=== PATIENT | female | born 1965 | race Caucasian/White ===

== ENCOUNTER 2023-12-06 13:59 | Emergency (ER) | payer MEDICARE, MEDICAID, SELFPAY ==
--- NOTE | 2023-12-06 | ECG_ITS ---
Test Reason : CHEST PAIN Blood Pressure : / mmHG Vent. Rate : 095 BPM Atrial Rate : 095 BPM P-R Int : 126 ms QRS Dur : 078 ms QT Int : 356 ms P-R-T Axes : -16 020 010 degrees QTc Int : 447 ms Normal sinus rhythm Normal ECG No previous ECGs available Referred By: Generic ED Physician Electronically Signed By:AIDEN DUMONT
--- NOTE | ~2023-12-06 | XR_ITS ---
EXAMINATION: XR CHEST CLINICAL INFORMATION: Shortness of breath COMPARISON: None available. TECHNIQUE: Frontal view of the chest was obtained. FINDINGS: Elevation of the left hemidiaphragm. No pneumothorax. Trachea is midline. Cardiac mediastinal silhouette is not enlarged. No large pleural effusion. Osseous structures are intact. Soft tissues are unremarkable. XR/XR chest 1V IMPRESSION: No acute cardiopulmonary process.
[2023-12-06 14:10] VITALS: BP 132/84; BP 157/87; PULSE 100; PULSE 101; RESP 18; TEMP 36.8; O2SAT 97; O2SAT 98; BMI 16.6
--- NOTE | 2023-12-06 14:20 | ED.CHESTPAIN ---
HPI - Chest Pain General Chief Complaint: Chest Pain Stated Complaint: CHEST PAIN Time Seen by Provider: 12/06/23 14:14 Source: patient and EMS Mode of arrival: EMS History of Present Illness HPI narrative: 58-year-old female presents via EMS from [facility] where she resides for depression and patient states that she is having left-sided chest discomfort abdominal discomfort nausea and back pain. Patient received aspirin from EMS. Related Data Previous Rx's ?Medication ?Instructions ?Recorded nitrofurantoin 100 mg PO Q12H 7 days #14 caps 12/06/23 monohydrate/macrocrystals 100 mg capsule (Macrobid) Allergies Allergy/AdvReac Type Severity Reaction Status Date / Time Penicillins Allergy Rash Verified 12/06/23 14:11 Sulfa (Sulfonamide Allergy Rash Verified 12/06/23 14:11 Antibiotics) Review of Systems Review of Systems: Pertinent positives and negatives as stated in HPI PMFSH Past Medical History Source: nursing notes reviewed Social History Social History Smoked in Last 30 Days: No Use of substances other than those prescribed or required for medical reasons: No Advance Directives: No Advance Directives Information Provided: Yes Do you have a plan to hurt others: No Plan Patient : No Physical Exam Vital Signs: Vital Signs: Last Vital Signs Temp 98.3 F 12/06/23 14:10 Pulse 85 12/06/23 16:01 Resp 14 12/06/23 16:01 BP 153/84 H 12/06/23 16:01 Pulse Ox 98 12/06/23 16:01 O2 Del Method Room Air 12/06/23 16:01 BMI result Body Mass Index 16.6 VITAL SIGNS: Reviewed. GENERAL: Well developed, well nourished, in no acute distress. HEAD: Normocephalic/atraumatic EYES: PERRLA, EOMI EARS: Ext canals without abnormality NOSE: Nares patent bilateral OROPHARYNX: no oral lesions noted, posterior pharynx clear NECK: Supple, no adenopathy LUNGS: Normal breath sounds. No adventitious sounds or accessory muscle use. SpO2<97> CARDIOVASCULAR: Regular rate and rhythm without noted murmurs ABDOMEN: Soft, non-tender, non-distended with bowel sounds. MUSCULOSKELETAL: No tenderness, deformities, or effusions noted on gross inspection. EXTREMITIES: No cyanosis, clubbing or edema. SKIN: Inspection of the skin reveals no rashes NEUROLOGIC: Alert and oriented x 4. Strength and sensation to light touch were grossly intact x 4. Medical Decision Making Medical Decision Making [facility] Narrative: 58-year-old female who appears well and has a history and clinical presentation, DDX: Viral illness, musculoskeletal pain, lower clinical suspicion for cardiopulmonary etiology. I reviewed all investigations and hematologic indices are significant for a leukocytosis with a positive urinalysis and patient received initial antibiotics and will be discharged with remaining course. Otherwise there is no anemia. Chemistry indices are grossly within normal limits without any noted derangements. Chest x-ray is not significant for infiltrate or venous congestion on my preliminary read. I sensitivity troponin is undetectable and there are no acute changes on EKG. Patient is otherwise discharged. Differential Diagnosis Differential Diagnoses: The differential diagnosis associated with the presentation includes Please see the discussion above Admission/Observation Consideration of admission/observation: Escalation of care including admission/observation considered Please see the discussion above Lab Data [facility] Lab Attestation statement: I reviewed the patient's lab results. Please see the discussion above 12/06/23 14:33 12/06/23 14:33 Labs: Lab Results 12/06/23 12/06/23 Range/Units 14:33 16:02 WBC 12.4 H (4.8-10.8) X10*3/uL RBC 4.82 (4.20-5.50) X10*6/uL Hgb 12.5 (12.0-16.0) g/dl Hct 39.1 (37.0-47.0) % MCV 81.1 (80.0-98.0) fL MCH 25.9 L (27.0-33.0) pg MCHC 32.0 (31.0-35.0) g/dl RDW 14.4 (11.0-16.0) % Plt Count 514 H (160-400) X10*3/uL MPV 9.6 (9.4-12.3) fL Immature Gran % (Auto) 0.4 (0.0-0.4) % Neut % (Auto) 72.1 (45-73) % Lymph % (Auto) 16.5 L (20-40) % [place] % (Auto) 10.0 (2-11) % Eos % (Auto) 0.4 (0-4) % Baso % (Auto) 0.6 (0-2) % Lymph # (Auto) 2.0 (1.2-4.9) X10*3/uL [place] # (Auto) 1.2 (0.1-1.2) X10*3/uL Eos # (Auto) 0.1 (0.0-0.4) X10*3/uL Baso # (Auto) 0.1 (0.0-0.2) X10*3/uL Abs Immat Gran (auto) 0.05 H (0.00-0.03) X10*3/uL Absolute Neuts (auto) 8.9 H (2.0-8.3) x10*3/uL Absolute Nucleated RBC 0.000 (0.0-0.012) X10*3/uL Nucleated RBC % (auto) 0.0 (0.0-0.2) /100WBC Sodium 136 (135-145) mmol/L Potassium 3.9 (3.3-5.1) mmol/L Chloride 102 (96-108) mmol/L Carbon Dioxide 22 (22-29) mmol/L Anion Gap 16 (12-20) BUN 10 (9-16) mg/dL Creatinine 0.87 (0.5-1.4) mg/dL Estim Creat Clear Calc 53.5 Estimated GFR > 60 Random Glucose 74 (60-115) mg/dL Calcium 9.0 (8.4-10.2) mg/dL Total Bilirubin 0.3 (0.0-1.0) mg/dL AST 13 (5-31) U/L ALT 16 (0-31) U/L Alkaline Phosphatase 78 (39-117) U/L Troponin I High Sens 3.2 (<3.5-17.0) ng/L B-Natriuretic Peptide 58 (<100) pg/mL Total Protein 6.2 L (6.5-8.0) g/dL Albumin 3.8 (3.5-5.0) g/dL Urine Color Yellow Urine Appearance Clear Urine pH 6.5 (5.0-9.0) Ur Specific [place] 1.020 (1.005-1.025) Urine Protein 30 (1+) H (Neg-Trace) mg/dL Urine Glucose (UA) Negative (Negative) mg/dL Urine Ketones Negative (Negative) mg/dL Urine Blood Negative (Negative) Urine Nitrite Negative (Negative) Ur Leukocyte Esterase Moderate (2+) H (Negative) Urine RBC 0-2 (0-2) /HPF Urine WBC 21-50 H (0-5) /HPF Ur Squamous Epith Cells 6-10 (0-2) /HPF Urine Bacteria Trace (None Seen) Hyaline Casts 0-2 (0-2) /LPF Independent Interpretation I performed an independent interpretation of an: EKG Interpretation: Normal sinus rhythm, HR-95, STEMI, IL/QRS/QTC is within normal limits. Radiology Impression Discussion of test interpretation with radiology: I have reviewed the radiologist's reading. Radiologist Impression: Please see the discussion above Critical Care Time Critical Care Time Critical Care Time: Yes Total Critical Care Time: 45 Attestation: I personally attest to this time spent taking care of the patient. Discharge Plan Discharge Clinical Impression: Atypical chest pain, UTI (urinary tract infection) Patient Disposition: Xfer Other Instructions: Urinary Tract Infection in Older Adults (ED) Additional Instructions: Complete the entire course of antibiotics as ordered. Prescriptions: New nitrofurantoin monohyd/m-cryst [Macrobid] 100 mg capsule 100 mg PO Q12H 7 Days Qty: 14 0RF Rx Instructions: must administer with a meal/food Print Language: Ukrainian
[2023-12-06 14:38] LABS: MANUAL DIFF FLAG NO
[2023-12-06 14:39] LABS: Basophils Absolute Auto 0.1 X10*3/uL (0.0-0.2); Basophils Percent Auto 0.6 % (0-2); Eosinophils Absolute Auto 0.1 X10*3/uL (0.0-0.4); Eosinophils Percent Auto 0.4 % (0-4); Hematocrit 39.1 % (37.0-47.0); Hemoglobin 12.5 g/dl (12.0-16.0); Imm Gran Abs Auto 0.05 X10*3/uL (0.00-0.03); Imm Gran Pct Auto 0.4 % (0.0-0.4); Lymphocytes Percent Auto 16.5 % (20-40); Mean Corpuscular Hemoglobin 25.9 pg (27.0-33.0); Mean Corpuscular Volume 81.1 fL (80.0-98.0); Mean Platelet Volume 9.6 fL (9.4-12.3); Monocytes Absolute Auto 1.2 X10*3/uL (0.1-1.2); Neutrophils Absolute Auto 8.9 x10*3/uL (2.0-8.3); Neutrophils Percent Auto 72.1 % (45-73); Platelet Count 514 X10*3/uL (160-400); Red Blood Count 4.82 X10*6/uL (4.20-5.50); Red Cell Distribution Width 14.4 % (11.0-16.0); White Blood Count 12.4 X10*3/uL (4.8-10.8)
--- OUTSIDE RECORDS SUMMARY | 2023-12-06 14:41 | XMS_ITS | Continuity of Care Document ---
Author Organization [facility] Address [address] [place] [phone]- Care Team Providers Care Program Manufacturing Leader Name Role Phone Vi CASTAÑEDA, Leda Gore Primary Care Physician [place] [facility] [place] 05/03/[address] [address]- Discharge Disposition: A-D/C Home Attending Physician: Steven Alves MD Admitting Physician: Steven Alves MD Referring Physician: Not on Staff, Referring MD Allergies, Adverse Reactions, Alerts Substance Reaction Severity Status codeine Active penicillin Active sulfADIAZINE Active Bactrim Active Demerol HCl Active Contrast Dye Active Immunizations Given and Recorded Vaccine Date Status Refusal Reason pneumococcal 23-valent vaccine 1 01/15/11 Given Not Given Vaccine Date Status Refusal Reason influenza virus vaccine, inactivated 06/04/13 Not Given Patient Refuses 1Early/Late Reason: Nursing Judgment Medications albuterol CFC free 90 mcg/inh inhalation aerosol 1 puffs, Inhalation, Every 6 hours, PRN for wheezing, # 6 Gm, 0 Refills, Maintenance, Inhaler, 1 puffs Inhalation Every 6 hours,PRN:for wheezing Start Date: 07/18/13 Status: Ordered amLODIPine 5 mg oral tablet 5 mg, 1, tablet, By Mouth, Daily, # 14 tablet, Refills 0, Tot. Refills 0, Maintenance, 04/29/17 18:41:10, Print Requisition Start Date: 04/29/17 Stop Date: 05/13/17 Status: Ordered Ativan 0.5 mg oral tablet 1 tablet = 0.5 mg, By Mouth, 2 times a day, 0 Refills, Maintenance, 01/14/17 13:37:06, Tablet Start Date: 01/14/17 Status: Ordered Ativan 1 mg oral tablet 1 tablet = 1 mg, By Mouth, 3 times a day, 0 Refills, Maintenance, 10/16/16 15:33:02 Start Date: 10/16/16 Status: Ordered baclofen 10 mg oral tablet 1 tablet = 10 mg, By Mouth, 3 times a day, PRN Spasm, # 90 tablet, 0 Refills, Maintenance, 01/16/1411:28:03, Tablet, 1 tablet By Mouth 3 times a day,x30 days,PRN:Spasm Start Date: 01/16/14 Stop Date: 02/15/14 Status: Ordered docusate sodium 100 mg oral capsule 2 capsule = 200 mg, By Mouth, Daily at bedtime, # 60 capsule, 0 Refills, Maintenance, Capsule, 2 capsule By Mouth Daily at bedtime Start Date: 07/18/13 Status: Ordered Fentanyl 25 mcg/hr Patch 0 Refills, Maintenance, 01/14/17 13:36:09 Start Date: 01/14/17 Status: Ordered hydrocortisone 1% topical ointment 1 application, Topically, 2 times a day, # 30 Gm, 0 Refills, Maintenance, 11/06/16 16:41:49, Ointment, 1 application Topically 2 times a day Start Date: 11/06/16 Status: Ordered hydrOXYzine hydrochloride 25 mg/mL intramuscular solution = 25 mg, By Mouth, Every 4 hours, 0 Refills, Maintenance, 01/14/17 13:35:31 Start Date: 01/14/17 Status: Ordered Latuda 180, By Mouth, Daily at bedtime, 0 Refills, Maintenance, 10/15/15 6:42:23 Start Date: 10/15/15 Status: Ordered levothyroxine 125 mcg (0.125 mg) oral tablet 1 tablet = 125 mcg, By Mouth, Daily, # 30 tablet, 0 Refills, Maintenance, Tablet, 1 tablet By MouthDaily Start Date: 07/18/13 Status: Ordered Protonix Tablet = 20 mg, By Mouth, 2 times a day, 0 Refills, Maintenance, 01/16/14 11:48:24, EC Tablet Start Date: 01/16/14 Status: Ordered Senna = 8.6 mg, By Mouth, 0 Refills, Maintenance, 01/14/17 13:34:03 Start Date: 01/14/17 Status: Ordered Vitamin B Complex oral tablet, extended release 1 tablet, By Mouth, Daily, # 30 tablet, 0 Refills, Maintenance, ER Tablet, 1 tablet By Mouth Daily Start Date: 07/18/13 Status: Ordered Vitamin C 500 mg oral tablet 1 tablet = 500 mg, By Mouth, 2 times a day, # 60 tablet, 0 Refills, Maintenance, Tablet, 1 tablet By Mouth 2 times a day Start Date: 07/18/13 Status: Ordered Zofran 4 mg oral tablet 1 tablet = 4 mg, By Mouth, Every 8 hours, PRN Dizziness, # 9 tablet, 0 Refills, Maintenance, 10/25/18 15:14:58 EDT, Tablet Start Date: 10/25/18 Stop Date: 10/28/18 Status: Ordered Problem List Condition Effective Dates Status Health Status Inform ant Hypothyroid(Confirmed) Active Results Radiology Reports * Exam Date Time Procedure Performing Provider Status 05/03/21 4:15 AM Chest 2 Views Frontal and Lat Elis Cosme; Auth (Verified) Notes: (Chest 2 Views Frontal and Lat) Reason For Exam: Chest Pain;Other: RESULT: Chest 2 Views Frontal and Lat Chest 2 Views Frontal and Lat Hx of Present Illness: SOB abd pain; Reason: Other:; Chest Pain; Clinical Question(s): CHF COMPARISON: Multiple priors, most recent 12/12/2020. FINDINGS: LINES AND TUBES: None. LUNGS AND PLEURA: Chronic elevation of the left hemidiaphragm. The lungs are clear.. No pleural effusion. No pneumothorax. HEART, MEDIASTINUM AND HOLLY: Heart is normal in size. Normal upper mediastinal and hilar contour. BONES AND SOFT TISSUES: No acute abnormality. IMPRESSION: No acute abnormality. I have personally reviewed the images and I agree with this report. WSN: [id number] Ordering Physician: Gisselle Ribeiro Dictated By: Guido Santos DO Dictated Date/Time: 05/03/21 8:46 am Reviewed By: Alice Rankin MD Signed By: Alice Rankin MD Signed Date/Time: 05/03/21 8:51 am Transcribed By: RODRI Transcribed Date/Time: 05/03/21 8:33 am Vital Signs Most recent to oldest [Reference Range]: 1 2 3 Oxygen Saturation [94-100 %] 100 % (05/03/21 7:09 AM) 94 % (05/03/21 4:30 AM) 88 % *L* (05/03/21 4:10 AM) Pulse Rate [55-90 bpm] 82 bpm (05/03/21 7:09 AM) 90 bpm (05/03/21 3:03 AM) Blood Pressure [90-138/55-84 mm Hg] 122/79mm Hg (05/03/21 7:09 AM) 129/85mm Hg (05/03/21 3:03 AM) Respiratory Rate [16-30 br/min] 20 br/min (05/03/21 7:09 AM) 18 br/min (05/03/21 3:03 AM) Temperature [96.8-100.4 DegF] 98.3 DegF (05/03/21 3:03 AM) Liters per Minute 2 L/min (05/03/21 4:30 AM) Mode of Delivery (Oxygen) Room air (05/03/21 7:09 AM) Nasal cannula (05/03/21 4:30 AM) Room air (05/03/21 4:10 AM) Temperature Route Oral (05/03/21 3:03 AM) Social History Social History Type Response Smoking Status Never smoker entered on: 12/04/16 Sex
--- OUTSIDE RECORDS SUMMARY | 2023-12-06 14:41 | XMS_ITS | Continuity of Care Document ---
Author Organization [facility] Address [address] [place] [id number]- Care Team Providers Care Bellman Name Role Phone Vi CASTAÑEDA, Leda Gore Primary Care Physician [phone] Encounter [facility] [place] Date(s): 08/22/21 - 09/21/[address] [id number] Attending Physician: Not on Staff, Attending MD Admitting Physician: Not on Staff, Admitting MD Referring Physician: Not on Staff, Referring MD Allergies, Adverse Reactions, Alerts Substance Reaction Severity Status codeine Active penicillin Active Bactrim Active Contrast Dye Active sulfADIAZINE Active Demerol HCl Active Immunizations Given and Recorded Vaccine Date [...] mg, By Mouth, 2 times a day, PRN anxiety, 0 Refills, Maintenance, 01/14/17 13:37:06 EDT, Tablet Start Date: 01/14/17 Status: Ordered baclofen 10 mg oral tablet 1 tablet = 10 mg, By Mouth, 3 times a day, PRN Spasm, # 90 tablet, 0 Refills, Maintenance, 01/16/1411:28:03, Tablet, 1 tablet By Mouth 3 times a day,x30 days,PRN:Spasm Start Date: 01/16/14 Stop Date: 02/15/14 Status: Ordered Belsomra 10 mg oral tablet 1 tablet = 10 mg, By Mouth, Daily at bedtime, 0 Refills, Maintenance, 05/23/21 15:01:00 EDT, Partial fill upon patient request if the prescription is for a schedule II opioid drug. Start Date: 05/23/21 Status: Ordered duloxetine 30 mg oral enteric coated capsule 1 capsule = 30 mg, By Mouth, Daily, 0 Refills, Maintenance, 08/22/21 16:08:00 EST, Capsule, Partialfill upon patient request if the prescription is for a schedule II opioid drug. Start Date: 08/22/21 Status: Ordered fentaNYL 50 mcg/hr transdermal film, extended release 1 patch, Topically, Every 72 hours, 0 Refills, Maintenance, 05/23/21 15:01:00 EDT, Patch, Partial fill upon patient request if the prescription is for a schedule II opioid drug. Start Date: 05/23/21 Status: Ordered Latuda 120 mg oral tablet 1 tablet = 120 mg, By Mouth, Daily at supper, # 30 tablet, 0 Refills, Maintenance, 05/23/21 15:01:00 EDT, Tablet, Partial fill upon patient request if the prescription is for a schedule II opioid drug. Start Date: 05/23/21 Status: Ordered levothyroxine 0.1 mg oral tablet 1 tablet = 100 mcg, By Mouth, Daily, this is a dose reduction from previous dose of levothyroxine 0.112 mg, # 30 tablet, 1 Refills, Maintenance, 08/22/21 16:30:00 EST, Tablet, [facility][id number], Partial fill upon patient request if the presc... Start Date: 08/22/21 Status: Ordered meloxicam 7.5 mg oral tablet 1 tablet = 7.5 mg, By Mouth, 2 times a day with meals, PRN Pain , Moderate Start Date: 05/23/21 Status: Ordered Vitamin C 500 mg oral tablet 1 tablet = 500 mg, By Mouth, 2 times a day, # 60 tablet, 0 Refills, Maintenance, Tablet, 1 tablet By Mouth 2 times a day Start Date: 07/18/13 Status: Ordered VITAMIN D3 2000UNIT CAPSULES TAKE ONE CAPSULE BY MOUTH EVERY DAY WITH A MEAL Start Date: 05/23/21 Status: Ordered Problem List Condition Effective Dates Status Health Status Inform ant Chest pain(Confirmed) Active Hypertension(Confirmed) Active Hypothyroid(Confirmed) Active QT prolongation(Confirmed) Active Severe obesity(Confirmed) Active Social History Social History Type Response Smoking Status 10 or more cigarette s (1/2 pack or more)/day in last 30 days entered on: 05/24/21 Sex
--- OUTSIDE RECORDS SUMMARY | 2023-12-06 14:41 | XMS_ITS | Continuity of Care Document ---
Author Organization [facility] ter Address [address] [place] [address]- Care Team Providers Care Senior Sales Operations Analyst Name Role Phone Vi CASTAÑEDA, Leda Gore Primary Care Physician [phone] Encounter [facility] [place] Date(s): 07/07/22 - 07/07/[address] [address]- Discharge Disposition: A-D/C Walkout Attending Physician: Not on Staff, Attending MD Admitting Physician: Not on Staff, Admitting MD Referring Physician: Not on Staff, Referring MD Allergies, Adverse Reactions, Alerts Substance Reaction Severity Status codeine Active penicillin Active Contrast Dye Active sulfADIAZINE Active Bactrim Active Demerol HCl Active Immunizations Given and [...] Date: 04/29/17 Stop Date: 05/13/17 Status: Ordered aspirin 81 mg oral delayed release tablet = 81 mg, By Mouth, Daily, # 30 tablet, 0 Refills, Maintenance, 01/10/22 11:29:00 EDT, EC Tablet, [facility] #[id number], Partial fill upon patient request if the prescription is for a schedule II opioid drug., 165, cm, 11/28/21 12:34:00 EDT, Heig... Start Date: 01/10/22 Stop Date: 02/09/22 Status: Ordered Ativan 0.5 mg oral tablet [...] opioid drug. Start Date: 05/23/21 Status: Ordered fentaNYL 50 mcg/hr transdermal film, [...] drug. Start Date: 05/23/21 Status: Ordered levothyroxine 0.112 mg oral tablet TAKE 1 TABLET BY MOUTH EVERY DAY Start Date: 11/28/21 Status: Ordered meloxicam 7.5 mg oral tablet 1 tablet = 7.5 mg, By Mouth, 2 times a day with meals, PRN Pain , Moderate Start Date: 05/23/21 Status: Ordered Tums 500 mg oral tablet, chewable 500 mg, 1, tablet, Chew, 2 times a day, PRN, # 12 tablet, Refills 0, Tot. Refills 0, Maintenance, as needed for dyspepsia, 06/08/22 21:22:00 EDT, Route to Pharmacy Electronically, [facility] #[id number], Partial fill upon patient request if the p... Start Date: 06/08/22 Status: Ordered Problem List Condition Confirmation Course Effective Dates Status Health St [facility] Informant Chest pain Confirmed Active Hypertension Confirmed Active Hypothyroid Confirmed Active Obese class II Confirmed Active QT prolongation Confirmed Active Results Radiology Reports * Exam Date Time Procedure Performing Provider Status 07/07/22 6:44 PM Chest 2 Views Frontal and Lat Sandy Meza; Auth (Verified) Notes: (Chest 2 Views Frontal and Lat) Reason For Exam: Chest Pain;Other: RESULT: Chest 2 Views Frontal and Lat Chest 2 Views Frontal and Lat Hx of Present Illness: SOB x 30 minutes. Acute onset while watching tv. Denies CP. Dyspnea worse with walking, however also feels SOB at rest.; Reason: Other:; Chest Pain; Clinical Question(s): Other: COMPARISON: 06/23/2022 FINDINGS: LINES AND TUBES: None. LUNGS AND PLEURA: Low lung volumes with mild basilar atelectasis. Lungs are otherwise clear with no consolidation. No pleural effusion. No pneumothorax. HEART, MEDIASTINUM AND HOLLY: Heart is normal in size. Normal mediastinal and hilar contour. BONES AND SOFT TISSUES: No acute abnormality. IMPRESSION: No acute abnormality. WSN: [id number] Ordering Physician: Tino Arita Dictated By: Gaetano Stevenson MD Dictated Date/Time: 07/07/22 6:46 pm Reviewed By: Gaetano Stevenson MD Signed By: Gaetano Stevenson MD Signed Date/Time: 07/07/22 6:46 pm Transcribed By: RODRI Transcribed Date/Time: 07/07/22 6:45 pm Vital Signs Most recent to oldest [Reference Range]: 1 2 Height 167 cm (07/07/22 6:04 PM) Weight 91 kg (07/07/22 6:04 PM) Oxygen Saturation [94-100 %] 98 % (07/07/22 6:04 PM) 97 % (07/07/22 5:40 PM) Pulse Rate [55-90 bpm] 87 bpm (07/07/22 6:04 PM) 86 bpm (07/07/22 5:40 PM) Blood Pressure [90-138/55-84 mm Hg] 135/ 88mm Hg (07/07/22 6:04 PM) 162/100mm Hg *H* (07/07/22 5:40 PM) Respiratory Rate [16-30 br/min] 20 br/mi n (07/07/22 6:04 PM) 16 br/min (07/07/22 5:40 PM) Temperature [96.8-100.4 DegF] 98.6 DegF (07/07/22 6:04 PM) 98.0 DegF (07/07/22 5:40 PM) Mode of Delivery (Oxygen) Room air (07/07/22 6:04 PM) Room air (07/07/22 5:40 PM) Blood pressure sites Arm, left (07/07/22 6:04 PM) Temperature Route Oral (07/07/22 6:04 PM) Oral (07/07/22 5:40 PM) Dry Weight 91 kg (07/07/22 6:04 PM) Dry Weight Obtained Via Patient/family s tated (07/07/22 6:04 PM) Social History Social History Type Response Tobacco Use: 4 or less cigar ettes(less than 1/4 pack)/day in last 30 days. Sex Note * [facility] , CIS S: TRANSCRIBE Gaetano Stevenson MD: VERIFY Event Display: Result: Authored Date: Chest 2 Views Frontal and Lat Hx of Present Illness: SOB x 30 minutes. Acute onset while watching tv. Denies CP. Dyspnea worse with walking, however also feels SOB at rest.; Reason: Other:; Chest Pain; Clinical Question(s): Other: COMPARISON: 06/23/2022 FINDINGS: LINES AND TUBES: None. LUNGS AND PLEURA: Low lung volumes with mild basilar atelectasis. Lungs are otherwise clear with no consolidation. No pleural effusion. No pneumothorax. HEART, MEDIASTINUM AND HOLLY: Heart is normal in size. Normal mediastinal and hilar contour. BONES AND SOFT TISSUES: No acute abnormality. IMPRESSION: No acute abnormality. WSN: [id number] Ordering Physician: Tino Arita Dictated By: Gaetano Stevenson MD Dictated Date/Time: 07/07/22 6:46 pm Reviewed By: Gaetano Stevenson MD Signed By: Gaeatno Stevenson MD Signed Date/Time: 07/07/22 6:46 pm Transcribed By: RODRI Transcribed Date/Time: 07/07/22 6:45 pm Patient Care team information Care Team Personnel Name: Leda Lebron MD Position: [facility] Physician (General Medicine) Member Role: PCP Address: Address: [address] [place] [address] Name: Romina Henning Position: [facility] RN Member Role: Primary Care Nurse Name: Caron Short RN Position: [facility] ED RN W/OE and Tasks Member Role: Primary Care Nurse Name: Ashleigh Levy RN Position: [facility] RN Member Role: Primary Care Nurse Name: Jimbo Payne RN Position: [facility] RN Member Role: Primary Care Nurse Name: Vicky Kaur RN Position: [facility] Onco RN Member Role: Primary Care Nurse Name: Flores Gross RN Position: [facility] RN Member Role: Primary Care Nurse Name: Mally Chauhan RN Position: [facility] Hospital Senior Business Manager Member Role: Primary Care Nurse Name: Nedra Garza Position: [facility] RN Member Role: Primary Care Nurse Care Team Related Persons Name: ESTELA WRIGHT Address: home [address] [place] [address] Name: FLORES WRIGHT Address: home [address] [place] [address] Name: BEATRIZ WRIGHT Address: home [address] [place] [address] Name: FLORES CHAUHAN Address: home [address] [place] [address] Name: YAN CHAUHAN Address: home [address] [place] [address]
--- OUTSIDE RECORDS SUMMARY | 2023-12-06 14:41 | XMS_ITS | Continuity of Care Document ---
Author Organization [facility] Address [address] [place] [address]- Care Team Providers Care Data Warehouse Architect Name Role Phone Amelia CASTAÑEDA, Moiz Jones Primary Care Physician [place] [facility] [place] - 03/05/[address] [address]- Discharge Disposition: A-D/C Walkout Attending Physician: Not [...] Refills, Maintenance, 01/10/22 11:29:00 EDT, EC Tablet, [facility] #[id number], Partial fill upon patient request if the [...] opioid drug. Start Date: 05/23/21 Status: Ordered escitalopram 10 mg oral tablet 1 tablet = 10 mg, By Mouth, Daily, # 90 tablet, 0 Refills, Maintenance, 01/22/23 23:13:00 EDT, Tablet, Partial fill upon patient request if the prescription is for a schedule II opioid drug. Start Date: 01/22/23 Status: Ordered fentaNYL 50 mcg/hr transdermal film, extended release 1 patch, Topically, Every 72 hours, 0 Refills, Maintenance, 05/23/21 15:01:00 EDT, Patch, Partial fill upon patient request if the prescription is for a schedule II opioid drug. Start Date: 05/23/21 Status: Ordered hydrOXYzine hydrochloride 25 mg oral tablet 1 tablet = 25 mg, By Mouth, Daily, PRN as needed for itching, # 30 tablet, 0 Refills, Maintenance, 01/22/23 23:14:00 EDT, Tablet, Partial fill upon patient request if the prescription is for a schedule II opioid drug. Start Date: 01/22/23 Status: Ordered Latuda 120 mg oral tablet [...] 06/08/22 21:22:00 EDT, Route to Pharmacy Electronically, [facility] #[id number], Partial fill upon patient request if the p... Start Date: 06/08/22 Status: Ordered Problem List Condition Confirmation Course Effective Dates Status Health St atus Informant Chest pain Confirmed Active Hypertension Confirmed Active Hypothyroid Confirmed Active QT prolongation Confirmed Active Vital Signs Most recent to oldest [Reference Range]: 1 Height 168 cm (03/05/23 6:21 PM) Oxygen Saturation [94-100 %] 96 % (03/05/23 6:21 PM) Pulse Rate [55-90 bpm] 102 bpm *H* (03/05/23 6:21 PM) Blood Pressure [90-138/55-84 mm Hg] 186/ 103mm Hg *H* (03/05/23 6:21 PM) Temperature [96.8-100.4 DegF] 98.5 DegF (03/05/23 6:21 PM) Mode of Delivery (Oxygen) Room air (03/05/23 6:21 PM) Blood pressure sites Arm, left (03/05/23 6:21 PM) Temperature Route Oral (03/05/23 6:21 PM) Dry Weight 93.5 kg (03/05/23 6:21 PM) Weight Obtained Via Patient/family state d (03/05/23 6:21 PM) Dry Weight Obtained Via Patient/family s tated (03/05/23 6:21 PM) Social History Social History Type Response Tobacco Use: 4 or less cigar ettes(less than 1/4 pack)/day in last 30 days. Sex Patient Care team information Care Team Personnel Name: Caron Short RN Position: [facility] RN Member Role: Primary Care Nurse Name: Ashleigh Levy RN Position: [facility] RN Member Role: Primary Care Nurse Name: Jimbo Payne RN Position: [facility] RN Member Role: Primary Care Nurse Name: Moiz Cisneros MD Position: Reference Physician Member Role: PCP Address: Address: [address] [place] [address] Name: Vicky Kaur RN Position: [facility] Onco RN Member Role: Primary Care Nurse Name: Delmy Gross RN Position: [facility] RN Member Role: Primary Care Nurse Name: Mally Chauhan RN Position: [facility] Nurse'S Assistant Member Role: Primary Care Nurse Name: Nedra Garza RN Position: [facility] RN Member Role: Primary Care Nurse Care Team Related Persons Name: ESTELA WRIGHT Address: [address] [address] Name: DELMY WRIGHT Address: home [address] [place] [address] Name: BEATRIZ WRIGHT Address: home [address] [place] [address] Name: DELMY CHAUHAN Address: home [address] [place] [address] Name: YAN CHAUHAN Address: home [address] [place] [address]
--- OUTSIDE RECORDS SUMMARY | 2023-12-06 14:41 | XMS_ITS | Continuity of Care Document ---
Author Organization [facility] Address [address] [place] [address]- Care Team Providers Care Marketing Program Manager Name Role Phone Vi CASTAÑEDA, Leda Gore Primary Care Physician [place] [facility] [place](s): 05/10/23 - 05/11/[address] [address]- Discharge Disposition: A-D/C Walkout Attending Physician: Not on Staff, Attending MD Admitting Physician: Not on Staff, Admitting MD Referring Physician: Not on Staff, Referring MD Allergies, Adverse Reactions, Alerts Substance Reaction Severity Status codeine Active penicillin Active sulfADIAZINE Active Bactrim Active Demerol HCl Active Contrast Dye Active Immunizations Given and Recorded Vaccine Date Status Refusal Reason pneumococcal 23-valent vaccine 1 01/15/11 Given 1Early/Late Reason: Nursing Judgment Medications albuterol CFC [...] Refills, Maintenance, 01/10/22 11:29:00 EDT, EC Tablet, [facility] #[id number], Partial fill upon patient request if the [...] 06/08/22 21:22:00 EDT, Route to Pharmacy Electronically, [facility] #[id number], Partial fill upon patient request if the p... Start Date: 06/08/22 Status: Ordered Problem List Condition Confirmation Course Effective Dates Status Health St at[facility] Informant Chest pain Confirmed Active Hypertension Confirmed Active Hypothyroid Confirmed Active QT prolongation Confirmed Active Results Radiology Reports * Exam Date Time Procedure Performing Provider Status 05/10/23 8:23 PM Chest 2 Views Frontal and Lat [place] , Vasquez; Auth (Verified) Notes: (Chest 2 Views Frontal and Lat) Reason For Exam: Shortness of Breath RESULT: Chest 2 Views Frontal and Lat Chest 2 Views Frontal and Lat INDICATION: Shortness of breath with lower back pain. COMPARISON: Multiple prior radiographs, most recent 04/25/2023. FINDINGS: LINES AND TUBES: None. LUNGS AND PLEURA: Clear lungs. Normal pulmonary vascularity. No pleural effusion. No pneumothorax. HEART, MEDIASTINUM AND HOLLY: Heart is normal in size. Normal mediastinal and hilar contour. BONES AND SOFT TISSUES: No acute abnormality. IMPRESSION: No evidence of acute abnormality. I have personally reviewed the images and I agree with this report. WSN: [id number] Ordering Physician: Adin Vergara Dictated By: Tone Isaac MD Dictated Date/Time: 05/10/23 8:44 pm Reviewed By: Piero Youssef MD Signed By: Piero Youssef MD Signed Date/Time: 05/10/23 8:49 pm Transcribed By: RODRI Transcribed Date/Time: 05/10/23 8:26 pm Vital Signs Most recent to oldest [Reference Range]: 1 2 3 Height 170 cm (05/10/23 6:38 PM) Oxygen Saturation [94-100 %] 99 % (05/11/23 1:29 AM) 98 % (05/10/23 6:38 PM) 98 % (05/10/23 6:22 PM) Pulse Rate [55-90 bpm] 81 bpm (05/11/23 1:29 AM) 87 bpm (05/10/23 6:38 PM) Blood Pressure [90-138/55-84 mm Hg] 132/102mm Hg (05/11/23 1:29 AM) 163/92mm Hg *H* (05/10/23 6:38 PM) Respiratory Rate [16-30 br/min] 16 br/min (05/10/23 6:38 PM) Temperature [96.8-100.4 DegF] 98.4 DegF (05/11/23 1:29 AM) 97.9 DegF (05/10/23 6:38 PM) Liters per Minute 2 L/min (05/10/23 6:22 PM) Mode of Delivery (Oxygen) Room air (05/10/23 6:38 PM) Nasal cannula (05/10/23 6:22 PM) Blood pressure sites Arm, right (05/11/23 1:29 AM) Arm, right (05/10/23 6:38 PM) Temperature Route Oral (05/11/23 1:29 AM) Oral (05/10/23 6:38 PM) Dry Weight 93 kg (05/10/23 6:38 PM) Dry Weight Obtained Via Patient/family s tated (05/10/23 6:38 PM) Social History Social History Type Response Tobacco Use: 4 or less cigar ettes(less than 1/4 pack)/day in last 30 days. Sex EKG study * Event Display: EKG Authored Date: Patient Care team information Care Team Personnel Name: Leda Lebron MD Position: [facility] Physician (General Medicine) Member Role: PCP Address: Address: [address] [place] [id number] Name: Caron Short RN Position: S RN Member Role: Primary Care Nurse Name: Ashleigh Levy RN Position: S RN Member Role: Primary Care Nurse Name: Jimbo Payne RN Position: [facility] RN Member Role: Primary Care Nurse Name: Vicky Kaur RN Position: [facility] Onco RN Member Role: Primary Care Nurse Name: Flores Gross RN Position: [facility] RN Member Role: Primary Care Nurse Name: Mally Chauhan RN Position: [facility] Hospital Dust Control Engineer Member Role: Primary Care Nurse Name: Nedra Garza RN Position: [facility] RN Member Role: Primary Care Nurse Care Team Related Persons Name: ESTELA WRIGHT Address: home [address] [place] [address] Name: FLORES WRIGHT Address: home [address] [place] [address] Name: BEATRIZ WRIGHT Address: home [address] [place] [address] Name: FLORES CHAUHAN Address: home [address] [place] [address] Name: YAN CHAUHAN Address: [address] [address]
--- OUTSIDE RECORDS SUMMARY | 2023-12-06 14:41 | XMS_ITS | Continuity of Care Document ---
Author Organization [facility] ter Address [address] [place] [id number]- Care Team Providers Care Pamphlet Distributor Name Role Phone Vi CASTAÑEDA, Leda Gore Primary Care Physician Encounter [facility] [place] Date(s): 01/23/23 - 01/23/[address] [address]- Discharge Disposition: A-D/C Walkout Attending Physician: Not [...] Refills, Maintenance, 01/10/22 11:29:00 EDT, EC Tablet, [facility] #[id number], Partial fill upon patient request if the [...] 06/08/22 21:22:00 EDT, Route to Pharmacy Electronically, [facility] #[id number], Partial fill upon patient request if the p... Start Date: 06/08/22 Status: Ordered Problem List Condition Confirmation Course Effective Dates Status Health St at[facility] Informant Chest pain Confirmed Active Hypertension Confirmed Active Hypothyroid Confirmed Active QT prolongation Confirmed Active Vital Signs Most recent to oldest [Reference Range]: 1 Height 170 cm (01/23/23 6:21 PM) Oxygen Saturation [94-100 %] 97 % (01/23/23 6:21 PM) Pulse Rate [55-90 bpm] 99 bpm *H* (01/23/23 6:21 PM) Blood Pressure [90-138/55-84 mm Hg] 171/ 89mm Hg 1 *H* (01/23/23 6:21 PM) Respiratory Rate [16-30 br/min] 19 br/mi n (01/23/23 6:21 PM) Temperature [96.8-100.4 DegF] 98.4 DegF (01/23/23 6:21 PM) Mode of Delivery (Oxygen) Room air (01/23/23 6:21 PM) Blood pressure sites Arm, left (01/23/23 6:21 PM) Temperature Route Oral (01/23/23 6:21 PM) Dry Weight 93.2 kg (01/23/23 6:21 PM) Dry Weight Obtained Via Patient/family s tated (01/23/23 6:21 PM) 1Result Comment: AMY BUTTS AWARED Social History Social History Type Response Tobacco Use: 4 or less cigar ettes(less than 1/4 pack)/day in last 30 days. Sex Patient Care team information Care Team Personnel Name: Leda Lebron MD Position: [facility] Physician (General Medicine) Member Role: PCP Address: Address: [address] [place] [address]- Name: Caron Short RN Position: [facility] ED RN W/OE and Tasks Member Role: Primary Care Nurse Name: Ashleigh Levy RN Position: [facility] RN Member Role: Primary Care Nurse Name: Jimbo Payne RN Position: [facility] RN Member Role: Primary Care Nurse Name: Vincent RNVicky Position: [facility] Onco RN Member Role: Primary Care Nurse Name: Delmy Gross RN Position: [facility] RN Member Role: Primary Care Nurse Name: Mally Chauhan RN Position: [facility] Hospital Brine Tank Tender Member Role: Primary Care Nurse Name: Nedra Garza RN Position: [facility] RN Member Role: Primary Care Nurse Care Team Related Persons Name: ESTELA WRIGHT Address: home [address] [place] [address] Name: DELMY WRIGHT Address: home [address] [place] [address] Name: BEATRIZ WRIGHT Address: home [address] [place] [address] Name: DELMY CHAUHAN Address: home [address] [place] [address] Name: YAN CHAUHAN Address: home [address] [place] [address]
--- OUTSIDE RECORDS SUMMARY | 2023-12-06 14:41 | XMS_ITS | Continuity of Care Document ---
Author Organization [facility] ter Address [address] [place] [address]- Care Team Providers Care Efficiency Miner Blasting Name Role Phone Amelia CASTAÑEDA, Moiz Jones Primary Care Physician En[place] [facility] [place] Date(s): 10/05/23 - 10/06/[address] [address]- Discharge Disposition: A-D/C Walkout Attending Physician: Not on Staff, Attending MD Admitting Physician: Not on Staff, Admitting MD Referring Physician: Not on Staff, Referring MD Allergies, Adverse Reactions, Alerts Substance Reaction Severity Status codeine Active penicillin Active Contrast Dye Active sulfADIAZINE Active Bactrim Active Demerol HCl Active Immunizations Given and Recorded Vaccine Date Status Refusal Reason pneumococcal 23-valent vaccine 1 01/15/11 Given tetanus-diphtheria toxoids (Td) 08/10/02 Recorded 1Early/Late Reason: Nursing Judgment Medications albuterol CFC [...] Refills, Maintenance, 01/10/22 11:29:00 EDT, EC Tablet, [facility] #[id number], Partial fill upon patient request if the [...] opioid drug. Start Date: 01/22/23 Status: Ordered levothyroxine 0.112 mg oral tablet TAKE 1 TABLET BY MOUTH EVERY DAY Start Date: 11/28/21 Status: Ordered lurasidone 80 mg oral tablet = 80 mg, By Mouth, Daily at supper, # 30 each, 1 Refills, Maintenance, 10/01/23 10:59:00 EST, Tablet, [facility] #[id number], Partial fill upon patient request if the prescription is for a schedule II opioid drug., 169, cm, 10/01/23 9:15:00 EST,... Start Date: 10/01/23 Stop Date: 11/30/23 Status: Ordered meloxicam 7.5 mg oral tablet 1 tablet = 7.5 mg, By Mouth, 2 times a day with meals, PRN Pain , Moderate Start Date: 05/23/21 Status: Ordered nicotine 21 mg/24 hr transdermal film, extended release 1 patch, Topically, Daily, for 14 days, # 14 patch, 0 Refills, Acute 10/15/23 11:00:00 EST, 10/01/23 11:00:00 EST, Patch, [facility] #[id number], Partial fill upon patient request if the prescription is for a schedule II opioid drug., 1 patch Top... Start Date: 10/01/23 Stop Date: 10/15/23 Status: Ordered Tums 500 mg oral tablet, chewable 500 mg, 1, tablet, Chew, 2 times a day, PRN, # 12 tablet, Refills 0, Tot. Refills 0, Maintenance, as needed for dyspepsia, 06/08/22 21:22:00 EDT, Route to Pharmacy Electronically, [email or web address] #[email or web address], Partial fill upon patient request if the p... Start Date: 06/08/22 Status: Ordered Problem List Condition Confirmation Course Effective Dates Status Health St atus Informant Benign essential hypertension Confirmed Active Chest pain Confirmed Active Recurrent chest pain Confirmed Active Chronic back pain Confirmed Active Chronic constipation Confirmed Active B12 deficiency Confirmed Active Edema leg Confirmed Active Fibromyalgia Confirmed Active Fragile X syndrome Confirmed Active GERD without esophagitis Confirmed Active Headache disorder Confirmed Active History of traumatic brain injury Confirmed Active Hypertension Confirmed Active Hyponatremia Confirmed Active Hypothyroid Confirmed Active Leukocytosis Confirmed Active Mild intermittent asthma Confirmed Active Obese class I Confirmed Active Pre-diabetes Confirmed Active QT prolongation Confirmed Active Psychogenic polydipsia Confirmed Active Results Radiology Reports * Exam Date Time Procedure Performing Provider Status 10/06/23 12:25 AM Chest 2 Views Frontal and Lat [place]; Auth (Verified) Notes: (Chest 2 Views Frontal and Lat) Reason For Exam: Chest Pain;Other: RESULT: Chest 2 Views Frontal and Lat Examination: Chest performed on 10/06/2023. History: Shortness of breath. Findings: Frontal and lateral views of the chest are compared to a prior study dated 09/26/2023. The cardiac and mediastinal silhouettes are within normal limits. The lungs are clear. Scoliosis ispresent. There is a hiatal hernia. Impression: There is no acute cardiopulmonary disease. WSN: [id number] Ordering Physician: Lizeth Oneal Dictated By: Tiffany Lyles MD Dictated Date/Time: 10/06/23 7:36 am Reviewed By: Tiffany Lyles MD Signed By: Tiffany Lyles MD Signed Date/Time: 10/06/23 7:36 am Transcribed By: RODRI Transcribed Date/Time: 10/06/23 7:36 am Vital Signs Most recent to oldest [Reference Range]: 1 2 Height 168 cm (10/05/23 10:48 PM) 168 cm (10/05/23 7:35 PM) Weight 93.3 kg (10/05/23 10:48 PM) 93.3 kg (10/05/23 7:35 PM) Oxygen Saturation [94-100 %] 98 % (10/06/23 5:07 AM) 96 % (10/05/23 7:35 PM) Pulse Rate [55-90 bpm] 80 bpm (10/06/23 5:07 AM) 91 bpm *H* (10/05/23 7:35 PM) Body Mass Index [18.5-24.99 kg/m2] 33.06 kg/m2 *>HHI* (10/05/23 7:35 PM) Blood Pressure [90-138/55-84 mm Hg] 125/ 81mm Hg (10/06/23 5:07 AM) 154/86mm Hg *H* (10/05/23 7:35 PM) Respiratory Rate [16-30 br/min] 17 br/mi n (10/05/23 7:35 PM) Temperature [96.8-100.4 DegF] 97.9 DegF (10/06/23 5:07 AM) 98.3 DegF (10/05/23 7:35 PM) Mode of Delivery (Oxygen) Room air (10/06/23 5:07 AM) Room air (10/05/23 7:35 PM) Blood pressure sites Arm, left (10/06/23 5:07 AM) Arm, left (10/05/23 7:35 PM) Temperature Route Oral (10/06/23 5:07 AM) Oral (10/05/23 7:35 PM) Dry Weight 93.3 kg (10/05/23 10:48 PM) 93.3 kg (10/05/23 7:35 PM) Weight Obtained Via Standing scale (10/05/23 7:35 PM) Dry Weight Obtained Via Standing scale (10/05/23 7:35 PM) Social History Social History Type Response Tobacco Interested in cessat ion: No. Yes Sex EKG study * Event Display: EKG Authored Date: * Event Display: ECG 12-Lead Authored Date: Please click on pdf link to open report * Event Display: ECG 12-Lead Authored Date: Ventricular Rate: 85 BPM Atrial Rate: 85 BPM P-R Interval: 136 ms QRS Duration: 74 ms Q-T Interval: 410 ms QTC Calculation(Bazett): 487 ms P [place]: -15 degrees R [place]: 14 degrees T [place]: 17 degrees Normal sinus rhythm Normal ECG When compared with ECG of 30-SEP-2023 08:47, T wave amplitude has decreased in Anterior leads Confirmed by ELY QUESADA MD ([id number]) on 10/06/2023 8:30:54 AM [place]: ELY QUESADA MD Patient Care team information Care Team Personnel Name: Clemencia Camargo RN Position: [facility] RN Member Role: Primary Care Nurse Name: Nikkie Tubbs Position: [facility] Outreach Member Role: Lifetime Consulting Physician Name: Caron Short RN Position: [facility] RN Member Role: Primary Care Nurse Name: Prachi Negron RN Position: [facility] RN Member Role: Primary Care Nurse Name: Tami Soler RN Position: [facility] RN Member Role: Primary Care Nurse Name: Ashleigh Mercado RN Position: [facility] RN Member Role: Primary Care Nurse Name: Heidi Moreland Position: [facility] RN Member Role: Primary Care Nurse Name: Ashleigh Levy RN Position: [facility] Onco RN Member Role: Primary Care Nurse Name: Jimbo Payne RN Position: [facility] RN Member Role: Primary Care Nurse Name: Moiz Cisneros MD Position: Reference Physician Member Role: PCP Address: Address: [address] [place], [place] [address] Name: Danie Maza RN Position: [facility] RN Member Role: Primary Care Nurse Name: Vicky Kaur RN Position: [facility] Onco RN Member Role: Primary Care Nurse Name: Flores Gross RN Position: [facility] RN Member Role: Primary Care Nurse Name: Mally Chauhan RN Position: [facility] Hospital Commercial Real Estate Associate Member Role: Primary Care Nurse Name: Nedra Garza RN Position: [facility] RN Member Role: Primary Care Nurse Care Team Related Persons Name: ESTELA WRIGHT Address: home [address] [place] [address] Name: FLORES WRIGHT Address: home [address] [place] [address] Name: BEATRIZ WRIGHT Name: FLORES CHAUHAN Address: home [address] [place] [address] Name: YAN CHAUHAN Address: home [address] [place] [address]
--- OUTSIDE RECORDS SUMMARY | 2023-12-06 14:41 | XMS_ITS | Continuity of Care Document ---
Author Organization [facility] ter Address [address] [place] [id number]- Care Team Providers Care Ad Compositor Name Role Phone Vi CASTAÑEDA, Leda Gore Primary Care Physician Encounter [facility] [place] Date(s): 05/23/21 - 05/24/[address] [id number]- Encounter Diagnosis Hypoxia(Final) - 05/23/21 Discharge Disposition: A-D/C Home Attending Physician: Marsha Maciel DO Admitting Physician: Panfilo Iraheta MD Referring Physician: Not on Staff, Referring MD Allergies, Adverse Reactions, Alerts Substance Reaction Severity Status codeine Active penicillin Active Contrast Dye Active Demerol HCl Active sulfADIAZINE Active Bactrim Active Immunizations Given and Recorded Vaccine Date [...] 13:37:06, Tablet Start Date: 01/14/17 Status: Ordered baclofen 10 mg oral tablet 10 mg, Tablet, By Mouth, 3 times a day, PRN for Spasm, Routine, 05/23/21 15:54:00 EDT Start Date: 05/23/21 Stop Date: 05/25/21 Status: Discontinued baclofen 10 mg oral tablet 1 tablet [...] opioid drug. Start Date: 05/23/21 Status: Ordered FENTanyl Patch 50 mcg, Patch, Topically, Apply to Back, Dose at 50 mcg/hr, 05/24/21 9:00:00 EDT Start Date: 05/24/21 Stop Date: 05/24/21 Status: Completed fentaNYL 50 mcg/hr transdermal film, extended release 1 patch, Topically, Every 72 hours, 0 Refills, Maintenance, 05/23/21 15:01:00 EDT, Patch, Partial fill upon patient request if the prescription is for a schedule II opioid drug. Start Date: 05/23/21 Status: Ordered ibuprofen 600 mg oral tablet 600 mg, Tablet, By Mouth, 05/24/21 9:00:00 EDT, Stop date 05/24/21 9:00:00 EDT Start Date: 05/24/21 Stop Date: 05/24/21 Status: Completed Latuda 120 mg oral tablet 1 tablet = 120 mg, By Mouth, Daily at supper, # 30 tablet, 0 Refills, Maintenance, 05/23/21 15:01:00 EDT, Tablet, Partial fill upon patient request if the prescription is for a schedule II opioid drug. Start Date: 05/23/21 Status: Ordered levothyroxine 0.112 mg oral tablet 1 tablet = 112 mcg, By Mouth, Daily, # 30 tablet, 0 Refills, Maintenance, 05/23/21 15:01:00 EDT, Tablet, Partial fill upon patient request if the prescription is for a schedule II opioid drug. Start Date: 05/23/21 Status: Ordered meloxicam 7.5 mg oral tablet 1 tablet = 7.5 mg, By Mouth, 2 times a day with meals Start Date: 05/23/21 Status: Ordered Vitamin C [...] Hypertension(Confirmed) Active Hypothyroid(Confirmed) Active QT prolongation(Confirmed) Active Results Radiology Reports * Exam Date Time Procedure Performing Provider Status 05/22/21 10:21 PM Chest Portable Laly Godoy; Auth (Verified) Notes: (Chest Portable) Reason For Exam: Shortness of Breath RESULT: Chest Portable Chest Portable INDICATION: Shortness of breath. COMPARISON: Multiple prior studies most recent 05/08/2021. FINDINGS: LINES AND TUBES: None. LUNGS AND PLEURA: Clear lungs. Normal pulmonary vascularity. No pleural effusion. No pneumothorax. Chronic elevation left hemidiaphragm. HEART, MEDIASTINUM AND HOLLY: Heart is normal in size. Normal upper mediastinal and hilar contour. BONES AND SOFT TISSUES: No acute abnormality. IMPRESSION: No acute abnormality. I have personally reviewed the images and I agree with this report. WSN: [id number] Ordering Physician: Rosa Valverde Dictated By: Radha Cota MD Dictated Date/Time: 05/22/21 10:35 p Reviewed By: Suraj Alvarado MD Signed By: Suraj Alvarado MD Signed Date/Time: 05/22/21 10:40 pm Transcribed By: RODRI Transcribed Date/Time: 05/22/21 10:32 pm Vital Signs Most recent to oldest [Reference Range]: 1 2 3 4 Height 168 cm (05/24/21 8:44 AM) 168 cm (05/24/21 7:49 AM) 168 cm (05/23/21 4:17 PM) Weight 121 kg (05/23/21 4:17 PM) Oxygen Saturation [94-100 %] 97 % (05/24/21 8:44 AM) 100 % (05/24/21 7:49 AM) 98 % (05/23/21 7:00 PM) Pulse Rate [55-90 bpm] 93 bpm *H* (05/24/21 8:44 AM) 99 bpm *H* (05/24/21 7:49 AM) 98 bpm *H* (05/23/21 7:00 PM) Body Mass Index [18.5-24.99] 42.87 *>HHI* (05/23/21 4:17 PM) Blood Pressure [90-138/55-84 mm Hg] 143/78mm Hg *H* (05/24/21 8:44 AM) 123/98mm Hg (05/24/21 7:49 AM) 147/77mm Hg *H* (05/23/21 7:00 PM) Respiratory Rate [16-30 br/min] 17 br/min (05/24/21 2:52 PM) 2 br/min *L* (05/24/21 10:47 AM) 18 br/min (05/24/21 10:47 AM) Temperature [96.8-100.4 DegF] 97.4 DegF (05/24/21 8:44 AM) 98.9 DegF (05/24/21 7:49 AM) 98.3 DegF (05/23/21 7:00 PM) Liters per Minute 2 L/min (05/23/21 1:43 AM) 2 L/min (05/22/21 11:09 PM) 2 L/min (05/22/21 9:05 PM) 2 L/min (05/22/21 9:05 PM) Mode of Delivery (Oxygen) Room air (05/24/21 8:44 AM) Room air (05/24/21 7:49 AM) Room air (05/23/21 7:00 PM) Blood pressure sites Arm, left (05/24/21 8:44 AM) Arm, left (05/24/21 7:49 AM) Arm, right (05/23/21 7:00 PM) Temperature Route Oral (05/24/21 8:44 AM) Oral (05/24/21 7:49 AM) Oral (05/23/21 7:00 PM) Dry Weight 121 kg (05/23/21 4:17 PM) Weight Obtained Via Standing scale (05/23/21 4:17 PM) Dry Weight Obtained Via Standing scale (05/23/21 4:17 PM) Social History Social History Type Response Smoking Status 10 or more cigarette s (1/2 pack or more)/day in last 30 days entered on: 05/24/21 Sex
--- OUTSIDE RECORDS SUMMARY | 2023-12-06 14:41 | XMS_ITS | Continuity of Care Document ---
Author Organization [facility] ter Address [address] [place] [id number]- Care Team Providers Care Invasive Cardiovascular Technologist Name Role Phone Vi CASTAÑEDA, Leda Gore Primary Care Physician [phone] [place] [facility] [place] - 05/30/[address] [address]- Discharge Disposition: A-D/C Walkout Attending Physician: Not [...] Refills, Maintenance, 01/10/22 11:29:00 EDT, EC Tablet, [id number], Partial fill upon patient request if the [...] opioid drug. Start Date: 05/23/21 Status: Ordered cephalexin monohydrate 500 mg oral capsule 1 capsule = 500 mg, By Mouth, 4 times a day, for 5 days, # 20 capsule, 0 Refills, Acute 06/03/22 23:28:00 EDT, 05/29/22 23:28:00 EDT, Capsule, [facility] #[id number], Partial fill upon patient request if the prescription is for a schedule II opio... Start Date: 05/29/22 Stop Date: 06/03/22 Status: Ordered fentaNYL 50 mcg/hr transdermal film, [...] , Moderate Start Date: 05/23/21 Status: Ordered Problem List Condition Confirmation Course Effective Dates Status Health St atus Informant Chest pain Confirmed Active Hypertension Confirmed Active Hypothyroid Confirmed Active Obese class I Confirmed Active QT prolongation Confirmed Active Vital Signs Most recent to oldest [Reference Range]: 1 2 3 Oxygen Saturation [94-100 %] 97 % (05/30/22 5:33 AM) 100 % (05/30/22 1:24 AM) 97 % (05/30/22 1:22 AM) Pulse Rate [55-90 bpm] 95 bpm *H* (05/30/22 5:33 AM) 108 bpm *H* (05/30/22 1:24 AM) 113 bpm *H* (05/30/22 1:22 AM) Blood Pressure [90-138/55-84 mm Hg] 139/76mm Hg *H* (05/30/22 5:33 AM) 127/88mm Hg (05/30/22 1:24 AM) Respiratory Rate [16-30 br/min] 18 br/min (05/30/22 1:24 AM) 18 br/min (05/30/22 1:22 AM) Temperature [96.8-100.4 DegF] 98 DegF (05/30/22 5:33 AM) 98.1 DegF (05/30/22 1:24 AM) Mode of Delivery (Oxygen) Room air (05/30/22 5:33 AM) Room air (05/30/22 1:24 AM) Room air (05/30/22 1:22 AM) Blood pressure sites Arm, right (05/30/22 5:33 AM) Arm, right (05/30/22 1:24 AM) Temperature Route Oral (05/30/22 5:33 AM) Oral (05/30/22 1:24 AM) Social History Social History Type Response Smoking Status 10 or more cigarette s (1/2 pack or more)/day in last 30 days entered on: 05/24/21 Sex Patient Care team information Personnel Name: Vi CASTAÑEDA, Leda Gore Address: Address: [address] [place] [id number]
--- OUTSIDE RECORDS SUMMARY | 2023-12-06 14:41 | XMS_ITS | Continuity of Care Document ---
Author Organization [facility] ter Address [address] [place] [address]- Care Team Providers Care Caustic Room Operator Name Role Phone Vi CASTAÑEDA, Lead Gore Primary Care Physician [phone] Encounter [facility] [place] Date(s): 04/14/21 - 04/15/[address] [address]- Discharge Disposition: A-D/C Walkout Attending Physician: Not [...] Status Health Status Inform ant Hypothyroid(Confirmed) Active Vital Signs Most recent to oldest [Reference Range]: 1 Oxygen Saturation [94-100 %] 95 % (04/14/21 10:26 PM) Pulse Rate [55-90 bpm] 97 bpm *H* (04/14/21 10:26 PM) Blood Pressure [90-138/55-84 mm Hg] 138/ 83mm Hg (04/14/21 10:26 PM) Respiratory Rate [16-30 br/min] 18 br/mi n (04/14/21 10:26 PM) Temperature [96.8-100.4 DegF] 99.2 DegF (04/14/21 10:26 PM) Mode of Delivery (Oxygen) Room air (04/14/21 10:26 PM) Blood pressure sites Arm, right (04/14/21 10:26 PM) Temperature Route Oral (04/14/21 10:26 PM) Social History Social History Type Response Smoking Status Never smoker entered on: 12/04/16 Sex
--- OUTSIDE RECORDS SUMMARY | 2023-12-06 14:41 | XMS_ITS | Continuity of Care Document ---
Author Organization [facility] Address [address] [place] [id number]- Care Team Providers Care Measurement Department Chief Clerk Name Role Phone Vi CASTAÑEDA, Leda Gore Primary Care Phys[place] [facility] [place] - 11/23/[address] [id number] Discharge Disposition: A-D/C Home Attending Physician: Ramesh Styles DO Admitting Physician: Ramesh Styles DO Referring Physician: Ramesh Styles DO Allergies, Adverse Reactions, Alerts Substance Reaction Severity Status codeine rash Active penicillin rash Active sulfADIAZINE rash Active sulfa drugs rash Active Bactrim unsure Active Demerol HCl unsure Active Contrast Dye unsure Active Other Environmental Allergy seasonal allergies Active Immunizations Given and Recorded Vaccine Date Status Refusal Reason pneumococcal 23-valent vaccine 1 01/15/11 Given tetanus-diphtheria toxoids (Td) 08/10/02 Recorded 1Early/Late Reason: Nursing Judgment Medications acetaminophen 325 mg oral tablet 975 mg, By Mouth, Every 8 hours, for 14 days, # 126 tablet, Refills 0, Tot. Refills 0, Acute 12/04/23 14:45:00 EDT, 11/20/23 14:45:00 EDT, Route to Pharmacy Electronically, [facility], Partial fill upon patient request if the prescriptio... Start Date: 11/20/23 Stop Date: 12/04/23 Status: Ordered Advil 200 mg oral tablet 1 tablet = 200 mg, By Mouth, 2 times a day, 0 Refills, Maintenance, 10/19/23 10:30:00 EDT, Partial fill upon patient request if the prescription is for a schedule II opioid drug. Start Date: 10/19/23 Status: Ordered albuterol CFC free 90 mcg/inh inhalation aerosol 1 puffs, Inhalation, Every 6 hours, PRN for wheezing, # 6 Gm, 0 Refills, Maintenance, Inhaler, 1 puffs Inhalation Every 6 hours,PRN:for wheezing Start Date: 07/18/13 Status: Ordered amLODIPine 5 mg oral tablet 5 mg, Tablet, By Mouth, 11/23/23 9:00:00 EDT Start Date: 11/23/23 Stop Date: 11/23/23 Status: Completed amLODIPine 5 mg oral tablet 5 mg, 1, tablet, By Mouth, Daily, # 14 tablet, Refills 0, Tot. Refills 0, Maintenance, 04/29/17 18:41:10, Print Requisition Start Date: 04/29/17 Stop Date: 05/13/17 Status: Ordered duloxetine 60 mg oral enteric coated capsule 1 capsule = 60 mg, By Mouth, Daily in AM, 0 Refills, Maintenance, 10/19/23 9:24:00 EDT, EC Capsule,Partial fill upon patient request if the prescription is for a schedule II opioid drug. Start Date: 10/19/23 Status: Ordered escitalopram 20 mg oral tablet 1.5 tablet = 30 mg, By Mouth, Daily in AM, 0 Refills, Maintenance, 10/19/23 9:24:00 EDT, Tablet, Partial fill upon patient request if the prescription is for a schedule II opioid drug. Start Date: 10/19/23 Status: Ordered gabapentin 300 mg oral capsule 300 mg, By Mouth, 3 times a day, # 42 capsule, Refills 0, Tot. Refills 0, Maintenance, 11/20/23 16:15:00 EDT, Route to Pharmacy Electronically, [facility], Partial fill upon patient request if the prescription is for a schedule II opioid... Start Date: 11/20/23 Stop Date: 12/04/23 Status: Ordered Gabapentin Capsule 300 mg, Capsule, By Mouth, 11/23/23 9:00:00 EDT Start Date: 11/23/23 Stop Date: 11/23/23 Status: Completed levothyroxine 0.112 mg oral tablet 1 tablet = 112 mcg, By Mouth, Daily in AM Start Date: 11/28/21 Status: Ordered LORazepam 0.5 mg oral tablet 1 tablet = 0.5 mg, By Mouth, 2 times a day, PRN as needed for anxiety, 0 Refills, Maintenance, 10/19/23 9:48:00 EDT, Tablet, Partial fill upon patient request if the prescription is for a schedule IIopioid drug. Start Date: 10/19/23 Status: Ordered lurasidone 80 mg oral tablet = 80 mg, By Mouth, Daily at supper, # 30 each, 1 Refills, Maintenance, 10/01/23 10:59:00 EST, Tablet, [id number], Partial fill upon patient request if the prescription is for a schedule II opioid drug., 169, cm, 10/01/23 9:15:00 EST,... Start Date: 10/01/23 Stop Date: 11/30/23 Status: Ordered melatonin 3 mg oral tablet 1 tablet = 3 mg, By Mouth, Daily at bedtime, PRN as needed for insomnia, # 30 tablet, 0 Refills, Maintenance, 11/12/23 17:14:00 EDT, Partial fill upon patient request if the prescription is for a schedule II opioid drug. Start Date: 11/12/23 Status: Ordered meloxicam 7.5 mg oral tablet 1 tablet = 7.5 mg, By Mouth, 2 times a day with meals, PRN Pain , Moderate Start Date: 05/23/21 Status: Ordered nicotine 21 mg/24 hr transdermal film, extended release 1 patch, Topically, Daily, # 30 patch, 1 Refills, Acute 12/08/23 14:48:00 EDT, 10/21/23 14:48:00 EDT, Patch, [facility] #[id number], Partial fill upon patient request if the prescription is for a schedule II opioid drug., 1 patch Topically Daily,... Start Date: 10/21/23 Stop Date: 12/08/23 Status: Ordered oxyCODONE 5 mg oral tablet 5 mg, By Mouth, Every 6 hours, PRN, for 7 days, This is to be taken every six hours for post operative pain control and should only be held for increased sedations, or reduced respiratory drive., # 28 tablet, Refills 0, Tot. Refills 0, Acute 11/27/23... Start Date: 11/20/23 Stop Date: 11/27/23 Status: Ordered tiotropium 2.5 mcg/inh inhalation aerosol 2 puffs = 5 mcg, Inhalation, Daily, # 4 Gm, 4 Refills, Maintenance, 10/21/23 14:49:00 EDT, Aerosol,[facility] #[id number], Partial fill upon patient request if the prescription is for a schedule II opioid drug., 170, cm, 10/15/23 19:50:00 EST, H... Start Date: 10/21/23 Status: Ordered Problem List Condition Confirmation Course [...] Confirmed Active Mild intermittent asthma Confirmed Active Pre-diabetes Confirmed Active QT prolongation Confirmed Active Psychogenic polydipsia Confirmed Active Severe obesity (BMI 35.0-39.9) with comorbidity Confirmed Active Results Radiology Reports * Exam Date Time Procedure Performing Provider Status 11/23/23 7:33 AM Chest 2 Views Frontal and Lat Amie Coyle; Antonio (Verified) Notes: (Chest 2 Views Frontal and Lat) Reason For Exam: Postop RESULT: Chest 2 Views Frontal and Lat Chest 2 Views Frontal and Lat Reason: Postop. Clinical Question(s): Atelectasis COMPARISON: None. FINDINGS: LINES AND TUBES: 11/22/2023, 11/21/2023, 11/20/2023. LUNGS AND PLEURA: Low lung volumes with mild basilar atelectasis. Lungs are otherwise clear with no consolidation. No pleural effusion. No pneumothorax. HEART, MEDIASTINUM AND HOLLY: Heart is normal in size. Normal mediastinal and hilar contour. BONES AND SOFT TISSUES: Chronic elevation of the left hemidiaphragm. Unchanged extensive bilateral subcutaneous emphysema at the base of the neck and tracking inferiorly along the right lateral chest wall. IMPRESSION: No significant interval change in the appearance of the chest. I have personally reviewed the images and I agree with this report. WSN: [id number] Ordering Physician: Malika Cain Dictated By: Jose Soriano MD Dictated Date/Time: 11/23/23 8:37 am Reviewed By: FereshSaurabh garibay MD, V Signed By: Saurabh Jay MD, V Signed Date/Time: 11/23/23 8:42 am Transcribed By: RODRI Transcribed Date/Time: 11/23/23 8:24 am * Exam Date Time Procedure Performing Provider Status 11/22/23 6:35 AM Chest 2 Views Frontal and Lat Abhishek Enid; Auth (Verified) Notes: (Chest 2 Views Frontal and Lat) Reason For Exam: Other: RESULT: Chest 2 Views Frontal and Lat Chest 2 Views Frontal and Lat Reason: Other:; Clinical Question(s): Other: COMPARISON: 11/21/2023 FINDINGS: LINES AND TUBES: None. LUNGS AND PLEURA: Clear lungs. Normal pulmonary vascularity. No pleural effusion. No pneumothorax. HEART, MEDIASTINUM AND HOLLY: Heart is normal in size. Normal mediastinal and hilar contour. BONES AND SOFT TISSUES: Chronic elevation left hemidiaphragm. Extensive subcutaneous emphysema at the base of the neck bilaterally and tracking along the right lateral chest wall. IMPRESSION: Stable appearance of the chest as detailed above. WSN: [id number] Ordering Physician: Nikkie Dumont Dictated By: Vilma Boykin MD, I Dictated Date/Time: 11/22/23 10:44 a Reviewed By: Vilma Boykin MD, I Signed By: Vilma Boykin MD, I Signed Date/Time: 11/22/23 10:44 am Transcribed By: RODRI Transcribed Date/Time: 11/22/23 10:42 am * Exam Date Time Procedure Performing Provider Status 11/21/23 7:09 AM Chest 2 Views Frontal and Lat Abhishek Enid; Auth (Verified) Notes: (Chest 2 Views Frontal and Lat) Reason For Exam: Postop RESULT: Chest 2 Views Frontal and Lat Chest 2 Views Frontal and Lat Reason: Postop; Clinical Question(s): Postop COMPARISON: 11/20/2023 FINDINGS: LINES AND TUBES: None. LUNGS AND PLEURA: Clear lungs. Normal pulmonary vascularity. No pleural effusion. No pneumothorax. HEART, MEDIASTINUM AND HOLLY: Heart is normal in size. Normal mediastinal and hilar contour. BONES AND SOFT TISSUES: Extensive soft tissue air noted. IMPRESSION: Stable exam. The chest appears clear. WSN: [id number] Ordering Physician: Sandy Gole Dictated By: Gaetano Stevenson MD Dictated Date/Time: 11/21/23 9:35 am Reviewed By: Gaetano Stevenson MD Signed By: Gaetano Stevenson MD Signed Date/Time: 11/21/23 9:35 am Transcribed By: RODRI Transcribed Date/Time: 11/21/23 9:35 am * Exam Date Time Procedure Performing Provider Status 11/20/23 6:57 AM Chest 2 Views Frontal and Lat Amie Coyle; Antonio (Verified) Notes: (Chest 2 Views Frontal and Lat) Reason For Exam: Postop RESULT: Chest 2 Views Frontal and Lat Chest 2 Views Frontal and Lat Reason: Postop; Clinical Question(s): Postop COMPARISON: Chest radiograph 11/19/2023. FINDINGS: LINES AND TUBES: None. LUNGS AND PLEURA: Low lung volumes. Mild right basilar atelectasis. Band of atelectasis involving the left hilum is slightly increased from the prior exam. No significant pulmonary vascular congestion. Trace posterior pleural effusions bilaterally. No pneumothorax. HEART, MEDIASTINUM AND HOLLY: Normal cardiac size. Trace pneumomediastinum, likely postoperative. Unchanged mediastinal and hilar contour. BONES AND SOFT TISSUES: No acute osseous process. Mild degenerative changes of the thoracic spine. Extensive soft tissue emphysema overlying the chest wall and lower neck. Gaseous distention of the colon with contrast from recent esophageal barium swallow within the colon. IMPRESSION: 1. Overall no significant interval change from 11/19/2023. 2. Mild right basilar atelectasis. Curvilinear atelectasis in the left midlung. Trace posterior pleural effusions bilaterally. 3. Probable trace postoperative pneumomediastinum. 4. Diffuse soft tissue emphysema in the chest wall and lower neck. WSN: [id number] Ordering Physician: Coleen Tinsley Dictated By: Km Agrawal MD Dictated Date/Time: 11/20/23 12:26 p Reviewed By: Km Agrawal MD Signed By: Km Agrawal MD Signed Date/Time: 11/20/23 12:26 pm Transcribed By: RODRI Transcribed Date/Time: 11/20/23 12:20 pm * Exam Date Time Procedure Performing Provider Status 11/19/23 9:14 PM Chest Portable Acosta Werner; Irwin h (Verified) Notes: (Chest Portable) Reason For Exam: Postop RESULT: Chest Portable Chest Portable Reason: Postop; Clinical Question(s): Pneumothorax COMPARISON: 11/19/2023 at 6:07 AM FINDINGS: Left basilar chest tube reidentified. No definite pneumothorax. Increased airspace disease in the right midlung zone. Elevated left hemidiaphragm with prominent gas below it. Unchanged cardiomediastinal silhouette. Extensive subcutaneous emphysema. IMPRESSION: New opacity in the right midlung zone could represent pneumonia or asymmetric edema. Prominent gas density below the left hemidiaphragm could represent a distended stomach but clinicalcorrelation is advised. WSN: [id number] Ordering Physician: Quan Zhong Dictated By: Piero Youssef MD Dictated Date/Time: 11/19/23 9:32 pm Reviewed By: Piero Youssef MD Signed By: Piero Youssef MD Signed Date/Time: 11/19/23 9:32 pm Transcribed By: RODRI Transcribed Date/Time: 11/19/23 9:26 pm * Exam Date Time Procedure Performing Provider Status 11/19/23 11:47 AM Esophagus Barium Swallow Melissa Wang; Antonio (Verified) Notes: (Esophagus Barium Swallow) Reason For Exam: POD #1, S/P PEH repair;Postop RESULT: Esophagus Barium Swallow PROCEDURE: Esophagus Barium Swallow CLINICAL INDICATION: Reason: Postop; POD #1, S P PEH repair; Clinical Question(s): Perforation; Leak Perforation; Special Instructions: Use H2O soluble first followed by thin Barium COMPARISONS: Esophagus barium swallow 11/13/2023 FLUOROSCOPY TIME: 1 minute 30 seconds EXPOSURE: 1429.2 uGy*m^2 (dose area product) TECHNIQUE: Aqueous (images 1-29) followed by barium (30-59) contrast esophagram was performed by Carlton Bruner PA-C. FINDINGS: Motor Room Controller: Diffuse thoracic soft tissue emphysema is seen consistent with postoperative status. Left-sided pleural drainage catheter is visualized. Cholecystectomy clips noted in the right upper quadrant. Esophagus: Smooth concentric luminal narrowing of the terminal esophagus is visualized, likely reflecting postoperative edema. Tertiary contractions of the distal half of the esophagus are seen, withproximal escape of barium bolus noted. No recurrence of hiatal hernia. No spontaneous gastroesophageal reflux was appreciated during the study. No evidence of esophageal web or outpouching. No esophageal obstruction. No evidence of leak or perforation. The stomach and proximal duodenum are grossly normal. Contrast promptly empties from the stomach into a nondilated duodenum. No gastric outlet obstruction. IMPRESSION: 1. No evidence of hernia recurrence, leak, or perforation status post paraesophageal hernia repair. 2. Low-grade narrowing of the terminal esophagus likely reflecting postoperative edema. 3. Moderate esophageal dysmotility. By undersigning and finalizing the report, the attending radiologist confirms he/she has personallyreviewed and interpreted the images and agrees with the description of the findings. I have personally reviewed the images and I agree with this report. WSN: [id number] Ordering Physician: Coleen Tinsley Dictated By: Jose D Belle Dictated Date/Time: 11/19/23 11:53 a Reviewed By: Suraj Florian MD Signed By: Suraj Florian MD Signed Date/Time: 11/19/23 11:58 am Transcribed By: RODRI Transcribed Date/Time: 11/19/23 11:43 am * Exam Date Time Procedure Performing Provider Status 11/19/23 6:50 AM Chest 2 Views Frontal and Lat Amie Coyle; Antonio (Verified) Notes: (Chest 2 Views Frontal and Lat) Reason For Exam: Postop RESULT: Chest 2 Views Frontal and Lat Chest 2 Views Frontal and Lat Reason: Postop; Clinical Question(s): Postop COMPARISON: 11/18/2023. FINDINGS: LINES AND TUBES: Left basilar chest tube unchanged. Enteric tube extends into the stomach . LUNGS AND PLEURA: Mild prominence of central vascularity which may be due to positioning. No edema or effusions. No pneumothorax. Elevated left hemidiaphragm. Small nodule seen on recent chest x-ray are less conspicuous on x-ray. HEART, MEDIASTINUM AND HOLLY: Heart is normal in size. Normal mediastinal and hilar contour. BONES AND SOFT TISSUES: No acute osseous abnormality. Soft tissue emphysema in the lower neck unchanged. Questionable tracepneumoperitoneum with faint curvilinear lucency beneath the right hemidiaphragm also possibly artifact due to positioning. IMPRESSION: No x-ray findings of pneumonia. Small nodules seen on recent chest CT are not well visualized with x-ray. Stable positioning of left basilar chest tube. No pleural effusion or pneumothorax. Questionable trace right upper quadrant free air. This can be a normal finding postoperatively. Consider additional followup upright abdominal xray. Andre Trimble J MD notified of results at time of dictation. WSN: [id number] Ordering Physician: Andre Trimble Dictated By: Suraj Alvarado MD Dictated Date/Time: 11/19/23 7:15 am Reviewed By: Suraj Alvarado MD Signed By: Suraj Alvarado MD Signed Date/Time: 11/19/23 7:15 am Transcribed By: RODRI Transcribed Date/Time: 11/19/23 6:58 am * Exam Date Time Procedure Performing Provider Status 11/18/23 6:11 PM Chest Portable Guillermo Tadeo; Auth (Verified) Notes: (Chest Portable) Reason For Exam: Postop RESULT: Chest Portable Chest Portable Reason: Postop; Clinical Question(s): Postop COMPARISON: Multiple prior chest radiographs with the most recent dated 11/05/[address] chest with IV contrast dated 11/17/2023 at 0034 hours. FINDINGS: LINES AND TUBES: Enteric tube in place with a distal portion below the left hemidiaphragm however the tip is not included in the field of view. Left basilar pleural pigtail catheter in place appearing. LUNGS AND PLEURA: Moderate low lung volumes with mild bibasilar atelectasis. Probable postop type III paraesophageal hiatal hernia repair. Normal pulmonary vascularity. There may be small bilateral pleural effusions. No pneumothorax. HEART, MEDIASTINUM AND HOLLY: Heart is normal in size. Probable minimal pneumomediastinum. Subcutaneous emphysema in the lower neck bilaterally as well asin the right upper chest right axilla. BONES AND SOFT TISSUES: No acute abnormality. IMPRESSION: Persistent moderate low lung volumes with mild bibasilar atelectasis. The patient is probably status post paraesophageal type III hiatal hernia repair. Enteric tube and left basilar pleural pigtail catheter in place. Minimal pneumomediastinum. Minimal subcutaneous emphysema overlying the right mid chest, right lower neck, and right axilla appearing. WSN: [id number] Ordering Physician: Andre Trimble Dictated By: Saurabh Jay MD, V Dictated Date/Time: 11/18/23 6:32 pm Reviewed By: Saurabh Jay MD, V Signed By: Saurabh Jay MD, V Signed Date/Time: 11/18/23 6:32 pm Transcribed By: RODRI Transcribed Date/Time: 11/18/23 6:26 pm Vital Signs Most recent to oldest [Reference Range]: 1 2 3 Height 169 cm (11/18/23 9:57 PM) 169 cm (11/18/23 12:21 PM) 169 cm (11/12/23 6:06 PM) Weight 111.4 kg (11/18/23 9:57 PM) 108.8 kg (11/18/23 12:21 PM) 99.8 kg (11/12/23 6:06 PM) Oxygen Saturation [94-100 %] 93 % *L* (11/23/23 8:00 AM) 95 % (11/23/23 6:00 AM) 98 % (11/23/23 4:00 AM) Pulse Rate [55-90 bpm] 89 bpm (11/23/23 6:00 AM) 74 bpm (11/22/23 6:00 AM) 80 bpm (11/22/23 4:00 AM) Body Mass Index [18.5-24.99 kg/m2] 39 kg/m2 *>HHI* (11/18/23 9:57 PM) 38.09 kg/m2 *>HHI* (11/18/23 12:21 PM) 34.94 kg/m2 *>HHI* (11/12/23 6:06 PM) Blood Pressure [90-138/55-84 mm Hg] 132/75mm Hg (11/23/23 8:43 AM) 132/75mm Hg (11/23/23 8:00 AM) 137/86mm Hg (11/23/23 6:00 AM) Respiratory Rate [16-30 br/min] 21 br/min (11/23/23 8:43 AM) 12 br/min *L* (11/23/23 8:00 AM) 16 br/min (11/23/23 6:00 AM) Temperature [96.8-100.4 DegF] 98.2 DegF (11/23/23 6:00 AM) 98.2 DegF (11/23/23 2:00 AM) 97.9 DegF (11/22/23 10:00 PM) Liters per Minute 1 L/min (11/23/23 12:00 AM) 2 L/min (11/22/23 12:00 PM) 2 L/min (11/22/23 8:00 AM) Mode of Delivery (Oxygen) Room air (11/23/23 8:00 AM) Room air (11/23/23 6:00 AM) Room air (11/23/23 4:00 AM) Blood pressure sites Arm, left (11/23/23 8:00 AM) Arm, left (11/23/23 6:00 AM) Arm, left (11/23/23 4:00 AM) Temperature Route Oral (11/23/23 6:00 AM) Oral (11/23/23 2:00 AM) Oral (11/22/23 10:00 PM) Dry Weight 108.8 kg (11/18/23 9:57 PM) 108.8 kg (11/18/23 12:21 PM) 99.8 kg (11/12/23 6:06 PM) Weight Obtained Via Bed scale (11/18/23 9:57 PM) Patient/family stated (11/12/23 6:06 PM) Dry Weight Obtained Via Standing scale (11/18/23 12:21 PM) Patient/family stated (11/12/23 6:06 PM) Social History Social History Type Response Tobacco Use: 4 or less cigar ettes(less than 1/4 pack)/day in last 30 days. Other: quit 3 wks ago; 10 CIG/DAY X AGE 14. Sex History and physical note * Event Display: History and Physical Hospital Authored Date: EKG study * Event Display: ECG 12-Lead Authored Date: Please click on pdf link to open report * Event Display: ECG 12-Lead Authored Date: Ventricular Rate: 77 BPM Atrial Rate: 77 BPM P-R Interval: 118 ms QRS Duration: 86 ms Q-T Interval: 396 ms QTC Calculation(Bazett): 448 ms P [place]: 38 degrees R [place]: 14 degrees T [place]: -52 degrees Normal sinus rhythm Nonspecific T wave abnormality Abnormal ECG When compared with ECG of 16-NOV-2023 18:01, Nonspecific T wave abnormality now evident in Anterior leads Nonspecific T wave abnormality, improved in Lateral leads Confirmed by Calvin Aldridge ([id number]) on 11/20/2023 9:41:02 AM [place]: [facility] * Event Display: Cardiac Rhythm Strips Authored Date: Hospital Progress note * Wen Graham RN: PERFORM, SIGN, VERIFY Event Display: Progress Note Hospital Authored Date: Patient: BECKY WRIGHT Age: 58 years Sex: Female : 1965 Associated Diagnoses: None Author: Wen Graham RN Findings Narrative/Incidental Pt d/c home this AM approx 1000. d/c instructions reviewed with patient, educated on follow up, diet, and home medications. d/c instructions placed in chart. at d/c pt A&Ox4. VSS. afebrile. ambulating standby in room. voiding without issue. pt weaned to RA this AM, sats maintain >95%. no c/oSOB/CP. lap sites intact. . Discharge Information Case Management Discharge Plan : Case Management Discharge Plan Data 11/23/2023 10:02 EDT Discharge Level of Care at Discharge Home/Alf/Foster Care 11/17/2023 5:14 EDT Discharge Level of Care at Discharge Home/Alf/Foster Care * Denice Stanley RN: PERFORM, SIGN, VERIFY Event Display: Progress Note Hospital Authored Date: Patient: BECKY WRIGHT Age: 58 years Sex: Female : 1965 Associated Diagnoses: None Author: Denice Stanley RN Findings Problem Related to Alteration in Gastrointestinal : Alteration in Gastrointestinal Func/new 11/23/2023 1:00 EDT Alteration in GI status Related to Other: Robotic assisted paraesophageal herniarepair Goals & Outcomes, Gastrointestinal Establish a regular pattern of elimination for pt, Nutritional intake is adequate for metabolic needs, Pt will achieve normal/improved fluid balance, Pt will have a bowel movement prior to discharge, Pt will maintain adequate GI function appropriate for pt, Ptwill maintain normal elimination patterns, Pt will resume/maintain adequate hemodynamic status, Pt w ill tolerate age appropriate diet prior to discharge, Pt will experience progressive wound healing,Pt will not experience s/s of infection prior to discharge Interventions, Gastrointestinal Assess/monitor abdomen for distention, tenderness, Assess/monitor abdominal girth & bowel function, Assess/monitor bowel pattern, bowel sounds, flatus, Assess/monitor number of bowel movements, Assess/monitor color, quantity, quality, consistency of stoo, Assess/monitor pt for nausea, vomiting, Assess/monitor effects of re-hydration, Assess/monitor intake &output, Assess if pt tolerating diet, Elevate HOB to facilitate lung expansion, prevent aspiration,Establish toileting schedule for patient, Taking PO: Encourage/monitor intake & swallowing ability, Teach Pt/caregiver diet & give copy of dietary instructions, Teach Pt/caregiver on bowel elimination interventions, Teach Pt/caregiver re: importance of bowel regime, Teach Pt/caregiver re: nutritional intake & dietary restrict, Teach/encourage deep breath & cough exercises, Teach/encourage use of incentive spirometer BH Goals/Interventions, Gastrointestinal Yes Gastrointestinal, Problem Start 11/18/2023 22:00 Reviewed plan with, Gastrointestinal Patient Patient Progression, Gastrointestinal Pt progressing according to plan . Narrative/Incidental Patient remains intercare. Alert and orientedx4, normal sinus rhythm on the monitor. Patient deniesany sob, meeting oxygen requirements. Pain is well controlled with current treatment plan in place.Patient tolerating PO fluids. Clear yellow urine output this shift. Patient walks steadily with walker. She is able to verbalize needs, bed is locked and lowered, bed exit alarms on, video monitoringongoing, callbell within reach. See flowsheet for more information.. Discharge Information Case Management Discharge Plan : Case Management Discharge Plan Data 11/17/2023 5:14 EDT Discharge Level of Care at Discharge Home/Alf/Foster Care * Nelli Kuhn RN: PERFORM, SIGN, VERIFY, SIGN, MODIFY Event Display: Progress Note Hospital Authored Date: Patient: BECKY WRIGHT Age: 58 years Sex: Female : 1965 Associated Diagnoses: None Author: Nelli Kuhn RN Findings Problem Related to Alteration in Gastrointestinal : Alteration in Gastrointestinal Func/new 11/22/2023 7:00 EDT Alteration in GI status Related to Other: Robotic assisted paraesophageal herniarepair Goals & Outcomes, Gastrointestinal Establish a regular pattern of elimination for pt, Nutritional intake is adequate for metabolic needs, Pt will achieve normal/improved fluid balance, Pt will have a bowel movement prior to discharge, Pt will maintain adequate GI function appropriate for pt, Ptwill maintain normal elimination patterns, Pt will resume/maintain adequate hemodynamic status, Pt w ill tolerate age appropriate diet prior to discharge, Pt will experience progressive wound healing,Pt will not experience s/s of infection prior to discharge Interventions, Gastrointestinal Assess/monitor abdomen for distention, tenderness, Assess/monitor abdominal girth & bowel function, Assess/monitor bowel pattern, bowel sounds, flatus, Assess/monitor number of bowel movements, Assess/monitor color, quantity, quality, consistency of stoo, Assess/monitor pt for nausea, vomiting, Assess/monitor effects of re-hydration, Assess/monitor intake &output, Assess if pt tolerating diet, Collaborate/Consult with Arresting Gear Operator; review recommendations, DVT prophylaxis as ordered, Elevate HOB to facilitate lung expansion, prevent aspiration, Establish toileting schedule for patient, Taking PO: Encourage/monitor intake & swallowing ability, Provideinfo on community resources for education, support, Provide/encourage oral care if NPO, Teach Pt/caregiver diet & give copy of dietary instructions, Teach Pt/caregiver on bowel elimination interventions, Teach Pt/caregiver re: importance of bowel regime, Teach Pt/caregiver re: nutritional intake & dietary restrict, Teach/encourage deep breath & cough exercises, Teach/encourage use of incentive spirometer, Incision care as ordered, Teach pt to splint incision when coughing BH Goals/Interventions, Gastrointestinal Yes Gastrointestinal, Problem Start 11/18/2023 22:00 Reviewed plan with, Gastrointestinal Patient Patient Progression, Gastrointestinal Pt progressing according to plan . Alteration in Respiratory Function (new) : Alteration in Respiratory Function/new 11/22/2023 7:00 EDT Alteration in Resp Status Related to Thoracic Surgery, Other: Type III paraesophageal hernia repair w/ chest tube placement (removed 11/19/23) Goals & Outcomes, Respiratory Pt will maintain/resume baseline physical assessment, Pt will maintain adequate nutritional intake, Pt will maintain/resume normal fluid/electrolyte balance, Pt willnot develop complications r/t immobility, Pt will demonstrate proper technique w/self care procedures Interventions, Respiratory Assess for and report S&S of respiratory distress, Position for comfort & optimal oxygenation, Monitor sputum color & consistency. Report changes to MD, Teach/encourage use of incentive spirometer, Teach the proper use of inhalers, Teach Pt/caregiver Smoking cessation education, Teach purse lip breathing as needed for breathing retraining, Teach tripod positioning to promote air exchange Goals/Interventions, Respiratory Yes Respiratory, Problem Start 11/18/2023 22:00 Reviewed Plan with, Respiratory Patient Patient Progression, Respiratory Patient progressing according to plan . Evaluation Pt. remains IMC. Awaiting pulm rehab eval for O2 requirements prior to discharge planning. POD#4 Robotic assisted type III paraesophageal hernia repair w/ chest tube and NGT placement both removed 11/19/23. A&O x 4 w/ hx of cognitive impairment. Does require constant reinforcement and repition of education/instructions. Very anxious. Endorses ongoing throbbing pain diffuse throughout abdomen worse with palpation up to 02/16. Also complaining of pressure JAMES in frontal lobe in AM. PO oxy/Tylenol/Win moderately helpful. Pt. able to sleep. Pt. reports tea is very helpful for JAMES. PERRLA. Wears glasses. Denies neuropathy. CMS intact. Moves all extrem. Changes her own position well in bed. OOB to bathroom as standby assist with walker - steady. Skin intact other than surgical sites. Has 5 lapsites to abd closed w/ surgiglue c/d/i. Has previous L. lat chest tube site - DSD changed (loose) c/d/i. No crepitus. VSS. SR on the monitor. Maintaining O2 sat on 2L - desats when sleeping. Denies cough. Denies SOB. Reaching 1250 mL mL on IS. Lungs CTA/dim. + BS x 4. Abd is soft, round, and tender. Passing gas. Denies nausea this AM - gets scheduled IV Zofran, which is helpful. No vomiting. Voiding CYU in toilet without issue. Resting comfortably in bed. Safety measures in place. Bed in lowestposition. Wheels locked. Alarm activated. Call mac within reach. Able to make needs known. Video monitoring in progress. Purposeful rounding for safety and comfort. 1330 Eval by RN for home O2. On RA at rest x 10 min without desaturations - lowest O2 sat recorded is 94%. On RA x 10 min of ambulation without desaturations - lowest O2 sat 97%. Pt. does not feel SOB. Desatuations occur primarily when sleeping, but pt is fully awake and alert. Notified team. . Discharge Information Case Management Discharge Plan : Case Management Discharge Plan Data 11/17/2023 5:14 EDT Discharge Level of Care at Discharge Home/Alf/Foster Care Note * Wen Graham RN: PERFORM Event Display: Discharge/Transfer Note Hospital Authored Date: [id number] Nursing Discharge Note Entered On: 11/23/2023 10:02 EDT Performed On: 11/23/2023 10:02 EDT by Wen Graham RN Nursing Discharge Note 2 Discharge Time : 11/23/2023 10:02 EDT Discharge Level of Care at Discharge : Home/Alf/Foster Care Patient Left Unit Via : Wheelchair Patient Accompanied Off Unit with : Responsible adult DC Instructions Provided & Signed by Pt : Yes Patient Understands D/C Instructions : Yes Patient Instructions Discharge Signed : Yes Did Pt have Specialty Bed or Wound Vac : No Wen Graham RN - 11/23/2023 10:02 EDT * Trevin CASTAÑEDA, Quan Jones: PERFORM Event Display: Discharge/Transfer Note Hospital Authored Date: [id number] Patient: ??BECKY WRIGHT ? Age:??58 Years?Sex:??Female?:??1965?? Admit Date Admission Date: 11/18/2023 Discharge Date 11/23/2023 Discharge Diagnoses Paraesophageal hernia, 11/17/2023 Hospital Course Becky??Dre is a 58yo woman with a PMH including??COPD with multiple exacerbations, Hypothyroidism, Psychiatric illness: Anxiety, Bipolar, Schizophrenia, suicidal ideation requiring hospitalization, TBI with cognitive impairment, HTN, and Fibromyalgia who presented to the thoracic clinic after?? diagnosis of a?type III paraesophageal hernia. She presented to the emergency department on 10/19/2023 with complaints of chest pain and shortness of breath. Workup was unrevealing for any cardiac or pulmonary etiology, but she was noted to have a moderate-sized type III paraesophageal hernia. She was admitted to the medical service as laboratory evaluation in the ED was suggestive of potential SIADH. She was discharged on 10/21/2023. She then presented again 11/04/2023 with recurrent complaints of chest pain and shortness of breath. CT abdomen and pelvis performed during that admission againdemonstrated the presence of a type III paraesophageal hernia. ??She is now s/p Robotic Assisted PEH Repair with Dr Styles on 11/17.NGT and chest tube were pulled 11/18. Swallow study normal with no concern for leak, therefore was started on noncarbonated clears and subsequently advanced to a full liquid diet. She continues to tolerate??full liquids without issues.??AM CXR appears largely unchanged. Her pain remains well-controlled. She continues to ambulate and void independently.?Patient took some time getting weanef off oxygen but on the day of discharge 11/23/2023??she was ambulating without oxygen or SOB. Objective/Physical Exam on Day of Discharge Vitals & Measurements T:??98.2?F?? HR:??89??(Peripheral)?? RR:??21?? BP:??132/75?? BP:??131/85(Line)?? SpO2:??93%?? HT:??169??cm?? WT:??111.4??kg?? BMI:??39?? Constitutional: Well appearing, no acute distress, AOx3 HEENT: Normocephalic, atraumatic, PERRL,??moist mucous membranes. Respiratory: Normal WOB, CTA b/l. No wheezing, rales or rhonchi. Cardiovascular: Audible S1 S2 regular. No m/r/g Abdominal: benign Neurologic:?? Motor and sensation grossly intact b/l. Extremities: No wounds, bruises or injuries. No gross deformities. ROM normal. Skin: No rashes or lesions. No petechiae or purpura.?? Assessment/Plan continue FLD until Friday 11/24 at which point??you can transition to a??soft diet until??your follow up -- follow the nutrition paper work given to you You will be sent home with 15 oxycodone pills but only take when Tylenol??is not sufficient ? Future Appointments Thursday 10:30 AM EDT ?? With: Ramesh Styles DO Where: [facility] [address] [place] [address] Drive [address] [place] [address]- Status: Pending Patient Discharge Condition stable Discharge Disposition home Home Health Face to Face ^HomeHealthFTF Inpatient Medications Medications (16) Active SCHEDULED: (12) Acetaminophen 325 mg Tablet (Tylenol Tablet) ??975 mg, By Mouth, Every 8 hours Amlodipine 5 mg Tablet (amLODIPine 5 mg oral tablet) ??5 mg, By Mouth, Daily Duloxetine 60 mg Capsule (Cymbalta 60 mg oral enteric coated capsule) ??60 mg, By Mouth, Daily in AM Enoxaparin 40 mg Inj (Enoxaparin Inj) ??40 mg 0.4 mL, Subcutaneous Injection, Daily Escitalopram 10 mg Tablet (escitalopram 10 mg oral tablet) ??30 mg, By Mouth, Daily in AM Gabapentin 300 mg Capsule (Gabapentin Capsule) ??300 mg, By Mouth, 3 times a day Levothyroxine 112 mcg Tablet (levothyroxine 0.112 mg oral tablet) ??112 mcg, By Mouth, Daily in AM Lurasidone 40 mg Tablet (Latuda Oral Tablet) ??80 mg, By Mouth, Daily at supper Nicotine 7 mg / 24 hour Patch (Nicotine Topical) ??7 mg, Topically, Daily Ondansetron 2mg/mL Inj (2mL Vial) (Zofran Inj) ??4 mg, IV Push, Every 6 hours Pantoprazole 40 mg Inj (Protonix Inj) ??40 mg, IV Push Slowly, Every 12 hours Remove Patch (Remove ??Patch) ??1 each, Topically, Daily CONTINUOUS: (0) PRN: (4) Albuterol 90mcg/Inhalation Inhaler HFA (albuterol CFC free 90 mcg/inh inhalation aerosol) ??90 mcg 1 puffs, Inhalation, Every 6 hours Lorazepam 0.5 mg Tablet (LORazepam 0.5 mg oral tablet) ??0.5 mg, By Mouth, 2 times a day Metoclopramide 5 mg/mL Inj (2 mL) (Reglan Inj) ??10 mg, IV Push Slowly, Every 8 hours OxyCODONE 5 mg IR Tablet (OxyCODONE IR Tablet) ??5 mg, By Mouth, Every 4 hours Discharge Medications Acetaminophen (acetaminophen 325 mg oral tablet)?975?Milligram?By Mouth?Every 8 hours?for 14?Days Albuterol (albuterol CFC free 90 mcg/inh inhalation aerosol)?1?puff(s)?Inhalation?Every6 hours?as needed?for wheezing Amlodipine (amLODIPine 5 mg oral tablet)?5?Milligram?1?tablet?By Mouth?Daily?for 14?Days Duloxetine (duloxetine 60 mg oral enteric coated capsule)?1?capsule?60?Milligram?By Mouth?Daily in AM Escitalopram (escitalopram 20 mg oral tablet)?1.5?tab(s)?30?Milligram?By Mouth?Daily in AM Gabapentin (gabapentin 300 mg oral capsule)?300?Milligram?By Mouth?3 times a day?for14?Days Ibuprofen (Advil 200 mg oral tablet)?1?tab(s)?200?Milligram?By Mouth?2 times a day Levothyroxine (levothyroxine 0.112 mg oral tablet)?1?tab(s)?112?Microgram?By Mouth?Daily in AM Lorazepam (LORazepam 0.5 mg oral tablet)?1?tab(s)?0.5?Milligram?By Mouth?2 times a day?as needed?as needed for anxiety lurasidone (lurasidone 80 mg oral tablet)?80?Milligram?By Mouth?Daily at supper?for 30?Days Melatonin (melatonin 3 mg oral tablet)?1?tab(s)?3?Milligram?By Mouth?Daily at bedtime?as needed?as needed for insomnia Meloxicam (meloxicam 7.5 mg oral tablet)?1?tab(s)?7.5?Milligram?By Mouth?2 times a day with meals?as needed?Pain , Moderate Nicotine (nicotine 21 mg/24 hr transdermal film, extended release)?1?patch(es)?Topically?Daily Ondansetron (ondansetron 4 mg oral tablet, disintegrating)?1?tab(s)?4?Milligram?By Mouth?Every 8 hours?as needed?Nausea & Vomiting?for 14?Days Oxycodone (oxyCODONE 5 mg oral tablet)?5?Milligram?By Mouth?Every 6 hours?as needed?for 7?Days?This is to be taken every six hours for post operative pain control and should only be held for increased sedations, or reduced respiratory drive.?Pain , Severe Tiotropium (tiotropium 2.5 mcg/inh inhalation aerosol)?2?puff(s)?5?Microgram?Inhalation?Daily Labs Last 24 Hours BLOOD COUNT & DIFF ? Event Name?? Event Result?? Date/Time?? WBC 10 k/mm3 11/23/23 06:39:00 RBC 4.52 m/mm3 11/23/23 06:39:00 Hgb 12.1 Gm/dL 11/23/23 06:39:00 Hct 36.4 % 11/23/23 06:39:00 MCV 80.5 femtoliters 11/23/23 06:39:00 MCH 26.8 pg??Low 11/23/23 06:39:00 MCHC 33.2 g/dL 11/23/23 06:39:00 Platelet Count 360 k/mm3 11/23/23 06:39:00 MPV 10.7 femtoliters 11/23/23 06:39:00 Nucleated RBC (Automated) 0 #/100 WBC'S 11/23/23 06:39:00 ? CHEM GENERAL ? Event Name?? Event Result?? Date/Time?? Sodium 123 mmol/L??Low 11/23/23 06:41:00 Chloride 85 mmol/L??Low 11/23/23 06:41:00 Bicarbonate Level 29 mmol/L 11/23/23 06:41:00 Anion Gap 9 11/23/23 06:41:00 BUN 4 mg/dL??Low 11/23/23 06:41:00 Creatinine-Blood 1 mg/dL 11/23/23 06:41:00 Calcium, Ionized pH Corrected 1.11 mmol/L??Low 11/23/23 06:41:00 Phosphorus 2.8 mg/dL 11/23/23 06:41:00 Magnesium 1.8 mg/dL 11/23/23 06:41:00 ? Patient Education Titles [employer] Patient Education - Full Liquid Diet?? [employer] Patient Education - Diet-Liquid?? [employer] Patient Education - Hiatal Hernia?? Patient Instructions Please??follow the instructions provided to you by the??body and fender mechanic??regarding your full liquid diet, you should remain on a full liquid diet until your follow-up appointment ?? Wound care???let warm soapy water run over your dressings??and pat dry after getting out of shower,??the chest tube dressing should remain on for??72 hours??following the removal of your chest tube. ?? No lifting anything heavier than a gallon of milk until your follow-up appointment. * Santos REYES, Wen: PERFORM Event Display: Patient Education/Instruction Authored Date: [id number] Inpatient Adult Discharge Instructions. [address] [address] Name: BECKY WRIGHT : 1965?? Visit: 11/18/2023 11:03?? Current Date: 11/23/2023 09:29 ?? Account: [id number]?? Inpatient Adult Discharge Instructions We would like to thank you for allowing us to assist you with your healthcare needs. The following includes patient education materials and information regarding your injury/illness. Our entire staffstrives to provide an excellent experience for our patients and their families. PLEASE ENSURE YOU FOLLOW-UP PER THE INSTRUCTIONS BELOW! ?? YOUR OPINION IS IMPORTANT TO US! Please complete the survey you may receive by mail or email. Your feedback will be used to make improvements to the healthcare experiences of our patients and their families. Surveys are administered by [employer] ?? If further treatment with your primary care physician or another doctor is recommended, it is important for you to keep the appointment. Call your primary care physician or return to the Emergency Department immediately if your condition worsens, fails to improve, or new symptoms develop. If you need to find a doctor, you can call [facility] [employer] Link for a referral at [phone] or toll free at [phone]) or log in to [email or web address].. ?? [facility], in keeping with [facility] guidance, no longer requires face masks for staff, patientsor visitors in most situations. Similiar to time spent indoors at other locations, there is the chance that you were exposed to repiratory viruses during your time with us (such as flu or COVID-19). If you develop symptoms concerning for a viral respiratory infection, please seek testing (and treatment if indicated) from your medical provider or home test kit. ?? You can view and manage your care through the patient portal or by using a health care angelito of your choosing. [facility] is a website that allows you to securely view your medical information including your hospital discharge summary, office visit summaries, medications and follow-up visits. You can also request appointments, renew medications, and request access to your medical information using a health care angelito of your choosing, or just ask a question. You can enroll at [email or web address] or register during your next office visit. You have been discharged from [facility], Patient Care Unit: SW5??. If you have any questions regarding these instructions, including results of studies pending, afteryou leave, please call us and we will be happy to assist you 02/03. [facility] Your Care Team Attending Physician Ramesh Styles DO?? Consulting Providers Ramesh Styles DO?? Discharging Providers Trevin CASTAÑEDA, Quan Jones Your Diagnosis Paraesophageal hernia Tests Performed Below is a partial list of the tests performed during your hospitalization. You may have had other tests and procedures not included in this list. Please discuss all test results with your provider. BUN Calcium Ionized CBC w/ Differential Creatinine Lytes Magnesium Level Phosphorus Level Barium Swallow Esophagus CXR W/ Frontal and Lat Portable Chest XR Chest 2 Views Frontal and Lat XR Chest Portable * BUN?? CBC w/ Differential?? COVID-19 (2019 Novel Coronavirus) PCR?? Creatinine?? Electrolytes (Lytes)?? Ionized Calcium (Calcium Ionized)?? Magnesium Level?? Phosphorus Level?? Primary Care Provider Vi CASTAÑEDA, Leda Gore? Advance Directive Health Care Proxy on File Yes - Health Care Proxy Discharge Vitals Temperature: 98.2 DegF Height: 169 cm Pulse Rate: 89 bpm Weight: 111.4 kg Respiratory Rate: 21 br/min Body Mass Index:??39 kg/m2??Critical Systolic Blood Pressure: 132 mm Hg Body surface area: 2.29 Diastolic Blood Pressure: 75 mm Hg ?? Oxygen Saturation:??93 %??Low ?? Studies Pending All studies ordered during this hospital stay have been completed unless listed below. Please discuss all pending results with your provider listed above in these instructions. ?? BUN?? CBC w/ Differential?? COVID-19 (2019 Novel Coronavirus) PCR?? Creatinine?? Electrolytes (Lytes)?? Ionized Calcium (Calcium Ionized)?? Magnesium Level?? Phosphorus Level?? What to do next Instructions From Your Doctor Please??follow the instructions provided to you by the??body and fender mechanic??regarding your full liquid diet, you should remain on a full liquid diet until your follow-up appointment ?? Wound care???let warm soapy water run over your dressings??and pat dry after getting out of shower,??the chest tube dressing should remain on for??72 hours??following the removal of your chest tube. ?? No lifting anything heavier than a gallon of milk until your follow-up appointment. ?? Orders? 11/23/23 9:09:00 EDT?? Prescriptions??, ??11/23/23 9:09:00 EDT?? Scheduled Follow-Up Appointments Thursday 10:30 AM EDT ?? With: Ramesh Styles DO Where: [facility] [address] [place] [address] [place] [id number]- Status: Pending Discharge Medications BECKY WRIGHT :1965 Visit Date:11/18/2023 Medications: Please continue your medications until treatment is completed or stopped by your provider. Medications not listed below should be discontinued. Discuss any questions related to medications with your provider. What How Much When Why Instructions Next Dose New Acetaminophen (acetaminophen 325 mg oral tablet) 975 Milligram Oral Every 8 hours Paraesophageal hernia Duration: 14 Days Pickup at [facility] 3 4PM New Gabapentin (gabapentin 300 mg oral capsule) 300 Milligram Oral 3 times a day Paraesophageal hernia Duration: 14 Days Pickup at [facility] 3 3PM New Oxycodone (oxyCODONE 5 mg oral tablet) 5 Milligram Oral Every 6 hours as needed for Pain , Severe Paraesophageal hernia Duration: 7 Days This is to be taken every six hours for post operative pain control and should only be held for increased sedations, or reduced respiratory drive. ?? Pickup at [facility] 3 11AM, as needed Unchanged Albuterol (albuterol CFC free 90 mcg/ inh inhalation aerosol) 1 puff(s) Inhalation Every 6 hours as needed for for wheezing as needed Unchanged Amlodipine (amLODIPine 5 mg oral tablet) 1 tab(s) Oral Daily Duration: 14 Days tomorrow AM Unchanged Duloxetine (duloxetine 60 mg oral enteric coated capsule) 1 capsule Oral Daily in the morning tomorrow AM Unchanged Escitalopram (escitalopram 20 mg oral tablet) 1.5 tab(s) Oral Daily in the morning tomorrow AM Unchanged Ibuprofen (Advil 200 mg oral tablet) 1 tab(s) Oral Twice a day 8PM Unchanged Levothyroxine (levothyroxine 0.112 mg oral tablet) 1 tab(s) Oral Daily in the morning tomorrow AM Unchanged Lorazepam (LORazepam 0.5 mg oral tablet) 1 tab(s) Oral Twice a day as needed for as needed for anxiety as needed Unchanged lurasidone (lurasidone 80 mg oral tablet) 80 Milligram Oral Daily at supper Duration: 30 Days at dinner Unchanged Melatonin (melatonin 3 mg oral tablet) 1 tab(s) Oral Daily at Bedtime as needed for as needed for insomnia 8PM as needed Unchanged Meloxicam (meloxicam 7.5 mg oral tablet) 1 tab(s) Oral Two times a day with meals as needed for Pain , Moderate as needed Unchanged Nicotine (nicotine 21 mg/ 24 hr transdermal film, extended release) 1 patch(es) Topically Daily tomorrow AM Unchanged Ondansetron (ondansetron 4 mg oral tablet, disintegrating) 1 tab(s) Oral Every 8 hours as needed for Nausea & Vomiting Duration: 14 Days 12PM as needed Unchanged Tiotropium (tiotropium 2.5 mcg/ inh inhalation aerosol) 2 puff(s) Inhalation Daily Pharmacy Information [facility]: [address] [place], [place] [phone] Prescription Given During Visit Acetaminophen (acetaminophen 325 mg oral tablet) - 975 mg, By Mouth, Every 8 hours, # 126 tablet, 0Refills, [facility], [address] [place] [address] [phone]?? Gabapentin (gabapentin 300 mg oral capsule) - 300 mg, By Mouth, 3 times a day, # 42 capsule, 0 Refills, [facility] [place] [phone]?? Oxycodone (oxyCODONE 5 mg oral tablet) - 5 mg, By Mouth, Every 6 hours, # 28 tablet, 0 Refills, This is to be taken every six hours for post operative pain control and should only be held for increased sedations, or reduced respiratory drive., [facility] [address], [address] [place] [address] [phone]?? Laboratory Results Below is a partial list of the most recent Laboratory test results done prior to this discharge. You may have had other tests and procedures not included in this list. Please discuss all test resultswith your provider. Est Creatinine Clearance - 58.60 mL/min (11/21/2023) BUN (11/23/2023) ???BUN - 4 mg/dL Calcium Ionized (11/23/2023) ???Calcium, Ionized pH Corrected - 1.11 mmol/L CBC w/ Differential (11/23/2023) ???WBC - 10.0 k/mm3???RBC - 4.52 m/mm3???Hgb - 12.1 Gm/dL???Hct - 36.4 %???MCV - 80.5 femtoliters???MCH - 26.8 pg???MCHC - 33.2 g/dL???Platelet Count - 360 k/mm3???RDW-SD - 40.2 femtoliters???MPV - 10.7 femtoliters???Nucleated RBC (Automated) - 0.0 #/100 WBC'S???Abs. NRBC - 0.0 k/mm3???Abs. Neut - 7.0 k/mm3???Abs. Lymph - 1.3 k/mm3???Abs. [place] - 1.2 k/mm3???Abs. Eo - 0.4 k/mm3???Abs. Baso - 0.0 k/mm3???Neut % - 70.2 %???Lymph % - 12.8 %???[place] % - 12.4 %???Eos % - 3.8 %???Baso % - 0.3 %???Imm Gran - 0.5 %???Abs. Imm Gran - 0.1 k/mm3 Creatinine (11/23/2023) ???Creatinine-Blood - 1.0 mg/dL???Estimated GFR Creatinine - 62 ML/MIN/1.73 M2 Lytes (11/23/2023) ???Sodium - 123 mmol/L???Potassium - 5.2 mmol/L???Chloride - 85 mmol/L???Bicarbonate Level - 29 mmol/L???Anion Gap - 9 Magnesium Level (11/23/2023) ???Magnesium - 1.8 mg/dL Phosphorus Level (11/23/2023) ???Phosphorus - 2.8 mg/dL Allergies (NKA means No Known Allergies) Bactrim??(unsure) Contrast Dye??(unsure) Demerol HCl??(unsure) Other Environmental Allergy??(seasonal allergies) codeine??(rash) penicillin??(rash) sulfADIAZINE??(rash) sulfa drugs??(rash) Problems Active Problems??(26) B12 deficiency?? Back pain?? Benign essential hypertension?? bipolar disorder?? Chest pain?? Chronic back pain?? Chronic constipation?? Edema leg?? Fibromyalgia?? Fragile X syndrome?? GERD without esophagitis?? h/o fibromyalgia?? h/o hyponatremia?? h/o tbi?? Headache disorder?? History of traumatic brain injury?? Hypertension?? Hyponatremia?? Hypothyroid?? Leukocytosis?? Mild intermittent asthma?? Pre-diabetes?? Psychogenic polydipsia?? QT prolongation?? Recurrent chest pain?? Severe obesity (BMI 35.0-39.9) with comorbidity?? Education Materials Below is the list of Educational Leaflet Providered with your Discharge Instructions. [employer] Patient Education - Full Liquid Diet?? [employer] Patient Education - Diet-Liquid?? [employer] Patient Education - Hiatal Hernia?? Valuables and Belongings I fully understand and agree that [facility] accepts no responsibility for all my personal property including clothing, toilet articles, radios, jewelry, dentures, hearing aids, rings, money, or any other property that is in my possession or is brought to me after admission. I understand certain valuables may be placed in a hospital safe for a short period of time. I understand that the hospital is not liable for loss or damage due to accident, fire, or other natural occurrence while said property is in the safe. I accept full responsibility for any personal property that I keep with me, and will not hold the hospital responsible in case of loss or disappearance. I acknowledge that i have been encouraged to send valuables and belongings home. ?? Review of Valuable and Belonging List: With patient Disposition of Belongings: Other: PACU Date for Pt to Sign Valuables/Belongings: 11/19/23 02:12:00 ?? Other Discharge Information ? Pulmonary Rehab Status?? Pulmonary Rehab Discharge Status?? Respiratory Rate: 21 br/min ? Common Emergency Awareness Tips IS IT A STROKE? Act FAST and Check for these signs: FACE Does the face look uneven? ARM Does one arm drift down? SPEECH Does their speech sound strange? TIME Call at any sign of stroke ?? Heart Attack Signs Chest discomfort: Most heart attacks involve discomfort in the center of the chest and lasts more than a few minutes, or goes away and comes back. It can feel like uncomfortable pressure, squeezing, fullness or pain. Discomfort in upper body: Symptoms can include pain or discomfort in one or both arms, back, neck, jaw or stomach. Shortness of breath: With or without discomfort. Other signs: Breaking out in a cold sweat, nausea, or lightheaded. Remember, MINUTES DO MATTER. If you experience any of these heart attack warning signs, call to get immediate medical attention! ?? Smoking can increase your chances of developing chronic health problems and can cause harmful effects to other family members in your house. If you smoke, you are strongly encouraged to quit. Please call [facility] [employer] [facility] at [phone] or [phone]-[employer] ([phone]) or log in to [email or web address] for referrals to smoking cessation programs. ?? 902 Suicide & Crisis Lifeline is available 02/03 if you or someone you know needs to find a reason to keep living. By calling 624 you'll be connected to a skilled, trained counselor at a crisis center in your area. INPATIENT DISCHARGE INSTRUCTIONS SIGNATURE PAGE BECKY WRIGHT Location:[facility] Registration Date and Time:11/18/2023 11:03 EDT Primary Care Physician: Vi CASTAÑEDA, Leda Gore, Attending Physician: Ramesh Styles DO, I BECKY WRIGHT, have received the above patient education materials/instructions and have verbalized understanding. If ambulance or transport services are being used I further acknowledge being given a choice of service. ?? If you need to contact me, please call me at this number: . Patient/Card Tape Converter Operator Name: Patient/Card Tape Converter Operator Signature: Relationship to Patient: Witness Name/Signature: Date: * Nai CASTAÑEDA, Andre Argueta: PERFORM Event Display: Patient Education Leaflets Authored Date: [id number] Full Liquid Diet ?? [id number] Full Liquid Diet A full liquid diet is a middle step between a clear liquid diet and eating solid foods. A clear liquid diet allows only liquids you can see through. A full liquid diet allows thicker liquid foods, aslisted below. It can be anything that is liquid at room temperature.??The full liquid diet may be used before or after surgery. Or it may be used if you have a digestive illness. It's also used before some medical tests. It's easy to digest and leaves little food in the stomach and intestines. A full liquid diet meets calorie and protein needs for your body with liquids only. If it's to be used for more than 5 days, your healthcare provider or dietitian may also order high-protein, high-calorie liquid supplements. These will give you extra vitamins and minerals. You may include the itemsbelow on a full liquid diet. Adults Adults should drink a total of 2 to 3 quarts of liquid per day. It may be easier to drink small frequent servings rather than a few large ones. People with severe kidney or heart disease may need to limit the amount of fluid they take in. Check with your provider. ??? Cereals and soups. Creamy hot breakfast cereals (wheat or rice) thinned with milk, pureed soups (including pureed meats, bland vegetables, and white potatoes), tomato puree. ??? Desserts.??Gelatin, whipped topping, custard-style yogurt, pudding, custard, plain ice cream, sherbet, sorbet, frozen fruit juice bars. ??? Drinks. Coffee, tea, cream, milk, milkshakes, fruit and vegetable juices, sodas, mineral water (plain or flavored ), liquid gelatin, electrolyte replacement sports drinks. ??? Other items. Salt, mild-flavored seasonings, chocolate flavoring, gravy, margarine, sugar, syrup, jelly, honey, hard candy (to suck on). ?? Children Follow the healthcare provider???s instructions. Young children who are eating solid foods may be able to have the items listed above without problems. Be sure to follow these safety measures: ??? Don't give hard candies to young children. The candies may cause choking. ??? Children under 1 year old. Don't give cow's milk or honey. It may cause illness. ??? Children under 2 years old. Ask your child???s provider if you should supplement your child???s diet with oral rehydration solutions, whichhave electrolytes. You can buy these drinks at pharmacies and grocery stores. You don???t need a prescription. ??? Children over 1 year old.??Limit milk to 2 or 3 cups per day. Too much milk can makeyour child less hungry for other foods. ?? Last Reviewed Date: 2022 ?? 3849-8481 [employer]. All rights reserved. This information is not intended as a substitute for professional medical care. Always follow your healthcare professional's instructions. ?? * Andre Trimble MD: PERFORM Event Display: Patient Education Leaflets Authored Date: [id number] Diet-Liquid ?? 107 Diet Instructions Liquid Diet: [? ] Full liquid diet? [? ] Clear liquid diet ? * Andre Trimble MD: PERFORM Event Display: Patient Education Leaflets Authored Date: [id number] Hiatal Hernia ?? [id number] Hiatal Hernia The diaphragm is a thin sheet of muscle that runs across the top of the stomach. The small opening in the diaphragm where the food pipe (esophagus) and stomach meet is called the hiatus. When you eat, the muscle around the hiatus relaxes to let food pass from the esophagus into the stomach. The hiatus tightens to keep food and acid in the stomach. In some people, the hiatus is too large or the muscle around it is weak. Then the top of the stomach can push upward through the hiatus. This is called a hiatal hernia. A hiatal hernia can let stomach acid flow back up the esophagus. This is called acid reflux. Hiatal hernias are common. You may also hear them called diaphragmatic hernias. The cause of a hiatal hernia is not certain, but some things may make it more likely. These may include obesity, , and vomiting or coughing. Many people with hiatal hernia don't have symptoms. Often the symptoms are like those of GERD (gastroesophageal reflux disease or acid reflux). They??can include: ??? Burning feeling under the breastbone (heartburn) ??? Other mild chest pain ??? Frequent burping??? Food coming back up into the throat or mouth ??? Acid taste in the mouth ??? Trouble swallowingfood or liquid ??? Nighttime choking, coughing, or wheezing ??? Feeling full after eating only a small amount of food ??? Nausea and vomiting Treatment can reduce symptoms. This includes medicines and lifestyle changes. In severe cases, you may need surgery to tighten the hiatus. Home care Medicines help control symptoms, but they can't fix the hernia.? Antacids help neutralize the normal acids in your stomach. You may find one works better than another for you.? Acid blockers (H2 blockers) decrease acid production.? Acid inhibitors (PPIs) decrease acid production in a different way than the blockers.? Don't take nonsteroidal anti-inflammatory drugs (NSAIDs) such as aspirin, ibuprofen, and naproxen. These may worsen symptoms in some people. If you are taking these medicines for another health problem, talk with your healthcare provider before stopping them. Lifestyle changes are important in treating your symptoms. You can help reduce or ease your symptoms if you: ??? Stop smoking and using tobacco. Also if possible, stay away from secondhand smoke. ???Lose excess weight. Excess weight puts pressure on the stomach and esophagus. ??? Symptoms can be worsened by certain foods. Limit or stay away from fatty, fried, and spicy foods, as well as coffee, chocolate, and mint. Also stay away from foods with high acid content. These include tomatoes and citrus fruit and juices (orange, grapefruit, lemon).? Eat smaller amounts at a time. Don't get overfull. ??? Don't use alcohol, caffeine, or tobacco. They can delay healing and worsen your symptoms. ??? If you get symptoms overnight, prop up the head of your bed. For instance, use 2 bed risers under the frame, at the head of the bed. Or use a wedge pillow to raise (elevate) your head. ?? Follow-up care Follow up with your healthcare provider. Regular visits may be needed to check on your health. Be sure to take any medicines as prescribed and keep all your appointments. In some cases, you may need surgery to stop symptoms. Your healthcare provider will talk with you about this option if needed. ?? When to get medical advice Call your healthcare provider right away if any of these occur: ??? Severe pain in your chest or belly (abdomen) ??? Can???t keep down food or liquid ??? Symptoms get worse ??? Other symptoms as indicated by your healthcare provider ?? Call 911 Call 911 if any of these occur: ??? Trouble breathing or swallowing ??? Worsening chest pain, especially if different from normal ??? Vomiting blood ??? Large amounts of blood in stool ?? Last Reviewed Date: 2021 ?? [id number] [employer]. All rights reserved. This information is not intended as a substitute for professional medical care. Always follow your healthcare professional's instructions. ?? Patient Care team information Care Team Personnel Name: Leda Lebron MD Position: [facility] Physician (General Medicine) Member Role: PCP Address: Address: [address] [place] [address] Name: Marisa Hoover RN Position: [facility] RN Member Role: Primary Care Nurse Name: Clemencia Camargo RN Position: [facility] RN Member Role: Primary Care Nurse Name: Nikkie Tubbs Position: [facility] Outreach Member Role: Lifetime Consulting Physician Name: Tavon Powell Position: [facility] RN Member Role: Primary Care Nurse Name: Rocio Saab RN Position: [facility] RN Member Role: Primary Care Nurse Name: Caron Short RN Position: [facility] RN Member Role: Primary Care Nurse Name: Prachi Negron RN Position: [facility] RN Member Role: Primary Care Nurse Name: Tami Soler RN Position: [facility] RN Member Role: Primary Care Nurse Name: Ashleigh Mercado RN Position: [facility] RN Member Role: Primary Care Nurse Name: Heidi Moreland Position: [facility] RN Member Role: Primary Care Nurse Name: Ashleigh Levy RN Position: [facility] Onco RN Member Role: Primary Care Nurse Name: Jimbo Payne RN Position: [facility] RN Member Role: Primary Care Nurse Name: Danie Maza RN Position: [facility] RN Member Role: Primary Care Nurse Name: Vicky Kaur RN Position: [facility] Onco RN Member Role: Primary Care Nurse Name: Mally Chauhan RN Position: [facility] Hospital Home Based Assistant Member Role: Primary Care Nurse Name: Nedra Garza RN Position: [facility] RN Member Role: Primary Care Nurse Care Team Related Persons Name: ESTELA WRIGHT Address: [address] [address] Name: FLORES WRIGHT Address: home [address] [place] [address] Name: BEATRIZ WRIGHT Name: PARAG WRIGHT Name: FLORES CHAUHAN Address: [place] [address] Name: YAN CHAUHAN Address: [place] [address]
--- OUTSIDE RECORDS SUMMARY | 2023-12-06 14:41 | XMS_ITS | Continuity of Care Document ---
Author Organization [facility] ter Address [address] [place] [id number]- Care Team Providers Care [employer] Name Role Phone Vi CASTAÑEDA, Leda Gore Primary Care Physician Encounter [facility] Date(s): 01/30/22 - 01/31/[address] [address]- Discharge Disposition: A-D/C Walkout Attending Physician: Not [...] Refills, Maintenance, 01/10/22 11:29:00 EDT, EC Tablet, [id number], Partial fill upon patient request if the prescription is for a schedule II opioid drug., 165, cm, 11/28/21 12:34:00 EDT, Hezbigniew... Start Date: 01/10/22 Stop Date: 02/09/22 Status: [...] Active QT prolongation(Confirmed) Active Severe obesity(Confirmed) Active Results Radiology Reports * Exam Date Time Procedure Performing Provider Status 01/30/22 10:19 PM Chest 2 Views Frontal and Lat Mora Landry; Auth (Verified) Notes: (Chest 2 Views Frontal and Lat) Reason For Exam: Shortness of Breath RESULT: Chest 2 Views Frontal and Lat Chest 2 Views Frontal and Lat Hx of Present Illness: seen here yesterday for same. Called 911 for SOB; Reason: Shortness of Breath; Clinical Question(s): Pneumonia COMPARISON: 01/29/2022 FINDINGS: LINES AND TUBES: None. LUNGS AND PLEURA: Elevated left hemidiaphragm. No consolidation or overt pulmonary edema. No pleural effusion. No pneumothorax. HEART, MEDIASTINUM AND HOLLY: Heart is normal in size. Normal upper mediastinal and hilar contour. BONES AND SOFT TISSUES: No acute abnormality. IMPRESSION: No acute abnormality. WSN: [id number] Ordering Physician: Cash Olmstead Dictated By: Piero Youssef MD Dictated Date/Time: 01/30/22 10:23 p Reviewed By: Piero Youssef MD Signed By: Piero Youssfe MD Signed Date/Time: 01/30/22 10:23 pm Transcribed By: RODRI Transcribed Date/Time: 01/30/22 10:22 pm Vital Signs Most recent to oldest [Reference Range]: 1 2 Oxygen Saturation [94-100 %] 97 % (01/30/22 11:22 PM) 100 % (01/30/22 8:45 PM) Pulse Rate [55-90 bpm] 93 bpm *H* (01/30/22 11:22 PM) 89 bpm (01/30/22 8:45 PM) Blood Pressure [90-138/55-84 mm Hg] 176/ 110mm Hg *H* (01/30/22 11:22 PM) 178/93mm Hg *H* (01/30/22 8:45 PM) Respiratory Rate [16-30 br/min] 16 br/mi n (01/30/22 8:45 PM) Temperature [96.8-100.4 DegF] 98 DegF (01/30/22 11:22 PM) 98.1 DegF (01/30/22 8:45 PM) Mode of Delivery (Oxygen) Room air (01/30/22 11:22 PM) Room air (01/30/22 8:45 PM) Blood pressure sites Arm, right (01/30/22 11:22 PM) Arm, right (01/30/22 8:45 PM) Temperature Route Oral (01/30/22 11:22 PM) Oral (01/30/22 8:45 PM) Social History Social History Type Response Smoking Status 10 or more cigarette s (1/2 pack or more)/day in last 30 days entered on: 05/24/21 Sex
--- OUTSIDE RECORDS SUMMARY | 2023-12-06 14:41 | XMS_ITS | Continuity of Care Document ---
Author Organization [facility] ter Address [address] [place] [id number]- Care Team Providers Care Clay Machine Operator Name Role Phone Vi CASTAÑEDA, Leda Gore Primary Care Physician [phone] Encounter [facility] Date(s): 04/25/23 - 04/26/[address] [address]- Encounter Diagnosis Chest pain, musculoskeletal(Final) - 04/26/23 Discharge Disposition: A-D/C Home Attending Physician: Nelli Lopez DO Admitting Physician: Nelli Lopez DO Referring Physician: Not on Staff, Referring MD [...] Refills, Maintenance, 01/10/22 11:29:00 EDT, EC Tablet, [facility] #[id number], Partial fill upon patient request if the [...] EVERY DAY Start Date: 11/28/21 Status: Ordered lidocaine 5% topical film 1 patch, Topically, Daily, PRN Pain , Mild, remove after 12 hours, # 13 each, 0 Refills, Acute 05/08/23 23:59:00 EDT, 04/26/23 0:12:00 EDT, Film, [facility] #[id number], Partial fill upon patient request if the prescription is for a schedule II o... Start Date: 04/26/23 Stop Date: 05/08/23 Status: Ordered meloxicam 7.5 mg oral tablet [...] 06/08/22 21:22:00 EDT, Route to Pharmacy Electronically, [facility] #[id number], Partial fill upon patient request if the p... Start Date: 06/08/22 Status: Ordered Tylenol 325 mg oral capsule 2 capsule = 650 mg, By Mouth, 3 times a day, PRN as needed for pain, # 42 capsule, 0 Refills, Acute05/03/23 23:59:00 EDT, 04/26/23 0:12:00 EDT, Capsule, [facility] #[id number], Partial fill upon patient request if the prescription is for a sched... Start Date: 04/26/23 Stop Date: 05/03/23 Status: Ordered Problem List Condition Confirmation Course Effective Dates Status Health St [facility] Informant Chest pain Confirmed Active Hypertension Confirmed Active Hypothyroid Confirmed Active QT prolongation Confirmed Active Results Radiology Reports * Exam Date Time Procedure Performing Provider Status 04/25/23 11:[address] Abdomen and Pelvi s W/O Contrast Clementina Jefferson; Auth (Verified) Notes: (CT Abdomen and Pelvis W/O Contrast) Reason For Exam: Flank pain, kidney stone suspected;Other: RESULT: CT Abdomen and Pelvis W/O Contrast CT Abdomen and Pelvis W/O Contrast Hx of Present Illness: SOB and chest pain; Reason: Other:; Flank pain, kidney stone suspected; Clinical Question(s): Diverticulitis; Obstruction (contrast allergy); Order Comment: TECHNIQUE: Spiral CT through the abdomen and pelvis without IV contrast formatted in 3 planes. Thisstudy was performed without oral contrast. Weight- based protocol using automatic tube modulation was used to optimize exposure parameters. CTDIvol Body: 10.00 mGy, DLP Body: 572 mGy*cm. COMPARISON: 03/04/2023. FINDINGS: Production Line View Findings, Lines and Tubes: None. Visualized Chest: Lung bases are clear. No pleural effusion. The heart is normal in size. No pericardial effusion. Moderate eventration of the left hemidiaphragm. Diaphragm: Elevated left hemidiaphragm Liver: Water density low attenuation 1 cm lesion and focal calcification at the subdiaphragmatic surface of the right hepatic lobe. Gallbladder: Absent consistent with prior cholecystectomy. Bile ducts: No biliary ductal dilation. Spleen: Normal. Pancreas: Normal. Adrenal glands: Normal. Kidneys and ureters: No hydronephrosis, stones, or noncontrast evidence of suspicious masses. Bladder: Distended, otherwise unremarkable. Reproductive organs: Unremarkable. Stomach, small bowel, and large bowel: Type III paraesophageal hernia. The stomach is decompressed.Unremarkable small bowel. Mild colonic diverticulosis. Appendix: Not seen, but no evidence of appendicitis. Peritoneum and retroperitoneum: No ascites or pneumoperitoneum. No omental or mesenteric lesions. Lymph nodes: No enlarged lymph nodes. Blood vessels: Mild vascular calcifications but no aneurysm. Abdominal and pelvic wall: Mild diastasis of the rectus sheath. Bones: No acute abnormality. IMPRESSION: No explanation for patient's symptoms identified. Hiatal hernia. Elevated left hemidiaphragm. I have personally reviewed the images and I agree with this report. WSN: [id number] Ordering Physician: Mika Roe Dictated By: Zohaib[Radiology] Paulo CASTAÑEDA Dictated Date/Time: 04/25/23 11:49 p Reviewed By: Piero Youssef MD Signed By: Piero Youssef MD Signed Date/Time: 04/25/23 11:54 pm Transcribed By: RODRI Transcribed Date/Time: 04/25/23 11:47 pm * Exam Date Time Procedure Performing Provider Status 04/25/23 10:00 PM Chest 2 Views Frontal and Lat Dequan Leon; Antonio (Verified) Notes: (Chest 2 Views Frontal and Lat) Reason For Exam: Shortness of Breath, Fever;Other: RESULT: Chest 2 Views Frontal and Lat Chest 2 Views Frontal and Lat Hx of Present Illness: SOB and chest pain; Reason: Other:; Shortness of Breath, Fever; Clinical Question(s): Pneumonia COMPARISON: [facility], most recent dated 03/15/2023 FINDINGS: LINES AND TUBES: None. LUNGS AND PLEURA: No focal consolidation. Normal pulmonary vascularity. No pleural effusion. No pneumothorax. HEART, MEDIASTINUM AND HOLLY: Heart is normal in size. Normal mediastinal and hilar contour. BONES AND SOFT TISSUES: No acute abnormality. Mild dextroscoliosis of the thoracic spine. IMPRESSION: No acute abnormality. WSN: [id number] Ordering Physician: Mika Roe Dictated By: Joanna Goodson MD Dictated Date/Time: 04/25/23 10:07 p Reviewed By: Joanna Goodson MD Signed By: Joanna Goodson MD Signed Date/Time: 04/25/23 10:07 pm Transcribed By: RODRI Transcribed Date/Time: 04/25/23 10:07 pm Vital Signs Most recent to oldest [Reference Range]: 1 2 3 Height 170 cm (04/25/23 11:40 PM) 170 cm (04/25/23 5:22 PM) 170 cm (04/25/23 5:16 PM) Oxygen Saturation [94-100 %] 96 % (04/25/23 11:40 PM) 99 % (04/25/23 7:04 PM) 100 % (04/25/23 5:16 PM) Pulse Rate [55-90 bpm] 86 bpm (04/25/23 11:40 PM) 98 bpm *H* (04/25/23 7:04 PM) 95 bpm *H* (04/25/23 5:16 PM) Blood Pressure [90-138/55-84 mm Hg] 128/80mm Hg (04/25/23 11:40 PM) 164/94mm Hg *H* (04/25/23 7:04 PM) 154/87mm Hg *H* (04/25/23 5:16 PM) Respiratory Rate [16-30 br/min] 18 br/min (04/25/23 11:40 PM) 16 br/min (04/25/23 5:16 PM) Temperature [96.8-100.4 DegF] 98.1 DegF (04/25/23 11:40 PM) 97.3 DegF (04/25/23 7:04 PM) 98.4 DegF (04/25/23 5:16 PM) Mode of Delivery (Oxygen) Room air (04/25/23 11:40 PM) Room air (04/25/23 7:04 PM) Room air (04/25/23 5:16 PM) Blood pressure sites Arm, right (04/25/23 11:40 PM) Arm, right (04/25/23 7:04 PM) Arm, right (04/25/23 5:16 PM) Temperature Route Oral (04/25/23 11:40 PM) Oral (04/25/23 7:04 PM) Oral (04/25/23 5:16 PM) Dry Weight 93 kg (04/25/23 11:40 PM) 93 kg (04/25/23 5:22 PM) 93 kg (04/25/23 5:16 PM) Dry Weight Obtained Via Patient/family s tated (04/25/23 5:16 PM) Social History Social History Type Response Tobacco Use: 4 or less cigar ettes(less than 1/4 pack)/day in last 30 days. Sex Patient Care team information Care Team Personnel Name: Vi CASTAÑEDA, Leda Gore Position: [facility] Physician (General Medicine) Member Role: PCP Address: Address: [address] [place] [id number] Name: Caron Short RN Position: [facility] RN Member Role: Primary Care Nurse Name: Ashleigh Levy RN Position: S RN Member Role: Primary Care Nurse Name: Jimbo Payne RN Position: [facility] RN Member Role: Primary Care Nurse Name: Vincent REYES, Vicky Carlton Position: [facility] Onco RN Member Role: Primary Care Nurse Name: Flores Gross RN Position: [facility] RN Member Role: Primary Care Nurse Name: Mally Chauhan RN Position: [facility] Hospital Quotation Clerk Member Role: Primary Care Nurse Name: Nedra Garza RN Position: [facility] RN Member Role: Primary Care Nurse Name: Nelli Lopez DO Position: [facility] Resident Member Role: ED Attending Physician Address: Address: [address] [place] [address] Name: Mika Ramos Position: [facility] Associate Professional Member Role: ED Physician 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 Address: Address: [address] [place] [address] Name: Alison Patel RN Position: [facility] ED RN W/OE and Tasks Member Role: Patient Care Provider Name: Ashleigh Moreno Position: [facility] ED TA [facility] Member Role: Scouring Train Operator Chief Care Team Related Persons Name: ESTELA WRIGHT Address: home [address] [place] [address] Name: FLORES WRIGHT Address: home [address] [place] [address] Name: BEATRIZ WRIGHT Address: home [address] [place] [address] Name: FLORES CHAUHAN Address: home [address] [place] [address] Name: YAN CHAUHAN Address: [address] [address]
--- OUTSIDE RECORDS SUMMARY | 2023-12-06 14:41 | XMS_ITS | Continuity of Care Document ---
Author Organization [facility] Address [address] [place] [id number]- Care Team Providers Care Market Maker Name Role Phone Vi CASTAÑEDA, Leda Gore Primary Care Physician [place] [facility] Date(s): 05/21/21 - 05/21/[address] [address]- Discharge Disposition: A-D/C Walkout Attending Physician: Cash Mejias MD Admitting Physician: Cash Mejias MD Referring Physician: Not on Staff, Referring MD Allergies, Adverse Reactions, Alerts Substance Reaction Severity Status codeine Active penicillin Active sulfADIAZINE Active Demerol HCl Active Contrast Dye Active Bactrim Active Immunizations Given and Recorded [...] [Reference Range]: 1 Oxygen Saturation [94-100 %] 98 % (05/21/21 1:19 AM) Pulse Rate [55-90 bpm] 88 bpm (05/21/21 1:19 AM) Blood Pressure [90-138/55-84 mm Hg] 150/ 88mm Hg *H* (05/21/21 1:19 AM) Respiratory Rate [16-30 br/min] 18 br/mi n (05/21/21 1:19 AM) Temperature [96.8-100.4 DegF] 98.5 DegF (05/21/21 1:19 AM) Mode of Delivery (Oxygen) Room air (05/21/21 1:19 AM) Blood pressure sites Arm, left (05/21/21 1:19 AM) Temperature Route Oral (05/21/21 1:19 AM) Social History Social History Type Response Smoking Status Never smoker entered on: 12/04/16 Sex
--- OUTSIDE RECORDS SUMMARY | 2023-12-06 14:41 | XMS_ITS | Continuity of Care Document ---
Author Organization [facility] ter Address [address] [place] [address]- Care Team Providers Care Tool Radial Drill Press Set Up Operator Name Role Phone Vi CASTAÑEDA, Leda Gore Primary Care Physician Encounter [facility] Date(s): 01/15/23 - 01/16/[address] [address]- Discharge Disposition: A-D/C Walkout Attending Physician: Not on Staff, Attending MD Admitting Physician: Not on Staff, Admitting MD Referring Physician: Not on Staff, Referring MD Allergies, Adverse Reactions, Alerts Substance Reaction Severity Status codeine Active penicillin Active Demerol HCl Active Contrast Dye Active sulfADIAZINE Active Bactrim Active Immunizations Given [...] Refills, Maintenance, 01/10/22 11:29:00 EDT, EC Tablet, [facility] #[id number], Partial fill upon patient request if the [...] 06/08/22 21:22:00 EDT, Route to Pharmacy Electronically, [facility] #[id number], Partial fill upon patient request if the p... Start Date: 06/08/22 Status: Ordered Problem List Condition Confirmation Course Effective Dates Status Health St [facility] Informant Chest pain Confirmed Active Hypertension Confirmed Active Hypothyroid Confirmed Active QT prolongation Confirmed Active Vital Signs Most recent to oldest [Reference Range]: 1 2 3 Weight 83.9 kg (01/15/23 8:43 PM) 83.9 kg (01/15/23 8:02 PM) Oxygen Saturation [94-100 %] 99 % (01/16/23 3:28 AM) 94 % (01/16/23 1:29 AM) 98 % (01/15/23 8:02 PM) Pulse Rate [55-90 bpm] 84 bpm (01/16/23 3:28 AM) 88 bpm (01/16/23 1:29 AM) 93 bpm *H* (01/15/23 8:02 PM) Blood Pressure [90-138/55-84 mm Hg] 125/90mm Hg (01/16/23 3:28 AM) 131/90mm Hg (01/16/23 1:29 AM) 153/85mm Hg *H* (01/15/23 8:02 PM) Respiratory Rate [16-30 br/min] 16 br/min (01/16/23 1:29 AM) Temperature [96.8-100.4 DegF] 98.3 DegF (01/16/23 3:28 AM) 98.1 DegF (01/16/23 1:29 AM) 98.0 DegF (01/15/23 8:02 PM) Mode of Delivery (Oxygen) Room air (01/16/23 3:28 AM) Room air (01/16/23 1:29 AM) Room air (01/15/23 8:02 PM) Blood pressure sites Arm, left (01/16/23 3:28 AM) Arm, right (01/16/23 1:29 AM) Arm, left (01/15/23 8:02 PM) Temperature Route Oral (01/16/23 3:28 AM) Oral (01/16/23 1:29 AM) Oral (01/15/23 8:02 PM) Weight Obtained Via Patient/family state d (01/15/23 8:02 PM) Social History Social History Type Response Tobacco Use: 4 or less cigar ettes(less than 1/4 pack)/day in last 30 days. Sex EKG study * Event Display: EKG Authored Date: * Event Display: ECG 12-Lead Authored Date: Please click on pdf link to open report * Event Display: ECG 12-Lead Authored Date: Ventricular Rate: 99 BPM Atrial Rate: 99 BPM P-R Interval: 110 ms QRS Duration: 72 ms Q-T Interval: 380 ms QTC Calculation(Bazett): 487 ms P Corbin: 12 degrees R Corbin: 40 degrees T Corbin: 3 degrees Sinus rhythm with short VA Otherwise normal ECG When compared with ECG of 06-JAN-2023 21:46, Minimal criteria for Anterior infarct are no longer Present Confirmed by JIMBO RODRIGUEZ ([id number]) on 01/16/2023 2:07:12 PM [place]: JIMBO RODRIGUEZ Patient Care team information Care Team Personnel Name: Leda Lebron MD Position: [facility] Physician (General Medicine) Member Role: PCP Address: Address: [address] [place] [address] Name: Caron Short RN Position: [facility] RN Member Role: Primary Care Nurse Name: Ashleigh Levy RN Position: [facility] RN Member Role: Primary Care Nurse Name: Jimbo Payne RN Position: [facility] RN Member Role: Primary Care Nurse Name: Vicky Kaur RN Position: [facility] Onco RN Member Role: Primary Care Nurse Name: Delmy Gross RN Position: [facility] RN Member Role: Primary Care Nurse Name: Mally Chauhan RN Position: [facility] Hospital Tracer Bullet Charging Machine Operator Member Role: Primary Care Nurse Name: Nedra Garza RN Position: [facility] RN Member Role: Primary Care Nurse Care Team Related Persons Name: ESTELA WRIGHT Address: [place] [address] Name: DELMY WRIGHT Address: home [address] [place] [address] Name: BEATRIZ WRIGHT Address: home [address] [place] [address] Name: DELMY CHAUHAN Address: home [address] [place] [address] Name: YAN [place] Address: [place] [address]
--- OUTSIDE RECORDS SUMMARY | 2023-12-06 14:41 | XMS_ITS | Continuity of Care Document ---
Author Organization [facility] ter Address [address] [place] [id number]- Care Team Providers Care Physiognomist Name Role Phone Amelia CASTAÑEDA, Moiz Jones Primary Care Physician [phone] Encounter [facility] Date(s): 02/13/23 - 02/14/[address] [address]- Encounter Diagnosis Back pain(Final) - 02/13/23 Discharge Disposition: A-D/C Home Attending Physician: Ximena Ott DO Admitting Physician: Ximena Ott DO Referring Physician: Not on Staff, Referring MD Allergies, Adverse Reactions, Alerts Substance Reaction Severity Status codeine Active penicillin Active Bactrim Active Contrast Dye Active Demerol HCl Active sulfADIAZINE Active Immunizations Given and Recorded Vaccine Date [...] Refills, Maintenance, 01/10/22 11:29:00 EDT, EC Tablet, [facility] #[id number], Partial fill upon patient request if the prescription is for a schedule II opioid drug., 165, cm, 11/28/21 12:34:00 EDT, Linette... Start Date: 01/10/22 Stop Date: 02/09/22 Status: [...] opioid drug. Start Date: 05/23/21 Status: Ordered cyclobenzaprine 10 mg oral tablet 10 mg, Tablet, By Mouth, Once, STAT, 02/13/23 23:25:00 EDT, Stop date 02/13/23 23:25:00 EDT Start Date: 02/13/23 Stop Date: 02/13/23 Status: Completed escitalopram 10 mg oral tablet 1 tablet [...] 06/08/22 21:22:00 EDT, Route to Pharmacy Electronically, [facility] #[id number], Partial fill upon patient request if the p... Start Date: 06/08/22 Status: Ordered Problem List Condition Confirmation Course Effective Dates Status Health St atus Informant Chest pain Confirmed Active Hypertension Confirmed Active Hypothyroid Confirmed Active QT prolongation Confirmed Active Results Radiology Reports * Exam Date Time Procedure Performing Provider Status 02/14/23 12:58 AM Chest 2 Views Fronta l and Lat Vianca Nation; Auth (Verified) Notes: (Chest 2 Views Frontal and Lat) Reason For Exam: Shortness of Breath RESULT: Chest 2 Views Frontal and Lat Chest 2 Views Frontal and Lat Hx of Present Illness: Pt coming from home with lower back pain x 1 day and SOB x 20 minutes; Reason: Shortness of Breath; Clinical Question(s): CHF COMPARISON: 01/25/2023. FINDINGS: LINES AND TUBES: None. LUNGS AND PLEURA: Chronic elevation of the left hemidiaphragm. Clear lungs. Normal pulmonary vascularity. No pleural effusion. No pneumothorax. HEART, MEDIASTINUM AND HOLLY: Heart is normal in size. Normal mediastinal and hilar contour. BONES AND SOFT TISSUES: No acute abnormality. IMPRESSION: No acute abnormality. WSN: [id number] Ordering Physician: Helen Bhakta Dictated By: Suraj Alvarado MD Dictated Date/Time: 02/14/23 6:16 am Reviewed By: Suraj Alvarado MD Signed By: Suraj lAvarado MD Signed Date/Time: 02/14/23 6:16 am Transcribed By: RODRI Transcribed Date/Time: 02/14/23 6:15 am Vital Signs Most recent to oldest [Reference Range]: 1 2 3 Height 170 cm (02/13/23 11:53 PM) 170 cm (02/13/23 10:28 PM) 170 cm (02/13/23 10:13 PM) Oxygen Saturation [94-100 %] 96 % (02/14/23 5:04 AM) 100 % (02/13/23 11:53 PM) 95 % (02/13/23 10:13 PM) Pulse Rate [55-90 bpm] 81 bpm (02/14/23 5:04 AM) 78 bpm (02/13/23 11:53 PM) 99 bpm *H* (02/13/23 10:13 PM) Blood Pressure [90-138/55-84 mm Hg] 147/96mm Hg *H* (02/14/23 5:04 AM) 146/88mm Hg *H* (02/13/23 11:53 PM) 151/83mm Hg *H* (02/13/23 10:13 PM) Respiratory Rate [16-30 br/min] 18 br/min (02/14/23 5:04 AM) 18 br/min (02/13/23 11:53 PM) 18 br/min (02/13/23 11:27 PM) Temperature [96.8-100.4 DegF] 98.1 DegF (02/13/23 6:55 PM) Mode of Delivery (Oxygen) Room air (02/14/23 5:04 AM) Room air (02/13/23 11:53 PM) Room air (02/13/23 10:13 PM) Blood pressure sites Arm, right (02/13/23 11:53 PM) Arm, left (02/13/23 10:13 PM) Arm, left (02/13/23 6:55 PM) Temperature Route Oral (02/13/23 6:55 PM) Dry Weight 110.8 kg (02/13/23 11:53 PM) 110.8 kg (02/13/23 10:28 PM) 110.8 kg (02/13/23 10:13 PM) Weight Obtained Via Patient/family state d (02/13/23 6:55 PM) Dry Weight Obtained Via Standing scale (02/13/23 6:55 PM) Social History Social History Type Response Tobacco Use: 4 or less cigar ettes(less than 1/4 pack)/day in last 30 days. Sex Note * Helen Bhakta DO: PERFORM Event Display: Patient Education Leaflets Authored Date: [id number] Shortness of Breath (Dyspnea) ?? [id number] Shortness of Breath (Dyspnea) Shortness of breath is the feeling that you can't catch your breath or get enough air. It's also known as dyspnea. Dyspnea can be caused by many different conditions. They include: ??? Acute asthma attack ??? Worsening of chronic lung diseases such as chronic bronchitis and emphysema (COPD) ??? Heart failure. This is when weak heart muscle causes extra fluid to collect in the lungs. ??? Panic attacks or anxiety. Fear can cause rapid breathing (hyperventilation). ??? Pneumonia, or an infection in the lung tissue ??? Exposure to toxic substances, fumes, smoke, or certain medicines ??? Blood clot in the lung (pulmonary embolism). This is often from a piece of blood clot in adeep vein of the leg (deep vein thrombosis) that breaks off and travels to the lungs. ??? Heart attack or heart-related chest pain (angina) ??? Anemia ??? Collapsed lung (pneumothorax) ??? Dehydration ??? Based on your visit today, the exact cause of your shortness of breath is not certain. Your tests don???t show any of the serious causes of dyspnea. You may need other tests to find out if you have aserious problem. It???s important to watch for any new symptoms or symptoms that get worse. Follow up with your healthcare provider as directed. Home care Follow these tips to take care of yourself at home: ??? When your symptoms are better, go back to your usual activities. ??? If you smoke, you should stop. Join a quit-smoking program or ask your healthcare provider for help. ??? Eat a healthy diet and get plenty of sleep. ??? Get regular exercise.Talk with your healthcare provider before starting to exercise, especially if you have other medical problems. ??? Discuss with your healthcare provider about cutting down on the amount of caffeine and stimulants you consume. ?? Follow-up care Follow up with your healthcare provider, or as advised. If tests were done, you will be told if your treatment needs to be changed. You can call as directed for the results. If an X-ray was taken, you will be told of any new findings that may affect your care. ?? Call 911 Shortness of breath may be a sign of a serious medical problem. For example, it may be a problem with your heart or lungs. Call 911 if you have worsening shortness of breath or trouble breathing, especially with any of the symptoms below: ??? Shortness of breath or wheezing ??? Confusion or difficulty waking ??? Fainting or loss of consciousness ??? Fast or irregular heartbeat ??? Coughing up blood ??? Unusual pain in your chest, arm, shoulder, neck, or upper back ??? Unusual sweating ??? Feeling of doom ??? Lips or skin looks blue, purple, or zarate in color ??? Feel dizzy ?? When to seek medical advice Call your healthcare provider right away if any of these occur: ??? Redness, pain or swelling in your leg, arm, or other body area ??? Swelling in both legs or ankles ??? Fast weight gain ??? Weakness ??? Fever of 100.4??F (38??C) or higher, or as directed by your healthcare provider ?? Last Reviewed Date: 2021 ?? [id number] [employer]. All rights reserved. This information is not intended as a substitute for professional medical care. Always follow your healthcare professional's instructions. ?? * Helen Bhakta DO: PERFORM Event Display: Patient Education Leaflets Authored Date: [id number] Back Care Tips ?? [id number] Back Care Tips Caring for your back These are things you can do to prevent a recurrence of acute back pain and to reduce symptoms from chronic back pain: ??? Stay at a healthy weight. If you are overweight, losing weight will help mosttypes of back pain. ??? Exercise is an important part of recovery from most types of back pain. Themuscles behind and in front of the spine support the back. This means strengthening both the back muscles and the belly (abdominal) muscles will provide better support for your spine.? Swimming and brisk walking are good overall exercises to improve your fitness level. ??? Practice safe lifting methods (see below). ??? Practice good posture when sitting, standing, and walking. Don't sit for a long time. This puts more stress on the low back than standing or walking. ??? Wear quality shoes with good arch support. Foot and ankle alignment can affect back symptoms. Don't wear high heels. ??? Therapeutic massage can help relax the back muscles without stretching them. ??? During the first 24 to 72 hours after an acute injury or flare-up of chronic back pain, put an ice pack on the painful area for 20 minutes and then remove it for 20 minutes. Do this over a period of 60 to 90 minutes, or several times a day. As a safety precaution, don't use a heating pad at bedtime. Sleeping on a heating pad can lead to skin arvizu or tissue damage. ??? You can alternate using ice and heat. ?? Medicines Talk with your healthcare provider before using medicines, especially if you have other health problems or are taking other medicines. ??? You may use pgpd-eay-tubbslz medicines, such as acetaminophen, ibuprofen, or naproxen to control pain, unless your healthcare provider prescribed other pain medicine. Talk with your provider before taking any medicines if you have a long-term (chronic) condition, such as diabetes, liver or kidney disease, stomach ulcers, or digestive bleeding, or are taking blood thinners. ??? Be careful if you are given prescription pain medicines, opioids, or medicine for muscle spasm. They can cause drowsiness, and affect your coordination, reflexes, and judgment. Don' t drive or operate heavy machinery while taking these types of medicines. Take prescription pain medicine only as prescribed by your provider. ?? Lumbar stretch This simple stretch will help relax muscle spasm and keep your back more limber. If exercise makes your back pain worse, don???t do it. ??? Lie on your back with your knees bent and both feet on the ground. ??? Slowly raise your left knee to your chest as you flatten your low back against the floor. Hold for 5 seconds. ??? Relax and repeat the exercise with your right knee. ??? Do 10 of these exer cises for each leg. ?? Safe lifting method ??? Don???t bend over at the waist to lift an object off the floor.?? Instead, bend your knees and hips in a squat.? Keep your back and head upright ??? Hold the object closeto your body, directly in front of you. ??? Straighten your legs to lift the object.? Lower the object to the floor in the reverse fashion. ??? If you must slide something across the floor, push it. ?? Posture tips Sitting Sit in chairs with straight backs or low-back support. Keep your knees lower than your hips, with your feet flat on the floor. When driving, sit up straight. Adjust the seat forward so you are not leaning toward the steering wheel.??A small pillow or rolled towel behind your low back may help if you are driving long distances.?? Standing When standing for long periods, shift most of your weight to one leg at a time. Switch legs every few minutes.?? Sleeping The best way to sleep is on your side with your knees bent. Put a low pillow under your head to support your neck in a neutral spine position. Don't use thick pillows that bend your neck to one side.Put a pillow between your legs to further relax your low back. If you sleep on your back, put pillows under your knees to support your legs in a slightly flexed position. Use a firm mattress. If yourmattress sags, replace it, or use a 1/2-inch plywood board under the mattress to add support. ?? Follow-up care Follow up with your??healthcare provider as advised. If X-rays, a CT scan, or an MRI scan were taken, they may be reviewed by a radiologist. You will betold of any new findings that may affect your care. ?? Call 911 Call 911 if any of the following occur: ??? Trouble breathing ??? Confusion ??? Very drowsy ??? Fainting or loss of consciousness ??? Very fast or very slow heart rate ??? Loss of??bowel or bladder control ?? When to get medical advice Call your healthcare provider right away??if any of these occur: ??? Pain becomes worse or spreads to your arms or legs ??? Weakness or numbness in 1 or both arms or legs ??? Numbness in the groin area ?? Last Reviewed Date: 2022 ?? [id number] [employer]. All rights reserved. This information is not intended as a substitute for professional medical care. Always follow your healthcare professional's instructions. ?? Patient Care team information Care Team Personnel Name: Caron Short RN Position: [facility] RN Member Role: Primary Care Nurse Name: Ashleigh Levy RN Position: [facility] RN Member Role: Primary Care Nurse Name: Jimbo Payne RN Position: [facility] RN Member Role: Primary Care Nurse Name: Moiz Cisneros MD Position: Reference Physician Member Role: PCP Address: Address: [address] [place] [address] Name: Vicky Kaur RN Position: [facility] Onco RN Member Role: Primary Care Nurse Name: Flores Gross RN Position: [facility] RN Member Role: Primary Care Nurse Name: Mally Chauhan RN Position: [facility] Lift Electrician Member Role: Primary Care Nurse Name: Nedra Garza RN Position: [facility] RN Member Role: Primary Care Nurse Name: Ambar Hines Position: [facility] Associate Professional Member Role: ED Physician Boot Lace Cutter Machine Address: Address: [address] [place] [address] Name: Km Kaplan RN Position: [facility] ED RN W/OE and Tasks Member Role: Patient Care Provider Name: Vishnu Hernandez RN Position: [facility] ED RN W/OE and Tasks Member Role: Patient Care Provider Name: Natalie Liz Position: [facility] ED TA LASHAWN Name: Ximena Ott DO Position: [facility] Resident Member Role: ED Attending Physician Address: Address: [address] [place] [address] Name: Maria L Davey Position: [facility] ED TA [facility] Member Role: Production Sanitizer Care Team Related Persons Name: KYLEELDONA Address: [place] [address] Name: FLORES WRIGHT Address: [place] [address] Name: BEATRIZ WRIGHT Address: [place] [address] Name: FLORES CHAUHAN Address: [address] [address] Name: YAN CHAUHAN Address: [place] [address]
--- OUTSIDE RECORDS SUMMARY | 2023-12-06 14:41 | XMS_ITS | Continuity of Care Document ---
Author Organization [facility] Address [address] [place] [id number]- Care Team Providers Care Vocational Director Name Role Phone Vi CASTAÑEDA, Leda Gore Primary Care Physician Encounter [facility] [place] Date(s): 06/03/23 - 06/03/[address] [address]- Discharge Disposition: A-D/C Walkout Attending Physician: Not [...] Refills, Maintenance, 01/10/22 11:29:00 EDT, EC Tablet, [facility] #[id number], Partial fill upon patient request if the [...] 06/08/22 21:22:00 EDT, Route to Pharmacy Electronically, [facility] #[id number], Partial fill upon patient request if the p... Start Date: 06/08/22 Status: Ordered Problem List Condition Confirmation Course Effective Dates Status Health St [facility] Informant Chest pain Confirmed Active Hypertension Confirmed Active Hypothyroid Confirmed Active QT prolongation Confirmed Active Severe obesity (BMI 35.0-39.9) with comorbidity Confirmed Active Vital Signs Most recent to oldest [Reference Range]: 1 2 Height 170 cm (06/03/23 6:12 PM) 170 cm (06/03/23 4:19 PM) Weight 114 kg (06/03/23 6:12 PM) 114 kg (06/03/23 4:19 PM) Oxygen Saturation [94-100 %] 95 % (06/03/23 7:53 PM) 97 % (06/03/23 4:19 PM) Pulse Rate [55-90 bpm] 87 bpm (06/03/23 7:53 PM) 92 bpm *H* (06/03/23 4:19 PM) Body Mass Index [18.5-24.99 kg/m2] 39.45 kg/m2 *>HHI* (06/03/23 4:19 PM) Blood Pressure [90-138/55-84 mm Hg] 131/ 97mm Hg (06/03/23 7:53 PM) 155/89mm Hg *H* (06/03/23 4:19 PM) Respiratory Rate [16-30 br/min] 20 br/mi n (06/03/23 7:53 PM) 18 br/min (06/03/23 4:19 PM) Temperature [96.8-100.4 DegF] 97.9 DegF (06/03/23 7:53 PM) 98.5 DegF (06/03/23 4:19 PM) Mode of Delivery (Oxygen) Room air (06/03/23 7:53 PM) Room air (06/03/23 4:19 PM) Blood pressure sites Arm, right (06/03/23 7:53 PM) Arm, right (06/03/23 4:19 PM) Temperature Route Oral (06/03/23 7:53 PM) Oral (06/03/23 4:19 PM) Dry Weight 114 kg (06/03/23 6:12 PM) 114 kg (06/03/23 4:19 PM) Weight Obtained Via Patient/family state d (06/03/23 4:19 PM) Dry Weight Obtained Via Patient/family s tated (06/03/23 4:19 PM) Social History Social History Type Response Tobacco Use: 4 or less cigar ettes(less than 1/4 pack)/day in last 30 days. Sex EKG study * Event Display: EKG Authored Date: Patient Care team information Care Team Personnel Name: Leda Lebron MD Position: [facility] Physician (General Medicine) Member Role: PCP Address: Address: [address] [place] [address]- Name: Caron Short RN Position: [facility] ED RN W/OE and Tasks Member Role: Primary Care Nurse Name: Ashleigh Levy RN Position: [facility] RN Member Role: Primary Care Nurse Name: Jimbo Payne RN Position: [facility] RN Member Role: Primary Care Nurse Name: Vicky Kaur RN Position: [facility] Onco RN Member Role: Primary Care Nurse Name: Delmy Gross RN Position: [facility] RN Member Role: Primary Care Nurse Name: Mally Chauhan RN Position: [facility] Hospital Emergency Vehicle Technician Member Role: Primary Care Nurse Name: Nedra Garza RN Position: [facility] RN Member Role: Primary Care Nurse Name: Steven Tompkins MD Position: [facility] ED Medicine MD Member Role: ED Attending Physician Address: Address: [address] [place] [address] [place] [address]- Care Team Related Persons Name: ESTELA WRIGHT Address: [address] [address] Name: DELMY WRIGHT Address: [address] [address] Name: BEATRIZ WRIGHT Address: [address] [address] Name: DELMY CHAUHAN Address: [address] [address] Name: YAN CHAUHAN Address: [address] [address]
--- OUTSIDE RECORDS SUMMARY | 2023-12-06 14:41 | XMS_ITS | Continuity of Care Document ---
Author Organization [facility] ter Address [address] [place] [address]- Care Team Providers Care Summer Nanny Name Role Phone Vi CASTAÑEDA, Leda Gore Primary Care Physician Encounter [facility] [place] Date(s): 01/07/23 - 01/07/[address] [address]- Encounter Diagnosis Back pain(Final) - 01/07/23 Discharge Disposition: A-D/C Home Attending Physician: Yareli Calles DO Admitting Physician: Yareli Calles DO Referring Physician: Not on Staff, Referring [...] Refills, Maintenance, 01/10/22 11:29:00 EDT, EC Tablet, [facility] #[id number], Partial fill upon patient request if the [...] 06/08/22 21:22:00 EDT, Route to Pharmacy Electronically, [facility] #[id number], Partial fill upon patient request if the p... Start Date: 06/08/22 Status: Ordered Problem List Condition Confirmation Course Effective Dates Status Health St [facility] Informant Chest pain Confirmed Active Hypertension Confirmed Active Hypothyroid Confirmed Active QT prolongation Confirmed Active Vital Signs Most recent to oldest [Reference Range]: 1 2 3 Oxygen Saturation [94-100 %] 100 % (01/07/23 8:30 AM) 98 % (01/07/23 5:21 AM) 96 % (01/07/23 3:46 AM) Pulse Rate [55-90 bpm] 82 bpm (01/07/23 8:30 AM) 98 bpm *H* (01/07/23 5:21 AM) 92 bpm *H* (01/07/23 3:46 AM) Blood Pressure [90-138/55-84 mm Hg] 158/107mm Hg *H* (01/07/23 8:30 AM) 143/90mm Hg *H* (01/07/23 5:21 AM) 139/114mm Hg *H* (01/07/23 3:46 AM) Respiratory Rate [16-30 br/min] 18 br/min (01/07/23 8:30 AM) 16 br/min (01/07/23 5:21 AM) 18 br/min (01/07/23 3:46 AM) Temperature [96.8-100.4 DegF] 98.1 DegF (01/07/23 8:30 AM) 98.2 DegF (01/07/23 3:46 AM) Mode of Delivery (Oxygen) Room air (01/07/23 8:30 AM) Room air (01/07/23 5:21 AM) Room air (01/07/23 3:46 AM) Blood pressure sites Arm, right (01/07/23 8:30 AM) Arm, right (01/07/23 5:21 AM) Arm, right (01/07/23 3:46 AM) Temperature Route Oral (01/07/23 8:30 AM) Oral (01/07/23 3:46 AM) Social History Social History Type Response Tobacco Use: 4 or less cigar ettes(less than 1/4 pack)/day in last 30 days. Sex Note * Lilia VAZQUEZ, Emeterio: PERFORM Event Display: Patient Education Leaflets Authored Date: [id number] Back Pain (Acute or Chronic) ?? [id number] Back Pain (Acute or Chronic) Back pain is one of the most common problems. The good news is that most people feel better in 1 to2 weeks, and most of the rest in 1 to 2 months. Most people can remain active. People who have pain??describe it differently???not??everyone is the same. ??? The pain can be sharp, stabbing, shooting, aching, cramping or burning. ??? Movement, standing,bending, lifting, sitting, or walking may worsen pain. ??? It can be limited to one spot or area, or it can be more generalized. ??? It can spread upwards, to the front, or go down your arms or legs (sciatica). ??? It can cause muscle spasm. Most of the time, mechanical problems with the muscles??or spine cause the pain. Mechanical problems??are usually caused by an injury to the muscles or ligaments. Illness can cause back pain, but it's usually not caused by a serious illness. Mechanical problems include:? Physical activity such as sports, exercise, work, or normal activity ??? Overexertion, lifting,pushing, pulling incorrectly or too aggressively ??? Sudden twisting, bending, or stretching from an accident, or accidental movement ??? Poor posture ??? Stretching or moving wrong, without noticingpain at the time ??? Poor coordination, lack of regular exercise (check with your doctor about this) ??? Spinal disc disease or arthritis ??? Stress Pain can also be related to , or illness such as appendicitis, bladder or kidney infections, kidney stones, and pelvic infections. Acute back pain usually gets better in??1 to 2 weeks. Back pain related to disk disease, arthritis in the spinal joints, or narrowing of the spinal canal (spinal stenosis) can become chronic and lastfor months or years. Unless you had a physical injury such as a car accident or fall, X-rays are usually not needed for the first assessment of back pain. If pain continues and does not respond to medical treatment, you may need X-rays and other tests. Home care Try this home care advice: ??? When in bed, try??to find a position of comfort. A firm mattress is best. Try lying flat on your back with pillows under your knees. You can also try lying on your side with your knees bent up toward your chest and a pillow between your knees. ??? At first, don't try to stretch out the sore spots. If there is a strain, it's not like the good soreness you get after exercising without an injury. In this case, stretching may make it worse. ??? Don't sit for long periods, as in a long car ride or during other??travel. This puts more stress on the lower back than standing or walking. ??? During the first 24 to 72 hours after an acute injury or flare up of chronic back pain, apply an ice pack to the painful area for 20 minutes and then remove it for 20 minutes. Do this over a period of 60 to 90 minutes or several times a day. This will reduce swelling and pain. Wrap the ice pack in a thintowel or plastic to protect your skin. ??? You can start with ice, then switch to heat. Heat (hot shower, hot bath, or heating pad) reduces pain and works well for muscle spasms. Heat can be applied to the painful area for 20 minutes then remove it for 20 minutes. Do this over a period of 60 to 90 minutes or several times a day. Don't sleep on a heating pad. It can lead to skin arvizu or tissue damage. ??? You can alternate ice and heat therapy. Talk with your doctor about??the best treatment for your back pain. ??? Therapeutic massage can help relax the back muscles without stretching them. ??? Be aware of safe lifting methods. Don't lift anything without stretching first. Medicines Talk to your doctor before using medicine, especially if you have other medical problems or are taking other medicines. ??? You may use ettj-aoj-ekjfnud medicine as directed on the bottle to control pain, unless another pain medicine was prescribed. Talk with your healthcare provider before using these medicines if you have chronic conditions such as diabetes, liver or kidney disease, stomach ulcers, or digestive bleeding. Also talk with your provider if you take blood thinners. ??? Be careful if you are given a prescription medicines, narcotics, or medicine for muscle spasms. They can cause drowsiness, affect your coordination, reflexes, and judgment. Don't drive or operate heavy machinery. ?? Follow-up care Follow up with your healthcare provider, or as advised.?? If X-rays were taken, you will be told of any new findings that may affect your care. ?? Call 911 Call 911 if any of the following occur: ??? Trouble breathing ??? Confusion ??? Very drowsy or trouble awakening ??? Fainting or loss of consciousness ??? Rapid or very slow heart rate ??? Loss of bowel or bladder control ?? When to seek medical advice Call your healthcare provider right away if any of these occur:? Pain gets worse or spreads toyour legs ??? Your bowel or bladder control changes ??? Fever ??? Blood in your urine ??? Weakness or numbness in one or both legs ??? Numbness in the groin or genital area ?? Last Reviewed Date: 2021 ?? 6438-9415 [employer]. All rights reserved. This information is not intended as a substitute for professional medical care. Always follow your healthcare professional's instructions. ?? Patient Care team information Care Team Personnel Name: Leda Lebron MD Position: [facility] Physician (General Medicine) Member Role: PCP Address: Address: [address] [place] [address] Name: Caron Short RN Position: [facility] RN Member Role: Primary Care Nurse Name: Ashleigh Levy RN Position: [facility] RN Member Role: Primary Care Nurse Name: Jimbo Payne RN Position: [facility] RN Member Role: Primary Care Nurse Name: Vicky Kaur RN Position: [facility] Onco RN Member Role: Primary Care Nurse Name: Flores Gross RN Position: [facility] RN Member Role: Primary Care Nurse Name: Mally Chauhan RN Position: [facility] Hospital Automotive Parts Clerk Member Role: Primary Care Nurse Name: Nedra Garza RN Position: [facility] RN Member Role: Primary Care Nurse Name: Alva Springer LPN Position: [facility] ED RN W/OE and Tasks Member Role: Patient Care Provider Name: Emeterio Rodrigues DO Position: [facility] Resident Member Role: ED Resident Address: Address: [address] [place] [address] Name: Beverly Samuel Position: [facility] ED [facility] Name: Dequan Cavazos RN Position: [facility] ED RN W/OE and Tasks Member Role: Patient Care Provider Name: Yareli Calles DO Position: [facility] ED Medicine MD Member Role: Admitting Physician Address: Address: [address] [place] [address] Care Team Related Persons Name: ESTELA WRIGHT Address: home [address] [place] [address] Name: FLORES WRIGHT Address: home [address] [place] [address] Name: BEATRIZ WRIGHT Address: home [address] [place] [address] Name: FLORES CHAUHAN Address: home [address] [place] [address] Name: YAN CHAUHAN Address: home [address] [place] [address]
--- OUTSIDE RECORDS SUMMARY | 2023-12-06 14:41 | XMS_ITS | Continuity of Care Document ---
Author Organization [facility] Address [address] [place] [address]- Care Team Providers Care Client Services Account Manager Name Role Phone Vi CASTAÑEDA, Leda Gore Primary Care Physician Encounter [facility] [place] Date(s): 05/08/21 - 05/09/[address] [address]- Discharge Disposition: A-D/C Walkout Attending Physician: Not [...] Exam Date Time Procedure Performing Provider Status 05/08/21 9:45 PM Chest 2 Views Frontal and Lat Tino Vyas; Antonio (Verified) Notes: (Chest 2 Views Frontal and Lat) Reason For Exam: SOB;Cough RESULT: Chest 2 Views Frontal and Lat Chest 2 Views Frontal and Lat Hx of Present Illness: Pt reports SOB and sore throat that started 1-2 hours ago. Pt denies cough or chest pain. Pt is also requesting to see BHN for increased depression, but denies SI HI.; Reason: Cough; SOB; Clinical Question(s): Pneumonia; Special Instructions: This is a protocol film and radiol ogist should call any findings to the Charge Nurse or appropriate provider COMPARISON: 05/03/2021 FINDINGS: LINES AND TUBES: None. LUNGS AND PLEURA: Clear lungs. Normal pulmonary vascularity. No pleural effusion. No pneumothorax. HEART, MEDIASTINUM AND HOLLY: Heart is normal in size. Normal upper mediastinal and hilar contour. BONES AND SOFT TISSUES: No acute abnormality. IMPRESSION: No acute abnormality. WSN: [id number] Ordering Physician: Amish Metzger MD Dictated By: Gaetano Stevenson MD Dictated Date/Time: 05/08/21 9:47 pm Reviewed By: Gaetano Stevenson MD Signed By: Gaetano Stevenson MD Signed Date/Time: 05/08/21 9:47 pm Transcribed By: RODRI Transcribed Date/Time: 05/08/21 9:46 pm Vital Signs Most recent to oldest [Reference Range]: 1 Height 165 cm (05/08/21 9:16 PM) Weight 95.5 kg (05/08/21 9:16 PM) Oxygen Saturation [94-100 %] 98 % (05/08/21 7:46 PM) Pulse Rate [55-90 bpm] 89 bpm (05/08/21 7:46 PM) Blood Pressure [90-138/55-84 mm Hg] 128/ 77mm Hg (05/08/21 7:46 PM) Respiratory Rate [16-30 br/min] 16 br/mi n (05/08/21 7:46 PM) Temperature [96.8-100.4 DegF] 98.5 DegF (05/08/21 7:46 PM) Mode of Delivery (Oxygen) Room air (05/08/21 7:46 PM) Blood pressure sites Arm, left (05/08/21 7:46 PM) Temperature Route Oral (05/08/21 7:46 PM) Dry Weight 95.5 kg (05/08/21 9:16 PM) Weight Obtained Via Patient/family state d (05/08/21 9:16 PM) Dry Weight Obtained Via Patient/family s tated (05/08/21 9:16 PM) Social History Social History Type Response Smoking Status Never smoker entered on: 12/04/16 Sex
--- OUTSIDE RECORDS SUMMARY | 2023-12-06 14:41 | XMS_ITS | Continuity of Care Document ---
Author Organization [facility] ter Address [address] [place] [address]- Care Team Providers Care Twenty One Dealer Name Role Phone Vi CASTAÑEDA, Leda Gore Primary Care Physician [phone] Encounter [facility] [place] Date(s): 01/29/22 - 01/29/[address] [address]- Discharge Disposition: A-D/C Walkout Attending Physician: Not [...] Refills, Maintenance, 01/10/22 11:29:00 EDT, EC Tablet, [facility] #[id number], Partial fill upon patient request if the [...] Exam Date Time Procedure Performing Provider Status 01/29/22 6:58 PM Chest 2 Views Frontal and Lat Tino Vyas; Antonio (Verified) Notes: (Chest 2 Views Frontal and Lat) Reason For Exam: sob;Cough RESULT: Chest 2 Views Frontal and Lat Chest 2 Views Frontal and Lat Hx of Present Illness: Pt reports sob x 30 min's. no cough recent resp illness. no fever or chills.+upper and lower back pain that pt reports I have that all the time . no leg edema calf pain; no cp; +dizziness; +nausea without vomiting; no abd pain; no urinary changes; +; Reason: Cough; sob; Clinical Question(s): Pneumonia COMPARISON: 01/13/2022 FINDINGS: LINES AND TUBES: None. LUNGS AND PLEURA: Chronically elevated hemidiaphragms. Clear lungs. Normal pulmonary vascularity. No pleural effusion. No pneumothorax. HEART, MEDIASTINUM AND HOLLY: Heart is normal in size. Normal upper mediastinal and hilar contour. BONES AND SOFT TISSUES: No acute abnormality. IMPRESSION: No acute abnormality. WSN: [id number] Ordering Physician: Denice Mendes Dictated By: Christofer Fernández MD Dictated Date/Time: 01/29/22 7:31 pm Reviewed By: Christofer Fernández MD Signed By: Christofer Fernández MD Signed Date/Time: 01/29/22 7:31 pm Transcribed By: RODRI Transcribed Date/Time: 01/29/22 7:30 pm Vital Signs Most recent to oldest [Reference Range]: 1 Oxygen Saturation [94-100 %] 95 % (01/29/22 5:55 PM) Pulse Rate [55-90 bpm] 79 bpm (01/29/22 5:55 PM) Blood Pressure [90-138/55-84 mm Hg] 157/ 82mm Hg *H* (01/29/22 5:55 PM) Respiratory Rate [16-30 br/min] 18 br/mi n (01/29/22 5:55 PM) Temperature [96.8-100.4 DegF] 98.1 DegF (01/29/22 5:55 PM) Mode of Delivery (Oxygen) Room air (01/29/22 5:55 PM) Blood pressure sites Arm, left (01/29/22 5:55 PM) Temperature Route Oral (01/29/22 5:55 PM) Social History Social History Type Response Smoking Status 10 or more cigarette s (1/2 pack or more)/day in last 30 days entered on: 05/24/21 Sex
--- OUTSIDE RECORDS SUMMARY | 2023-12-06 14:41 | XMS_ITS | Continuity of Care Document ---
Author Organization [facility] ter Address [address] [place] [address]- Care Team Providers Care Motor Coach Chauffeur Name Role Phone Vi CASTAÑEDA, Leda Gore Primary Care Physician Encounter [facility] [place] Date(s): 05/17/22 - 05/18/[address] [address]- Discharge Disposition: A-D/C Walkout Attending Physician: Not [...] Refills, Maintenance, 01/10/22 11:29:00 EDT, EC Tablet, [facility] #[id number], Partial fill upon patient request if the [...] [Reference Range]: 1 Oxygen Saturation [94-100 %] 97 % (05/17/22 10:02 PM) Pulse Rate [55-90 bpm] 102 bpm *H* (05/17/22 10:02 PM) Blood Pressure [90-138/55-84 mm Hg] 155/ 96mm Hg *H* (05/17/22 10:02 PM) Respiratory Rate [16-30 br/min] 16 br/mi n (05/17/22 10:02 PM) Temperature [96.8-100.4 DegF] 98.0 DegF (05/17/22 10:02 PM) Mode of Delivery (Oxygen) Room air (05/17/22 10:02 PM) Temperature Route Oral (05/17/22 10:02 PM) Social History Social History Type Response Smoking Status 10 or more cigarette s (1/2 pack or more)/day in last 30 days entered on: 05/24/21 Sex Patient Care team information Personnel Name: Vi CASTAÑEDA, Leda Gore Address: Address: [address] [place] [address]
--- OUTSIDE RECORDS SUMMARY | 2023-12-06 14:41 | XMS_ITS | Continuity of Care Document ---
Author Organization [facility] Address [address] [place] [address]- Care Team Providers Care Maintenance Groundskeeper Name Role Phone Vi CASTAÑEDA, Leda Gore Primary Care Physician [phone] [place] [facility] [place] 04/26/23 - 04/26/[address] [address]- Discharge Disposition: A-D/C Walkout Attending Physician: Not [...] Refills, Maintenance, 01/10/22 11:29:00 EDT, EC Tablet, [facility] #[id number], Partial fill upon patient request if the [...] 05/08/23 23:59:00 EDT, 04/26/23 0:12:00 EDT, Film, [facility] #[id number], Partial fill upon patient request if the [...] 06/08/22 21:22:00 EDT, Route to Pharmacy Electronically, [facility] #[id number], Partial fill upon patient request if the p... Start Date: 06/08/22 Status: Ordered Tylenol 325 mg oral capsule 2 capsule = 650 mg, By Mouth, 3 times a day, PRN as needed for pain, # 42 capsule, 0 Refills, Acute05/03/23 23:59:00 EDT, 04/26/23 0:12:00 EDT, Capsule, [facility] #[id number], Partial fill upon patient request if the prescription is for a sched... Start Date: 04/26/23 Stop Date: 05/03/23 Status: Ordered Problem List Condition Confirmation Course Effective Dates Status Health St [facility] Informant Chest pain Confirmed Active Hypertension Confirmed Active Hypothyroid Confirmed Active QT prolongation Confirmed Active Vital Signs Most recent to oldest [Reference Range]: 1 2 3 Oxygen Saturation [94-100 %] 100 % (04/26/23 4:44 AM) 97 % (04/26/23 1:06 AM) 98 % (04/26/23 1:01 AM) Pulse Rate [55-90 bpm] 80 bpm (04/26/23 4:44 AM) 90 bpm (04/26/23 1:06 AM) 98 bpm *H* (04/26/23 1:01 AM) Blood Pressure [90-138/55-84 mm Hg] 148/88mm Hg *H* (04/26/23 4:44 AM) 152/97mm Hg *H* (04/26/23 1:06 AM) Respiratory Rate [16-30 br/min] 16 br/min (04/26/23 4:44 AM) 18 br/min (04/26/23 1:06 AM) 18 br/min (04/26/23 1:01 AM) Temperature [96.8-100.4 DegF] 97.5 DegF (04/26/23 1:06 AM) Mode of Delivery (Oxygen) Room air (04/26/23 4:44 AM) Room air (04/26/23 1:06 AM) Room air (04/26/23 1:01 AM) Blood pressure sites Arm, left (04/26/23 4:44 AM) Arm, right (04/26/23 1:06 AM) Temperature Route Oral (04/26/23 1:06 AM) Social History Social History Type Response Tobacco Use: 4 or less cigar ettes(less than 1/4 pack)/day in last 30 days. Sex Patient Care team information Care Team Personnel Name: Leda Lebron MD Position: [facility] Physician (General Medicine) Member Role: PCP Address: Address: [address] [place] [address] Name: Caron Short RN Position: [facility] RN Member Role: Primary Care Nurse Name: Ashleihg Levy RN Position: [facility] RN Member Role: Primary Care Nurse Name: Jimbo Payne RN Position: [facility] RN Member Role: Primary Care Nurse Name: Vicky Kaur RN Position: [facility] Onco RN Member Role: Primary Care Nurse Name: Delmy Gross RN Position: [facility] RN Member Role: Primary Care Nurse Name: Mally Chauhan RN Position: [facility] Hospital Marine Water Tender Member Role: Primary Care Nurse Name: Nedra Garza RN Position: [facility] RN Member Role: Primary Care Nurse Name: Leda Gonzales RN Position: S ED RN W/OE and Tasks Member Role: Patient Care Provider Care Team Related Persons Name: ESTELA WRIGHT Address: [place] [address] Name: DELMY WRIGHT Address: [address] [address] Name: BEATRIZ WRIGHT Address: [place] [address] Name: DELMY CHAUHAN Address: home [address] [place] [address] Name: YAN CHAUHAN Address: home [address] [place] [address]
--- OUTSIDE RECORDS SUMMARY | 2023-12-06 14:41 | XMS_ITS | Continuity of Care Document ---
Author Organization [facility] ter Address [address] [place] [address]- Care Team Providers Care Instructional Technology Teacher Name Role Phone Vi CASTAÑEDA, Leda Gore Primary Care Physician [phone] Encounter [facility] [place] Date(s): 12/12/20 - 12/13/[address] [address]- Discharge Disposition: A-D/C Walkout Attending Physician: Not [...] Exam Date Time Procedure Performing Provider Status 12/12/20 10:00 PM Chest Portable Tino Vyas; Antonio ( Verified) Notes: (Chest Portable) Reason For Exam: Shortness of Breath RESULT: Chest Portable Chest Portable Hx of Present Illness: Pt is q day smoker who states she was sitting, watching TV at home when it suddenly became difficult for her to breathe and her lungs felt tight. Pt denies and new pain, n v d,fevers chills or CP.; Reason: Shortness of Breath; Clinical Question(s): Pneumonia COMPARISON: 08/13/2020 and 10/15/2015. FINDINGS: LINES AND TUBES: None. LUNGS AND PLEURA: Again demonstrated is elevation of the left hemidiaphragm. There is no evidence of focal airspace disease. No pleural effusion. No pneumothorax. HEART, MEDIASTINUM AND HOLLY: Heart is normal in size. Normal upper mediastinal and hilar contour. BONES AND SOFT TISSUES: No acute abnormality. IMPRESSION: No acute abnormality. WSN: [id number] Ordering Physician: Wilfredo Hollis Dictated By: Anna Valles MD Dictated Date/Time: 12/12/20 10:03 p Reviewed By: Anna Valles MD Signed By: Anna Valles MD Signed Date/Time: 12/12/20 10:03 pm Transcribed By: RODRI Transcribed Date/Time: 12/12/20 10:03 pm Vital Signs Most recent to oldest [Reference Range]: 1 2 Oxygen Saturation [94-100 %] 99 % (12/12/20 11:35 PM) 96 % (12/12/20 9:20 PM) Pulse Rate [55-90 bpm] 92 bpm *H* (12/12/20 11:35 PM) 91 bpm *H* (12/12/20 9:20 PM) Blood Pressure [90-138/55-84 mm Hg] 153/ 93mm Hg *H* (12/12/20 11:35 PM) 147/91mm Hg *H* (12/12/20 9:20 PM) Respiratory Rate [16-30 br/min] 18 br/mi n (12/12/20 11:35 PM) 18 br/min (12/12/20 9:20 PM) Temperature [96.8-100.4 DegF] 98 DegF (12/12/20 9:20 PM) Liters per Minute 1.5 L/min (12/12/20 11:35 PM) Mode of Delivery (Oxygen) Nasal cannula (12/12/20 11:35 PM) Room air (12/12/20 9:20 PM) Blood pressure sites Arm, right (12/12/20 11:35 PM) Arm, right (12/12/20 9:20 PM) Temperature Route Oral (12/12/20 9:20 PM) Social History Social History Type Response Smoking Status Never smoker entered on: 12/04/16 Sex
--- OUTSIDE RECORDS SUMMARY | 2023-12-06 14:41 | XMS_ITS | Continuity of Care Document ---
Author Organization [facility] Address [address] [place] [address]- Care Team Providers Care Application Systems Engineer Name Role Phone Vi CASTAÑEDA, Leda Gore Primary Care Physician Encounter [facility] [place] Date(s): 06/15/23 - 06/15/[address] [address]- Discharge Disposition: A-D/C Walkout Attending Physician: Cash [...] Refills, Maintenance, 01/10/22 11:29:00 EDT, EC Tablet, [facility][id number], Partial fill upon patient request if the [...] 06/08/22 21:22:00 EDT, Route to Pharmacy Electronically, [id number], Partial fill upon patient request if the p... Start Date: 06/08/22 Status: Ordered Problem List Condition Confirmation Course Effective Dates Status Health St [facility] Informant Chest pain Confirmed Active Hypertension Confirmed Active Hypothyroid Confirmed Active QT prolongation Confirmed Active Severe obesity (BMI 35.0-39.9) with comorbidity Confirmed Active Results Radiology Reports * Exam Date Time Procedure Performing Provider Status 06/15/23 7:53 PM Chest 2 Views Frontal and Lat Jason , Viviane; Auth (Verified) Notes: (Chest 2 Views Frontal and Lat) Reason For Exam: Angina RESULT: Chest 2 Views Frontal and Lat Chest 2 Views Frontal and Lat Reason: Angina; Clinical Question(s): CHF COMPARISON: None. FINDINGS: Slightly limited examination due to the patient's body habitus and underpenetration. LINES AND TUBES: None. LUNGS AND PLEURA: low lung volumes with mild bibasilar atelectasis. Moderate elevation of the right hemidiaphragm probably due to eventration with minimal subsegmental atelectasis left lung base. Normal pulmonary vascularity. No pleural effusion. No pneumothorax. HEART, MEDIASTINUM AND HOLLY: Heart is normal in size. Normal mediastinal and hilar contour. BONES AND SOFT TISSUES: No acute abnormality. IMPRESSION: No acute abnormality. WSN: [id number] Ordering Physician: Cash Mejias MD Dictated By: Saurabh Jay MD, V Dictated Date/Time: 06/15/23 7:57 pm Reviewed By: Saurabh Jay MD, V Signed By: Saurabh Jay MD, V Signed Date/Time: 06/15/23 7:57 pm Transcribed By: RODRI Transcribed Date/Time: 06/15/23 7:55 pm Vital Signs Most recent to oldest [Reference Range]: 1 2 Oxygen Saturation [94-100 %] 97 % (06/15/23 8:19 PM) 100 % (06/15/23 2:01 PM) Pulse Rate [55-90 bpm] 85 bpm (06/15/23 8:19 PM) 86 bpm (06/15/23 2:01 PM) Blood Pressure [90-138/55-84 mm Hg] 159/ 100mm Hg *H* (06/15/23 8:19 PM) 147/71mm Hg *H* (06/15/23 2:01 PM) Respiratory Rate [16-30 br/min] 17 br/mi n (06/15/23 8:19 PM) 19 br/min (06/15/23 2:01 PM) Temperature [96.8-100.4 DegF] 97.4 DegF (06/15/23 8:19 PM) 98.2 DegF (06/15/23 2:01 PM) Mode of Delivery (Oxygen) Room air (06/15/23 8:19 PM) Room air (06/15/23 2:01 PM) Blood pressure sites Arm, right (06/15/23 8:19 PM) Arm, left (06/15/23 2:01 PM) Temperature Route Oral (06/15/23 8:19 PM) Oral (06/15/23 2:01 PM) Social History Social History Type Response Tobacco Use: 4 or less cigar ettes(less than 1/4 pack)/day in last 30 days. Sex Note * Vamshi Malin MD: PERFORM Event Display: Patient Education Leaflets Authored Date: [id number] Shortness of Breath (Dyspnea) ?? [id number] Shortness of Breath (Dyspnea) Shortness of breath [...] provider ?? Last Reviewed Date: 2021 ?? [id number] [employer]. All rights reserved. This information is not intended as a substitute for professional medical care. Always follow your healthcare professional's instructions. ?? Patient Care team information Care Team Personnel Name: Leda Lebron MD Position: [facility] Physician (General Medicine) Member Role: PCP Address: Address: [address] [place] [address] Name: Caron Short RN Position: [facility] RN Member Role: Primary Care Nurse Name: Ashleigh Levy RN Position: [facility] RN Member Role: Primary Care Nurse Name: Jimbo Payne RN Position: [facility] RN Member Role: Primary Care Nurse Name: Vicky Kaur RN Position: [facility] Onco RN Member Role: Primary Care Nurse Name: Flores Gross RN Position: [facility] RN Member Role: Primary Care Nurse Name: Mally Chauhan RN Position: [facility] Hospital Tire Molder Member Role: Primary Care Nurse Name: Nedra Garza RN Position: [facility] RN Member Role: Primary Care Nurse Name: Luna Brewster RN Position: [facility] ED RN W/OE and Tasks Member Role: Patient Care Provider Name: Em Bland Position: [facility] ED [facility] Member Role: Poured Pipe Maker Name: Vamshi Malin MD Position: [facility] Resident Member Role: ED Resident Address: Address: [address] [place] [id number]- Name: Cash Mejias MD Position: [facility] ED Medicine MD Member Role: Admitting Physician Address: Address: [address] [place] [address]- [place] Care Team Related Persons Name: ESTELA WRIGHT Address: [address] [address] Name: FLORES WRIGHT Address: [place] [id number] Name: BEATRIZ WRIGHT Address: [place] [id number] Name: FLORES CHAUHAN Address: [address] [address] Name: YAN CHAUHAN Address: [place] [address]
--- OUTSIDE RECORDS SUMMARY | 2023-12-06 14:42 | XMS_ITS | Continuity of Care Document ---
Author Organization [facility] Address [address] [place] [address]- Care Team Providers Care Controller Operations And Hr Manager Name Role Phone Vi CASTAÑEDA, Leda Gore Primary Care Physician Encounter [facility] [place] Date(s): 08/13/20 - 08/13/[address] [address]- Discharge Disposition: A-D/C Walkout Attending Physician: Not [...] Exam Date Time Procedure Performing Provider Status 08/13/20 8:06 PM Chest Portable Clementina Jefferson; Antonio (Verified) Notes: (Chest Portable) Reason For Exam: Cough RESULT: Chest Portable Chest Portable performed upright at 7:54 PM Hx of Present Illness: pt c o 2 days of body aches and now c o chest pressure and SOB x1 hour that is getting worse. Pt reports pain as heavy and constant was at rest when pain started. Denies any other complaint.; Reason: Cough; Clinical Question(s): Pneumonia. COMPARISON: Multiple prior chest x-rays, the most recent of which is dated 10/15/2015. FINDINGS: LINES AND TUBES: None. LUNGS AND PLEURA: There are low lung volumes with crowding of the lung markings. No focal infiltrate No pleural effusion. No pneumothorax. HEART, MEDIASTINUM AND HOLLY: Heart is normal in size. Normal upper mediastinal and hilar contour. BONES AND SOFT TISSUES: No acute abnormality. IMPRESSION: Low lung volumes without evidence of acute pulmonary process. WSN: [id number] Ordering Physician: Christofer Dawn Dictated By: Coleen Mendosa MD Dictated Date/Time: 08/13/20 8:08 pm Reviewed By: Coleen Mendosa MD Signed By: Coleen Mendosa MD Signed Date/Time: 08/13/20 8:08 pm Transcribed By: RODRI Transcribed Date/Time: 08/13/20 8:07 pm Vital Signs Most recent to oldest [Reference Range]: 1 Oxygen Saturation [94-100 %] 95 % (08/13/20 7:32 PM) Pulse Rate [55-90 bpm] 90 bpm (08/13/20 7:32 PM) Blood Pressure [90-138/55-84 mm Hg] 143/ 88mm Hg *H* (08/13/20 7:32 PM) Respiratory Rate [16-30 br/min] 18 br/mi n (08/13/20 7:32 PM) Temperature [96.8-100.4 DegF] 98.3 DegF (08/13/20 7:32 PM) Social History Social History Type Response Smoking Status Never smoker entered on: 12/04/16 Sex
--- OUTSIDE RECORDS SUMMARY | 2023-12-06 14:42 | XMS_ITS | Continuity of Care Document ---
Author Organization [facility] Address [address] [place] [address]- Care Team Providers Care Labor Training Manager Name Role Phone Amelia CASTAÑEDA, Moiz Jones Primary Care Physician [phone] Encounter [facility] [place] Date(s): 09/04/23 - 09/04/[address] [address]- Discharge Disposition: A-D/C Home Attending Physician: Sienna Hoffman MD Admitting Physician: Sienna Hoffman MD Referring Physician: Not on Staff, Referring [...] Refills, Maintenance, 01/10/22 11:29:00 EDT, EC Tablet, [facility][id number], Partial fill upon patient request if the [...] drug. Start Date: 05/23/21 Status: Ordered duloxetine 60 mg oral enteric coated capsule = 60 mg, By Mouth, Daily, 0 Refills, Maintenance, 08/21/23 9:19:00 EST, Capsule, Partial fill upon patient request if the prescription is for a schedule II opioid drug. Start Date: 08/21/23 Status: Ordered escitalopram 10 mg oral tablet [...] 06/08/22 21:22:00 EDT, Route to Pharmacy Electronically, [facility] #[id number], Partial fill upon patient request if the [...] Exam Date Time Procedure Performing Provider Status 09/04/23 2:19 PM Chest 2 Views Frontal and Lat Sheree Gutierrez; Auth (Verified) Notes: (Chest 2 Views Frontal and Lat) Reason For Exam: Shortness of Breath, Fever;Other: RESULT: Chest 2 Views Frontal and Lat Chest 2 Views Frontal and Lat HX OF PRESENT ILLNESS: Pt reports difficulty breathing x 1 hour- lower back pain this am- non-productive cough- nausea, no v d- no problems urinating. endorses dizziness.; Reason: Other:; Shortness of Breath, Fever; Clinical Question(s): Pneumonia / Pneumonia COMPARISON: 09/03/2023 FINDINGS: LINES AND TUBES: None. LUNGS AND PLEURA: Clear lungs. Normal pulmonary vascularity. No pleural effusion. No pneumothorax. HEART, MEDIASTINUM AND HOLLY: Heart is normal in size. Normal mediastinal and hilar contour. BONES AND SOFT TISSUES: No acute abnormality. There are surgical clips in the right upper quadrant. IMPRESSION: No evidence of acute abnormality. WSN: [id number] Ordering Physician: Sienna Hoffman Dictated By: Suraj Florian MD Dictated Date/Time: 09/04/23 2:24 pm Reviewed By: Suraj Florian MD Signed By: Suraj Florian MD Signed Date/Time: 09/04/23 2:24 pm Transcribed By: RODRI Transcribed Date/Time: 09/04/23 2:23 pm Vital Signs Most recent to oldest [Reference Range]: 1 2 3 Height 170 cm (09/04/23 1:22 PM) 170 cm (09/04/23 1:17 PM) Weight 93 kg (09/04/23 1:22 PM) 93 kg (09/04/23 1:17 PM) Oxygen Saturation [94-100 %] 99 % (09/04/23 3:30 PM) 100 % (09/04/23 1:17 PM) 99 % (09/04/23 12:57 PM) Pulse Rate [55-90 bpm] 80 bpm (09/04/23 3:30 PM) 89 bpm (09/04/23 1:17 PM) Body Mass Index [18.5-24.99 kg/m2] 32.18 kg/m2 *>HHI* (09/04/23 1:17 PM) Blood Pressure [90-138/55-84 mm Hg] 144/70mm Hg *H* (09/04/23 3:30 PM) 146/86mm Hg *H* (09/04/23 1:17 PM) Respiratory Rate [16-30 br/min] 18 br/min (09/04/23 3:30 PM) 15 br/min *L* (09/04/23 1:17 PM) Temperature [96.8-100.4 DegF] 98.4 DegF (09/04/23 1:17 PM) Liters per Minute 2 L/min (09/04/23 12:57 PM) Mode of Delivery (Oxygen) Room air (09/04/23 3:30 PM) Room air (09/04/23 1:17 PM) Nasal cannula (09/04/23 12:57 PM) Blood pressure sites Arm, left (09/04/23 1:17 PM) Temperature Route Oral (09/04/23 1:17 PM) Dry Weight 93 kg (09/04/23 1:22 PM) 93 kg (09/04/23 1:17 PM) Social History Social History Type Response Smoking Status 10 or more cigarette s (1/2 pack or more)/day in last 30 days; Use: 6 cigarretes/ day; Patient wants NRT during admission Yes; Type: Cigarettes; Started at age: 14; entered on: 09/03/23 Sex Note * Jorge A Florian: PERFORM Event Display: Patient Education Leaflets Authored Date: Shortness of Breath (Dyspnea) ?? [id number] Shortness of Breath (Dyspnea) Shortness of breath [...] provider ?? Last Reviewed Date: 2021 ?? [id number] The [employer]. All rights reserved. This information is not intended as a substitute for professional medical care. Always follow your healthcare professional's instructions. ?? Patient Care team information Care Team Personnel Name: Clemencia Camargo RN Position: [facility] RN Member Role: Primary Care Nurse Name: Caron Short RN Position: [facility] RN Member Role: Primary Care Nurse Name: Ashleigh Mercado RN Position: [facility] RN Member Role: Primary Care Nurse Name: Ashleigh Levy RN Position: [facility] Onco RN Member Role: Primary Care Nurse Name: Jimbo Payne RN Position: [facility] RN Member Role: Primary Care Nurse Name: Moiz Cisneros MD Position: Reference Physician Member Role: PCP Address: Address: [address] [place] [id number] Name: Danie Maza RN Position: [facility] RN Member Role: Primary Care Nurse Name: Vicky Kaur RN Position: [facility] Onco RN Member Role: Primary Care Nurse Name: Flores Gross RN Position: [facility] RN Member Role: Primary Care Nurse Name: Mally Chauhan RN Position: [facility] Information Technology Architect Member Role: Primary Care Nurse Name: Nedra Garza RN Position: [facility] RN Member Role: Primary Care Nurse Care Team Related Persons Name: ESTELA WRIGHT Address: [address] [place] [address] Name: FLORES WRIGHT Address: [address] [place] [address] Name: BEATRIZ WRIGHT Address: [address] [place] [address] Name: FLORES CHAUHAN Address: home [address] [place] [id number] Name: YAN CHAUHAN Address: [address] [place] [address]
--- OUTSIDE RECORDS SUMMARY | 2023-12-06 14:42 | XMS_ITS | Continuity of Care Document ---
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 Role Phone Vi CASTAÑEDA, Leda Gore Primary Care Physician [phone] [place] [facility] [place] 01/22/23 - 01/23/[address] [address]- Discharge Disposition: A-D/C Home Attending Physician: Cristofer CASTAÑEDA, Tracy Melvin Admitting Physician: Sam CASTAÑEDA, Christina Argueta Referring Physician: Not on Staff, Referring MD [...] Date: 04/29/17 Stop Date: 05/13/17 Status: Ordered amLODIPine 5 mg oral tablet 5 mg, Tablet, By Mouth, Hold for: sbp<120, 01/23/23 9:00:00 EDT Start Date: 01/23/23 Stop Date: 01/23/23 Status: Completed aspirin 81 mg oral delayed release tablet = 81 mg, By Mouth, Daily, # 30 tablet, 0 Refills, Maintenance, 01/10/22 11:29:00 EDT, EC Tablet, [facility] #[id number], Partial fill upon patient request if the [...] 06/08/22 21:22:00 EDT, Route to Pharmacy Electronically, [facility] #[id number], Partial fill upon patient request if the p... Start Date: 06/08/22 Status: Ordered Problem List Condition Confirmation Course Effective Dates Status Health [facility] Informant Chest pain Confirmed Active Hypertension Confirmed Active Hypothyroid Confirmed Active QT prolongation Confirmed Active Results Radiology Reports * Exam Date Time Procedure Performing Provider Status 01/22/23 7:[address] Angio Abdomen and Pelvis Lia Villeda; Auth (Verified) Notes: (CT Angio Abdomen and Pelvis) Reason For Exam: AAA, surveillance;Other: RESULT: CT Angio Abdomen and Pelvis EXAMINATION: CT Angio Chest, CT Angio Abdomen and Pelvis INDICATION: Midgastric CP x30 min before ems arrival. sob and nausea. diaphoretic for ems. also endorsing low back pain worse then baseline; Reason: Aortic disease, nontraumatic; Clinical Question(s): AAA TECHNIQUE: An initial noncontrast CT of the chest was performed. Spiral CTA of the chest, abdomen, and pelvis was performed after rapid IV contrast administration without cardiac gating triggered by an KARUNA on the aorta. Images are formatted in multiple planes using 2-D multiplanar and 3-D maximum intensity projection. Obliqued images through the aortic root were reconstructed. 100 cc of [id number] was administered intravenously. Weight-based protocol using automatic tube modulation was used to optimize exposure parameters. CTDIvol Body: 7.06 mGy, DLP Body: 457 mGy*cm. COMPARISONS: CTA chest 02/23/2022 and 10/13/2019 ANGIOGRAPHIC FINDINGS: No aortic dissection or aneurysm. Normal three vessel arch without branch vessel stenosis. Pulmonary arteries are normal in caliber. No evidence of central pulmonary embolism on this study performed without dedicated technique. Abdominal aorta: No aortic aneurysm or dissection. Celiac axis: Patent. Superior mesenteric artery: Patent. Right renal artery: Patent. Left renal artery: Patent. Inferior mesenteric artery: Patent. Right common iliac artery: Patent. Right internal iliac artery: Patent. Right external iliac artery: Patent. Right common femoral artery: Patent. Visualized right femoral arteries: Patent. Left common iliac artery: Patent. Left internal iliac artery: Patent. Left external iliac artery: Patent. Left common femoral artery: Patent. Visualized left femoral arteries: Patent. NON-ANGIOGRAPHIC FINDINGS: Study Coordinator View Findings, Lines and Tubes: None. Trachea and Airways: Patent without evidence of tracheal or endobronchial lesion. Lungs and Pleura: 0.8 cm solid nodule in the left lower lobe appears unchanged from 2020. No effusion or pneumothorax. Mediastinum and guilherme: No mass or hematoma. No mediastinal or hilar lymphadenopathy. Large paraesophageal hernia. Normal thyroid. Heart: Heart is normal in size. No pericardial effusion. No coronary arterial calcifications. Chest Wall Soft Tissues: Normal. Diaphragm : No significant abnormality. Liver: Unchanged 1.1 cm hypodense lesion in the right hepatic dome. Otherwise unremarkable. Gallbladder: Absent consistent with prior cholecystectomy. Bile ducts: No biliary ductal dilation. Spleen: Normal. Pancreas: Normal. Adrenal glands: Normal. Kidneys and ureters: No hydronephrosis or stones. Mildly dilated right ureter with increased density. Bladder: Normal. Reproductive organs: Unremarkable. Stomach, small bowel, and large bowel: Large paraesophageal hernia. Normal caliber stomach and bowel. No evidence of obstruction or surrounding inflammatory changes. Appendix: Not seen, but no evidence of appendicitis. Peritoneum and retroperitoneum: No ascites or pneumoperitoneum. No omental or mesenteric lesions. Lymph nodes: No enlarged lymph nodes. Abdominal and pelvic wall: Unremarkable. Bones: No acute abnormality. IMPRESSION: 1. No aortic aneurysm or dissection. 2. No acute abnormality in the chest, abdomen or pelvis. 3. Mildly dilated right ureter with increased density is a nonspecific finding. Correlate with urinalysis for any hematuria. Direct inspection or follow-up can be considered as clinically warranted. 4. Other stable incidental findings are outlined above I have personally reviewed the images and I agree with this report. WSN: [id number] Ordering Physician: Sara Dutton MD Dictated By: Khloe Collins DO Dictated Date/Time: 01/22/23 8:19 pm Reviewed By: Christofer Bingham MD Signed By: Christofer Bingham MD Signed Date/Time: 01/22/23 8:24 pm Transcribed By: RODRI Transcribed Date/Time: 01/22/23 8:02 pm * Exam Date Time Procedure Performing Provider Status 01/22/23 7:[address] Angio Chest Chad Villeda; Auth (V erified) Notes: (CT Angio Chest) Reason For Exam: Aortic disease, nontraumatic;Other: RESULT: CT Angio Chest EXAMINATION: CT Angio Chest, CT Angio Abdomen and Pelvis INDICATION: Midgastric CP x30 min before ems arrival. sob and nausea. diaphoretic for ems. also endorsing low back pain worse then baseline; Reason: Aortic disease, nontraumatic; Clinical Question(s): AAA TECHNIQUE: An initial noncontrast CT of the chest was performed. Spiral CTA of the chest, abdomen, and pelvis was performed after rapid IV contrast administration without cardiac gating triggered by an KARUNA on the aorta. Images are formatted in multiple planes using 2-D multiplanar and 3-D maximum intensity projection. Obliqued images through the aortic root were reconstructed. 100 cc of [id number] was administered intravenously. Weight-based protocol using automatic tube modulation was used to optimize exposure parameters. CTDIvol Body: 7.06 mGy, DLP Body: 457 mGy*cm. COMPARISONS: CTA chest 02/23/2022 and 10/13/2019 ANGIOGRAPHIC FINDINGS: No aortic dissection or aneurysm. Normal three vessel arch without branch vessel stenosis. Pulmonary arteries are normal in caliber. No evidence of central pulmonary embolism on this study performed without dedicated technique. Abdominal aorta: No aortic aneurysm or dissection. Celiac axis: Patent. Superior mesenteric artery: Patent. Right renal artery: Patent. Left renal artery: Patent. Inferior mesenteric artery: Patent. Right common iliac artery: Patent. Right internal iliac artery: Patent. Right external iliac artery: Patent. Right common femoral artery: Patent. Visualized right femoral arteries: Patent. Left common iliac artery: Patent. Left internal iliac artery: Patent. Left external iliac artery: Patent. Left common femoral artery: Patent. Visualized left femoral arteries: Patent. NON-ANGIOGRAPHIC FINDINGS: Study Coordinator View Findings, Lines and Tubes: None. Trachea and Airways: Patent without evidence of tracheal or endobronchial lesion. Lungs and Pleura: 0.8 cm solid nodule in the left lower lobe appears unchanged from 2020. No effusion or pneumothorax. Mediastinum and guilherme: No mass or hematoma. No mediastinal or hilar lymphadenopathy. Large paraesophageal hernia. Normal thyroid. Heart: Heart is normal in size. No pericardial effusion. No coronary arterial calcifications. Chest Wall Soft Tissues: Normal. Diaphragm : No significant abnormality. Liver: Unchanged 1.1 cm hypodense lesion in the right hepatic dome. Otherwise unremarkable. Gallbladder: Absent consistent with prior cholecystectomy. Bile ducts: No biliary ductal dilation. Spleen: Normal. Pancreas: Normal. Adrenal glands: Normal. Kidneys and ureters: No hydronephrosis or stones. Mildly dilated right ureter with increased density. Bladder: Normal. Reproductive organs: Unremarkable. Stomach, small bowel, and large bowel: Large paraesophageal hernia. Normal caliber stomach and bowel. No evidence of obstruction or surrounding inflammatory changes. Appendix: Not seen, but no evidence of appendicitis. Peritoneum and retroperitoneum: No ascites or pneumoperitoneum. No omental or mesenteric lesions. Lymph nodes: No enlarged lymph nodes. Abdominal and pelvic wall: Unremarkable. Bones: No acute abnormality. IMPRESSION: 1. No aortic aneurysm or dissection. 2. No acute abnormality in the chest, abdomen or pelvis. 3. Mildly dilated right ureter with increased density is a nonspecific finding. Correlate with urinalysis for any hematuria. Direct inspection or follow-up can be considered as clinically warranted. 4. Other stable incidental findings are outlined above I have personally reviewed the images and I agree with this report. WSN: [id number] Ordering Physician: Sara Dutton MD Dictated By: Khloe Collins DO Dictated Date/Time: 01/22/23 8:19 pm Reviewed By: Christofer Bingham MD Signed By: Christofer Bingham MD Signed Date/Time: 01/22/23 8:24 pm Transcribed By: RODRI Transcribed Date/Time: 01/22/23 8:02 pm Vital Signs Most recent to oldest [Reference Range]: 1 2 3 Oxygen Saturation [94-100 %] 96 % (01/23/23 11:34 AM) 94 % (01/23/23 7:38 AM) 93 % *L* (01/23/23 4:48 AM) Pulse Rate [55-90 bpm] 80 bpm (01/23/23 11:34 AM) 87 bpm (01/23/23 7:38 AM) 84 bpm (01/23/23 4:48 AM) Blood Pressure [90-138/55-84 mm Hg] 140/80mm Hg *H* (01/23/23 11:34 AM) 136/84mm Hg (01/23/23 8:34 AM) 137/83mm Hg (01/23/23 7:38 AM) Respiratory Rate [16-30 br/min] 16 br/min (01/23/23 7:38 AM) 18 br/min (01/23/23 4:48 AM) 20 br/min (01/23/23 2:00 AM) Temperature [96.8-100.4 DegF] 98.1 DegF (01/23/23 2:00 AM) 98.1 DegF (01/22/23 6:16 PM) Liters per Minute 2 L/min (01/23/23 7:38 AM) 2 L/min (01/23/23 4:48 AM) 2 L/min (01/23/23 2:00 AM) Mode of Delivery (Oxygen) Room air (01/23/23 11:34 AM) Nasal cannula (01/23/23 7:38 AM) Nasal cannula (01/23/23 4:48 AM) Blood pressure sites Arm, left (01/23/23 11:34 AM) Arm, left (01/23/23 7:38 AM) Arm, left (01/23/23 4:48 AM) Temperature Route Oral (01/23/23 2:00 AM) Oral (01/22/23 6:16 PM) Social History Social History Type Response Tobacco Use: 4 or less cigar ettes(less than 1/4 pack)/day in last 30 days. Sex Admission evaluation note * Jyoti CASTAÑEDA, Hilario: MODIFY, PERFORM, MODIFY, MODIFY Event Display: Admission Note Authored Date: [id number] Patient: ??FATEMEH WRIGHT ? Age:??57 Years?Sex:??Female?:??1965?? History of Present Illness 57-year-old female with history of anxiety, depression, PTSD, bipolar disorder, fibromyalgia, hypertension, hypothyroidism presenting to the emergency department with complaints of chest pain. ?? Patient reports that she was sitting on her couch watching TV when the chest pain began approximately half an hour prior to arrival to the emergency department. ??Patient reported that the pain was located in the central chest and radiated to the back with associated diaphoresis and some shortness of breath. ??By the time she arrived to the emergency department her symptoms had resolved. ??Given her clinical presentation of chest pain radiating to the back, CT angiogram of the chest and abdomenwas done which was negative for aortic aneurysm or dissection, and no acute abnormality in the chest, abdomen or pelvis was noted. ?? EKG with no acute ischemic changes, troponin x1 is negative. ??She denies having any chest pain right now, no fever or chills, no nausea or vomiting, no abdominal pain, diarrhea, constipation or dysuria.?? She was??admitted??12/21??with chest pain/ACS rule out however??she left AMA shortly??after being??admitted Review of Systems All systems are reviewed??and are negative except as noted above in the HPI. Objective Vital Signs?? Temperature: 98.1 DegF (01/22/23 18:16:00) Temperature Route: Oral (01/22/23 18:16:00) Pulse Rate: 88 bpm (01/22/23 21:26:00) Respiratory Rate: 16 br/min (01/22/23 21:26:00) Systolic Blood Pressure:??156 mm Hg??High (01/22/23 21:26:00) Diastolic Blood Pressure: 84 mm Hg (01/22/23 21:26:00) Blood pressure sites: Arm, right (01/22/23 21:26:00) Mean Arterial Pressure: 104 mm Hg (01/22/23 18:16:00) Pulse Pressure: 72 mm Hg (01/22/23 21:26:00) Oxygen Saturation: 96 % (01/22/23 21:26:00) Mode of Delivery (Oxygen): Room air (01/22/23 21:26:00) Early Warning Score: 1 (01/22/23 23:26:51) ?? Physical Exam General: Alert, oriented x3, no acute distress, obese HEENT: Atraumatic, normocephalic, EOMI, PERRL Neck: Supple, trachea midline Respiratory: CTA B, no wheezes, crackles or rhonchi CVS: S1, S2. ??RRR, no MRG, no JVD Abdomen: Soft, nontender, nondistended, positive bowel sounds Musculoskeletal: No deformities, no cyanosis Neuro: Alert, oriented x3, cranial nerves II to XII intact, no facial asymmetry Psych: Appropriate mood and affect, cooperative Assessment/Plan ?? 57-year-old female with history of anxiety, depression, PTSD, bipolar disorder, fibromyalgia, hypertension, hypothyroidism presenting to the emergency department with complaints of chest pain. ?? Chest pain Rule out ACS ?? -Currently chest pain-free, EKG with no acute ischemic changes, troponin x1 is negative. ??CT angiogram of the abdomen and chest negative for any acute pathology. ??Admit to telemetry unit to rule out ACS. ??Continue with cardiac monitoring to rule out life-threatening arrhythmias, continue trending troponin to completion to rule out ACS. ??Patient has already received aspirin in the ED, we will continue with her home aspirin 81 mg daily, EKG/nitro as needed for chest pain ?? Hypertension: Continue with amlodipine ?? Hypothyroidism: Continue with levothyroxine ?? Anxiety/depression Bipolar disorder PTSD -Continue with lorazepam, escitalopram. ??Latuda and Belsomra nonformulary and can be resumed upon discharge ?? Fibromyalgia: Continue with baclofen ?? Asymptomatic pyuria Mildly dilated right ureter with increased density ?? -UA with 21 WBCs, nitrite negative, no dysuria. ??CT reveals mildly dilated right ureter with increased density which is a nonspecific finding. ??Hold off on antibiotics for now given no symptoms, she does have mild leukocytosis however it appears that WBC is chronically elevated. ??No fever or chills. ??No hematuria noted ?? DVT prophylaxis: Pneumatic compression boots ?? CODE STATUS: Full code. Histories Allergies Allergies ?(Active and Proposed Allergies Only) sulfADIAZINE? (Severity: Unknown severity, Onset: Unknown) Bactrim? (Severity: Unknown severity, Onset: Unknown) Contrast Dye? (Severity: Unknown severity, Onset: Unknown) codeine? (Severity: Unknown severity, Onset: Unknown) Demerol HCl? (Severity: Unknown severity, Onset: Unknown) penicillin? (Severity: Unknown severity, Onset: Unknown) ?? Past Medical History/Problem List ?? Chest pain Hypertension Hypothyroid QT prolongation obesity PTSD Bipolar disorder Fibromyalgia ? Past Surgical History Appendectomy; Cholecystectomy; Tonsillectomy, primary or secondary; age 12 or over ? Social History Alcohol Details:??Use: Never. Substance Abuse Details:??Use: Never. Tobacco Details:??Use: 10 or more cigarettes (1/2 pack or more)/day in last 30 days. ? Family History Father- had MD at the age of 50, underwent CABG??at the age of 70 ?? Medications Home Medications Albuterol (albuterol CFC free 90 mcg/inh inhalation aerosol)?1?puff(s)?Inhalation?Every6 hours?as needed?for wheezing Amlodipine (amLODIPine 5 mg oral tablet)?5?Milligram?1?tablet?By Mouth?Daily?for 14?Days Aspirin (aspirin 81 mg oral delayed release tablet)?81?Milligram?By Mouth?Daily?for 30?Days Baclofen (baclofen 10 mg oral tablet)?1?tab(s)?10?Milligram?By Mouth?3 times a day?as needed?Spasm?for 30?Days Calcium Carbonate (Tums 500 mg oral tablet, chewable)?500?Milligram?1?tablet?Chew?2 times a day?as needed?as needed for dyspepsia Escitalopram (escitalopram 10 mg oral tablet)?1?tab(s)?10?Milligram?By Mouth?Daily Fentanyl (fentaNYL 50 mcg/hr transdermal film, extended release)?1?patch(es)?Topically?Every 72 hours HydrOXYzine (hydrOXYzine hydrochloride 25 mg oral tablet)?1?tab(s)?25?Milligram?By Mouth?Daily?as needed?as needed for itching Levothyroxine (levothyroxine 0.112 mg oral tablet)?TAKE 1 TABLET BY MOUTH EVERY DAY Lorazepam (Ativan 0.5 mg oral tablet)?1?tab(s)?0.5?Milligram?By Mouth?2 times a day?as needed?anxiety lurasidone (Latuda 120 mg oral tablet)?1?tab(s)?120?Milligram?By Mouth?Daily at supper Meloxicam (meloxicam 7.5 mg oral tablet)?1?tab(s)?7.5?Milligram?By Mouth?2 times a day with meals?as needed?Pain , Moderate suvorexant (Belsomra 10 mg oral tablet)?1?tab(s)?10?Milligram?By Mouth?Daily at bedtime ? Results Recent Labs BLOOD BANK Blood Type A Positive ()?? 01/22/2023 19:00 Antibody Screen Negative ()?? 01/22/2023 19:00 ?? BLOOD COUNT & DIFF WBC 12.5 k/mm3 (High)?? 01/22/2023 18:01 RBC 5.40 m/mm3 ()?? 01/22/2023 18:01 Hgb 14.4 Gm/dL ()?? 01/22/2023 18:01 Hct 44.2 % ()?? 01/22/2023 18:01 MCV 81.9 femtoliters ()?? 01/22/2023 18:01 MCH 26.7 pg (Low)?? 01/22/2023 18:01 MCHC 32.6 g/dL (Low)?? 01/22/2023 18:01 Platelet Count 381 k/mm3 ()?? 01/22/2023 18:01 RDW-SD 40.2 femtoliters ()?? 01/22/2023 18:01 MPV 10.0 femtoliters ()?? 01/22/2023 18:01 Nucleated RBC (Automated) 0.0 #/100 WBC'S ()?? 01/22/2023 18:01 Abs. NRBC 0.0 k/mm3 ()?? 01/22/2023 18:01 Abs. Neut 9.3 k/mm3 (High)?? 01/22/2023 18:01 Abs. Lymph 2.0 k/mm3 ()?? 01/22/2023 18:01 Abs. [place] 0.9 k/mm3 ()?? 01/22/2023 18:01 Abs. Eo 0.1 k/mm3 ()?? 01/22/2023 18:01 Abs. Baso 0.1 k/mm3 ()?? 01/22/2023 18:01 Neut % 74.2 % ()?? 01/22/2023 18:01 Lymph % 16.4 % ()?? 01/22/2023 18:01 [place] % 7.5 % ()?? 01/22/2023 18:01 Eos % 1.0 % ()?? 01/22/2023 18:01 Baso % 0.4 % ()?? 01/22/2023 18:01 Imm Gran 0.5 % ()?? 01/22/2023 18:01 Abs. Imm Gran 0.1 k/mm3 ()?? 01/22/2023 18:01 ?? CARDIAC High Sensitivity Troponin (HSTnT) 9 ng/L ()?? 01/22/2023 18:01 ?? CHEM GENERAL Sodium 134 mmol/L ()?? 01/22/2023 18:01 Potassium 4.5 mmol/L ()?? 01/22/2023 18:01 Chloride 98 mmol/L ()?? 01/22/2023 18:01 Bicarbonate Level 24 mmol/L ()?? 01/22/2023 18:01 Anion Gap 12 ()?? 01/22/2023 18:01 Glucose Level 105 mg/dL (High)?? 01/22/2023 18:01 BUN 13 mg/dL ()?? 01/22/2023 18:01 Creatinine-Blood 0.8 mg/dL ()?? 01/22/2023 18:01 Estimated GFR Creatinine 81 ML/MIN/1.73 M2 ()?? 01/22/2023 18:01 Calcium 9.9 mg/dL ()?? 01/22/2023 18:01 Protein, Total 6.5 Gm/dL ()?? 01/22/2023 18:01 Albumin 4.5 Gm/dL ()?? 01/22/2023 18:01 AG Ratio 2.3 ()?? 01/22/2023 18:01 Alkaline Phosphatase 112 units/L (High)?? 01/22/2023 18:01 Lipase 48 units/L ()?? 01/22/2023 18:01 AST (SGOT) 14 units/L ()?? 01/22/2023 18:01 ALT (SGPT) 10 units/L ()?? 01/22/2023 18:01 Bilirubin, Total 0.2 mg/dL ()?? 01/22/2023 18:01 Lactate 1.4 mmol/L ()?? 01/22/2023 18:01 ?? COAG INR 0.9 ()?? 01/22/2023 18:01 Protime (PT) 9.9 seconds ()?? 01/22/2023 18:01 ?? HEME OTHER Hold Blue Top SPECIMEN DISCARDED AFTER 4 HOURS. ()?? 01/22/2023 18:01 ?? UA/URINALYSIS Appear/Color, Urine COLORLESS ()?? 01/22/2023 21:11 Specific [place], Urine 1.033 (High)?? 01/22/2023 21:11 pH, Urine 6.5 ()?? 01/22/2023 21:11 Albumin, Urine NEGATIVE ()?? 01/22/2023 21:11 Glucose, Urine NEGATIVE ()?? 01/22/2023 21:11 Ketones, Urine NEGATIVE ()?? 01/22/2023 21:11 Bilirubin, Urine NEGATIVE ()?? 01/22/2023 21:11 Hemoglobin, Urine NEGATIVE ()?? 01/22/2023 21:11 Nitrite, Urine NEGATIVE ()?? 01/22/2023 21:11 Leukocyte, Urine 3+ (Abnormal)?? 01/22/2023 21:11 Urobilinogen NORMAL mg/dL ()?? 01/22/2023 21:11 WBC's, Urine 21 /HPF (High)?? 01/22/2023 21:11 RBC's, Urine <1 /HPF ()?? 01/22/2023 21:11 Bacteria SLIGHT HPF (Abnormal)?? 01/22/2023 21:11 Squamous Epith 6 /HPF ()?? 01/22/2023 21:11 Mucus SLIGHT /LPF ()?? 01/22/2023 21:11 Hold Urine Culture Testing available 48 hours from time of collection. ()?? 01/22/2023 21:11 ? Note * Cristofer CASTAÑEDA, Tracy H: PERFORM Event Display: Discharge/Transfer Note Hospital Authored Date: Patient: ??FATEMEH WRIGHT ? Age:??57 Years?Sex:??Female?:??1965?? Patient Information Discharge Location: [facility] Primary Care Physician: Vi CASTAÑEDA, Leda Gore Admit Date/Time: 01/22/23 17:29 Discharge Disposition Discharge Disposition: Home: No Services Discharge Diagnosis Back pain Chest pain bipolar disorder h/o fibromyalgia ?? _ Discharge Medications Albuterol (albuterol CFC free 90 mcg/inh inhalation aerosol)?1?puff(s)?Inhalation?Every6 hours?as needed?for wheezing Amlodipine (amLODIPine 5 mg oral tablet)?5?Milligram?1?tablet?By Mouth?Daily?for 14?Days Aspirin (aspirin 81 mg oral delayed release tablet)?81?Milligram?By Mouth?Daily?for 30?Days Baclofen (baclofen 10 mg oral tablet)?1?tab(s)?10?Milligram?By Mouth?3 times a day?as needed?Spasm?for 30?Days Calcium Carbonate (Tums 500 mg oral tablet, chewable)?500?Milligram?1?tablet?Chew?2 times a day?as needed?as needed for dyspepsia Escitalopram (escitalopram 10 mg oral tablet)?1?tab(s)?10?Milligram?By Mouth?Daily Fentanyl (fentaNYL 50 mcg/hr transdermal film, extended release)?1?patch(es)?Topically?Every 72 hours HydrOXYzine (hydrOXYzine hydrochloride 25 mg oral tablet)?1?tab(s)?25?Milligram?By Mouth?Daily?as needed?as needed for itching Levothyroxine (levothyroxine 0.112 mg oral tablet)?TAKE 1 TABLET BY MOUTH EVERY DAY Lorazepam (Ativan 0.5 mg oral tablet)?1?tab(s)?0.5?Milligram?By Mouth?2 times a day?as needed?anxiety lurasidone (Latuda 120 mg oral tablet)?1?tab(s)?120?Milligram?By Mouth?Daily at supper Meloxicam (meloxicam 7.5 mg oral tablet)?1?tab(s)?7.5?Milligram?By Mouth?2 times a day with meals?as needed?Pain , Moderate suvorexant (Belsomra 10 mg oral tablet)?1?tab(s)?10?Milligram?By Mouth?Daily at bedtime ? Quality Measures Tobacco Use Treatment:? PCP Follow-Up/Heads-Up ?? -Please follow-up on sodium levels, patient has history of chronic hyponatremia ?? Future Appointments Thursday 1:45 PM EDT ?? Where: [facility] [address] [place] [address]- Status: Pending Hospital Course ?? 57-year-old female with history of anxiety, depression, PTSD, bipolar disorder, fibromyalgia, hypertension, hypothyroidism presenting to the emergency department with complaints of chest pain.?? ACS work-up was negative and CTA with no signs of any aortic pathology.?? Patient's symptoms resolved on01/23, patient felt her pain was due to fibromyalgia. ??Discharged in stable condition ?? Chest pain Rule out ACS -Currently chest pain-free, EKG with no acute ischemic changes, troponin x2 is negative. ??CT angiogram of the abdomen and chest negative for any acute pathology. ?? On 01/23 patient's pain was back to his chronic fibromyalgia baseline.?? She feels pain was probablydue to fibromyalgia [place] ready for discharge, discharged in stable condition, was vitally stable and saturating well onroom air prior to discharge ?? Hypertension: Continue with amlodipine ?? Hypothyroidism: Continue with levothyroxine ?? Anxiety/depression Bipolar disorder PTSD -Continue with lorazepam, escitalopram. ??Latuda and Belsomra? Fibromyalgia: Continue with baclofen ?? Asymptomatic pyuria Mildly dilated right ureter with increased density -UA with 21 WBCs, nitrite negative, no dysuria. ??CT reveals mildly dilated right ureter with increased density which is a nonspecific finding. ?? Patient is completely asymptomatic, counseled her to follow-up with PCP if she develops urinary symptoms concerning for UTI??so that antibiotics can be prescribed ? Objective ? Vital Signs?? Temperature: 98.1 DegF (01/23/23 02:00:00) Temperature Route: Oral (01/23/23 02:00:00) Pulse Rate: 80 bpm (01/23/23 11:34:00) Respiratory Rate: 16 br/min (01/23/23 07:38:00) Systolic Blood Pressure:??140 mm Hg??High (01/23/23 11:34:00) Diastolic Blood Pressure: 80 mm Hg (01/23/23 11:34:00) Blood pressure sites: Arm, left (01/23/23 11:34:00) Mean Arterial Pressure: 119 mm Hg (01/23/23 02:00:00) Pulse Pressure: 60 mm Hg (01/23/23 11:34:00) Oxygen Saturation: 96 % (01/23/23 11:34:00) Liters per Minute: 2 L/min (01/23/23 07:38:00) Mode of Delivery (Oxygen): Room air (01/23/23 11:34:00) Early Warning Score: 1 (01/23/23 11:35:03) ? . Physical Exam ? General: Alert, oriented x3, no acute distress, obese HEENT: Atraumatic, normocephalic, EOMI, PERRL Neck: Supple, trachea midline Respiratory: CTA B, no wheezes, crackles or rhonchi CVS: S1, S2. ??RRR, no MRG, no JVD Abdomen: Soft, nontender, nondistended, positive bowel sounds Musculoskeletal: No deformities, no cyanosis Neuro: Alert, oriented x3, cranial nerves II to XII intact, no facial asymmetry Psych: Appropriate mood and affect, cooperative Pending Results High??Sensitivity??Troponin T ordered on 01/22/2023 Type and Screen, Use Hold Lavender ordered on 01/22/2023 Urinalysis w/hold for Urine Culture ordered on 01/22/2023 Patient Education Titles Chronic Pain?? Fibromyalgia?? Follow-Up Appointments Added Follow Up ?Time Frame ?Comments Vi CASTAÑEDA, Leda Gore?1 week: call to discuss follow up visit Patient Instructions ? -You were admitted to the hospital with concerns of chest pain radiating to your back -Work-up for any heart related??pain that would be indicative of a heart attack was normal and??your pain self resolved -Furthermore CT scan was done to make sure there was no??internal problems with the blood vessels of your??chest and abdomen -You are being??as you indicated is likely due to your fibromyalgia, please follow-up with your primary care physician??for chronic pain management -No medication changes have been made -Your urine test??had indication of bacteria but as discussed with you you have no urinary symptomsindicative of urinary tract infection therefore antibiotics were not started -If you have any urinary symptoms including burning with urination or increased frequency of urination??please discuss with your??primary care physician to have antibiotics initiated ? Post Discharge Care Diet: Regular Diet Activity: As tolerated Code Status: ?? Full Resuscitation Condition: Stable Discharge ?01/23/23 11:43:00 EDT Discharge Prescriptions ?ePrescribed, ??01/23/23 11:43:00 EDT Home Health Face to Face ^HomeHealthFTF Results Discharge Labs BLOOD COUNT & DIFF WBC 12.8 k/mm3 (High)?? 01/23/2023 04:30 RBC 5.20 m/mm3 ()?? 01/23/2023 04:30 Hgb 13.8 Gm/dL ()?? 01/23/2023 04:30 Hct 42.9 % ()?? 01/23/2023 04:30 MCV 82.5 femtoliters ()?? 01/23/2023 04:30 MCH 26.5 pg (Low)?? 01/23/2023 04:30 MCHC 32.2 g/dL (Low)?? 01/23/2023 04:30 Platelet Count 362 k/mm3 ()?? 01/23/2023 04:30 RDW-SD 40.7 femtoliters ()?? 01/23/2023 04:30 MPV 9.5 femtoliters ()?? 01/23/2023 04:30 Nucleated RBC (Automated) 0.0 #/100 WBC'S ()?? 01/23/2023 04:30 Abs. NRBC 0.0 k/mm3 ()?? 01/23/2023 04:30 Abs. Neut 8.9 k/mm3 (High)?? 01/23/2023 04:30 Abs. Lymph 2.7 k/mm3 ()?? 01/23/2023 04:30 Abs. [place] 0.9 k/mm3 ()?? 01/23/2023 04:30 Abs. Eo 0.1 k/mm3 ()?? 01/23/2023 04:30 Abs. Baso 0.1 k/mm3 ()?? 01/23/2023 04:30 Neut % 69.4 % ()?? 01/23/2023 04:30 Lymph % 21.3 % ()?? 01/23/2023 04:30 [place] % 7.3 % ()?? 01/23/2023 04:30 Eos % 1.0 % ()?? 01/23/2023 04:30 Baso % 0.5 % ()?? 01/23/2023 04:30 Imm Gran 0.5 % ()?? 01/23/2023 04:30 Abs. Imm Gran 0.1 k/mm3 ()?? 01/23/2023 04:30 ?? CARDIAC High Sensitivity Troponin (HSTnT) 10 ng/L ()?? 01/23/2023 04:30 ? CHEM GENERAL Sodium 132 mmol/L (Low)?? 01/23/2023 04:30 Potassium 4.3 mmol/L ()?? 01/23/2023 04:30 Chloride 95 mmol/L (Low)?? 01/23/2023 04:30 Bicarbonate Level 24 mmol/L ()?? 01/23/2023 04:30 Anion Gap 13 ()?? 01/23/2023 04:30 Glucose Level 111 mg/dL (High)?? 01/23/2023 04:30 BUN 9 mg/dL ()?? 01/23/2023 04:30 Creatinine-Blood 0.8 mg/dL ()?? 01/23/2023 04:30 Estimated GFR Creatinine 82 ML/MIN/1.73 M2 ()?? 01/23/2023 04:30 Calcium 9.4 mg/dL ()?? 01/23/2023 04:30 Protein, Total 6.5 Gm/dL ()?? 01/22/2023 18:01 Albumin 4.5 Gm/dL ()?? 01/22/2023 18:01 AG Ratio 2.3 ()?? 01/22/2023 18:01 Alkaline Phosphatase 112 units/L (High)?? 01/22/2023 18:01 Lipase 48 units/L ()?? 01/22/2023 18:01 AST (SGOT) 14 units/L ()?? 01/22/2023 18:01 ALT (SGPT) 10 units/L ()?? 01/22/2023 18:01 Bilirubin, Total 0.2 mg/dL ()?? 01/22/2023 18:01 Lactate 1.4 mmol/L ()?? 01/22/2023 18:01 ? COAG INR 0.9 ()?? 01/22/2023 18:01 Protime (PT) 9.9 seconds ()?? 01/22/2023 18:01 ?? HEME OTHER Hold Blue Top SPECIMEN DISCARDED AFTER 4 HOURS. ()?? 01/23/2023 04:30 ? UA/URINALYSIS Appear/Color, Urine COLORLESS ()?? 01/22/2023 21:11 Specific [place], Urine 1.033 (High)?? 01/22/2023 21:11 pH, Urine 6.5 ()?? 01/22/2023 21:11 Albumin, Urine NEGATIVE ()?? 01/22/2023 21:11 Glucose, Urine NEGATIVE ()?? 01/22/2023 21:11 Ketones, Urine NEGATIVE ()?? 01/22/2023 21:11 Bilirubin, Urine NEGATIVE ()?? 01/22/2023 21:11 Hemoglobin, Urine NEGATIVE ()?? 01/22/2023 21:11 Nitrite, Urine NEGATIVE ()?? 01/22/2023 21:11 Leukocyte, Urine 3+ (Abnormal)?? 01/22/2023 21:11 Urobilinogen NORMAL mg/dL ()?? 01/22/2023 21:11 WBC's, Urine 21 /HPF (High)?? 01/22/2023 21:11 RBC's, Urine <1 /HPF ()?? 01/22/2023 21:11 Bacteria SLIGHT HPF (Abnormal)?? 01/22/2023 21:11 Squamous Epith 6 /HPF ()?? 01/22/2023 21:11 Mucus SLIGHT /LPF ()?? 01/22/2023 21:11 Hold Urine Culture Testing available 48 hours from time of collection. ()?? 01/22/2023 21:11 ? VIROLOGY COVID-19 by RT-PCR NEGATIVE ()?? 01/22/2023 23:48 ? Microbiology ?? COVID-19 (Novel Coronavirus), Rapid PCR?? Completed?? Source: Nasal Body Site: Nose Collected Dt/Tm: 01/22/2023 23:05 Last Updated Dt/Tm: 01/23/2023 01:08 ? Imaging(s) ?CT Angio Chest ?? 01/22/2023 19:42??by Christofer Bingham MD ?1. No aortic aneurysm or dissection. 2. No acute abnormality in the chest, abdomen or pelvis. 3. Mildly dilated right ureter with increased density is a nonspecific finding. Correlate with urinalysis for any hematuria. Direct inspection or follow-up can be considered as clinically warranted. 4. Other stable incidental findings are outlined above ? 48_ minutes spent on discharge * Tracy Cleveland MD: PERFORM Event Display: Patient Education Leaflets Authored Date: [id number] Chronic Pain ?? [id number] Chronic Pain Pain??serves an important role. It lets you know something is wrong that needs your attention. Whenthe body heals, pain normally goes away. When pain lasts longer than 3 months, it's called chronic pain. This is pain that's present even after the body has healed.??Chronic pain can cause mood problems and get in the way of your relationships and your daily life. A number of conditions can cause chronic pain. Some of the more common causes include: ??? Previous surgery ??? An old injury ??? Infection ??? Diseases such as diabetes ??? Nerve damage??? Back injury ??? Arthritis ??? Migraine or other headaches ??? Fibromyalgia ??? Cancer Depression and stress can make chronic pain symptoms worse.??In some cases, a cause for the pain can't be found.?? Treatment Treatment??can??greatly reduce??pain.??In many cases,??pain can become less severe, occur less often, and interfere less with your daily life.??Chronic pain is often treated with a combination of medicines,??therapies, and lifestyle changes. You will work closely with your healthcare provider to find a treatment plan that works best for you. ??? Ask your healthcare provider for a referral to a pain management specialty center. These can provide the most recent and proven pain management strategies, along with emotional support and comprehensive services. ??? Several different types of medicines may be prescribed for chronic pain. Work with your healthcare provider to develop a medicine planthat helps manage your pain. ??? Physical therapy can help reduce certain types of chronic pain. ??? Occupational therapy teaches you how to do routine tasks of daily living in ways that lessen your discomfort. ??? Counseling can help you??cope better with stress and pain. ??? Other therapies such as meditation, yoga, biofeedback, massage, and acupuncture can also help manage chronic pain. ??? Nona nging certain habits can help reduce chronic pain: o Eat healthy o Develop an exercise routine o Get enough sleep?? o Stop smoking and limit alcohol use o Lose excess weight ?? Follow-up care Follow up with your??healthcare provider as advised. Let your??healthcare provider??know if your current treatment plan is working or if changes are needed. ?? To learn more For more information, contact: ??? [place] [employer] and [employer] Association at americanheadachesociety.org or 324-436-7207 ??? [place] [employer] Association at theacpa.org or 751-358-0228 ?? Last Reviewed Date: 2022 ?? [employer]. All rights reserved. This information is not intended as a substitute for professional medical care. Always follow your healthcare professional's instructions. ?? * Cristofer CASTAÑEDA, Tracy Melvin: PERFORM Event Display: Patient Education Leaflets Authored Date: [id number] Fibromyalgia ?? [id number] Fibromyalgia Fibromyalgia is a chronic condition.??It causes pain and tenderness in connective tissues and muscles. Often, there are also many sore areas throughout the body.??Symptoms may also include stiffness and feelings of numbness and tingling. Symptoms may be worse when you wake up. They may increase with poor sleep, heavy activity, cold or damp weather, anxiety, or stress. People with fibromyalgia often feel tired. They may have trouble sleeping. Other symptoms include morning stiffness, headaches, and painful menstrual periods. Some people have problems with thinking clearly and changes in memory. The cause of fibromyalgia isn't known.??Symptoms are a lot like those of other diseases.??These include rheumatoid arthritis, low thyroid, chronic fatigue syndrome, and Lyme disease.??In some cases, these diseases may occur together. Fibromyalgia is often treated with medicines. You and your healthcare provider can discuss the medicine that may work best for you.??You may have to try more than 1 medicine or combination of medicines before you find what works for you. Home care ??? If your??healthcare provider??has prescribed or advised medicines, take them as directed. ??? Rest as needed. Try to get enough sleep. If you have trouble sleeping, tell your provider.? Be active. Regular exercise can help manage symptoms. Some options include walking, swimming, and biking. Strengthening and aerobic exercises may also be helpful. Talk to your provider about thebest ways to be active. ??? Follow a healthy diet. Limit caffeine and alcohol. If you smoke, ask your??provider for help to stop. ??? Notice how your body reacts to stress. Learn to listen to your body signals. This will help you take action before the stress becomes severe. ??? Learn relaxation methods. Also consider joining a stress reduction program or class. ??? Talk to your provider about trying complementary treatments. These include acupuncture, hypnosis, and biofeedback. Yoga and saurabh chi may be helpful. ??? Ask your provider about cognitive behavioral therapy (CBT). This type of counseling can??help people with fibromyalgia cope better with their illness. ?? Follow-up care Follow up with your healthcare provider as advised. In many cases, fibromyalgia is best treated with a team approach. This may include your primary care provider, a flight dynamicist, a physical therapist, and??a mental health provider. For more information, visit the?? National [place] of [employer]th[employer] and Musculoskeletal and Skin Diseases (NIAMS) website at??www.niams.nih.gov or call 468-002-4651. ?? When to get medical advice Contact your healthcare provider right away if any of these occur: ??? Symptoms get worse or new symptoms develop ??? You feel hopeless, helpless, or lose interest in day-to-day life ?? Last Reviewed Date: 2021 ?? [id number] [employer]. All rights reserved. This information is not intended as a substitute for professional medical care. Always follow your healthcare professional's instructions. ?? Patient Care team information Care Team Personnel Name: Leda Lebron MD Position: [facility] Physician (General Medicine) Member Role: PCP Address: Address: [address] [place] [address] Name: Caron Short RN Position: [facility] DIGNA RN W/OE and Tasks Member Role: Primary Care Nurse Name: Ashleigh Levy RN Position: [facility] RN Member Role: Primary Care Nurse Name: Jimbo Payne RN Position: [facility] RN Member Role: Primary Care Nurse Name: Vicky Kaur RN Position: [facility] Onco RN Member Role: Primary Care Nurse Name: Flores Gross RN Position: [facility] RN Member Role: Primary Care Nurse Name: Mally Chauhan RN Position: [facility] Hand Cultivator Member Role: Primary Care Nurse Name: Nedra Garza RN Position: [facility] RN Member Role: Primary Care Nurse Name: Frances LOFTON Attending Position: [facility] ED Medicine MD Name: Wallace Barrett Position: [facility] ED TA [facility] Member Role: Patient Care Provider Name: Rosaura Guy RN Position: [facility] ED RN W/OE and Tasks Member Role: Patient Care Provider Name: Vicente Hernandez Position: [facility] ED [facility] Member Role: Surveyor [employer] Well Directional Care Team Related Persons Name: ESTELA WRIGHT Address: [place] [address] Name: FLORES WRIGHT Address: [address] [address] Name: BEATRIZ WRIGHT Address: [address] [address] Name: FLORES CHAUHAN Address: home [address] [place] [id number] Name: YAN CHAUHAN Address: [address] [address]
--- OUTSIDE RECORDS SUMMARY | 2023-12-06 14:42 | XMS_ITS | Continuity of Care Document ---
Author Organization [facility] ter Address [address] [place] [id number]- Care Team Providers Care Agriscience Technology Instructor Name Role Phone Vi CASTAÑEDA, Leda Gore Primary Care Physician Encounter [facility] Date(s): 05/29/22 - 05/30/[address] [address]- Encounter Diagnosis Shortness of breath(Final) - 05/29/22 Discharge Disposition: A-D/C Home Attending Physician: Beka Chen MD Admitting Physician: Beka Chen MD Referring Physician: Not on Staff, Referring MD Allergies, Adverse Reactions, Alerts Substance Reaction Severity Status codeine Active penicillin Active sulfADIAZINE Active Contrast Dye Active Bactrim Active Demerol HCl Active Immunizations [...] Refills, Maintenance, 01/10/22 11:29:00 EDT, EC Tablet, [facility] #[id number], Partial fill upon patient request if the [...] 06/03/22 23:28:00 EDT, 05/29/22 23:28:00 EDT, Capsule, [facility] #[id number], Partial fill upon patient request if the [...] I Confirmed Active QT prolongation Confirmed Active Results Radiology Reports * Exam Date Time Procedure Performing Provider Status 05/29/22 9:49 PM Chest 2 Views Frontal and Lat Renato Mukherjee; Antonio (Verified) Notes: (Chest 2 Views Frontal and Lat) Reason For Exam: Shortness of Breath, Fever;Other: RESULT: Chest 2 Views Frontal and Lat Chest 2 Views Frontal and Lat Hx of Present Illness: PT presents to ED from home with c c of shortness of breath and difficulty breathing that started 1 hour. Reports that she feels as though she is unable to take a deep breath and cannot get air. PT reporting 5 10 back pain, reports chronic in nature.; Reason: Other:; Shortness of Breath, Fever; Clinical Question(s): Pneumonia COMPARISON: 05/20/2022 FINDINGS: LINES AND TUBES: None. LUNGS AND PLEURA: Clear lungs. Normal pulmonary vascularity. No pleural effusion. No pneumothorax. HEART, MEDIASTINUM AND HOLLY: Heart is normal in size. Normal mediastinal and hilar contour. BONES AND SOFT TISSUES: No acute abnormality. IMPRESSION: No acute abnormality. WSN: [id number] Ordering Physician: Tito Zayas Dictated By: Gaetano Stevenson MD Dictated Date/Time: 05/29/22 9:50 pm Reviewed By: Gaetano Stevenson MD Signed By: Gaetano Stevenson MD Signed Date/Time: 05/29/22 9:50 pm Transcribed By: RODRI Transcribed Date/Time: 05/29/22 9:50 pm Vital Signs Most recent to oldest [Reference Range]: 1 2 3 Oxygen Saturation [94-100 %] 97 % (05/29/22 10:31 PM) 97 % (05/29/22 8:58 PM) 99 % (05/29/22 8:51 PM) Pulse Rate [55-90 bpm] 117 bpm *H* (05/29/22 10:31 PM) 102 bpm *H* (05/29/22 8:58 PM) 104 bpm *H* (05/29/22 8:51 PM) Blood Pressure [90-138/55-84 mm Hg] 133/73mm Hg (05/29/22 8:58 PM) 133/73mm Hg (05/29/22 8:51 PM) 160/98mm Hg *H* (05/29/22 8:44 PM) Respiratory Rate [16-30 br/min] 14 br/min *L* (05/29/22 8:58 PM) 18 br/min (05/29/22 8:51 PM) 18 br/min (05/29/22 8:44 PM) Temperature [96.8-100.4 DegF] 97.7 DegF (05/29/22 8:58 PM) 98.5 DegF (05/29/22 8:51 PM) Mode of Delivery (Oxygen) Room air (05/29/22 10:31 PM) Room air (05/29/22 8:58 PM) Room air (05/29/22 8:51 PM) Blood pressure sites Arm, left (05/29/22 8:58 PM) Arm, right (05/29/22 8:51 PM) Temperature Route Oral (05/29/22 8:58 PM) Oral (05/29/22 8:51 PM) Social History Social History Type Response Smoking Status 10 or more cigarette s (1/2 pack or more)/day in last 30 days entered on: 05/24/21 Sex Note * [facility] , CIS S: TRANSCRIBE Elva CASTAÑEDA, Gaetano S: VERIFY Event Display: Result: Authored Date: Chest 2 Views Frontal and Lat Hx of Present Illness: PT presents to ED from home with c c of shortness of breath and difficulty breathing that started 1 hour. Reports that she feels as though she is unable to take a deep breath and cannot get air. PT reporting 5 10 back pain, reports chronic in nature.; Reason: Other:; Shortness of Breath, Fever; Clinical Question(s): Pneumonia COMPARISON: 05/20/2022 FINDINGS: LINES AND TUBES: None. LUNGS AND PLEURA: Clear lungs. Normal pulmonary vascularity. No pleural effusion. No pneumothorax. HEART, MEDIASTINUM AND HOLLY: Heart is normal in size. Normal mediastinal and hilar contour. BONES AND SOFT TISSUES: No acute abnormality. IMPRESSION: No acute abnormality. WSN: [id number] Ordering Physician: Tito Zayas Dictated By: Gaetano Stevenson MD Dictated Date/Time: 05/29/22 9:50 pm Reviewed By: Gaetano Stevenson MD Signed By: Gaetano Stevenson MD Signed Date/Time: 05/29/22 9:50 pm Transcribed By: RODRI Transcribed Date/Time: 05/29/22 9:50 pm Patient Care team information Personnel Name: Vi CASTAÑEDA, Leda Gore Address: Address: [address] [place] [address]
--- OUTSIDE RECORDS SUMMARY | 2023-12-06 14:42 | XMS_ITS | Continuity of Care Document ---
Author Organization [facility] Address [address] [place] [address]- Care Team Providers Care Copy Cutter Name Role Phone Vi CASTAÑEDA, Leda Gore Primary Care Physician [phone] Encounter [facility] Date(s): 05/11/23 - 05/12/[address] [address]- Discharge Disposition: A-D/C Walkout Attending Physician: Not [...] Refills, Maintenance, 01/10/22 11:29:00 EDT, EC Tablet, [facility] #[id number], Partial fill upon patient request if the [...] 06/08/22 21:22:00 EDT, Route to Pharmacy Electronically, [facility] #[id number], Partial fill upon patient request if the p... Start Date: 06/08/22 Status: Ordered Problem List Condition Confirmation Course Effective Dates Status Health [facility] Informant Chest pain Confirmed Active Hypertension Confirmed Active Hypothyroid Confirmed Active QT prolongation Confirmed Active Results Radiology Reports * Exam Date Time Procedure Performing Provider Status 05/11/23 8:40 PM Chest 2 Views Frontal and Lat Selam Cosme; Auth (Verified) Notes: (Chest 2 Views Frontal and Lat) Reason For Exam: Chest Pain;Other: RESULT: Chest 2 Views Frontal and Lat Chest 2 Views Frontal and Lat Hx of Present Illness: pt reporting sob x1 hour while watching tv. pt vague during assessment questions; Reason: Other:; Chest Pain; Clinical Question(s): Other: COMPARISON: 05/10/2023 FINDINGS: LINES AND TUBES: None. LUNGS AND PLEURA: Clear lungs. Normal pulmonary vascularity. No pleural effusion. No pneumothorax. HEART, MEDIASTINUM AND HOLLY: Heart is normal in size. Normal mediastinal and hilar contour. BONES AND SOFT TISSUES: No acute abnormality. IMPRESSION: No acute abnormality. WSN: [id number] Ordering Physician: Beka Chen Dictated By: Gaetano Stevenson MD Dictated Date/Time: 05/11/23 8:47 pm Reviewed By: Gaetano Stevenson MD Signed By: Gaetano Stevenson MD Signed Date/Time: 05/11/23 8:47 pm Transcribed By: RODRI Transcribed Date/Time: 05/11/23 8:46 pm Vital Signs Most recent to oldest [Reference Range]: 1 2 3 Oxygen Saturation [94-100 %] 99 % (05/12/23 2:45 AM) 96 % (05/12/23 12:30 AM) 96 % (05/11/23 10:14 PM) Pulse Rate [55-90 bpm] 86 bpm (05/12/23 2:45 AM) 80 bpm (05/12/23 12:30 AM) 84 bpm (05/11/23 10:14 PM) Blood Pressure [90-138/55-84 mm Hg] 153/98mm Hg *H* (05/12/23 2:45 AM) 125/84mm Hg (05/12/23 12:30 AM) 137/92mm Hg (05/11/23 10:14 PM) Respiratory Rate [16-30 br/min] 20 br/min (05/12/23 2:45 AM) 16 br/min (05/12/23 12:30 AM) 20 br/min (05/11/23 7:24 PM) Temperature [96.8-100.4 DegF] 98.4 DegF (05/12/23 2:45 AM) 98.1 DegF (05/12/23 12:30 AM) 98.3 DegF (05/11/23 10:14 PM) Mode of Delivery (Oxygen) Room air (05/12/23 2:45 AM) Room air (05/12/23 12:30 AM) Room air (05/11/23 10:14 PM) Blood pressure sites Arm, right (05/12/23 2:45 AM) Arm, left (05/12/23 12:30 AM) Arm, left (05/11/23 10:14 PM) Temperature Route Oral (05/12/23 2:45 AM) Oral (05/12/23 12:30 AM) Oral (05/11/23 10:14 PM) Social History Social History Type Response Tobacco Use: 4 or less cigar ettes(less than 1/4 pack)/day in last 30 days. Sex EKG study * Event Display: EKG Authored Date: * Event Display: ECG 12-Lead Authored Date: [id number] Please click on pdf link to open report * Event Display: ECG 12-Lead Authored Date: [id number] Ventricular Rate: 86 BPM Atrial Rate: 86 BPM P-R Interval: 122 ms QRS Duration: 78 ms Q-T Interval: 394 ms QTC Calculation(Bazett): 471 ms P [place]: 58 degrees R [place]: 18 degrees T [place]: 26 degrees Normal sinus rhythm Possible Left atrial enlargement Borderline ECG When compared with ECG of 10-MAY-2023 19:10, No significant change was found Confirmed by ELY QUESADA MD ([id number]) on 05/12/2023 11:46:10 AM [place]: ELY QUESADA MD Patient Care team information Care Team Personnel Name: Vi CASTAÑEDA, Leda Gore Position: [facility] Physician (General Medicine) Member Role: PCP Address: Address: [address] [place] [address] Name: Caron Short RN Position: [facility] RN Member Role: Primary Care Nurse Name: Ashleigh Levy RN Position: [facility] RN Member Role: Primary Care Nurse Name: Jimbo Payne RN Position: [facility] RN Member Role: Primary Care Nurse Name: Vicky Kaur RN Position: [facility] Onco RN Member Role: Primary Care Nurse Name: Flores Gross RN Position: [facility] RN Member Role: Primary Care Nurse Name: Mally Chauhan RN Position: [facility] Hospital Sewing Machine Adjuster Member Role: Primary Care Nurse Name: Nedra Garza RN Position: [facility] RN Member Role: Primary Care Nurse Care Team Related Persons Name: ESTELA WRIGHT Address: home [address] [place] [id number] Name: FLORES WRIGHT Address: home [address] [place] [id number] Name: BEATRIZ WRIGHT Address: [address] [place] [address] Name: FLORES CHAUHAN Address: home [address] [place] [address] Name: YAN CHAUHAN Address: home [address] [place] [address]
--- OUTSIDE RECORDS SUMMARY | 2023-12-06 14:42 | XMS_ITS | Continuity of Care Document ---
Author Organization [facility] ter Address [address] [place] [id number]- Care Team Providers Care Bike Designer Name Role Phone Amelia CASTAÑEDA, Moiz Jones Primary Care Physician [place] [facility] [place] 11/17/[address] [address]- Encounter Diagnosis Chest pain(Final) - 11/17/23 Gastric reflux(Final) - 11/17/23 Discharge Disposition: A-D/C Home Attending Physician: Yareli Calles DO Admitting Physician: Yareli Calles DO Referring Physician: Not on Staff, Referring MD Allergies, Adverse Reactions, Alerts Substance Reaction Severity Status codeine rash Active penicillin rash Active sulfADIAZINE rash Active sulfa drugs rash Active Bactrim unsure Active Demerol HCl unsure Active Other Environmental Allergy seasonal allergies Active Contrast Dye unsure Active Immunizations Given and Recorded Vaccine Date Status Refusal Reason pneumococcal 23-valent vaccine 1 01/15/11 Given tetanus-diphtheria toxoids (Td) 08/10/02 Recorded 1Early/Late Reason: Nursing Judgment Medications Advil 200 mg oral tablet 1 tablet [...] opioid drug. Start Date: 10/19/23 Status: Ordered levothyroxine 0.112 mg oral tablet [...] 1 Refills, Maintenance, 10/01/23 10:59:00 EST, Tablet, [facility] #[id number], Partial fill upon patient request if the [...] 12/08/23 14:48:00 EDT, 10/21/23 14:48:00 EDT, Patch, [facility] #[id number], Partial fill upon patient request if the prescription is for a schedule II opioid drug., 1 patch Topically Daily,... Start Date: 10/21/23 Stop Date: 12/08/23 Status: Ordered ondansetron 4 mg oral tablet, disintegrating 1 tablet = 4 mg, By Mouth, Every 8 hours, PRN Nausea & Vomiting, for 14 days, # 42 tablet, 0 Refills, Acute 11/23/23 16:06:00 EDT, 11/09/23 16:06:00 EDT, Tablet, [facility] #[id number], Partial fill upon patient request if the prescription is for... Start Date: 11/09/23 Stop Date: 11/23/23 Status: Ordered tiotropium 2.5 mcg/inh inhalation aerosol 2 puffs = 5 mcg, Inhalation, Daily, # 4 Gm, 4 Refills, Maintenance, 10/21/23 14:49:00 EDT, Aerosol,[facility] #[id number], Partial fill upon patient request if the prescription is for a schedule II opioid drug., 170, cm, 10/15/23 19:50:00 EST, H... Start Date: 10/21/23 Status: Ordered Problem List Condition Confirmation Course Effective Dates Status [facility] Informant Benign essential hypertension Confirmed Active [...] Exam Date Time Procedure Performing Provider Status 11/17/23 12:[address] Chest W/ Contrast Makenzie Cuevas; Aut h (Verified) Notes: (CT Chest W/ Contrast) Reason For Exam: Pulmonary Lesion;Other: RESULT: CT Chest W/ Contrast CT Chest W/ Contrast INDICATION: Chest pain and shortness of breath. Leukocytosis. TECHNIQUE: Helical CT scan of the chest with IV contrast, formatted in 3 planes. 75 cc of [id number] was administered intravenously. Weight-based protocol was performed using automatic exposure control. CTDIvol Body: 10.60 mGy, DLP Body: 453 mGy*cm. COMPARISON: 10/18/2023, 02/23/2022 FINDINGS: Print Producer view findings, lines and tubes: None. Trachea and airways: Patent without evidence of tracheal or endobronchial lesion. Lungs and pleura: , 10/13/2019 * No edema or pneumonia. * No effusion or pneumothorax. * Stable curvilinear in the superior left upper lobe measuring 1.2 x 0.5 x 0.6 cm (axial 45, sagittal 89). * Unchanged a few scattered micronodules and calcified granuloma. * New suspicious pulmonary nodules. Mediastinum and guilherme: No mass or hematoma. No mediastinal or hilar lymphadenopathy. Type 3 paraesophageal hernia, slightly improved. No significant change of right thyroid gland heterogeneous nodule measuring up to 1.7 cm (image 18 series 201). Heart: Heart is normal in size. No pericardial effusion. No coronary arterial calcifications. Aorta: No aortic aneurysm. Pulmonary arteries: Normal caliber. No evidence of pulmonary embolism on this study performed without angiographic technique. Chest wall soft tissues: No acute abnormality. Diaphragm: Intact. Upper abdomen: No acute abnormality. No significant change of lobulated hypoattenuating 1.2 cm in anterior hepatic dome (image 70 series 201), statistically favoring a simple cyst. Status post cholecystectomy. Bones: No acute abnormality. IMPRESSION: 1. No acute abnormality within the chest. 2 Unchanged left lower lobe pulmonary nodule dating back to 2019. 2. Unchanged 1.7 cm right thyroid gland heterogeneous nodule. Nonemergent thyroid ultrasound is recommended for characterization if not already obtained. 3. Additional chronic findings as above. Wet read provided via [facility] by Dr. Gonzalez on 11/17/2023 1:05 AM. I have personally reviewed the images and I agree with this report. WSN: [id number] Ordering Physician: Ximena Ott Dictated By: Leandro Gonzalez DO Dictated Date/Time: 11/17/23 7:42 am Reviewed By: Anup Griffin MD Signed By: Anup Griffin MD Signed Date/Time: 11/17/23 7:47 am Transcribed By: RODRI Transcribed Date/Time: 11/17/23 1:06 am Vital Signs Most recent to oldest [Reference Range]: 1 2 3 Oxygen Saturation [94-100 %] 99 % (11/17/23 4:47 AM) 100 % (11/17/23 3:57 AM) 100 % (11/17/23 1:59 AM) Pulse Rate [55-90 bpm] 88 bpm (11/17/23 4:47 AM) 85 bpm (11/17/23 3:57 AM) 86 bpm (11/17/23 1:59 AM) Blood Pressure [90-138/55-84 mm Hg] 130/82mm Hg (11/17/23 3:57 AM) 129/80mm Hg (11/17/23 1:59 AM) 127/76mm Hg (11/17/23 12:09 AM) Respiratory Rate [16-30 br/min] 18 br/min (11/17/23 4:47 AM) 18 br/min (11/17/23 3:57 AM) 20 br/min (11/17/23 1:59 AM) Temperature [96.8-100.4 DegF] 98.3 DegF (11/16/23 9:15 PM) 98.1 DegF (11/16/23 7:33 PM) 97.9 DegF (11/16/23 2:44 PM) Mode of Delivery (Oxygen) Room air (11/17/23 4:47 AM) Room air (11/17/23 3:57 AM) Room air (11/17/23 1:59 AM) Blood pressure sites Arm, left (11/17/23 3:57 AM) Arm, left (11/17/23 1:59 AM) Arm, left (11/17/23 12:09 AM) Temperature Route Oral (11/16/23 9:15 PM) Oral (11/16/23 7:33 PM) Oral (11/16/23 2:44 PM) Social History Social History Type Response Tobacco Use: 4 or less cigar ettes(less than 1/4 pack)/day in last 30 days. Other: quit 3 wks ago; 10 CIG/DAY X AGE 14. Sex EKG study * Event Display: ECG 12-Lead Authored Date: Please click on pdf link to open report * Event Display: ECG 12-Lead Authored Date: Ventricular Rate: 107 BPM Atrial Rate: 107 BPM P-R Interval: 128 ms QRS Duration: 76 ms Q-T Interval: 350 ms QTC Calculation(Bazett): 467 ms P Willard: 24 degrees R Willard: 27 degrees T Willard: 45 degrees Sinus tachycardia Cannot rule out Anterior infarct , age undetermined Baseline artifact Abnormal ECG When compared with ECG of 05-NOV-2023 17:57, No significant change was found Confirmed by Calvin Aldridge ([id number]) on 11/17/2023 7:08:43 AM Reeders: Calvin Aldridge Note * Shawn Peñaloza DO W: PERFORM Event Display: Patient Education Leaflets Authored Date: Uncertain Causes of Chest Pain ?? [id number] Uncertain Causes of Chest Pain Chest pain can happen for a number of reasons. Sometimes the cause can't be determined. If your??condition does not seem serious, and your pain does not appear to be coming from your heart, your healthcare provider may recommend watching it closely. Sometimes the signs of a serious problem take more time to appear. Many problems not related to your heart can cause chest pain. These include: ??? Musculoskeletal. Costochondritis is an inflammation of the tissues around the ribs that can occur from trauma or overuse injuries, or a strain of the muscles of the chest wall. ??? Respiratory. Pneumonia, collapsed lung (pneumothorax), or inflammation of the lining of the chest and lungs (pleurisy). ??? Gastrointestinal. Esophageal reflux, heartburn, ulcers, or gallbladder disease. ??? Anxiety and panic disorders ??? Nerve compression and inflammation ??? Rare problems such as aortic aneurysm or aortic dissection (a swelling of the large artery coming out of the heart or a tear in the wall of the artery), or pulmonary embolism (a blood clot in the lungs). Home care After your visit, follow these recommendations: ??? Rest today and avoid strenuous activity. ??? Take any prescribed medicine as directed. ??? Be aware of any recurrent chest pain and notice any changes ?? Follow-up care Follow up with your healthcare provider if you don't start to feel better within 24 hours, or as advised. ?? Call 911 Call 911 if any of these occur: ??? A change in the type of pain: if it feels different, becomes more severe, lasts longer, or begins to spread into your shoulder, arm, neck, jaw or back ??? Shortness of breath or increased pain with breathing ??? Weakness, dizziness, or fainting ??? Rapid heartbeat ??? Crushing sensation in your chest ??? Coughing up more than a small amount of blood. ?? When to seek medical advice Call your healthcare provider right away if any of the following occur: ??? Cough with dark coloredsputum (phlegm) or small amount of blood ??? Fever of 100.4??F??(38??C) or higher, or as directed by your healthcare provider ??? Swelling, pain or redness in one leg ?? Last Reviewed Date: 2021 ?? [id number] [employer]. All rights reserved. This information is not intended as a substitute for professional medical care. Always follow your healthcare professional's instructions. ?? Patient Care team information Care Team Personnel Name: Clemencia Camargo RN Position: [facility] RN Member Role: Primary Care Nurse Name: Nikkie Tubbs Position: [facility] Outreach Member Role: Lifetime Consulting Physician Name: Tavon Powell Position: [facility] RN Member Role: Primary Care Nurse Name: Caron Short RN Position: [facility] RN Member Role: Primary Care Nurse Name: Prachi Negron RN Position: [facility] RN Member Role: Primary Care Nurse Name: Tami Soler RN Position: [facility] RN Member Role: Primary Care Nurse Name: Ashleigh Mercado RN Position: [facility] RN Member Role: Primary Care Nurse Name: Heidi Moreland Position: [facility] RN Member Role: Primary Care Nurse Name: Ashleigh Levy RN Position: [facility] Onco RN Member Role: Primary Care Nurse Name: Jimbo Payne RN Position: [facility] RN Member Role: Primary Care Nurse Name: Moiz Cisneros MD Position: Reference Physician Member Role: PCP Address: Address: [address] [place] [id number] Name: Danie Maza RN Position: [facility] RN Member Role: Primary Care Nurse Name: Vicky Kaur RN Position: [facility] Onco RN Member Role: Primary Care Nurse Name: Flores Gross RN Position: [facility] RN Member Role: Primary Care Nurse Name: Mally Chauhan RN Position: [facility] Hospital Bank Vault Attendant Member Role: Primary Care Nurse Name: Nedra Garza RN Position: [facility] RN Member Role: Primary Care Nurse Care Team Related Persons Name: ESTELA WRIGHT Address: home [address] [place] [id number] Name: FLORES WRIGHT Address: home [address] [place] [id number] Name: BEATRIZ WRIGHT Name: FLORSE CHAUHAN Address: home [address] [place] [id number] Name: YAN CHAUHAN Address: home [address] [place] [address]
--- OUTSIDE RECORDS SUMMARY | 2023-12-06 14:42 | XMS_ITS | Continuity of Care Document ---
Author Organization [facility] Address [address] [place] [id number]- Care Team Providers Care Surgery Aide Name Role Phone Vi CASTAÑEDA, Leda Gore Primary Care Physician [phone] Encounter [facility] [place] Date(s): 06/21/21 - 06/22/[address] [address]- Discharge Disposition: A-D/C Walkout Attending Physician: Not [...] Exam Date Time Procedure Performing Provider Status 06/21/21 11:32 PM Chest 2 Views Frontal and Lat Clementina Salgado; Antonio (Verified) Notes: (Chest 2 Views Frontal and Lat) Reason For Exam: Chest Pain;Other: RESULT: Chest 2 Views Frontal and Lat Chest 2 Views Frontal and Lat Hx of Present Illness: SOB TONIGHT WHILE WATCHING TV; Reason: Other:; Chest Pain; Clinical Question(s): Other: COMPARISON: Multiple priors, the most recent 05/22/2021 FINDINGS: LINES AND TUBES: None. LUNGS AND PLEURA: Clear lungs. Normal pulmonary vascularity. Stable elevation of the left hemidiaphragm. No pleural effusion. No pneumothorax. HEART, MEDIASTINUM AND HOLLY: Heart is normal in size. Normal upper mediastinal and hilar contour. BONES AND SOFT TISSUES: No acute abnormality. IMPRESSION: No acute abnormality. WSN: [id number] Ordering Physician: Yareli Calles Dictated By: Christofer Christopher MD Dictated Date/Time: 06/21/21 11:37 p Reviewed By: Christofer Christopher MD Signed By: Christofer Christopher MD Signed Date/Time: 06/21/21 11:37 pm Transcribed By: RODRI Transcribed Date/Time: 06/21/21 11:35 pm Vital Signs Most recent to oldest [Reference Range]: 1 2 Oxygen Saturation [94-100 %] 98 % (06/21/21 10:05 PM) 100 % (06/21/21 9:53 PM) Pulse Rate [55-90 bpm] 88 bpm (06/21/21 10:05 PM) Blood Pressure [90-138/55-84 mm Hg] 140/ 88mm Hg *H* (06/21/21 10:05 PM) Respiratory Rate [16-30 br/min] 18 br/mi n (06/21/21 10:05 PM) Temperature [96.8-100.4 DegF] 98.4 DegF (06/21/21 10:05 PM) Liters per Minute 15 L/min (06/21/21 9:53 PM) Mode of Delivery (Oxygen) Room air (06/21/21 10:05 PM) Nonrebreather mask (06/21/21 9:53 PM) Blood pressure sites Arm, right (06/21/21 10:05 PM) Temperature Route Oral (06/21/21 10:05 PM) Social History Social History Type Response Smoking Status 10 or more cigarette s (1/2 pack or more)/day in last 30 days entered on: 05/24/21 Sex
--- OUTSIDE RECORDS SUMMARY | 2023-12-06 14:42 | XMS_ITS | Continuity of Care Document ---
Author Organization [facility] ter Address [address] [place] [id number]- Care Team Providers Care Science Manager Name Role Phone Vi CASTAÑEDA, Leda Gore Primary Care Physician Encounter [facility] Date(s): 10/19/23 - 10/21/[address] [address]- Encounter Diagnosis Hypoxia(Final) - 10/19/23 Shortness of breath(Final) - 10/19/23 Discharge Disposition: A-Transfer VNA/Home Health Attending Physician: Diego Pitt MD Admitting Physician: Bert Campa MD Referring Physician: Not on Staff, Referring [...] Refills, Maintenance, 01/10/22 11:29:00 EDT, EC Tablet, [facility] #[id number], Partial fill upon patient request if the prescription is for a schedule II opioid drug., 165, cm, 11/28/21 12:34:00 EDT, Linette... Start Date: 01/10/22 Stop Date: 02/09/22 Status: Ordered baclofen 10 mg oral tablet 10 mg, Tablet, By Mouth, 3 times a day, PRN for Spasm, Routine, 10/19/23 9:55:00 EDT Start Date: 10/19/23 Stop Date: 10/22/23 Status: Discontinued baclofen 10 mg oral tablet [...] 1 capsule = 60 mg, By Mouth, Daily, 0 Refills, Maintenance, 10/19/23 9:24:00 EDT, EC Capsule, Partial fill upon patient request if the prescription is for a schedule II opioid drug. Start Date: 10/19/23 Status: Ordered escitalopram 20 mg oral tablet 1.5 tablet = 30 mg, By Mouth, Daily, 0 Refills, Maintenance, 10/19/23 9:24:00 EDT, Tablet, Partial fill upon patient request if the prescription is for a schedule II opioid drug. Start Date: 10/19/23 Status: Ordered fentaNYL 50 mcg/hr transdermal film, extended release 1 patch, Topically, Every 72 hours, 0 Refills, Maintenance, 05/23/21 15:01:00 EDT, Patch, Partial fill upon patient request if the prescription is for a schedule II opioid drug. Start Date: 05/23/21 Status: Ordered hydrOXYzine hydrochloride 25 mg oral tablet 1 tablet = 25 mg, By Mouth, Daily, PRN as needed for anxiety, # 30 tablet, 0 Refills, Maintenance, 01/22/23 23:14:00 EDT, Tablet, Partial fill upon patient request if the prescription is for a schedule II opioid drug. Start Date: 01/22/23 Status: Ordered levothyroxine 0.112 mg oral tablet 1 tablet = 112 mcg, By Mouth, Thursday thru Thursday, Skip Thursday. Start Date: 11/28/21 Status: Ordered LORazepam 0.5 mg oral tablet 1 tablet = 0.5 mg, By Mouth, 2 times a day, 0 Refills, Maintenance, 10/19/23 9:48:00 EDT, Tablet, Partial fill upon patient request if the prescription is for a schedule II opioid drug. Start Date: 10/19/23 Status: Ordered lurasidone 80 mg oral tablet = 80 mg, By Mouth, Daily at supper, # 30 each, 1 Refills, Maintenance, 10/01/23 10:59:00 EST, Tablet, [facility] #[id number], Partial fill upon patient request if the [...] 12/08/23 14:48:00 EDT, 10/21/23 14:48:00 EDT, Patch, [facility] #[id number], Partial fill upon patient request if the prescription is for a schedule II opioid drug., 1 patch Topically Daily,... Start Date: 10/21/23 Stop Date: 12/08/23 Status: Ordered tiotropium 2.5 mcg/inh inhalation aerosol 2 puffs = 5 mcg, Inhalation, Daily, # 4 Gm, 4 Refills, Maintenance, 10/21/23 14:49:00 EDT, Aerosol,[facility] #[id number], Partial fill upon patient request if the [...] Exam Date Time Procedure Performing Provider Status 10/18/23 11:[address] Chest W/ Contrast Aldair Bland; Antonio (Verified) Notes: (CT Chest W/ Contrast) Reason For Exam: Pulmonary Lesion;Other: RESULT: CT Chest W/ Contrast CT Chest W/ Contrast INDICATION: Hx of Present Illness: back pain and sob, coughing in triage, mask applied, appears in NAD, no resp distress noted; Reason: Pulmonary Lesion; Clinical Question(s): Interstitial Alveolar Infiltration; Order Comment: TECHNIQUE: Helical CT scan of the chest with IV contrast, formatted in 3 planes. 100 cc of Omnipaque 300 was administered intravenously. Weight-based protocol was performed using automatic exposure control. CTDIvol Body: 10.50 mGy, DLP Body: 384 mGy*cm. COMPARISON: CT 01/23/2023, 10/13/2019 FINDINGS: Scale Attendant view findings, lines and tubes: None. Trachea and airways: Patent without evidence of tracheal or endobronchial lesion. Lungs and pleura: 11 x 5 mm (average 8 mm) irregular nodule within superior segment left lower lobe(series 205 image 34), stable since 2019. Few additional micronodules and calcified granulomata, similar to 2022. No consolidation or pulmonary mass. No effusion or pneumothorax. Mediastinum and guilherme: Moderate type III paraesophageal hernia containing gastric fundus. No mediastinal or hilar lymphadenopathy. No esophageal abnormality. 1.9 cm right lower lobe thyroid nodule (series 202 image 65), not as clearly delineated on prior studies. Heart: Heart is normal in size. No pericardial effusion. Aorta: No aortic aneurysm. Pulmonary arteries: Normal caliber. Chest wall soft tissues: No acute abnormality. Diaphragm: Intact. Upper abdomen: Status post cholecystectomy. Punctate calcified granuloma in the liver. 1.2 cm hepatic dome hypodensity, unchanged and possibly a cyst. Bones: Multilevel degenerative changes involve the visualized spine. No acute osseous abnormality. IMPRESSION: No pulmonary consolidation or other acute abnormality. 1.9 cm right lower lobe thyroid nodule. Nonemergent thyroid ultrasound suggested for further characterization. Left lower lobe 8 mm pulmonary nodule, stable since 2019. Moderate hiatal hernia. I have personally reviewed the images and I agree with this report. WSN: [id number] Ordering Physician: Shirlene Xiong Dictated By: James Jordan MD Dictated Date/Time: 10/18/23 11:38 p Reviewed By: Km Loza MD Signed By: Km Loza MD Signed Date/Time: 10/18/23 11:43 pm Transcribed By: RODRI Transcribed Date/Time: 10/18/23 11:15 pm * Exam Date Time Procedure Performing Provider Status 10/18/23 7:03 PM Chest Portable Teri Gutierrez ( Verified) Notes: (Chest Portable) Reason For Exam: Shortness of Breath RESULT: Chest Portable Examination: Portable chest performed on 10/18/2023. History: Back pain and shortness of breath. Findings: A frontal view of the chest is compared to a prior study dated 10/15/2023. The cardiac silhouette is within normal limits for size. There is stable elevation of the left hemidiaphragm. The lungs are clear. The osseous structures are unremarkable. IMPRESSION: There is no acute cardiopulmonary disease. WSN: [id number] Ordering Physician: Shirlene Xiong Dictated By: Tiffany Lyles MD Dictated Date/Time: 10/18/23 7:10 pm Reviewed By: Tiffany Lyles MD Signed By: Tiffany Lyles MD Signed Date/Time: 10/18/23 7:10 pm Transcribed By: RODRI Transcribed Date/Time: 10/18/23 7:08 pm Vital Signs Most recent to oldest [Reference Range]: 1 2 3 Weight 111.6 kg (10/19/23 12:06 PM) 111.6 kg (10/19/23 8:17 AM) 111.6 kg (10/19/23 6:56 AM) Oxygen Saturation [94-100 %] 94 % (10/21/23 7:52 AM) 97 % (10/21/23 3:00 AM) 95 % (10/20/23 7:00 PM) Pulse Rate [55-90 bpm] 70 bpm (10/21/23 7:52 AM) 78 bpm (10/21/23 3:00 AM) 84 bpm (10/20/23 7:00 PM) Blood Pressure [90-138/55-84 mm Hg] 111/66mm Hg (10/21/23 7:52 AM) 102/62mm Hg (10/21/23 3:00 AM) 100/59mm Hg (10/20/23 7:00 PM) Respiratory Rate [16-30 br/min] 18 br/min (10/21/23 1:06 PM) 18 br/min (10/21/23 9:11 AM) 18 br/min (10/21/23 8:11 AM) Temperature [96.8-100.4 DegF] 97.4 DegF (10/21/23 7:52 AM) 98.2 DegF (10/21/23 3:00 AM) 98.2 DegF (10/20/23 7:00 PM) Liters per Minute 4 L/min (10/19/23 12:06 PM) 4 L/min (10/19/23 8:17 AM) 4 L/min (10/19/23 4:56 AM) Mode of Delivery (Oxygen) Room air (10/21/23 7:52 AM) Room air (10/21/23 3:00 AM) Room air (10/20/23 7:00 PM) Blood pressure sites Arm, left (10/21/23 7:52 AM) Arm, left (10/21/23 3:00 AM) Arm, left (10/20/23 7:00 PM) Temperature Route Oral (10/21/23 7:52 AM) Oral (10/21/23 3:00 AM) Oral (10/20/23 7:00 PM) Social History Social History Type Response Tobacco Interested in cessat ion: No. Yes Sex Admission evaluation note * Dalia Euceda MD: PERFORM Event Display: Admission Note Authored Date: [id number] Patient: ??FATEMEH WRIGHT ? Age:??58 Years?Sex:??Female?:??1965?? Chief Complaint/Reason for Consultation Dyspnea History of Present Illness 58-year-old female with history of bipolar 1 disorder, generalized anxiety disorder, TBI with cognitive impairment, hypertension, hypothyroidism, fibromyalgia presented with dyspnea. ?? Patient has presented multiple times over the last week for dyspnea however left without being seen.?? She also reports chest pain. Does not report fever, chills, cough with expectoration.?? Tobacco use disorder, smokes 10 cigarettes/day. ?? patient??lives??with her daughter??and reports??independent of daily??living??activities? ED course Vitals remarkable for blood pressure 180/110, SpO2 of 100% on room air, heart rate of 105, afebrile. There is no documented hypoxia however patient was placed on 4 L nasal cannula for tachypnea. Stat EKG significant for normal sinus, heart rate of 96, QTc 502, no ST-T wave changes noticed. CBC remarkable for WBC count of 15.9, hemoglobin at baseline at 14.3, platelet count of 427. CMP remarkable for sodium of 135, potassium of 3.5, chloride 90, normal anion gap.?? Normal creatinine.?? Isolated elevation of ALP, normal liver function test. NT proBNP 109, troponin have remained flat.?? Influenza, RSV, COVID-19 negative. Chest x-ray revealed no acute cardiopulmonary disease. CT chest with contrast was significant for 1.9 cm right lower lobe thyroid nodule.?? Nonemergent thyroid ultrasound suggested for further characterization.?? Left lower lobe 8 mm pulmonary nodule, stable since 2019.?? Moderate hiatal hernia.?? No pulmonary consolidation or other acute abnormality noticed. Patient received 125 mg of methylprednisolone, Ativan 1 mg. She also received albuterol, Atrovent. ? On my evaluation, patient reports feeling better. No acute complaints.?? Review of Systems ENT: No ear discharge, ear pain, no neck swelling, no sore throat. Respiratory: No SOB, cough, sputum production.?? Cardiovascular: No chest pain, palpitations. Gastrointestinal: No abdominal pain, no vomiting, diarrhea.?? Genitourinary: No polyuria, dysuria. Musculoskeletal: No arthralgia, myalgia???s reported. Neuro: No Numbness, no tingling, no motor weakness, no sensory changes. Skin: No rash, pruritus reported. Hematologic: No increased tendency to bleed, purpura noted.?? Psychiatric: No agitated behavior, no depression, anxiety.?? All other systems were reviewed and are negative except for the ones mentioned above. Objective Measurements?? Weight: 111.6 kg (10/19/23) ?? Vital Signs?? Temperature: 98.1 DegF (10/19/23 15:28:00) Temperature Route: Oral (10/19/23 15:28:00) Pulse Rate:??93 bpm??High (10/19/23 15:28:00) Respiratory Rate: 19 br/min (10/19/23 15:28:00) Systolic Blood Pressure:??154 mm Hg??High (10/19/23 15:28:00) Diastolic Blood Pressure: 81 mm Hg (10/19/23 15:28:00) Blood pressure sites: Arm, left (10/19/23 15:28:00) Mean Arterial Pressure: 105 mm Hg (10/19/23 15:28:00) Pulse Pressure: 73 mm Hg (10/19/23 15:28:00) Oxygen Saturation: 94 % (10/19/23 15:28:00) Liters per Minute: 4 L/min (10/19/23 12:06:00) Mode of Delivery (Oxygen): Room air (10/19/23 15:28:00) Early Warning Score: 3 (10/19/23 15:29:39) ? Intake/Output? 10/18 00:53 03/11 07:00 10/17 07:00 10/16 07:00 10/15 07:00 ?? 10/18 17:17 10/18 17:17 10/18 06:59 10/17 06:59 10/16 06:59 Intake ?240 ?240 ?0 ?0 ?0 Output ?0 ?0 ?0 ?0 ?0 Net Total ?240 ?240 ?0 ?0 ?0 ? Urine Count ?1 ?1 ?0 ?0 ?0 ? Physical Exam General: No acute distress HEENT: EOMI. CV: Regular rate and rhythm. No murmurs, gallops, rubs Respiratory: All conte clear to auscultation bilaterally. No wheezes, rales, rhonchi GI: Soft, nontender. Bowel sounds noted : No suprapubic tenderness Extremities: No lower extremity edema Neuro: AAO x3.??Moves all extremities spontaneously. Sensation intact Psych: Affect appropriate Skin: No lesions, wounds, rashes Assessment/Plan Diagnoses Bipolar disorder ??(F31.9) COPD exacerbation ??(J44.1) Hypoxia ??(R09.02) Shortness of breath ??(R06.02) ?? Assessment:??This is a 58-year-old female with??pertinent tobacco use disorder with multiple presentations for dyspnea was admitted for COPD exacerbation. ? COPD exacerbation (J44.1):??Patient does not have PFTs done.??However as patient has tobacco use disorder, we suspect this is likely COPD exacerbation.??Patient continues to smoke 10 cigarettes/day. She is only on albuterol as needed at home. She was never hypoxic but due to tachypnea she was placed on??4 L nasal cannula saturating at 94%. There is no infectious etiology as a trigger for this.??She always has had elevated WBCs however patient does not have clinical signs or concerns for infection.??We will continue to monitor. Plan: -Albuterol as needed -We will start tiotropium daily -Monitor??for signs of sepsis. Patient will need outpatient pulmonology??with PFT??testing. ?? Bipolar disorder (F31.9):??Plan: -Continue??all home medications, substituting zolpidem. ?? VTE Prophylaxis:??Florentino 40 mg daily ?VTE Prophylaxis Assessment:??VTE Prophylaxis Ordered ?? Code Status:??Full code, reviewed with patient ?Order Code Status:??Code Status Ordered ?? Ongoing Medical Necessity:??Likely discharge tomorrow. ?? Dalia Palomares PGy-2 Internal Medicine resident ?? Histories Past Medical History/Problem List Active Problems??(22) B12 deficiency Back pain Benign essential hypertension Chest pain Chronic back pain Chronic constipation Edema leg Fibromyalgia Fragile X syndrome GERD without esophagitis Headache disorder History of traumatic brain injury Hypertension Hyponatremia Hypothyroid Leukocytosis Mild intermittent asthma Obese class I Pre-diabetes Psychogenic polydipsia QT prolongation Recurrent chest pain ? Past Surgical History Appendectomy; Cholecystectomy; Tonsillectomy, primary or secondary; age 12 or over ? Social History Alcohol Details:??Use: Never. Details:??Use: Never. Employment/School Details:??Status: Unemployed. Exercise Details:??Self assessment: Fair condition. Home/Environment Details:??Living situation: Home/Independent. ??Lives with: Children. Nutrition/Health Details:??Diet: Regular. Sexual Details:??Sexually involved in last 6 months: No. Substance Abuse Details:??Use: Past. ??Type: Marijuana. Details:??Use: Past. ??Type: Marijuana. Tobacco Details:??Interested in cessation: No. ??Yes Details:??Use: 10 or more cigarettes (1/2 pack or more)/day in last 30 days, 6 cigarretes/ day. ??Yes, Type: Cigarettes. ??Started at age: 14 Years. Electronic Cigarette/Vaping Details:??Electronic Cigarette Use: Never. Details:??Electronic Cigarette Use: Never. ? Medications Home Medications Albuterol (albuterol CFC free 90 mcg/inh inhalation aerosol)?1?puff(s)?Inhalation?Every6 hours?as needed?for wheezing Amlodipine (amLODIPine 5 mg oral tablet)?5?Milligram?1?tablet?By Mouth?Daily?for 14?Days Aspirin (aspirin 81 mg oral delayed release tablet)?81?Milligram?By Mouth?Daily?for 30?Days Baclofen (baclofen 10 mg oral tablet)?1?tab(s)?10?Milligram?By Mouth?3 times a day?as needed?Spasm?for 30?Days Duloxetine (duloxetine 60 mg oral enteric coated capsule)?1?capsule?60?Milligram?By Mouth?Daily Escitalopram (escitalopram 20 mg oral tablet)?1.5?tab(s)?30?Milligram?By Mouth?Daily Fentanyl (fentaNYL 50 mcg/hr transdermal film, extended release)?1?patch(es)?Topically?Every 72 hours HydrOXYzine (hydrOXYzine hydrochloride 25 mg oral tablet)?1?tab(s)?25?Milligram?By Mouth?Daily?as needed?as needed for anxiety Ibuprofen (Advil 200 mg oral tablet)?1?tab(s)?200?Milligram?By Mouth?2 times a day Levothyroxine (levothyroxine 0.112 mg oral tablet)?1?tab(s)?112?Microgram?By Mouth?Thursday thru Thursday, Skip Thursday. Lorazepam (LORazepam 0.5 mg oral tablet)?1?tab(s)?0.5?Milligram?By Mouth?2 times a day lurasidone (lurasidone 80 mg oral tablet)?80?Milligram?By Mouth?Daily at supper?for 30?Days Meloxicam (meloxicam 7.5 mg oral tablet)?1?tab(s)?7.5?Milligram?By Mouth?2 times a day with meals?as needed?Pain , Moderate suvorexant (Belsomra 10 mg oral tablet)?1?tab(s)?10?Milligram?By Mouth?Daily at bedtime ? Inpatient Medications Medications (25) Active SCHEDULED: (12) Amlodipine 5 mg Tablet (amLODIPine 5 mg oral tablet) ??5 mg, By Mouth, Daily Aspirin 81 mg EC Tablet (aspirin 81 mg oral delayed release tablet) ??81 mg, By Mouth, Daily Duloxetine 60 mg Capsule (DULoxetine Capsule) ??60 mg, By Mouth, Daily Enoxaparin 40 mg Inj (Enoxaparin Inj) ??40 mg 0.4 mL, Subcutaneous Injection, Daily Escitalopram 10 mg Tablet (escitalopram 10 mg oral tablet) ??20 mg, By Mouth, Daily FENTanyl 50 mcg/hour Patch (FENTanyl ??Patch) ??50 mcg, Topically, Every 72 hours Levothyroxine 112 mcg Tablet (levothyroxine 0.112 mg oral tablet) ??112 mcg, By Mouth, Daily in AM Lurasidone 40 mg Tablet (Lurasidone Oral Tablet) ??80 mg, By Mouth, Daily MethylPREDNISolone Sodium Succinate 125 mg Inj (SoluMedrol Inj) ??125 mg, IV Push Slowly, Daily NaCl 0.9% Flush 3ml (NaCL 0.9% Flush) ??3 mL, IV Push, Every 8 hours Remove Patch (Remove ??Patch) ??1 each, Topically, Every 72 hours Zolpidem 5 mg Tablet (zolpidem 5 mg oral tablet) ??5 mg, By Mouth, Daily at bedtime CONTINUOUS: (0) PRN: (13) Acetaminophen 325 mg Tablet (Acetaminophen Tablet) ??650 mg, By Mouth, Every 4 hours Albuterol 90mcg/Inhalation Inhaler HFA (albuterol CFC free 90 mcg/inh inhalation aerosol) ??90 mcg 1 puffs, Inhalation, Every 6 hours Baclofen 10 mg Tablet (baclofen 10 mg oral tablet) ??10 mg, By Mouth, 3 times a day Calcium Carbonate 500 mg (Calcium 200 mg) Chewable Tablet (Tums 500 mg oral tablet, chewable) ??500mg 1 tablet, Chew, 2 times a day Dextromethorphan-Guaifenesin 20 mg-200 mg/10 mL Liqu UD (Robitussin DM Liquid) ??10 mL, By Mouth, Every 4 hours Docusate Sodium 100 mg Capsule (Docusate Sodium Capsule) ??100 mg 1 capsule, By Mouth, 2 times a day HydrOXYzine HCL 10mg Tablet (hydrOXYzine hydrochloride 10 mg oral tablet) ??25 mg, By Mouth, Daily Lorazepam 0.5 mg Tablet (Ativan 0.5 mg oral tablet) ??0.5 mg, By Mouth, 2 times a day Melatonin 3 mg Tablet (Melatonin Tablet) ??3 mg, By Mouth, Daily at bedtime NaCl 0.9% Flush 3ml (NaCL 0.9% Flush) ??3 mL, IV Push, Every 8 hours Polyethylene Glycol 17 Gm Powder (MiraLax Powder) ??17 Gm 1 pack/packet, By Mouth, Daily Senna Tablet ??8.6 mg 1 tablet, By Mouth, 2 times a day Simethicone 80 mg Chewable Tablet (Simethicone Tablet) ??80 mg, Chew, 3 times a day ? Results Recent Labs BLOOD COUNT & DIFF WBC 15.9 k/mm3 (High)?? 10/18/2023 18:23 RBC 5.57 m/mm3 (High)?? 10/18/2023 18:23 Hgb 14.3 Gm/dL ()?? 10/18/2023 18:23 Hct 43.9 % ()?? 10/18/2023 18:23 MCV 78.8 femtoliters (Low)?? 10/18/2023 18:23 MCH 25.7 pg (Low)?? 10/18/2023 18:23 MCHC 32.6 g/dL (Low)?? 10/18/2023 18:23 Platelet Count 427 k/mm3 ()?? 10/18/2023 18:23 RDW-SD 40.9 femtoliters ()?? 10/18/2023 18:23 MPV 9.7 femtoliters ()?? 10/18/2023 18:23 Nucleated RBC (Automated) 0.0 #/100 WBC'S ()?? 10/18/2023 18:23 Abs. NRBC 0.0 k/mm3 ()?? 10/18/2023 18:23 Abs. Neut 12.5 k/mm3 (High)?? 10/18/2023 18:23 Abs. Lymph 2.2 k/mm3 ()?? 10/18/2023 18:23 Abs. Butts 1.0 k/mm3 (High)?? 10/18/2023 18:23 Abs. Eo 0.1 k/mm3 ()?? 10/18/2023 18:23 Abs. Baso 0.1 k/mm3 ()?? 10/18/2023 18:23 Neut % 78.9 % (High)?? 10/18/2023 18:23 Lymph % 13.8 % (Low)?? 10/18/2023 18:23 Butts % 6.2 % ()?? 10/18/2023 18:23 Eos % 0.4 % ()?? 10/18/2023 18:23 Baso % 0.4 % ()?? 10/18/2023 18:23 Imm Gran 0.3 % ()?? 10/18/2023 18:23 Abs. Imm Gran 0.1 k/mm3 ()?? 10/18/2023 18:23 ?? CARDIAC Nt-Probnp 109 pg/mL ()?? 10/19/2023 00:10 High Sensitivity Troponin (HSTnT) 12 ng/L ()?? 10/19/2023 00:10 ?? CHEM GENERAL Sodium 135 mmol/L ()?? 10/18/2023 18:23 Potassium 3.5 mmol/L (Low)?? 10/18/2023 18:23 Chloride 90 mmol/L (Low)?? 10/18/2023 18:23 Bicarbonate Level 29 mmol/L ()?? 10/18/2023 18:23 Anion Gap 16 ()?? 10/18/2023 18:23 Glucose Level 111 mg/dL (High)?? 10/18/2023 18:23 BUN 8 mg/dL ()?? 10/18/2023 18:23 Creatinine-Blood 0.9 mg/dL ()?? 10/18/2023 18:23 Estimated GFR Creatinine 73 ML/MIN/1.73 M2 ()?? 10/18/2023 18:23 Calcium 10.1 mg/dL ()?? 10/18/2023 18:23 Protein, Total 7.1 Gm/dL ()?? 10/18/2023 18:23 Albumin 4.9 Gm/dL (High)?? 10/18/2023 18:23 Alkaline Phosphatase 119 units/L (High)?? 10/18/2023 18:23 Lipase 43 units/L ()?? 10/18/2023 18:23 AST (SGOT) 16 units/L ()?? 10/18/2023 18:23 ALT (SGPT) 10 units/L ()?? 10/18/2023 18:23 Bilirubin, Total 0.3 mg/dL ()?? 10/18/2023 18:23 Bilirubin, Direct <0.2 mg/dL ()?? 10/18/2023 18:23 Bilirubin, Indirect Direct bilirubin is less than the measureable limit. Therefore, indirect mg/dL ()?? 10/18/2023 18:23 ?? COAG D-Dimer 0.43 mg/L FEU ()?? 10/18/2023 18:23 ?? VIROLOGY Influenza A PCR NEGATIVE ()?? 10/18/2023 18:20 Influenza B PCR NEGATIVE ()?? 10/18/2023 18:20 RSV PCR NEGATIVE ()?? 10/18/2023 18:20 COVID-19 PCR Specimen Source NASAL ()?? 10/18/2023 18:20 COVID-19 PCR Result NEGATIVE ()?? 10/18/2023 18:20 ? Imaging(s) ?CT Chest W/ Contrast ?? 10/18/2023 23:11??by Km Loza MD ? No pulmonary consolidation or other acute abnormality. ?? 1.9 cm right lower lobe thyroid nodule. Nonemergent thyroid ultrasound suggested for further characterization. ?? Left lower lobe 8 mm pulmonary nodule, stable since 2019. ?? Moderate hiatal hernia. ?Chest Portable ?? 10/18/2023 19:03??by Tiffany Lyles MD ?No acute abnormality ? * Diego Pitt MD: PERFORM Event Display: Admission Note Authored Date: Attending Attestation: I reviewed the patient's chart, discussed care with the resident physician and examined the patienton 10/19/23.?? I agree with the plan documented below with clarifications below, as needed. ?? In summary, 58 yo woman admitted with acute shortness of breath. Possibly mild COPD exacerbation but weaned to room air shortly after admit. ALso with multiple presentations over last several months and anxiety playing a role. COntinue supportive management and will coordinate care with family and outpt providers. ?? Labs including viral testing, CBC, BMP reviewed. CXR personally reviewed with no focal findings. Additional time spent??reviewing the chart/ medical records, speaking with the patient and family, formulating and discussing the treatment plan, and documenting the findings and encounter.? Diego Pitt?? Mechanical Test Technician Hospitalist?? EKG study * Event Display: ECG 12-Lead Authored Date: Please click on pdf link to open report * Event Display: ECG 12-Lead Authored Date: [id number] Ventricular Rate: 96 BPM Atrial Rate: 96 BPM P-R Interval: 134 ms QRS Duration: 78 ms Q-T Interval: 398 ms QTC Calculation(Bazett): 502 ms P Barron: 24 degrees R Barron: 11 degrees T Barron: 27 degrees Poor data quality, interpretation may be adversely affected Normal sinus rhythm Possible Left atrial enlargement Nonspecific ST abnormality Prolonged QT Abnormal ECG When compared with ECG of 15-OCT-2023 18:52, No significant change Confirmed by [id number] on 10/21/2023 11:38:32 AM [place]: [facility] * Yareli Witt RN: PERFORM, SIGN, VERIFY Event Display: Progress [facility] Authored Date: [id number] Patient: FATEMEH WRIGHT Age: 58 years Sex: Female : 1965 Associated Diagnoses: None Author: Yareli Witt RN Findings Problem Related to Alteration in Respiratory Function (new) : Alteration in Respiratory Function/new 10/21/2023 5:00 EDT Alteration in Resp Status Related to Other: SOB Goals & Outcomes, Respiratory Pt will maintain/resume baseline physical assessment Interventions, Respiratory Assess/monitor tolerance to IV infusions; verify rate/dose, Assess for and report S&S of respiratory distress BH Goals/Interventions, Respiratory Yes Respiratory, Problem Start 10/21/2023 5:29 Reviewed Plan with, Respiratory Patient Patient Progression, Respiratory Plan Initiation . Nursing Data Vital Signs : VITAL SIGNS SECTION 10/21/2023 3:00 EDT Temperature 98.2 DegF Temperature Route Oral Pulse Rate 78 bpm Respiratory Rate 18 br/min Systolic Blood Pressure 102 mm Hg Diastolic Blood Pressure 62 mm Hg Blood pressure sites Arm, left Pulse Pressure 40 mm Hg Oxygen Saturation 97 % Mode of Delivery (Oxygen) Room air 10/20/2023 19:00 EDT Temperature 98.2 DegF Temperature Route Oral Pulse Rate 84 bpm Respiratory Rate 18 br/min Systolic Blood Pressure 100 mm Hg Diastolic Blood Pressure 59 mm Hg Blood pressure sites Arm, left Pulse Pressure 41 mm Hg Oxygen Saturation 95 % Mode of Delivery (Oxygen) Room air . Evaluation Pt a/ox3, pt very anxious PRN Meds given. At beginning of shift pt blood sugar was 63, pt given orange juice Blood sugar went up to 103, Provider Ok Gómez notified. Pt Chloride 93, creatinine 1.1, and sodium 129 Provider Mani Crowder notified per provider continue on fluid restriction.Pt hasFentanyl patch on right arm. Pt denies chest pain/SOB. Call mac in reach, safety measures maintained, Please see CIS for full assessment.. * Dalia Eucdea MD: PERFORM Event Display: Progress Note Hospital Authored Date: Patient: ??FATEMEH WRIGHT ? Age:??58 Years?Sex:??Female?:??1965?? Subjective Overnight patient sodium was 129, urine studies and fluid restriction ordered. Patient had no IV access, no dyspnea and on room air.?? IV Medrol was changed to p.o. prednisone. Vitals remarkable for blood pressure of 135/81, afebrile, heart rate of 80, SpO2 of 98% on room air. CBC remarkable for WBC of 17.3 from 15.9 this is likely reactive secondary to steroid use, hemoglobin 11.9 from 14.3, platelet of 339. Sodium dropped from 1 35-1 29, potassium of 3.7, chloride of 89.?? Normal kidney function, serum osmolality 266.?? Normal liver function test. ?? No acute complaints. patient reports she feels great and wanted to go home. However her sodium remains at 129. Awaiting urine studies.?? RN states that patient has been drinking tea every 3 hours. It could be secondary to polydispsia.? Review of Systems ?? All other systems were reviewed and are negative except for the ones mentioned above. Past Medical History Active Problems??(22) B12 deficiency Back pain Benign essential hypertension Chest pain Chronic back pain Chronic constipation Edema leg Fibromyalgia Fragile X syndrome GERD without esophagitis Headache disorder History of traumatic brain injury Hypertension Hyponatremia Hypothyroid Leukocytosis Mild intermittent asthma Obese class I Pre-diabetes Psychogenic polydipsia QT prolongation Recurrent chest pain ? Objective Vital Signs?? Temperature: 97.9 DegF (10/20/23 07:36:00) Temperature Route: Oral (10/20/23 07:36:00) Pulse Rate: 81 bpm (10/20/23 07:36:00) Respiratory Rate: 20 br/min (10/20/23 07:36:00) Systolic Blood Pressure:??140 mm Hg??High (10/20/23 07:36:00) Diastolic Blood Pressure:??91 mm Hg??High (10/20/23 07:36:00) Blood pressure sites: Arm, right (10/20/23 07:36:00) Mean Arterial Pressure: 107 mm Hg (10/20/23 07:36:00) Pulse Pressure: 49 mm Hg (10/20/23 07:36:00) Oxygen Saturation: 95 % (10/20/23 07:36:00) Mode of Delivery (Oxygen): Room air (10/20/23 07:36:00) Early Warning Score: 9 (10/20/23 10:48:36) ? Intake/Output? 10/18 00:53 10/19 07:00 10/18 07:00 10/17 07:00 10/16 07:00 ?? 10/19 12:18 10/19 12:18 10/19 06:59 10/18 06:59 10/17 06:59 Intake ?540 ?300 ?240 ?0 ?0 Output ?0 ?0 ?0 ?0 ?0 Net Total ?540 ?300 ?240 ?0 ?0 ? Urine Count ?2 ?0 ?2 ?0 ?0 ? Physical Exam General: No acute distress HEENT: EOMI. CV: Regular rate and rhythm. No murmurs, gallops, rubs Respiratory: All conte clear to auscultation bilaterally. No wheezes, rales, rhonchi GI: Soft, nontender. Bowel sounds noted : No suprapubic tenderness Extremities: No lower extremity edema Neuro: AAO x3.??Moves all extremities spontaneously. Sensation intact Psych: Affect appropriate Skin: No lesions, wounds, rashes _ Inpatient Medications Medications (29) Active SCHEDULED: (16) Amlodipine 5 mg Tablet (amLODIPine 5 mg oral tablet) ??5 mg, By Mouth, Daily Aspirin 81 mg EC Tablet (aspirin 81 mg oral delayed release tablet) ??81 mg, By Mouth, Daily Duloxetine 60 mg Capsule (DULoxetine Capsule) ??60 mg, By Mouth, Daily Enoxaparin 40 mg Inj (Enoxaparin Inj) ??40 mg 0.4 mL, Subcutaneous Injection, Daily Escitalopram 10 mg Tablet (escitalopram 10 mg oral tablet) ??20 mg, By Mouth, Daily FENTanyl 25 mcg/hour Patch (FENTanyl ??Patch) ??25 mcg, Topically, Every 72 hours Levothyroxine 112 mcg Tablet (levothyroxine 0.112 mg oral tablet) ??112 mcg, By Mouth, Daily in AM Lurasidone 40 mg Tablet (Lurasidone Oral Tablet) ??80 mg, By Mouth, Daily NaCl 0.9% Flush 3ml (NaCL 0.9% Flush) ??3 mL, IV Push, Every 8 hours Nicotine 21 mg / 24 hour Patch (Nicotine Topical) ??21 mg, Topically, Daily Potassium Chloride 10mEq ER Tablet (potassium chloride 10 mEq oral tablet, extended release) ??40 mEq, By Mouth, Once Potassium Chloride 20 mEq Packet (Potassium Chloride Packet) ??40 mEq, By Mouth, Once Remove Patch (Remove ??Patch) ??1 each, Topically, Every 72 hours Remove Patch (Remove ??Patch) ??1 each, Topically, Every 72 hours Remove Patch (Remove ??Patch) ??1 each, Topically, Daily Zolpidem 5 mg Tablet (zolpidem 5 mg oral tablet) ??5 mg, By Mouth, Daily at bedtime CONTINUOUS: (0) PRN: (13) Acetaminophen 325 mg Tablet (Acetaminophen Tablet) ??650 mg, By Mouth, Every 4 hours Albuterol 90mcg/Inhalation Inhaler HFA (albuterol CFC free 90 mcg/inh inhalation aerosol) ??90 mcg 1 puffs, Inhalation, Every 6 hours Baclofen 10 mg Tablet (baclofen 10 mg oral tablet) ??10 mg, By Mouth, 3 times a day Calcium Carbonate 500 mg (Calcium 200 mg) Chewable Tablet (Tums 500 mg oral tablet, chewable) ??500mg 1 tablet, Chew, 2 times a day Dextromethorphan-Guaifenesin 20 mg-200 mg/10 mL Liqu UD (Robitussin DM Liquid) ??10 mL, By Mouth, Every 4 hours Docusate Sodium 100 mg Capsule (Docusate Sodium Capsule) ??100 mg 1 capsule, By Mouth, 2 times a day HydrOXYzine HCL 10mg Tablet (hydrOXYzine hydrochloride 10 mg oral tablet) ??25 mg, By Mouth, Daily Lorazepam 0.5 mg Tablet (Ativan 0.5 mg oral tablet) ??0.5 mg, By Mouth, 2 times a day Melatonin 3 mg Tablet (Melatonin Tablet) ??3 mg, By Mouth, Daily at bedtime NaCl 0.9% Flush 3ml (NaCL 0.9% Flush) ??3 mL, IV Push, Every 8 hours Polyethylene Glycol 17 Gm Powder (MiraLax Powder) ??17 Gm 1 pack/packet, By Mouth, Daily Senna Tablet ??8.6 mg 1 tablet, By Mouth, 2 times a day Simethicone 80 mg Chewable Tablet (Simethicone Tablet) ??80 mg, Chew, 3 times a day ? Results Recent Labs BLOOD COUNT & DIFF WBC 17.3 k/mm3 (High)?? 10/20/2023 00:10 RBC 4.59 m/mm3 ()?? 10/20/2023 00:10 Hgb 11.9 Gm/dL ()?? 10/20/2023 00:10 Hct 37.2 % ()?? 10/20/2023 00:10 MCV 81.0 femtoliters ()?? 10/20/2023 00:10 MCH 25.9 pg (Low)?? 10/20/2023 00:10 MCHC 32.0 g/dL (Low)?? 10/20/2023 00:10 Platelet Count 339 k/mm3 ()?? 10/20/2023 00:10 RDW-SD 41.1 femtoliters ()?? 10/20/2023 00:10 MPV 10.0 femtoliters ()?? 10/20/2023 00:10 Nucleated RBC (Automated) 0.0 #/100 WBC'S ()?? 10/20/2023 00:10 Abs. NRBC 0.0 k/mm3 ()?? 10/20/2023 00:10 Abs. Neut 14.0 k/mm3 (High)?? 10/20/2023 00:10 Abs. Lymph 2.2 k/mm3 ()?? 10/20/2023 00:10 Abs. Butts 1.0 k/mm3 (High)?? 10/20/2023 00:10 Abs. Eo 0.0 k/mm3 ()?? 10/20/2023 00:10 Abs. Baso 0.0 k/mm3 ()?? 10/20/2023 00:10 Neut % 81.2 % (High)?? 10/20/2023 00:10 Lymph % 12.5 % (Low)?? 10/20/2023 00:10 Butts % 5.5 % ()?? 10/20/2023 00:10 Eos % 0.1 % ()?? 10/20/2023 00:10 Baso % 0.1 % ()?? 10/20/2023 00:10 Imm Gran 0.6 % ()?? 10/20/2023 00:10 Abs. Imm Gran 0.1 k/mm3 ()?? 10/20/2023 00:10 ?? CARDIAC Nt-Probnp 109 pg/mL ()?? 10/19/2023 00:10 High Sensitivity Troponin (HSTnT) 12 ng/L ()?? 10/19/2023 00:10 ?? CHEM GENERAL Sodium 129 mmol/L (Low)?? 10/20/2023 09:22 Potassium 3.3 mmol/L (Low)?? 10/20/2023 09:22 Chloride 88 mmol/L (Low)?? 10/20/2023 09:22 Bicarbonate Level 26 mmol/L ()?? 10/20/2023 09:22 Anion Gap 15 ()?? 10/20/2023 09:22 Glucose Level 142 mg/dL (High)?? 10/20/2023 09:22 BUN 9 mg/dL ()?? 10/20/2023 09:22 Creatinine-Blood 0.9 mg/dL ()?? 10/20/2023 09:22 Estimated GFR Creatinine 77 ML/MIN/1.73 M2 ()?? 10/20/2023 09:22 Osmolality 266 mOs/kg (Low)?? 10/20/2023 00:10 Calcium 9.7 mg/dL ()?? 10/20/2023 09:22 Phosphorus 2.5 mg/dL ()?? 10/20/2023 00:10 Magnesium 1.8 mg/dL ()?? 10/20/2023 00:10 Protein, Total 5.8 Gm/dL (Low)?? 10/20/2023 00:10 Albumin 4.2 Gm/dL ()?? 10/20/2023 00:10 AG Ratio 2.6 ()?? 10/20/2023 00:10 Alkaline Phosphatase 90 units/L ()?? 10/20/2023 00:10 AST (SGOT) 11 units/L ()?? 10/20/2023 00:10 ALT (SGPT) 10 units/L ()?? 10/20/2023 00:10 Bilirubin, Total 0.3 mg/dL ()?? 10/20/2023 00:10 ? Assessment/Plan Diagnoses Bipolar disorder ??(F31.9) COPD exacerbation ??(J44.1) Hyponatremia ??(E87.1) Hypoxia ??(R09.02) Shortness of breath ??(R06.02) ?? Assessment:??This is a 58-year-old female with??pertinent tobacco use disorder with multiple presentations for dyspnea was admitted for COPD exacerbation. Course complicated by acute hyponatremia likely due to polydipsia, awaiting urine studies. ?? Bipolar disorder (F31.9):??Plan: -Continue??all home medications, substituting zolpidem. ?? COPD exacerbation (J44.1):??Patient does not have PFTs done.??However as patient has tobacco use disorder, we suspect this is likely COPD exacerbation.??Patient continues to smoke 10 cigarettes/day. She is only on albuterol as needed at home. She was never hypoxic but due to tachypnea she was placed on??4 L nasal cannula saturating at 94%. Weaned off to RA. There is no infectious etiology as a trigger for this.??She always has had elevated WBCs however patient does not have clinical signs or concerns for infection.??We will continue to monitor. Plan: -Albuterol as needed -Continue tiotropium daily -Monitor??for signs of sepsis. Patient will need outpatient pulmonology??with PFT??testing. ?? Hyponatremia (E87.1):??Presented with Sodium of 135, dropped to 129. Placed on fluid restriction. Serum Osm 266. Awaiting urine studies Likely secondary to polydipsia Plan: Follow up with urine studies ?? VTE Prophylaxis:??Lovenox 40 mg daily ?VTE Prophylaxis Assessment:??VTE Prophylaxis Ordered ?? Code Status:??Full code, reviewed with patient ?Order Code Status:??Code Status Ordered ?? Ongoing Medical Necessity:??Awaiting improvement in sodium, urine studies ?? Tobacco Use Treatment:??Started on nicotine patch ?Tobacco Use Treatment Provided:??Cessation Medication Ordered ?? : Cardiac diet, 1.5L fluid restriction ? Dalia Palomares PGY-2 Internal Medicine resident ? * Yoandy CASTAÑEDA, Diego Argueta: PERFORM Event Display: Progress Note Hospital Authored Date: [id number] Attending Attestation: I reviewed the patient's chart, discussed care with the resident physician and examined the patienton 10/20/23.?? I agree with the plan documented below with clarifications below, as needed. ?? In summary, 58 yo woman admitted with acute shortness of breath. Possibly mild COPD exacerbation but weaned to room air shortly after admit and now breathing comfortably.?? Also with worsening hyponatremia. Possibly primary polydipsia vs SIADH and will get urine electrolytes to further evaluate. Care plan idscussed in detail with patient as well as PCP and daughter over phone. Will continue to work on omanagement of anxiety as outpt. ?? I spent a total of??50 minutes today reviewing the chart/ medical records, speaking with the patient and family, formulating and discussing the treatment plan, and documenting the findings and encounter.? Diego Pitt??MD Jeovanny Mendozas Hospitalist?? * Amanda Palencia RN: PERFORM, SIGN, VERIFY Event Display: Progress Note Hospital Authored Date: Patient: FATEMEH WRIGHT Age: 58 years Sex: Female : 1965 Associated Diagnoses: None Author: Amanda Palencia RN Findings Narrative/Incidental Patient is alert and oriented x3, with a h/o TBI and anxiety. She is 95% on RA, ambulating independently. Complaints of SOB, O2 saturations in normal range, PRN anxiety medication given. Low sodium, fluid restriction initiated. Started on nicotine patch. Fentanyl patch in place on right shoulder. . Note * Eliana Jaquez RN: PERFORM Event Display: Discharge/Transfer Note Hospital Authored Date: Nursing Discharge Note Entered On: 10/21/2023 14:52 EDT Performed On: 10/21/2023 14:52 EDT by Josefa Grant RN Nursing Discharge Note 2 Discharge Time : 10/21/2023 15:30 EDT Eliana Jaquez RN - 10/21/2023 15:27 EDT Discharge Level of Care at Discharge : Homehealth/VNA Discharge VNA/Hospice/Home Care(v001) : [employer]. Josefa Grant RN - 10/21/2023 14:52 EDT Patient Left Unit Via : Wheelchair Josefa Grant RN - 10/21/2023 15:15 EDT Patient Accompanied Off Unit with : Responsible adult DC Instructions Provided & Signed by Pt : Yes Patient Understands D/C Instructions : Yes Patient Instructions Discharge Signed : Yes Did Pt have Specialty Bed or Wound Vac : No Rudy REYES, Josefa - 10/21/2023 14:52 EDT * Diego Pitt MD: MODIFY Diego Pitt MD: MODIFY Event Display: Discharge/Transfer Note Hospital Authored Date: [id number] Patient: ??FATEMEH WRIGHT ? Age:??58 Years?Sex:??Female?:??1965?? Patient Information Discharge Location: [facility]4 Primary Care Physician: Leda Lebron MD Admit Date/Time: 10/19/23 00:53 Discharge Disposition Discharge Disposition: Home with Home Health Discharge Diagnosis Bipolar disorder (F31.9) COPD exacerbation (J44.1) Hyponatremia (E87.1) Hypoxia (R09.02) Shortness of breath (R06.02) Back pain Chest pain bipolar disorder h/o fibromyalgia ?? _ Discharge Medications Albuterol (albuterol CFC free 90 mcg/inh inhalation aerosol)?1?puff(s)?Inhalation?Every6 hours?as needed?for wheezing Amlodipine (amLODIPine 5 mg oral tablet)?5?Milligram?1?tablet?By Mouth?Daily?for 14?Days Aspirin (aspirin 81 mg oral delayed release tablet)?81?Milligram?By Mouth?Daily?for 30?Days Baclofen (baclofen 10 mg oral tablet)?1?tab(s)?10?Milligram?By Mouth?3 times a day?as needed?Spasm?for 30?Days Duloxetine (duloxetine 60 mg oral enteric coated capsule)?1?capsule?60?Milligram?By Mouth?Daily Escitalopram (escitalopram 20 mg oral tablet)?1.5?tab(s)?30?Milligram?By Mouth?Daily Fentanyl (fentaNYL 50 mcg/hr transdermal film, extended release)?1?patch(es)?Topically?Every 72 hours HydrOXYzine (hydrOXYzine hydrochloride 25 mg oral tablet)?1?tab(s)?25?Milligram?By Mouth?Daily?as needed?as needed for anxiety Ibuprofen (Advil 200 mg oral tablet)?1?tab(s)?200?Milligram?By Mouth?2 times a day Levothyroxine (levothyroxine 0.112 mg oral tablet)?1?tab(s)?112?Microgram?By Mouth?Thursday thru Thursday, Skip Thursday. Lorazepam (LORazepam 0.5 mg oral tablet)?1?tab(s)?0.5?Milligram?By Mouth?2 times a day lurasidone (lurasidone 80 mg oral tablet)?80?Milligram?By Mouth?Daily at supper?for 30?Days Meloxicam (meloxicam 7.5 mg oral tablet)?1?tab(s)?7.5?Milligram?By Mouth?2 times a day with meals?as needed?Pain , Moderate Nicotine (nicotine 21 mg/24 hr transdermal film, extended release)?1?patch(es)?Topically?Daily suvorexant (Belsomra 10 mg oral tablet)?1?tab(s)?10?Milligram?By Mouth?Daily at bedtime Tiotropium (tiotropium 2.5 mcg/inh inhalation aerosol)?2?puff(s)?5?Microgram?Inhalation?Daily ? Quality Measures Tobacco Use Treatment:?Cessation Medication Prescribed on Discharge:??Tobacco Cessation Medication Prescribed ? Medications Started Tiotropium (tiotropium 2.5 mcg/inh inhalation aerosol)?2?puff(s)?5?Microgram?Inhalation?Daily Medications Discontinued None Doses Changed None Allergies Allergies ?(Active and Proposed Allergies Only) sulfADIAZINE? (Severity: Unknown severity, Onset: Unknown) Bactrim? (Severity: Unknown severity, Onset: Unknown) Contrast Dye? (Severity: Unknown severity, Onset: Unknown) codeine? (Severity: Unknown severity, Onset: Unknown) Demerol HCl? (Severity: Unknown severity, Onset: Unknown) penicillin? (Severity: Unknown severity, Onset: Unknown) ? PCP Follow-Up/Heads-Up -Kindly follow up with BMP- Sodium and creatinine level in 2-3 days. Patient's sodium has been 129 and we advised fluid restriction of 1.5L. -We also started the patient on LAMA for COPD exacerbation and counseled on tobacco cessation. recommend Pulm referral and PFT. -Patient also need to be managed for anxiety. Hospital Course ??58-year-old female with pertinent tobacco use disorder with multiple presentations for dyspnea was admitted for COPD exacerbation, patient was never hypoxic and was able to be weaned off to room air. We also started on LAMA, tiotropium daily. And tobacco patch for tobacco cessation counseling. Course was complicated by acute on chronic hyponatremia with urine and serum studies concerning for??SIADH. As per the EFFUSE-FLUID Trial we??advised??for fluid restriction of 1.5L and to follow up with PCP??with blood work in 2-[address] Pitt called the PCP and was made aware. Last TSH &T4??was in sep 2023 with elevated TSH of 7 and normal T4. Please follow up to make sure that hypothyroidism is not causing the??hyponatremia. We continued the rest of her medications and being discharged Home with VNA services. ? Objective Measurements?? Weight: 111.6 kg (10/19/23) ?? Vital Signs?? Temperature: 97.4 DegF (10/21/23 07:52:00) Temperature Route: Oral (10/21/23 07:52:00) Pulse Rate: 70 bpm (10/21/23 07:52:00) Respiratory Rate: 18 br/min (10/21/23 13:06:00) Systolic Blood Pressure: 111 mm Hg (10/21/23 07:52:00) Diastolic Blood Pressure: 66 mm Hg (10/21/23 07:52:00) Blood pressure sites: Arm, left (10/21/23 07:52:00) Mean Arterial Pressure: 81 mm Hg (10/21/23 07:52:00) Pulse Pressure: 45 mm Hg (10/21/23 07:52:00) Oxygen Saturation: 94 % (10/21/23 07:52:00) Mode of Delivery (Oxygen): Room air (10/21/23 07:52:00) Early Warning Score: 6 (10/21/23 13:09:51) ? . Physical Exam General: No acute distress HEENT: EOMI. CV: Regular rate and rhythm. No murmurs, gallops, rubs Respiratory: All conte clear to auscultation bilaterally. No wheezes, rales, rhonchi GI: Soft, nontender. Bowel sounds noted : No suprapubic tenderness Extremities: No lower extremity edema Neuro: AAO x3.??Moves all extremities spontaneously. Sensation intact Psych: Affect appropriate Skin: No lesions, wounds, rashes Pending Results Add On Lab Order ordered on 10/18/2023 Add On Lab Order ordered on 10/20/2023 Add On Lab Order ordered on 10/21/2023 Add On Lab Order ordered on 10/21/2023 Free T4 ordered on 10/21/2023 Hold Lavender Tube (BB) ordered on 10/18/2023 TSH ordered on 10/21/2023 Patient Education Titles WebMD Ignite Patient Education - Planning to Quit Smoking?? WebMD Ignite Patient Education - How to Quit Smoking?? Follow-Up Appointments Added Follow Up ?Time Frame ?Comments Vi CASTAÑEDA, Leda Gore?1-2 day: call to discuss follow up visit Patient Instructions You were admitted for concerns for COPD exacerbation. We were able to wean you off supplemental oxygen. However your blood work was significant for low sodium levels and we placed you on fluid restriction. This could likely be due to medications and we advise you to restrict fluids to 1.5L/day. We also counseled you to on tobacco cessation and starting daily Tiotropium inhaler daily.?? Please follow up with blood work in 1-2 days and call your PCP for an earlier appointment.?? Post Discharge Care Diet: ??Regular Diet ?? Activity: ??Ambulate with assistance 3 times a day unless otherwise specified ?? Code Status: ??Full Resuscitation ?? Discharge ?10/21/23 14:46:00 EDT Home Health Face to Face *Denotes mandatory conte ?? *I certify that this patient is under my care and that I or an allowed non- physician working with me had a face to face encounter with the patient on this date:??10/21/2023 14:57 ?? *The encounter with the patient was in whole, or in part, for the following medical condition, which is the primary diagnosis(es) for home health care:??Bipolar disorder (F31.9) COPD exacerbation (J44.1) Hyponatremia (E87.1) Hypoxia (R09.02) Shortness of breath (R06.02) Back pain Chest pain bipolar disorder h/o fibromyalgia ? *Select the indications for the discipline/s that are being arranged for this patient. Nursing (select all that apply): [_] None [x_] Medication management (reconciliation, teaching)?? [x_] Chronic disease management?? [_] Wound care and treatment?? [_] Home safety evaluation [_] Administer SQ/IM/IV medications?? [_] Cath care?? [_] Drain care?? [_] Trach or GT care?? Other _ Occupation Therapy (select all that apply): [_] None [_] ADL Management [_] Fall prevention training [_] Energy conservation [_] Cognitive training Other _ Physical Therapy (select all that apply): [_] None [x_] Functional mobility training [_] Home exercise program to strengthen [_] Increase ROM?? [_] Falls prevention training [_] Home maintenance program for chronic disease Other _ Speech Therapy (select all that apply): [_] None [_] Swallow evaluation and training [_] Speech and language training [_] Cognitive training to process, organize, and/or recall information Other _ ? *Homebound due to (select all that apply): [_] Inability to leave home without assistance/supervision [_] Inability to ambulate without assistance [_] Pain [_] Decreased strength and endurance [_] Unsteady gait [_] Severe SOB and fatigue [_] Impaired transfers [_] Inability to negotiate stairs [_] Limited weight bearing [_] Mental status change? *Physician Signature:??Dalia??Ok.M.D. ?? *By signing this, I certify that I have personally evaluated the patient and agree with the findings and recommendations as documented above. ? F Results Discharge Labs BLOOD COUNT & DIFF WBC 12.3 k/mm3 (High)?? 10/21/2023 00:24 RBC 4.56 m/mm3 ()?? 10/21/2023 00:24 Hgb 11.8 Gm/dL ()?? 10/21/2023 00:24 Hct 36.8 % ()?? 10/21/2023 00:24 MCV 80.7 femtoliters ()?? 10/21/2023 00:24 MCH 25.9 pg (Low)?? 10/21/2023 00:24 MCHC 32.1 g/dL (Low)?? 10/21/2023 00:24 Platelet Count 327 k/mm3 ()?? 10/21/2023 00:24 RDW-SD 41.8 femtoliters ()?? 10/21/2023 00:24 MPV 9.7 femtoliters ()?? 10/21/2023 00:24 Nucleated RBC (Automated) 0.0 #/100 WBC'S ()?? 10/21/2023 00:24 Abs. NRBC 0.0 k/mm3 ()?? 10/21/2023 00:24 Abs. Neut 7.1 k/mm3 (High)?? 10/21/2023 00:24 Abs. Lymph 4.1 k/mm3 (High)?? 10/21/2023 00:24 Abs. Butts 0.9 k/mm3 ()?? 10/21/2023 00:24 Abs. Eo 0.1 k/mm3 ()?? 10/21/2023 00:24 Abs. Baso 0.1 k/mm3 ()?? 10/21/2023 00:24 Neut % 57.8 % ()?? 10/21/2023 00:24 Lymph % 33.3 % ()?? 10/21/2023 00:24 Butts % 7.3 % ()?? 10/21/2023 00:24 Eos % 0.9 % ()?? 10/21/2023 00:24 Baso % 0.4 % ()?? 10/21/2023 00:24 Imm Gran 0.3 % ()?? 10/21/2023 00:24 Abs. Imm Gran 0.0 k/mm3 ()?? 10/21/2023 00:24 ?? CARDIAC Nt-Probnp 109 pg/mL ()?? 10/19/2023 00:10 High Sensitivity Troponin (HSTnT) 12 ng/L ()?? 10/19/2023 00:10 ?? CHEM GENERAL Sodium 129 mmol/L (Low)?? 10/21/2023 00:24 Potassium 4.4 mmol/L ()?? 10/21/2023 00:24 Chloride 93 mmol/L (Low)?? 10/21/2023 00:24 Bicarbonate Level 26 mmol/L ()?? 10/21/2023 00:24 Anion Gap 10 ()?? 10/21/2023 00:24 Glucose Level 90 mg/dL ()?? 10/21/2023 00:24 Glucose, POC 103 mg/dL (High)?? 10/20/2023 20:09 BUN 14 mg/dL ()?? 10/21/2023 00:24 Creatinine-Blood 1.1 mg/dL (High)?? 10/21/2023 00:24 Estimated GFR Creatinine 58 ML/MIN/1.73 M2 ()?? 10/21/2023 00:24 Osmolality 266 mOs/kg (Low)?? 10/20/2023 00:10 Calcium 8.8 mg/dL ()?? 10/21/2023 00:24 Phosphorus 2.9 mg/dL ()?? 10/21/2023 00:24 Magnesium 2.0 mg/dL ()?? 10/21/2023 00:24 Protein, Total 5.5 Gm/dL (Low)?? 10/21/2023 00:24 Albumin 4.1 Gm/dL ()?? 10/21/2023 00:24 AG Ratio 2.9 ()?? 10/21/2023 00:24 Alkaline Phosphatase 84 units/L ()?? 10/21/2023 00:24 Lipase 43 units/L ()?? 10/18/2023 18:23 AST (SGOT) 9 units/L ()?? 10/21/2023 00:24 ALT (SGPT) 10 units/L ()?? 10/21/2023 00:24 Bilirubin, Total 0.2 mg/dL ()?? 10/21/2023 00:24 Bilirubin, Direct <0.2 mg/dL ()?? 10/18/2023 18:23 Bilirubin, Indirect Direct bilirubin is less than the measureable limit. Therefore, indirect mg/dL ()?? 10/18/2023 18:23 ?? COAG D-Dimer 0.43 mg/L FEU ()?? 10/18/2023 18:23 ? UA/URINALYSIS Appear/Color, Urine YELLOW ()?? 10/20/2023 21:11 Specific [place], Urine 1.023 ()?? 10/20/2023 21:11 pH, Urine 6.5 ()?? 10/20/2023 21:11 Albumin, Urine TRACE (Abnormal)?? 10/20/2023 21:11 Glucose, Urine NEGATIVE ()?? 10/20/2023 21:11 Ketones, Urine TRACE (Abnormal)?? 10/20/2023 21:11 Bilirubin, Urine NEGATIVE ()?? 10/20/2023 21:11 Hemoglobin, Urine NEGATIVE ()?? 10/20/2023 21:11 Nitrite, Urine NEGATIVE ()?? 10/20/2023 21:11 Leukocyte, Urine 3+ (Abnormal)?? 10/20/2023 21:11 Urobilinogen NORMAL mg/dL ()?? 10/20/2023 21:11 WBC's, Urine 48 /HPF (High)?? 10/20/2023 21:11 RBC's, Urine <1 /HPF ()?? 10/20/2023 21:11 Bacteria SLIGHT HPF (Abnormal)?? 10/20/2023 21:11 Squamous Epith 6 /HPF ()?? 10/20/2023 21:11 Transitional Epith <1 /HPF ()?? 10/20/2023 21:11 Amorphous Crystals SLIGHT /HPF ()?? 10/20/2023 21:11 Hold Urine Culture Testing available 48 hours from time of collection. ()?? 10/20/2023 21:11 ?? URINE OTHER Sodium, Urine Random 25 mmol/L ()?? 10/20/2023 21:11 Osmolality, Urine Random 530 mOsm/kg ()?? 10/20/2023 21:11 ?? VIROLOGY Influenza A PCR NEGATIVE ()?? 10/18/2023 18:20 Influenza B PCR NEGATIVE ()?? 10/18/2023 18:20 RSV PCR NEGATIVE ()?? 10/18/2023 18:20 COVID-19 PCR Specimen Source NASAL ()?? 10/18/2023 18:20 COVID-19 PCR Result NEGATIVE ()?? 10/18/2023 18:20 ? Blood Glucose Trend Glucose Level: 90 mg/dL (10/21/23 00:24:00) Glucose, POC:??103 mg/dL??High (10/20/23 20:09:00) Glucose, POC:??63 mg/dL??Low (10/20/23 19:41:00) ? Plan and care discussed with attending physician Dr Pitt ?? Dalia Palomares PGy-2 Internal Medicine resident * Yoandy CASTAÑEDA, Diego Argueta: PERFORM Event Display: Discharge/Transfer Note Hospital Authored Date: [id number] Attending Attestation: I reviewed the patient's chart, discussed care with the resident physician and examined the patienton 10/20.?? I agree with the plan documented below including the plan for discharge. ?? In summary, 58 yo woman admitted with acute shortness of breath. Possibly mild COPD exacerbation but weaned to room air shortly after admit and now breathing comfortably.??Developed hyponatremia. 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 Na remains low but runs chronically low and stable prior to DC. Recommend followup labs within 1 week and contack physcian or return to ED if worsening lightheadedness or other concerns. Care plan idscussed in detail with patient as well as PCP and daughter over phone. Will continue to work on management of anxiety as outpt. ?? I spent a total of??50 minutes today reviewing the chart/ medical records, speaking with the patient and family, formulating and discussing the treatment plan, and documenting the findings and encounter.? Diego Pitt?? Mechanical Test Technician Hospitalist ?? * Rudy REYES, Josefa: PERFORM Event Display: Patient Education/Instruction Authored Date: [id number] Inpatient Adult Discharge Instructions. [address] [address] Name: FATEMEH WRIGHT : 1965?? Visit: 10/19/2023 00:53?? Current Date: 10/21/2023 14:52 ?? Account: [id number]?? Inpatient Adult Discharge Instructions We would like [...] and their families. Surveys are administered by [employer] ?? If further treatment with your primary care physician or another doctor is recommended, it is important for you to keep the appointment. Call your primary care physician or return to the Emergency Department immediately if your condition worsens, fails to improve, or new symptoms develop. If you need to find a doctor, you can call [facility] Link for a referral at [phone] or toll free at [phone]) or log in to [email or web address].. ?? [facility], in keeping with [facility] guidance, no longer requires face masks for [...] a health care angelito of your choosing. [employer] is a website that allows you to securely view your medical information including your hospital discharge summary, office visit summaries, medications and follow-up visits. You can also request appointments, renew medications, and request access to your medical information using a health care angelito of your choosing, or just ask a question. You can enroll at [email or web address] or register during your next office visit. You have been discharged from [facility], Patient Care Unit: W4??. If you have any questions regarding these instructions, including results of studies pending, afteryou leave, please call us and we will be happy to assist you 02/03. [facility] Your Care Team Attending Physician Diego Pitt MD?? Consulting Providers Diego Pitt MD?? Discharging Providers Dalia Euceda MD Reason for Your Visit Dyspnea?? Your Diagnosis Bipolar disorder COPD exacerbation General medical Hyponatremia Tests Performed Below is a partial list of the tests performed during your hospitalization. You may have had other tests and procedures not included in this list. Please discuss all test results with your provider. Basic Metabolic Panel BNP CBC w/ Differential Comprehensive Metabolic Panel COVID-19, RSV, and Flu A/B, Rapid PCR D Dimer FREE T4 GLUCOSE POC LFT's Lipase Magnesium Level OSMOLALITY, SERUM Phosphorus Level PROBNP Troponin T, High Sensitivity TSH Urinalysis w/hold for Urine Culture Urine Osmolality Urine Sodium CT Chest W/ IV Contrast CXR Portable Add On Lab Order?? Hold Lavender Tube (BB)?? Primary Care Provider Leda Lebron MD? Advance Directive Health Care Proxy on File Yes - Health Care Proxy Discharge Vitals Temperature: 97.4 DegF Weight: 111.6 kg Pulse Rate: 70 bpm ?? Respiratory Rate: 18 br/min ?? Systolic Blood Pressure: 111 mm Hg ?? Diastolic Blood Pressure: 66 mm Hg ?? Oxygen Saturation: 94 % ?? Studies Pending All studies ordered during this hospital stay have been completed unless listed below. Please discuss all pending results with your provider listed above in these instructions. ?? Add On Lab Order?? Hold Lavender Tube (BB)?? What to do next Instructions From Your Doctor You were admitted for concerns for COPD exacerbation. We were able to wean you off supplemental oxygen. However your blood work was significant for low sodium levels and we placed you on fluid restriction. This could likely be due to medications and we advise you to restrict fluids to 1.5L/day. We also counseled you to on tobacco cessation and starting daily Tiotropium inhaler daily.?? Please follow up with blood work in 1-2 days and call your PCP for an earlier appointment.? Orders??:Regular Diet :Ambulate with assistance ??3 times a day ??unless otherwise specified Status: ??Full Resuscitation? 10/21/23 14:46:00 EDT?? You Need to Schedule the Following Appointments Follow Up with??Leda Lebron MD When:??Within 1-2 day: call to discuss follow up visit Where: [address] [place] [address]- Discharge Medications FATEMEH WRIGHT :1965 Visit Date:10/19/2023 Medications: Please continue your medications until treatment is completed or stopped by your provider. Medications not listed below should be discontinued. Discuss any questions related to medications with your provider. What How Much When Instructions Next Dose New Nicotine (nicotine 21 mg/ 24 hr transdermal film, extended release) 1 patch(es) Topically Daily Refills: 1 Pickup at [facility] #[id number] Tomorrow morning 10/21 at 9am New Tiotropium (tiotropium 2.5 mcg/ inh inhalation aerosol) 2 puff(s) Inhalation Daily Refills: 4 Pickup at [facility] #[id number] Tomorrow morning 10/21 at 9am Changed Escitalopram (escitalopram 20 mg oral tablet) 1.5 tab(s) Oral Daily Tomorrow morning 10/21 at 9am Changed HydrOXYzine (hydrOXYzine hydrochloride 25 mg oral tablet) 1 tab(s) Oral Daily as needed for as needed for anxiety Daily as needed for as needed for anxiety Changed Levothyroxine (levothyroxine 0.112 mg oral tablet) 1 tab(s) Oral Thursday thru Thursday, Skip Thursday. ?? Tomorrow 10/21 at 9am Changed Lorazepam (LORazepam 0.5 mg oral tablet) 1 tab(s) Oral Twice a day Tonight 10/20 at 9pm Unchanged Albuterol (albuterol CFC free 90 mcg/ inh inhalation aerosol) 1 puff(s) Inhalation Every 6 hours as needed for for wheezing Every 6 hours as needed for for wheezing Unchanged Amlodipine (amLODIPine 5 mg oral tablet) 1 tab(s) Oral Daily Duration: 14 Days Tomorrow 10/21 at 9am Unchanged Aspirin (aspirin 81 mg oral delayed release tablet) 81 Milligram Oral Daily Duration: 30 Days Tomorrow 10/21 at 9am Unchanged Baclofen (baclofen 10 mg oral tablet) 1 tab(s) Oral 3 times a day as needed for Spasm Duration: 30 Days 3 times a day as needed for Spasm Unchanged Duloxetine (duloxetine 60 mg oral enteric coated capsule) 1 capsule Oral Daily Tomorrow morning 10/21 at 9am Unchanged Fentanyl (fentaNYL 50 mcg/ hr transdermal film, extended release) 1 patch(es) Topically Every 72 hours Resume previous schedule Unchanged Ibuprofen (Advil 200 mg oral tablet) 1 tab(s) Oral Twice a day Tonight 10/20 at 9pm Unchanged lurasidone (lurasidone 80 mg oral tablet) 80 Milligram Oral Daily at supper Duration: 30 Days Tonight 10/20 at supper Unchanged Meloxicam (meloxicam 7.5 mg oral tablet) 1 tab(s) Oral Two times a day with meals as needed for Pain , Moderate Two times a day with meals as needed for Pain , Moderate Unchanged suvorexant (Belsomra 10 mg oral tablet) 1 tab(s) Oral Daily at Bedtime Tonight 10/20 at bedtime Pharmacy Information [facility] #[id number]: [address], [place] [id number] [phone] Prescription Given During Visit Nicotine (nicotine 21 mg/24 hr transdermal film, extended release) - 1 patch, Topically, Daily, # 30 patch, 1 Refills, [facility] #[id number], [address] [place] [phone]?? Tiotropium (tiotropium 2.5 mcg/inh inhalation aerosol) - 2 puffs = 5 mcg, Inhalation, Daily, # 4 Gm, 4 Refills, [facility] #[id number], [address] [place] [phone]?? Laboratory Results Below is a partial list of the most recent Laboratory test results done prior to this discharge. You may have had other tests and procedures not included in this list. Please discuss all test resultswith your provider. Basic Metabolic Panel (10/20/2023) ???Sodium - 129 mmol/L???Potassium - 3.3 mmol/L???Chloride - 88 mmol/L???Bicarbonate Level - 26 mmol/L???Anion Gap - 15???Glucose Level - 142 mg/dL???BUN - 9 mg/dL???Creatinine-Blood - 0.9 mg/dL???Estimated GFR Creatinine - 77 ML/MIN/1.73 M2???Calcium - 9.7 mg/dL BNP (10/19/2023) ???Nt-Probnp - 109 pg/mL CBC w/ Differential (10/21/2023) ???WBC - 12.3 k/mm3???RBC - 4.56 m/mm3???Hgb - 11.8 Gm/dL???Hct - 36.8 %???MCV - 80.7 femtoliters???MCH - 25.9 pg???MCHC - 32.1 g/dL???Platelet Count - 327 k/mm3???RDW-SD - 41.8 femtoliters???MPV - 9.7 femtoliters???Nucleated RBC (Automated) - 0.0 #/100 WBC'S???Abs. NRBC - 0.0 k/mm3???Abs. Neut - 7.1 k/mm3???Abs. Lymph - 4.1 k/mm3???Abs. Butts - 0.9 k/mm3???Abs. Eo - 0.1 k/mm3???Abs. Baso - 0.1 k/mm3???Neut % - 57.8 %???Lymph % - 33.3 %???Butts % - 7.3 %???Eos % - 0.9 %???Baso % - 0.4 %???Imm Gran - 0.3 %???Abs. Imm Gran - 0.0 k/mm3 Comprehensive Metabolic Panel (10/21/2023) ???Sodium - 129 mmol/L???Potassium - 4.4 mmol/L???Chloride - 93 mmol/L???Bicarbonate Level - 26 mmol/L???Anion Gap - 10???Glucose Level - 90 mg/dL???BUN - 14 mg/dL???Creatinine-Blood - 1.1 mg/dL???Estimated GFR Creatinine - 58 ML/MIN/1.73 M2???Calcium - 8.8 mg/dL???Protein, Total - 5.5 Gm/dL???Album in - 4.1 Gm/dL???AG Ratio - 2.9???Alkaline Phosphatase - 84 units/L???AST (SGOT) - 9 units/L???ALT (SGPT) - 10 units/L???Bilirubin, Total - 0.2 mg/dL COVID-19, RSV, and Flu A/B, Rapid PCR (10/18/2023) ???Influenza A PCR - NEGATIVE???Influenza B PCR - NEGATIVE???RSV PCR - NEGATIVE???COVID-19 PCR Specimen Source - NASAL???COVID-19 PCR Result - NEGATIVE D Dimer (10/18/2023) ???D-Dimer - 0.43 mg/L FEU FREE T4 (10/21/2023) ???Free T4 - 1.11 ng/dL GLUCOSE POC (10/20/2023) ???Glucose, POC - 103 mg/dL LFT's (10/18/2023) ???Protein, Total - 7.1 Gm/dL???Albumin - 4.9 Gm/dL???Alkaline Phosphatase - 119 units/L???AST (SGOT) - 16 units/L? ?ALT (SGPT) - 10 units/L? ?Bilirubin, Total - 0.3 mg/dL? ?Bilirubin, Direct - <0.2 mg/dL???Bilirubin, Indirect - Direct bilirubin is less than the measureable limit. Therefore, indirect Lipase (10/18/2023) ???Lipase - 43 units/L Magnesium Level (10/21/2023) ???Magnesium - 2.0 mg/dL OSMOLALITY, SERUM (10/20/2023) ???Osmolality - 266 mOs/kg Phosphorus Level (10/21/2023) ???Phosphorus - 2.9 mg/dL PROBNP (10/18/2023) ???Nt-Probnp - 92 pg/mL Troponin T, High Sensitivity (10/19/2023) ???High Sensitivity Troponin (HSTnT) - 12 ng/L TSH (10/21/2023) ???TSH - 13.20 uIU/mL Urinalysis w/hold for Urine Culture (10/20/2023) ???Appear/Color, Urine - YELLOW???Specific [place], Urine - 1.023???pH, Urine - 6.5???Albumin, Urine - TRACE???Glucose, Urine - NEGATIVE???Ketones, Urine - TRACE???Bilirubin, Urine - NEGATIVE???Hemoglobin, Urine - NEGATIVE???Nitrite, Urine - NEGATIVE???Leukocyte, Urine - 3+???Urobilinogen - NORMAL???WBC's, Urine - 48 /HPF? ?RBC's, Urine - <1 /HPF? ?Bacteria - SLIGHT? ?Squamous Epith - 6 /HPF? ?Transitional Epith - <1 /HPF? ?Amorphous Crystals - SLIGHT? ?Hold Urine Culture - Testing available 48 hours from time of collection. Urine Osmolality (10/20/2023) ???Osmolality, Urine Random - 530 mOsm/kg Urine Sodium (10/20/2023) ???Sodium, Urine Random - 25 mmol/L Allergies (NKA means No Known Allergies) Bactrim Contrast Dye Demerol HCl codeine penicillin sulfADIAZINE Problems Active Problems??(26) B12 deficiency?? Back pain?? Benign essential hypertension?? bipolar disorder?? Chest pain?? Chronic back pain?? Chronic constipation?? Edema leg?? Fibromyalgia?? Fragile X syndrome?? GERD without esophagitis?? h/o fibromyalgia?? h/o hyponatremia?? h/o tbi?? Headache disorder?? History of traumatic brain injury?? Hypertension?? Hyponatremia?? Hypothyroid?? Leukocytosis?? Mild intermittent asthma?? Obese class I?? Pre-diabetes?? Psychogenic polydipsia?? QT prolongation?? Recurrent chest pain?? Education Materials Below is the list of Educational Leaflet Providered with your Discharge Instructions. [employer] Patient Education - Planning to Quit Smoking?? [employer] Patient Education - How to Quit Smoking?? Valuables and Belongings I fully understand and agree that [facility] accepts no responsibility for all my [...] of Valuable and Belonging List: With patient Date for Pt to Sign Valuables/Belongings: 10/19/23 13:08:00 ?? Other Discharge Information ? Case Management Discharge Plan?? Discharge Plan?? Discharge Agency Information?? Discharge Level of Care at Discharge: Homehealth/VNA Name of Agency #1: [facility]. Discharge VNA/Hospice/Home Care: [facility]. Service Comments #1: [facility]. ??will resume prior services. Please contact agency for any questions or concerns ?? Pulmonary Rehab Status?? Pulmonary Rehab Discharge Status?? Respiratory Rate: 18 br/min ? Common Emergency Awareness Tips IS [...] are strongly encouraged to quit. Please call [facility] Link at [phone] or [phone]) or log in to [email or web address] for referrals to smoking cessation programs. ?? 182 Suicide & Crisis Lifeline is available 02/03 if you or someone you know needs to find a reason to keep living. By calling 238 you'll be connected to a skilled, trained counselor at a crisis center in your area. INPATIENT DISCHARGE INSTRUCTIONS SIGNATURE PAGE MEAGAN WRIGHTEN Location:[facility] Registration Date and Time:10/19/2023 00:53 EDT Primary Care Physician: Vi CASTAÑEDA, Leda Gore, Attending Physician: Yoandy CASTAÑEDA, Diego Argueta, I FATMEEH WRIGHT, have received the above patient education materials/instructions and have verbalized understanding. If ambulance or transport services are being used I further acknowledge being given a choice of service. ?? If you need to contact me, please call me at this number: . Patient/Hamper Maker Machine Name: Patient/Hamper Maker Machine Signature: Relationship to Patient: Witness Name/Signature: Date: * Dalia Euceda MD: PERFORM Event Display: Patient Education Leaflets Authored Date: [id number] Planning to Quit Smoking ?? [id number] Planning to Quit Smoking Your healthcare provider may have told you that you need to give up tobacco. Only you can decide ifand when you're ready to quit. Quitting is hard to do. But the benefits will be worth it. When you??decide to quit, come up with a plan that???s right for you. Discuss your plan with your provider. And talk with them about medicines to help you quit. Line up support To quit smoking, you???ll need a plan and some help. Pick a date in the next 2 to 4 weeks to quit. Use the time between now and that date to arrange for support. ??? Classes and counselors. Quit-smoking classes customer care team coach people like you through the process. Get to know others in a class. And support each other beyond the class. Phone counseling also helps you keep on track. Ask your healthcare provider, local hospital, or public health department to put you in touch with a class and a phone counselor. ??? Family and friends. Tell your family and friends about your quit date. Ask them to support your change. If they smoke, only see them in smoke-free places. Don't allow smoking in your home and car. ?? Be careful with these products Finding something to replace cigarettes may be hard to do. Some things may be as harmful as cigarettes. These include: ??? Smokeless (chewing) tobacco. This is just as harmful as regular tobacco. Don't use tobacco as a substitute for cigarettes. ??? Herbal medicines or teas. These may affect how your body handles nicotine. Talk with your healthcare provider before using these products. ??? E-cigarettes. E-cigarettes aren't approved by the FDA as a quit-smoking aid. So far, the research shows limited evidence that e-cigarettes are effective at helping smokers quit. They may also have substances that can cause cancer or life-threatening lung conditions. Experts advise not to use these products. ?? Quit-smoking products Many products can help you quit smoking. Some are prescription medicines that help curb your cravings and withdrawal symptoms. Other products slowly lessen the level of nicotine your body absorbs. Nicotine is the highly addictive substance found in cigarettes, cigars, and chewing tobacco. Nicotine replacement products can help get your body used to slowly decreasing amounts of nicotine after you quit smoking. These products include a nicotine patch, gum, lozenge, nasal spray, and inhaler. Always follow the directions for your medicine or product carefully. Your healthcare provider may tell you to start taking the prescription medicine 1 week before you plan to quit. Don't smoke while you use nicotine products. Doing so can harm your health. ?? To learn more For more helpful tips and resources, visit: ??? National Cancer [place]'s smoke-free programs at www.smokefree.gov 993-96I-VTTQ (364-498-4344) ??? CDC at www.cdc.gov/tobacco/quit_smoking/ ??? BeTobaccoFree.gov 905-UFSB-WUX (442-604-8464) ??? [place] [employer] at www.lung.org/stop-smoking/800- LUNGUSA (042-373-2375, press 2) ?? Last Reviewed Date: 2021 ?? 5975-6773 [employer]. All rights reserved. This information is not intended as a substitute for professional medical care. Always follow your healthcare professional's instructions. ?? * Dalia Euceda MD: PERFORM Event Display: Patient Education Leaflets Authored Date: [id number] How to Quit Smoking ?? [id number] How to Quit Smoking Smoking is a hard habit to break. About half of all??people who've ever smoked have been able to quit. Most people??who still smoke want to quit. Here are some of the best ways to stop smoking. Keep in mind how quitting can help your health The health benefits of quitting start right away. They keep improving the longer you go without smoking. Knowing this can help inspire you to stay on track. These benefits occur at any age. Quitting is a good choice whether you are 17 or 70. Some of the health benefits after your last cigarette include: ??? After 20 minutes: Your blood pressure and pulse return to normal. ??? After 8 hours: Your oxygen levels return to normal. ??? After 2 days: Your ability to smell and taste start to get better as damaged nerves regrow. ??? After 2 to 3 weeks: Your circulation and lung function get better. ??? After 1 to 9 months: You have less coughing, congestion, and shortness of breath. You feel less tired. ??? After 1 year: Your risk of heart attack goes down by 50%. ??? After 5 years: Your risk of lung cancer goes down by 50%. Your risk of stroke becomes the same as a nonsmoker???s. ?? What about going cold turkey? You may have heard about quitting cold turkey. This means stopping all at once. Going cold turkeyis an option. But it's not the most successful way to quit smoking. Trying to cut back slowly oftendoesn't work as well either. This may be because it continues the habit of smoking. You may also inhale more smoke while smoking fewer cigarettes. This leads to the same amount of nicotine in your body. But quitting cold turkey or cutting back slowly aren't your only choices. Using tobacco cessation medicines with behavioral counseling may be a better choice to help you succeed. Talk with your provider about your choices for support while you quit smoking. ?? Get support Support programs can be a big help, especially for heavy smokers. These groups offer information, ways to change behavior, and peer support. Ask your provider for some resources. Here are some other ways to find support: ??? Smokefree.gov at www.smokefree.gov or 873-JECC-WYL (685-921-8086) ??? [place] Lung Associationat www.lung.org/quit-smoking or 825-113-7986 ??? [place] [employer] Society at www.cancer.org/quitsmoking or 565-333-9580 Support at home is important too. Family and friends can offer praise and reassurance. Ask your friends who smoke to support your decision. Try to stay away from situations that trigger the desire tosmoke. This may include smoking with your morning coffee. Or smoking after a meal. Create new routines to help decrease your cravings. If the smoker in your life finds it hard to quit, encourage them to keep trying. Remind them of allof the benefits to themselves and people they love. ?? Try drvd-qxn-tkwmioh nicotine replacements Nicotine replacement therapy??may make it??easier to quit. You can buy some aids without a prescription. These include a nicotine patch, gum, and lozenges. But it's best to use these under the care of your healthcare provider. The skin patch gives a steady supply of nicotine. Nicotine gum and lozenges give??short- time doses of low levels of nicotine. Both methods reduce the craving for cigarettes. If you??have upset stomach (nausea), vomiting, dizziness, weakness, or a fast heartbeat, stop using these products and see your provider. ?? Ask about prescription medicine After reviewing??your smoking patterns and past attempts to quit, your provider may offer a prescription medicine. These include bupropion, varenicline, a nicotine inhaler, or nasal spray. Each has advantages and side effects. Your provider can go over these with you. ?? Keep trying Most smokers try to quit many times before they succeed. It???s important not to give up. ?? Last Reviewed Date: 2022 ?? [employer]. All rights reserved. This information is not intended as a substitute for professional medical care. Always follow your healthcare professional's instructions. ?? Patient Care team information Care Team Personnel Name: Leda Lebron MD Position: [facility] Physician (General Medicine) Member Role: PCP Address: Address: [address] [place] [address] Name: Clemencia Camargo RN Position: [facility] RN Member Role: Primary Care Nurse Name: Nikkie Tubbs Position: [facility] Outreach Member Role: Lifetime Consulting Physician Name: Tavon Powell Position: [facility] RN Member Role: Primary Care Nurse Name: Caron Short RN Position: [facility] RN Member Role: Primary Care Nurse Name: Prachi Negron RN Position: [facility] RN Member Role: Primary Care Nurse Name: Tami Soler RN Position: [facility] RN Member Role: Primary Care Nurse Name: Ashleigh Mercado RN Position: [facility] RN Member Role: Primary Care Nurse Name: Heidi Moreland Position: [facility] RN Member Role: Primary Care Nurse Name: Ashleigh Levy RN Position: [facility] Onco RN Member Role: Primary Care Nurse Name: Jimbo Payne RN Position: [facility] RN Member Role: Primary Care Nurse Name: Danie Maza RN Position: [facility] RN Member Role: Primary Care Nurse Name: Vicky Kaur RN Position: [facility] Onco RN Member Role: Primary Care Nurse Name: Flores Gross RN Position: [facility] RN Member Role: Primary Care Nurse Name: Mally Chauhan RN Position: [facility] Hospital Cutting Machine Operator Helper Member Role: Primary Care Nurse Name: Nedra Garza RN Position: [facility] RN Member Role: Primary Care Nurse Care Team Related Persons Name: ESTELA WRIGHT Address: home [address] [place] [address] Name: FLORES WRIGHT Address: home [address] [place] [address] Name: BEATRIZ WRIGHT Name: FLORES CHAUHAN Address: home [address] [place] [address] Name: YAN CHAUHAN Address: home [address] [place] [address]
--- OUTSIDE RECORDS SUMMARY | 2023-12-06 14:42 | XMS_ITS | Continuity of Care Document ---
Author Organization [facility] ter Address [address] [place] [address]- Care Team Providers Care Capacity Planning Manager Name Role Phone Vi CASTAÑEDA, Leda Gore Primary Care Physician [phone] Encounter [facility] [place] Date(s): 06/02/21 - 06/03/[address] [address]- Discharge Disposition: A-D/C Walkout Attending Physician: Cash [...] Hypertension(Confirmed) Active Hypothyroid(Confirmed) Active QT prolongation(Confirmed) Active Vital Signs Most recent to oldest [Reference Range]: 1 2 Oxygen Saturation [94-100 %] 96 % (06/02/21 9:59 PM) 94 % (06/02/21 7:46 PM) Pulse Rate [55-90 bpm] 95 bpm *H* (06/02/21 9:59 PM) 98 bpm *H* (06/02/21 7:46 PM) Blood Pressure [90-138/55-84 mm Hg] 145/ 78mm Hg *H* (06/02/21 9:59 PM) 151/90mm Hg *H* (06/02/21 7:46 PM) Respiratory Rate [16-30 br/min] 17 br/mi n (06/02/21 9:59 PM) 16 br/min (06/02/21 7:46 PM) Temperature [96.8-100.4 DegF] 98.6 DegF (06/02/21 9:59 PM) 98.6 DegF (06/02/21 7:46 PM) Mode of Delivery (Oxygen) Room air (06/02/21 9:59 PM) Room air (06/02/21 7:46 PM) Blood pressure sites Arm, left (06/02/21 9:59 PM) Arm, left (06/02/21 7:46 PM) Temperature Route Oral (06/02/21 9:59 PM) Oral (06/02/21 7:46 PM) Social History Social History Type Response Smoking Status 10 or more cigarette s (1/2 pack or more)/day in last 30 days entered on: 05/24/21 Sex
--- OUTSIDE RECORDS SUMMARY | 2023-12-06 14:42 | XMS_ITS | Continuity of Care Document ---
Author Organization [facility] Address [address] [place] [address]- Care Team Providers Care Laboratory Phlebotomist Name Role Phone iV CASTAÑEDA, Leda Gore Primary Care Physician [phone] [place] [facility] [place] - 06/25/[address] [address]- Discharge Disposition: A-D/C Walkout Attending Physician: Cash Mejias MD Admitting Physician: Cash Mejias MD Referring Physician: Not on Staff, Referring MD Allergies, Adverse Reactions, Alerts Substance Reaction Severity Status codeine Active penicillin Active Bactrim Active Demerol HCl Active Contrast Dye Active sulfADIAZINE Active Immunizations Given and Recorded [...] Exam Date Time Procedure Performing Provider Status 06/24/21 8:35 PM Chest 2 Views Frontal and Lat Garcia Brianne; Auth (Verified) Notes: (Chest 2 Views Frontal and Lat) Reason For Exam: Chest Pain;Other: RESULT: Chest 2 Views Frontal and Lat Chest 2 Views Frontal and Lat Hx of Present Illness: Patient reports 20 minute episode of SOB before arrival. States this has been going on and off for about a month. Endorses some SOB and chest pain.; Reason: Other:; Chest Pain;Clinical Question(s): Other: COMPARISON: 06/21/2021 FINDINGS: LINES AND TUBES: None. LUNGS AND PLEURA: Clear lungs. Normal pulmonary vascularity. No pleural effusion. No pneumothorax. HEART, MEDIASTINUM AND HOLLY: Heart is normal in size. Normal upper mediastinal and hilar contour. BONES AND SOFT TISSUES: No acute abnormality. IMPRESSION: No acute abnormality. WSN: [id number] Ordering Physician: Hannah Del Cid Dictated By: Gaetano Stevenson MD Dictated Date/Time: 06/24/21 8:36 pm Reviewed By: Gaetano Stevenson MD Signed By: Gaetano Stevenson MD Signed Date/Time: 06/24/21 8:36 pm Transcribed By: RODRI Transcribed Date/Time: 06/24/21 8:35 pm Vital Signs Most recent to oldest [Reference Range]: 1 2 Oxygen Saturation [94-100 %] 100 % (06/24/21 8:06 PM) Pulse Rate [55-90 bpm] 88 bpm (06/24/21 8:06 PM) Blood Pressure [90-138/55-84 mm Hg] 126/ 73mm Hg (06/24/21 8:06 PM) Respiratory Rate [16-30 br/min] 18 br/mi n (06/24/21 8:06 PM) Temperature [96.8-100.4 DegF] 98.0 DegF (06/24/21 8:06 PM) Liters per Minute 2 L/min (06/24/21 8:06 PM) 3 L/min (06/24/21 7:44 PM) Mode of Delivery (Oxygen) Nasal cannula (06/24/21 8:06 PM) Ambu (06/24/21 7:44 PM) Blood pressure sites Arm, left (06/24/21 8:06 PM) Temperature Route Oral (06/24/21 8:06 PM) Social History Social History Type Response Smoking Status 10 or more cigarette s (1/2 pack or more)/day in last 30 days entered on: 05/24/21 Sex
--- OUTSIDE RECORDS SUMMARY | 2023-12-06 14:42 | XMS_ITS | Continuity of Care Document ---
Author Organization [facility] ter Address [address] [place] [address]- Care Team Providers Care Application Processor Name Role Phone Amelia CASTAÑEDA, Moiz Jones Primary Care Physician Encounter [facility] [place] Date(s): 01/13/22 - 01/13/[address] [address]- Discharge Disposition: A-D/C Walkout Attending Physician: Not on Staff, Attending MD Admitting Physician: Not on Staff, Admitting MD Referring Physician: Not on Staff, Referring MD Allergies, Adverse Reactions, Alerts Substance Reaction Severity Status codeine Active penicillin Active Demerol HCl Active Contrast Dye Active Bactrim Active sulfADIAZINE Active Immunizations Given and Recorded [...] Refills, Maintenance, 01/10/22 11:29:00 EDT, EC Tablet, [facility][id number], Partial fill upon patient request if the [...] Exam Date Time Procedure Performing Provider Status 01/13/22 10:12 PM Chest 2 Views Frontal and Lat Rohini Garcia (Verified) Notes: (Chest 2 Views Frontal and Lat) Reason For Exam: Chest Pain;Other: RESULT: Chest 2 Views Frontal and Lat Chest 2 Views Frontal and Lat Hx of Present Illness: 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 LUNGS AND PLEURA: Elevated hemidiaphragms bilaterally. Clear lungs. Normal pulmonary vascularity. No pleural effusion. No pneumothorax. HEART, MEDIASTINUM AND HOLLY: Heart is normal in size. Normal upper mediastinal and hilar contour. BONES AND SOFT TISSUES: No acute abnormality. IMPRESSION: No acute abnormality. WSN: [id number] Ordering Physician: Sara Dutton MD Dictated By: Piero Youssef MD Dictated Date/Time: 01/13/22 10:14 p Reviewed By: Piero Youssef MD Signed By: Piero Youssef MD Signed Date/Time: 01/13/22 10:14 pm Transcribed By: RODRI Transcribed Date/Time: 01/13/22 10:13 pm Vital Signs Most recent to oldest [Reference Range]: 1 Oxygen Saturation [94-100 %] 95 % (01/13/22 9:14 PM) Pulse Rate [55-90 bpm] 87 bpm (01/13/22 9:14 PM) Blood Pressure [90-138/55-84 mm Hg] 138/ 92mm Hg (01/13/22 9:14 PM) Respiratory Rate [16-30 br/min] 14 br/mi n *L* (01/13/22 9:14 PM) Temperature [96.8-100.4 DegF] 98.1 DegF (01/13/22 9:14 PM) Temperature Route Oral (01/13/22 9:14 PM) Social History Social History Type Response Smoking Status 10 or more cigarette s (1/2 pack or more)/day in last 30 days entered on: 05/24/21 Sex
--- OUTSIDE RECORDS SUMMARY | 2023-12-06 14:42 | XMS_ITS | Continuity of Care Document ---
Author Organization [facility] Address [address] [place] [address]- Care Team Providers Care Knowledge Management Consultant Name Role Phone Vi CASTAÑEDA, Leda Gore Primary Care Physician [place] [facility] Date(s): 02/03/22 - 02/04/[address] [address]- Discharge Disposition: A-D/C Home Attending Physician: Denice Mendes MD Admitting Physician: Denice Mendes MD Referring Physician: Not on Staff, Referring [...] Refills, Maintenance, 01/10/22 11:29:00 EDT, EC Tablet, [id number], Partial fill upon patient request if the [...] Chest pain(Confirmed) Active Hypertension(Confirmed) Active Hypothyroid(Confirmed) Active Obese class I(Confirmed) Active QT prolongation(Confirmed) Active Results Radiology Reports * Exam Date Time Procedure Performing Provider Status 02/03/22 9:48 PM Chest 2 Views Frontal and Lat Sheree Gutierrez; Antonio (Verified) Notes: (Chest 2 Views Frontal and Lat) Reason For Exam: Chest Pain;Other: RESULT: Chest 2 Views Frontal and Lat Chest 2 Views Frontal and Lat Hx of Present Illness: states developed sob at 1pm, ressolved and left w o being seen, 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 LUNGS AND PLEURA: Chronic elevation of the left hemidiaphragm. No consolidation or volume loss. No pleural effusion. No pneumothorax. HEART, MEDIASTINUM AND HOLLY: Heart is normal in size. Normal upper mediastinal and hilar contour. BONES AND SOFT TISSUES: No acute abnormality. There is mild-moderate thoracic disc space narrowing. IMPRESSION: No acute cardiopulmonary pathology. Chronic elevation of left hemidiaphragm. No change from prior study. WSN: [id number] Ordering Physician: Hawk Cortes Dictated By: Suraj Alvarado MD Dictated Date/Time: 02/03/22 9:51 pm Reviewed By: Suraj Alvarado MD Signed By: Suraj Alvarado MD Signed Date/Time: 02/03/22 9:51 pm Transcribed By: RODRI Transcribed Date/Time: 02/03/22 9:49 pm Vital Signs Most recent to oldest [Reference Range]: 1 2 3 Height 167.6 cm (02/04/22 12:21 AM) 167.6 cm (02/03/22 9:00 PM) Weight 92.99 kg (02/04/22 12:21 AM) 92.99 kg (02/03/22 9:00 PM) Oxygen Saturation [94-100 %] 99 % (02/04/22 3:41 AM) 99 % (02/04/22 1:26 AM) 98 % (02/04/22 12:21 AM) Pulse Rate [55-90 bpm] 88 bpm (02/04/22 3:41 AM) 85 bpm (02/04/22 1:26 AM) 99 bpm *H* (02/04/22 12:21 AM) Body Mass Index [18.5-24.99] 33.1 *>HHI* (02/04/22 12:21 AM) 33.1 *>HHI* (02/03/22 9:00 PM) Blood Pressure [90-138/55-84 mm Hg] 156/74mm Hg *H* (02/04/22 3:41 AM) 149/84mm Hg *H* (02/04/22 1:26 AM) 154/109mm Hg *H* (02/03/22 11:42 PM) Respiratory Rate [16-30 br/min] 16 br/min (02/04/22 3:41 AM) 20 br/min (02/04/22 1:26 AM) 18 br/min (02/04/22 12:21 AM) Temperature [96.8-100.4 DegF] 97.7 DegF (02/04/22 1:26 AM) 98.2 DegF (02/03/22 11:42 PM) 98.0 DegF (02/03/22 9:00 PM) Mode of Delivery (Oxygen) Room air (02/04/22 3:41 AM) Room air (02/04/22 1:26 AM) Room air (02/04/22 12:21 AM) Blood pressure sites Arm, left (02/04/22 3:41 AM) Arm, right (02/04/22 1:26 AM) Arm, left (02/03/22 11:42 PM) Temperature Route Oral (02/04/22 1:26 AM) Oral (02/03/22 11:42 PM) Oral (02/03/22 9:00 PM) Weight Obtained Via Patient/family state d (02/03/22 9:00 PM) Social History Social History Type Response Smoking Status 10 or more cigarette s (1/2 pack or more)/day in last 30 days entered on: 05/24/21 Sex
--- OUTSIDE RECORDS SUMMARY | 2023-12-06 14:42 | XMS_ITS | Continuity of Care Document ---
Author Organization [facility] ter Address [address] [place] [address]- Care Team Providers Care Supervisor Cigar Making Machine Name Role Phone Vi CATSAÑEDA, Leda Gore Primary Care Physician [phone] [place] [facility] [place] Date(s): 02/14/22 - 02/14/[address] [address]- Discharge Disposition: A-D/C Walkout Attending Physician: Not [...] Refills, Maintenance, 01/10/22 11:29:00 EDT, EC Tablet, [facility] #[id number], Partial fill upon patient request if the [...] Exam Date Time Procedure Performing Provider Status 02/14/22 7:15 PM Chest 2 Views Frontal and Lat Raimundo Olguiney; Antonio (Verified) Notes: (Chest 2 Views Frontal and Lat) Reason For Exam: Shortness of Breath, Fever;Other: RESULT: Chest 2 Views Frontal and Lat Chest 2 Views Frontal and Lat HX OF PRESENT ILLNESS: SOB x 1 hour. started while watching TV. No pain. Also endorses dizziness; Reason: Shortness of Breath, Fever; Clinical Question(s): Pneumonia / Pneumonia COMPARISON: 02/03/2022 FINDINGS: LINES AND TUBES: None. LUNGS AND PLEURA: Clear lungs. Normal pulmonary vascularity. No pleural effusion. No pneumothorax. HEART, MEDIASTINUM AND HOLLY: Heart is normal in size. Normal mediastinal and hilar contour. Chronic elevation of the left hemidiaphragm. BONES AND SOFT TISSUES: No acute abnormality. IMPRESSION: No evidence of acute abnormality. WSN: [id number] Ordering Physician: Carol Pathak Dictated By: Suraj Florian MD Dictated Date/Time: 02/14/22 7:18 pm Reviewed By: Suraj Florian MD Signed By: Suraj Florian MD Signed Date/Time: 02/14/22 7:18 pm Transcribed By: RODRI Transcribed Date/Time: 02/14/22 7:17 pm Vital Signs Most recent to oldest [Reference Range]: 1 Oxygen Saturation [94-100 %] 99 % (02/14/22 6:24 PM) Pulse Rate [55-90 bpm] 106 bpm *H* (02/14/22 6:24 PM) Blood Pressure [90-138/55-84 mm Hg] 148/ 100mm Hg *H* (02/14/22 6:24 PM) Respiratory Rate [16-30 br/min] 18 br/mi n (02/14/22 6:24 PM) Temperature [96.8-100.4 DegF] 97.5 DegF (02/14/22 6:24 PM) Mode of Delivery (Oxygen) Room air (02/14/22 6:24 PM) Blood pressure sites Arm, left (02/14/22 6:24 PM) Temperature Route Oral (02/14/22 6:24 PM) Social History Social History Type Response Smoking Status 10 or more cigarette s (1/2 pack or more)/day in last 30 days entered on: 05/24/21 Sex
--- OUTSIDE RECORDS SUMMARY | 2023-12-06 14:42 | XMS_ITS | Continuity of Care Document ---
Author Organization [facility] Address [address] [place] [address]- Care Team Providers Care Registered Nurse Step Down Name Role Phone Not on Staff, PCP Primary Care Physician Unavail able [place] [facility] [place] - 06/19/[address] [address]- Discharge Disposition: A-Error Chart/Home (ED Only) Attending Physician: Cash Mejias MD Admitting Physician: [...] Refills, Maintenance, 01/10/22 11:29:00 EDT, EC Tablet, [facility] #[id number], Partial fill upon patient request if the [...] 06/08/22 21:22:00 EDT, Route to Pharmacy Electronically, [facility] #[id number], Partial fill upon patient request if the p... Start Date: 06/08/22 Status: Ordered Problem List Condition Confirmation Course Effective Dates Status Health St [facility] Informant Chest pain Confirmed Active Hypertension Confirmed Active Hypothyroid Confirmed Active Obese class II Confirmed Active QT prolongation Confirmed Active Social History Social History Type Response Smoking Status 10 or more cigarette s (1/2 pack or more)/day in last 30 days entered on: 05/24/21 Sex Patient Care team information Care Team Personnel Name: Romina Henning Position: [facility] RN Member Role: Primary Care Nurse Name: Caron Short RN Position: [facility] RN Member Role: Primary Care Nurse Name: Not on Staff, PCP Position: [facility] Physician (General Medicine) Member Role: PCP Name: Ashleigh Levy RN Position: [facility] RN Member Role: Primary Care Nurse Name: Jimbo Payne RN Position: [facility] RN Member Role: Primary Care Nurse Name: Vicky Kaur RN Position: [facility] Onco RN Member Role: Primary Care Nurse Name: Flores Gross RN Position: [facility] RN Member Role: Primary Care Nurse Name: Mally Chauhan RN Position: [facility] Family Life Counselor Member Role: Primary Care Nurse Name: Nedra Garza Position: [facility] RN Member Role: Primary Care Nurse Care Team Related Persons Name: ESTELA WRIGHT Address: [address] [address] Name: FLORES WRIGHT Address: home [address] [place] [address] Name: BEATRIZ WRIGHT Address: home [address] [place] [address] Name: FLORES CHAUHAN Address: home [address] [place] [address] Name: YAN CHAUHAN Address: home [address] [place] [address]
--- OUTSIDE RECORDS SUMMARY | 2023-12-06 14:42 | XMS_ITS | Continuity of Care Document ---
Author Organization [facility] Address [address] [facility] [place] [address]- Care Team Providers Care Automotive Electrical Helper Name Role Phone Vi CASTAÑEDA, Leda Gore Primary Care Physician [phone] Encounter 03/17/22 - 03/24/22 [facility] [address] [facility] [place] [address]- Attending Physician: Leda Lebron MD Admitting Physician: Leda Lebron MD Referring Physician: Leda Lebron MD Allergies, Adverse Reactions, Alerts Substance Reaction [...] Refills, Maintenance, 01/10/22 11:29:00 EDT, EC Tablet, [facility] #[id number], Partial fill upon patient request if the [...] Obese class I(Confirmed) Active QT prolongation(Confirmed) Active Social History Social History Type Response Smoking Status or more cigarette s (1/2 pack or more)/day in last 30 days entered on: 05/24/21 Sex
--- OUTSIDE RECORDS SUMMARY | 2023-12-06 14:42 | XMS_ITS | Continuity of Care Document ---
Author Organization [facility] ter Address [address] [place] [address]- Care Team Providers Care Hand Stone Polisher Name Role Phone Amelia CASTAÑEDA, Moiz Jones Primary Care Physician [place] [facility] Date(s): 01/25/23 - 01/26/[address] [address]- Encounter Diagnosis Chest pain(Final) - 01/26/23 Discharge Disposition: A-D/C Home Attending Physician: Josefa Casas MD Admitting Physician: Josefa Casas MD Referring Physician: Not on Staff, Referring [...] Refills, Maintenance, 01/10/22 11:29:00 EDT, EC Tablet, [facility] #[id number], Partial fill upon patient request if the [...] 06/08/22 21:22:00 EDT, Route to Pharmacy Electronically, [facility] #[id number], Partial fill upon patient request if the p... 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 Was sitting on the couch. Also endorses nausea, SOB and dizziness. Pressure is 7 10 pain too .No cardiac hx. c o low back pain.; Reason: Angina; Clinical Question(s): CHF COMPARISON: None. FINDINGS: LINES AND TUBES: None. LUNGS AND PLEURA: Clear lungs. Normal pulmonary vascularity. No pleural effusion. No pneumothorax. HEART, MEDIASTINUM AND HOLLY: Heart is normal in size. Normal mediastinal and hilar contour. BONES AND SOFT TISSUES: No acute abnormality. IMPRESSION: No acute abnormality. WSN: [id number] Ordering Physician: Sienna Hoffman Dictated By: Teressa Varela MD Dictated Date/Time: 01/25/23 9:35 pm Reviewed By: Teressa Varela MD Signed By: Teressa Varela MD Signed Date/Time: 01/25/23 9:35 pm Transcribed By: RODRI Transcribed Date/Time: 01/25/23 9:34 pm Vital Signs Most recent to oldest [Reference Range]: 1 2 3 Height 170 cm (01/26/23 8:13 AM) 170 cm (01/25/23 8:42 PM) Weight 93 kg (01/26/23 8:13 AM) 93 kg (01/25/23 8:42 PM) Oxygen Saturation [94-100 %] 94 % (01/26/23 8:13 AM) 97 % (01/26/23 6:22 AM) 97 % (01/26/23 5:36 AM) Pulse Rate [55-90 bpm] 77 bpm (01/26/23 8:13 AM) 70 bpm (01/26/23 6:22 AM) 74 bpm (01/26/23 5:36 AM) Body Mass Index [18.5-24.99 kg/m2] 32.18 kg/m2 *>HHI* (01/26/23 8:13 AM) Blood Pressure [90-138/55-84 mm Hg] 108/69mm Hg (01/26/23 8:13 AM) 146/80mm Hg *H* (01/26/23 6:22 AM) 140/78mm Hg *H* (01/26/23 5:36 AM) Respiratory Rate [16-30 br/min] 18 br/min (01/26/23 8:13 AM) 18 br/min (01/25/23 8:42 PM) Temperature [96.8-100.4 DegF] 97.7 DegF (01/26/23 8:13 AM) 98.6 DegF (01/26/23 6:22 AM) 98.3 DegF (01/26/23 5:36 AM) Mode of Delivery (Oxygen) Room air (01/26/23 8:13 AM) Room air (01/26/23 6:22 AM) Room air (01/26/23 5:36 AM) Blood pressure sites Arm, left (01/26/23 8:13 AM) Arm, left (01/26/23 6:22 AM) Arm, right (01/26/23 5:36 AM) Temperature Route Oral (01/26/23 8:13 AM) Oral (01/26/23 6:22 AM) Oral (01/26/23 5:36 AM) Dry Weight 93 kg (01/26/23 8:13 AM) 93 kg (01/25/23 8:42 PM) Weight Obtained Via Patient/family state d (01/25/23 8:42 PM) Dry Weight Obtained Via Patient/family s tated (01/25/23 8:42 PM) Social History Social History Type Response Tobacco Use: 4 or less cigar ettes(less than 1/4 pack)/day in last 30 days. Sex Patient Care team information Care Team Personnel Name: Caron Short RN Position: [facility] RN Member Role: Primary Care Nurse Name: Ashleigh Levy RN Position: [facility] RN Member Role: Primary Care Nurse Name: Jimbo Payne RN Position: [facility] RN Member Role: Primary Care Nurse Name: Moiz Cisneros MD Position: Reference Physician Member Role: PCP Address: Address: [address] [place] [address] Name: Vicky Kaur RN Position: [facility] Onco RN Member Role: Primary Care Nurse Name: Flores Gross RN Position: [facility] RN Member Role: Primary Care Nurse Name: Mally Chauhan RN Position: [facility] Hospital Trust And Estates Attorney Member Role: Primary Care Nurse Name: Nedra Garza RN Position: [facility] RN Member Role: Primary Care Nurse Name: Beverly Samuel Position: [facility] ED TA [facility] Member Role: Patient Care Provider Name: Josefa Casas MD Position: [facility] Resident Member Role: Admitting Physician Address: Address: [address] [place] [address] Name: Sandy Valdez DO Position: [facility] Resident Member Role: ED Resident Address: Address: [address] [place] [address] Name: Ely Awan RN Position: [facility] ED RN W/OE and Tasks Member Role: Patient Care Provider Care Team Related Persons Name: ESTELA WRIGHT Address: home [address] [place] [address] Name: FLORES WRIGHT Address: [address] [address] Name: BEATRIZ WRIGHT Address: [address] [address] Name: FLORES CHAUHAN Address: home [address] [place] [address] Name: YAN CHAUHAN Address: [address] [address]
--- OUTSIDE RECORDS SUMMARY | 2023-12-06 14:42 | XMS_ITS | Continuity of Care Document ---
Author Organization [facility] Address [address] [place] [address]- Care Team Providers Care Broaching Machine Repairer Name Role Phone Not on Staff, PCP Primary Care Physician Unavail able Encounter [facility] [place] Date(s): 11/03/23 - 11/04/[address] [address]- Encounter Diagnosis Chest pain(Final) - 11/04/23 Discharge Disposition: A-D/C Home Attending Physician: Sreedhar Rahman MD Admitting Physician: Sreedhar Rahman MD Referring Physician: Not on Staff, Referring [...] Refills, Maintenance, 01/10/22 11:29:00 EDT, EC Tablet, [facility] #[id number], Partial fill upon patient request if the [...] 1 Refills, Maintenance, 10/01/23 10:59:00 EST, Tablet, [facility] #[id number], Partial fill upon patient request if the [...] 12/08/23 14:48:00 EDT, 10/21/23 14:48:00 EDT, Patch, [facility] #[id number], Partial fill upon patient request if the prescription is for a schedule II opioid drug., 1 patch Topically Daily,... 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 FINDINGS: LINES AND TUBES: None. LUNGS AND PLEURA: Clear lungs. Known left lower lobe 8 mm nodule is not radiographically visible. Normal pulmonary vascularity. No pleural effusion. No pneumothorax. HEART, MEDIASTINUM AND HOLLY: Heart is normal in size. Normal mediastinal and hilar contour. BONES AND SOFT TISSUES: No acute abnormality. IMPRESSION: No acute abnormality. WSN: [id number] Ordering Physician: Farida Alexandra Dictated By: Coleen Mendosa MD Dictated Date/Time: 11/03/23 8:48 pm Reviewed By: Coleen Mendosa MD Signed By: Coleen Mendosa MD Signed Date/Time: 11/03/23 8:48 pm Transcribed By: RODRI Transcribed Date/Time: 11/03/23 8:46 pm Vital Signs Most recent to oldest [Reference Range]: 1 2 3 Height 168 cm (11/04/23 12:23 AM) 168 cm (11/03/23 7:46 PM) 168 cm (11/03/23 3:05 PM) Weight 100 kg (11/04/23 12:23 AM) 100 kg (11/03/23 7:46 PM) 100 kg (11/03/23 3:05 PM) Oxygen Saturation [94-100 %] 96 % (11/04/23 3:57 AM) 99 % (11/04/23 2:39 AM) 99 % (11/04/23 1:10 AM) Pulse Rate [55-90 bpm] 82 bpm (11/04/23 3:57 AM) 84 bpm (11/04/23 2:39 AM) 88 bpm (11/04/23 1:10 AM) Body Mass Index [18.5-24.99 kg/m2] 35.43 kg/m2 *>HHI* (11/03/23 3:05 PM) Blood Pressure [90-138/55-84 mm Hg] 156/106mm Hg *H* (11/04/23 3:57 AM) 152/108mm Hg *H* (11/04/23 2:39 AM) 142/94mm Hg *H* (11/04/23 1:10 AM) Respiratory Rate [16-30 br/min] 17 br/min (11/03/23 8:50 PM) 18 br/min (11/03/23 5:37 PM) 18 br/min (11/03/23 3:05 PM) Temperature [96.8-100.4 DegF] 97.7 DegF (11/04/23 3:57 AM) 97.7 DegF (11/04/23 2:39 AM) 97.9 DegF (11/04/23 1:10 AM) Liters per Minute 2 L/min (11/03/23 2:38 PM) Mode of Delivery (Oxygen) Room air (11/04/23 3:57 AM) Room air (11/04/23 2:39 AM) Room air (11/03/23 8:50 PM) Blood pressure sites Arm, left (11/04/23 3:57 AM) Arm, left (11/04/23 2:39 AM) Arm, right (11/04/23 1:10 AM) Temperature Route Oral (11/04/23 3:57 AM) Oral (11/04/23 2:39 AM) Oral (11/04/23 1:10 AM) Dry Weight 100 kg (11/04/23 12:23 AM) 100 kg (11/03/23 7:46 PM) 100 kg (11/03/23 3:05 PM) Weight Obtained Via Patient/family state d (11/03/23 3:05 PM) Dry Weight Obtained Via Patient/family s tated (11/03/23 3:05 PM) Social History Social History Type Response Tobacco Interested in cessat ion: No. Yes Sex EKG study * Event Display: ECG 12-Lead Authored Date: Please click on pdf link to open report * Event Display: ECG 12-Lead Authored Date: Ventricular Rate: 86 BPM Atrial Rate: 86 BPM P-R Interval: 132 ms QRS Duration: 80 ms Q-T Interval: 404 ms QTC Calculation(Bazett): 483 ms P [place]: -9 degrees R [place]esta: 30 degrees T [place]: 26 degrees Normal sinus rhythm Normal ECG When compared with ECG of 03-NOV-2023 14:51, No significant change was found Confirmed by SANDRA BURGESS MD ([id number]) on 11/04/2023 8:47:33 AM [place]: SANDRA BURGESS MD * Event Display: EKG Authored Date: * Event Display: EKG Authored Date: * Event Display: ECG 12-Lead Authored Date: Please click on pdf link to open report * Event Display: ECG 12-Lead Authored Date: Ventricular Rate: 89 BPM Atrial Rate: 89 BPM P-R Interval: 138 ms QRS Duration: 76 ms Q-T Interval: 362 ms QTC Calculation(Bazett): 440 ms P [place]: -5 degrees R Vesta: 33 degrees T [place]: 21 degrees Normal sinus rhythm Normal ECG When compared with ECG of 18-OCT-2023 19:33, QT has shortened Confirmed by Calvin Aldridge ([id number]) on 11/03/2023 3:36:04 PM [place]: Calvin Aldridge Note * Makenzie Swenson: PERFORM Event Display: Patient Education Leaflets Authored Date: [id number] Uncertain Causes of Chest Pain ?? [id number] Uncertain Causes of Chest Pain Chest pain [...] leg ?? Last Reviewed Date: 2021 ?? [employer]. All rights reserved. This information is not intended as a substitute for professional medical care. Always follow your healthcare professional's instructions. ?? Patient Care team information Care Team Personnel Name: Clemencia Camargo RN Position: [facility] RN Member Role: Primary Care Nurse Name: Nikkie Tubbs Position: [facility] Outreach Member Role: Lifetime Consulting Physician Name: Tavon Powell Position: [facility] RN Member Role: Primary Care Nurse Name: Caron Short RN Position: [facility] RN Member Role: Primary Care Nurse Name: Prachi Negron RN Position: [facility] RN Member Role: Primary Care Nurse Name: Tami Soler RN Position: [facility] RN Member Role: Primary Care Nurse Name: Ashleigh Mercado RN Position: [facility] RN Member Role: Primary Care Nurse Name: Heidi Moreland Position: [facility] RN Member Role: Primary Care Nurse Name: Not on Staff, PCP Position: [facility] Physician (General Medicine) Member Role: PCP Name: Ashleigh Levy RN Position: [facility] Onco RN Member Role: Primary Care Nurse Name: Jimbo Payne RN Position: [facility] RN Member Role: Primary Care Nurse Name: Danie Maza RN Position: [facility] RN Member Role: Primary Care Nurse Name: Vicky Kaur RN Position: [facility] Onco RN Member Role: Primary Care Nurse Name: Flores Gross RN Position: [facility] RN Member Role: Primary Care Nurse Name: Mally Chauhan RN Position: [facility] Hospital Lot Attendant Member Role: Primary Care Nurse Name: Nedra Garza RN Position: [facility] RN Member Role: Primary Care Nurse Care Team Related Persons Name: ESTELA WRIGHT Address: [address] [place] [address] Name: FLORES WRIGHT Address: home [address] [place] [address] Name: BEATRIZ WRIGHT Name: FLORES CHAUHAN Address: home [address] [place] [address] Name: YAN CHAUHAN Address: home [address] [place] [address]
--- OUTSIDE RECORDS SUMMARY | 2023-12-06 14:42 | XMS_ITS | Continuity of Care Document ---
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 Name Role Phone Amelia CASTAÑEDA, Moiz oJnes Primary Care Physician Encounter [facility] [place] Date(s): 11/27/21 - 11/28/[address] [address] Discharge Disposition: A-D/C Home Attending Physician: Gaurang Alston MD Admitting Physician: Antionette Arechiga DO Referring Physician: Not on Staff, Referring [...] Exam Date Time Procedure Performing Provider Status 11/27/21 8:55 PM Chest Portable Renato Mukherjee; Auth (Ve rified) Notes: (Chest Portable) Reason For Exam: Chest Pain;Other: RESULT: Chest Portable Chest Portable Hx of Present Illness: CP X20 mins radiating down right arm along with SOB and double vision; Reason: Other:; Chest Pain; Clinical Question(s): CHF COMPARISON: 08/19/2021 FINDINGS: LINES AND TUBES: None. LUNGS AND PLEURA: Clear lungs. Normal pulmonary vascularity. No pleural effusion. No pneumothorax. HEART, MEDIASTINUM AND HOLLY: Heart is normal in size. Normal upper mediastinal and hilar contour. BONES AND SOFT TISSUES: No acute abnormality. IMPRESSION: No acute abnormality. WSN: [id number] Ordering Physician: Charly Garcia Dictated By: Suraj Alvarado MD Dictated Date/Time: 11/27/21 8:58 pm Reviewed By: Suraj Alvarado MD Signed By: Suraj Alvarado MD Signed Date/Time: 11/27/21 8:58 pm Transcribed By: RODRI Transcribed Date/Time: 11/27/21 8:58 pm Vital Signs Most recent to oldest [Reference Range]: 1 2 3 4 Height 165 cm (11/28/21 12:34 PM) 165 cm (11/28/21 2:08 AM) 165 cm (11/27/21 8:31 PM) Oxygen Saturation [94-100 %] 98 % (11/28/21 12:34 PM) 98 % (11/28/21 6:38 AM) 93 % *L* (11/27/21 11:42 PM) 87 % *L* (11/27/21 11:42 PM) Pulse Rate [55-90 bpm] 66 bpm (11/28/21 12:34 PM) 76 bpm (11/28/21 6:38 AM) 78 bpm (11/28/21 2:08 AM) Blood Pressure [90-138/55-84 mm Hg] 127/46mm Hg (11/28/21 12:34 PM) 141/88mm Hg *H* (11/28/21 6:38 AM) 111/78mm Hg (11/28/21 2:08 AM) Respiratory Rate [16-30 br/min] 20 br/min (11/28/21 12:34 PM) 18 br/min (11/28/21 6:38 AM) 15 br/min *L* (11/28/21 2:08 AM) Temperature [96.8-100.4 DegF] 98.1 DegF (11/28/21 12:34 PM) 98.1 DegF (11/28/21 2:08 AM) 98.1 DegF (11/27/21 8:31 PM) Liters per Minute 2 L/min (11/28/21 6:38 AM) 2 L/min (11/28/21 2:08 AM) 2 L/min (11/27/21 11:42 PM) Mode of Delivery (Oxygen) Room air (11/28/21 12:34 PM) Room air (11/28/21 6:38 AM) Nasal cannula (11/28/21 2:08 AM) Blood pressure sites Arm, left (11/28/21 12:34 PM) Arm, left (11/28/21 6:38 AM) Arm, left (11/28/21 2:08 AM) Temperature Route Oral (11/28/21 12:34 PM) Oral (11/28/21 2:08 AM) Oral (11/27/21 8:31 PM) Dry Weight 100 kg (11/28/21 2:08 AM) 100 kg (11/27/21 8:31 PM) Dry Weight Obtained Via Patient/family stated (11/27/21 8:31 PM) Social History Social History Type Response Smoking Status 10 or more cigarette s (1/2 pack or more)/day in last 30 days entered on: 05/24/21 Sex
--- OUTSIDE RECORDS SUMMARY | 2023-12-06 14:42 | XMS_ITS | Continuity of Care Document ---
Author Organization [facility] Address [address] [place] [id number]- Care Team Providers Care Promotion Specialist Name Role Phone Vi CASTAÑEDA, Leda Gore Primary Care Physician Encounter [facility] [place] Date(s): 07/25/22 - 07/26/[address] [address]- Encounter Diagnosis Shortness of breath(Final) - 07/26/22 Discharge Disposition: A-D/C Home Attending Physician: Wilfredo Hollis MD Admitting Physician: Wilfredo Hollis MD Referring Physician: Not on Staff, Referring [...] Refills, Maintenance, 01/10/22 11:29:00 EDT, EC Tablet, [facility] #[id number], Partial fill upon patient request if the [...] 06/08/22 21:22:00 EDT, Route to Pharmacy Electronically, [facility] #[id number], Partial fill upon patient request if the p... Start Date: 06/08/22 Status: Ordered Problem List Condition Confirmation Course Effective Dates Status Health St atus Informant Chest pain Confirmed Active Hypertension Confirmed Active Hypothyroid Confirmed Active Obese class II Confirmed Active QT prolongation Confirmed Active Results Radiology Reports * Exam Date Time Procedure Performing Provider Status 07/26/22 12:14 AM Chest 2 Views Fronta l and Lat PetersenJosea Vianca; Auth (Verified) Notes: (Chest 2 Views Frontal and Lat) Reason For Exam: Fever;Cough RESULT: Chest 2 Views Frontal and Lat Chest 2 Views Frontal and Lat Hx of Present Illness: pt compalins of lower back pain and feeling sob; Reason: Cough; Fever; Clinical Question(s): Pneumonia; Special Instructions: This is a protocol film and radiologist should call any findings to the Charge Nurse COMPARISON: Radiograph of the chest 07/25/2022. FINDINGS: LINES AND TUBES: None. LUNGS AND PLEURA: No focal consolidation. Normal pulmonary vascularity. No pleural effusion. No pneumothorax. HEART, MEDIASTINUM AND HOLLY: Heart is normal in size. Normal mediastinal and hilar contour. BONES AND SOFT TISSUES: No acute abnormality. Mild elevation of the left hemidiaphragm. IMPRESSION: No acute abnormality. WSN: [id number] Ordering Physician: Alvin Mullins Dictated By: Caron White MD Dictated Date/Time: 07/26/22 9:20 am Reviewed By: Caron White MD Signed By: Caron White MD Signed Date/Time: 07/26/22 9:20 am Transcribed By: RODRI Transcribed Date/Time: 07/26/22 9:19 am * Exam Date Time Procedure Performing Provider Status 07/25/22 6:39 PM Chest 2 Views Frontal and Lat Faraz Parrish; Auth (Verified) Notes: (Chest 2 Views Frontal and Lat) Reason For Exam: Chest Pain;Other: RESULT: Chest 2 Views Frontal and Lat Chest 2 Views Frontal and Lat Reason: Other:; Chest Pain; Clinical Question(s): Other: COMPARISON: 07/21/2022 FINDINGS: LINES AND TUBES: None. LUNGS AND PLEURA: Elevation of left hemidiaphragm unchanged. Volumes are low with mild accentuation of central vascularity. No edema or effusions. No pleural effusion. No pneumothorax. HEART, MEDIASTINUM AND HOLLY: Heart is normal in size. Normal mediastinal and hilar contour. BONES AND SOFT TISSUES: No acute abnormality. IMPRESSION: No acute abnormality. Study slightly limited by low inspiratory volume. WSN: [id number] Ordering Physician: Alvin Mullins Dictated By: Suraj Alvarado MD Dictated Date/Time: 07/25/22 6:45 pm Reviewed By: Suraj Alvarado MD Signed By: Suraj Alvarado MD Signed Date/Time: 07/25/22 6:45 pm Transcribed By: RODRI Transcribed Date/Time: 07/25/22 6:45 pm Vital Signs Most recent to oldest [Reference Range]: 1 2 3 Oxygen Saturation [94-100 %] 98 % (07/26/22 8:21 AM) 98 % (07/26/22 3:15 AM) 99 % (07/26/22 12:22 AM) Pulse Rate [55-90 bpm] 79 bpm (07/26/22 8:21 AM) 84 bpm (07/26/22 3:15 AM) 92 bpm *H* (07/26/22 12:22 AM) Blood Pressure [90-138/55-84 mm Hg] 151/82mm Hg *H* (07/26/22 8:21 AM) 163/105mm Hg *H* (07/26/22 3:15 AM) 151/105mm Hg *H* (07/26/22 12:22 AM) Respiratory Rate [16-30 br/min] 20 br/min (07/25/22 6:08 PM) Temperature [96.8-100.4 DegF] 98.1 DegF (07/26/22 3:15 AM) 97.7 DegF (07/26/22 12:22 AM) 98.1 DegF (07/25/22 9:57 PM) Mode of Delivery (Oxygen) Room air (07/26/22 8:21 AM) Room air (07/26/22 3:15 AM) Room air (07/26/22 12:22 AM) Blood pressure sites Arm, right (07/26/22 8:21 AM) Arm, left (07/26/22 3:15 AM) Arm, left (07/26/22 12:22 AM) Temperature Route Oral (07/26/22 3:15 AM) Oral (07/26/22 12:22 AM) Oral (07/25/22 9:57 PM) Social History Social History Type Response Tobacco Use: 4 or less cigar ettes(less than 1/4 pack)/day in last 30 days. Sex EKG study * Event Display: ECG 12-Lead Authored Date: Please click on pdf link to open report * Event Display: ECG 12-Lead Authored Date: Ventricular Rate: 94 BPM Atrial Rate: 94 BPM P-R Interval: 112 ms QRS Duration: 76 ms Q-T Interval: 390 ms QTC Calculation(Bazett): 487 ms P [place]: -1 degrees R [place]: 16 degrees T [place]: 9 degrees Normal sinus rhythm Prolonged QT Abnormal ECG When compared with ECG of 22-JUL-2022 10:56, No significant change was found Confirmed by SANDRA BURGESS MD ([id number]) on 07/26/2022 11:44:33 AM [place]: SANDRA BURGESS MD Note * BHSPowerscribe , CIS S: TRANSCRIBE Caron White MD: VERIFY Event Display: Result: Authored Date: [id number] Chest 2 Views Frontal and Lat Hx of Present Illness: pt compalins of lower back pain and feeling sob; Reason: Cough; Fever; Clinical Question(s): Pneumonia; Special Instructions: This is a protocol film and radiologist should call any findings to the Charge Nurse COMPARISON: Radiograph of the chest 07/25/2022. FINDINGS: LINES AND TUBES: None. LUNGS AND PLEURA: No focal consolidation. Normal pulmonary vascularity. No pleural effusion. No pneumothorax. HEART, MEDIASTINUM AND HOLLY: Heart is normal in size. Normal mediastinal and hilar contour. BONES AND SOFT TISSUES: No acute abnormality. Mild elevation of the left hemidiaphragm. IMPRESSION: No acute abnormality. WSN: [id number] Ordering Physician: Alvin Mullins Dictated By: Caron White MD Dictated Date/Time: 07/26/22 9:20 am Reviewed By: Caron White MD Signed By: Caron White MD Signed Date/Time: 07/26/22 9:20 am Transcribed By: RODRI Transcribed Date/Time: 07/26/22 9:19 am * [place] , [place] S: TRANSCRIBE Suraj Alvarado MD: VERIFY Event Display: Result: Authored Date: [id number] Chest 2 Views Frontal and Lat Reason: Other:; Chest Pain; Clinical Question(s): Other: COMPARISON: 07/21/2022 FINDINGS: LINES AND TUBES: None. LUNGS AND PLEURA: Elevation of left hemidiaphragm unchanged. Volumes are low with mild accentuation of central vascularity. No edema or effusions. No pleural effusion. No pneumothorax. HEART, MEDIASTINUM AND HOLLY: Heart is normal in size. Normal mediastinal and hilar contour. BONES AND SOFT TISSUES: No acute abnormality. IMPRESSION: No acute abnormality. Study slightly limited by low inspiratory volume. WSN: [id number] Ordering Physician: Alvin Mullins Dictated By: Suraj Alvarado MD Dictated Date/Time: 07/25/22 6:45 pm Reviewed By: Suraj Alvarado MD Signed By: Suraj Alvarado MD Signed Date/Time: 07/25/22 6:45 pm Transcribed By: RODRI Transcribed Date/Time: 07/25/22 6:45 pm Patient Care team information Care Team Personnel Name: Leda Lebron MD Position: [facility] Physician (General Medicine) Member Role: PCP Address: Address: [address] [place] [address] Name: Romina Henning Position: [facility] RN Member Role: Primary Care Nurse Name: Caron Short RN Position: [facility] RN Member Role: Primary Care Nurse Name: Ashleigh Levy RN Position: [facility] RN Member Role: Primary Care Nurse Name: Jimbo Payne RN Position: [facility] RN Member Role: Primary Care Nurse Name: Vicky Kaur RN Position: [facility] Onco RN Member Role: Primary Care Nurse Name: Flores Gross RN Position: [facility] RN Member Role: Primary Care Nurse Name: Mally Chauhan RN Position: [facility] Hospital Lathe Set Up Operator Member Role: Primary Care Nurse Name: Nedra Garza Position: [facility] RN Member Role: Primary Care Nurse Name: Wilfredo Hollis MD Position: [facility] ED Medicine MD Member Role: Admitting Physician Address: Address: [address] [place] [address]- Name: Beatriz Hardy RN Position: [facility] ED RN W/OE and Tasks Member Role: Patient Care Provider Name: Imelda Waters Position: [facility] ED [facility] Member Role: Fire Safety Inspector Name: Christofer Beltre DO Position: [facility] Resident Member Role: Resident Address: Address: [address] [place] [address]- Care Team Related Persons Name: ESTELA WRIGHT Address: home [address] [place] [address] Name: FLORES WRIGHT Address: home [address] [place] [address] Name: BEATRIZ WRIGHT Address: home [address] [place] [address] Name: FLORES CHAUHAN Address: home [address] [place] [address] Name: YAN CHAUHAN Address: [address] [address]
--- OUTSIDE RECORDS SUMMARY | 2023-12-06 14:42 | XMS_ITS | Continuity of Care Document ---
Author Organization [facility] ter Address [address] [place] [address]- Care Team Providers Care Cable Mechanic Name Role Phone Vi CASTAÑEDA, Leda Gore Primary Care Physician Encounter [facility] [place] Date(s): 07/07/21 - 07/08/[address] [address]- Discharge Disposition: Transfer to [facility] Facility Attending Physician: Jason Lauren DO Admitting Physician: Jason Lauren DO Referring Physician: Not on Staff, Referring [...] oral tablet 5 mg, Tablet, By Mouth, 07/08/21 9:00:00 EST Start Date: 07/08/21 Stop Date: 07/08/21 Status: Completed amLODIPine 5 mg oral tablet [...] oral tablet 10 mg, Tablet, By Mouth, 07/08/21 9:00:00 EST Start Date: 07/08/21 Stop Date: 07/08/21 Status: Completed baclofen 10 mg oral tablet 1 tablet [...] Patch 50 mcg, Patch, Topically, Apply to Right Arm, Dose at 50 mcg/hr, 07/08/21 0:00:00 EST Start Date: 07/08/21 Stop Date: 07/08/21 Status: Completed fentaNYL 50 mcg/hr transdermal film, [...] Exam Date Time Procedure Performing Provider Status 07/07/21 9:27 PM Chest 2 Views Frontal and Lat Christofer José; Antonio (Verified) Notes: (Chest 2 Views Frontal and Lat) Reason For Exam: Chest Pain;Other: RESULT: Chest 2 Views Frontal and Lat Chest 2 Views Frontal and Lat Hx of Present Illness: SOB; Reason: Other:; Chest Pain; Clinical Question(s): Other: COMPARISON: Multiple priors, most recent 07/04/2021. FINDINGS: LINES AND TUBES: None. LUNGS AND PLEURA: Mild vascular congestion accentuated by low lung volumes. No consolidation or volume loss. No pleural effusion. No pneumothorax. HEART, MEDIASTINUM AND HOLLY: Heart is normal in size. Normal upper mediastinal and hilar contour. BONES AND SOFT TISSUES: No acute abnormality. IMPRESSION: Mild vascular congestion without overt CHF. Stable exam. WSN: [id number] Ordering Physician: Steven Tompkins Dictated By: Suraj Alvarado MD Dictated Date/Time: 07/07/21 9:43 pm Reviewed By: Suraj Alvarado MD Signed By: Suraj Alvarado MD Signed Date/Time: 07/07/21 9:43 pm Transcribed By: RODRI Transcribed Date/Time: 07/07/21 9:42 pm Vital Signs Most recent to oldest [Reference Range]: 1 2 3 4 Oxygen Saturation [94-100 %] 100 % (07/08/21 12:40 PM) 100 % (07/08/21 5:40 AM) 98 % (07/07/21 11:25 PM) Pulse Rate [55-90 bpm] 100 bpm *H* (07/08/21 12:40 PM) 100 bpm *H* (07/08/21 5:40 AM) 83 bpm (07/07/21 11:25 PM) Blood Pressure [90-138/55-84 mm Hg] 155/82mm Hg *H* (07/08/21 12:40 PM) 164/108mm Hg *H* (07/08/21 8:41 AM) 149/106mm Hg *H* (07/08/21 5:40 AM) Respiratory Rate [16-30 br/min] 18 br/min (07/08/21 12:40 PM) 16 br/min (07/08/21 9:41 AM) 18 br/min (07/08/21 8:41 AM) 18 br/min (07/08/21 8:41 AM) Temperature [96.8-100.4 DegF] 98.4 DegF (07/08/21 5:40 AM) 98.7 DegF (07/07/21 8:07 PM) Mode of Delivery (Oxygen) Room air (07/08/21 12:40 PM) Room air (07/08/21 5:40 AM) Room air (07/07/21 11:25 PM) Blood pressure sites Arm, right (07/08/21 12:40 PM) Arm, left (07/08/21 5:40 AM) Arm, right (07/07/21 8:07 PM) Temperature Route Oral (07/08/21 5:40 AM) Oral (07/07/21 8:07 PM) Social History Social History Type Response Smoking Status 10 or more cigarette s (1/2 pack or more)/day in last 30 days entered on: 05/24/21 Sex
--- OUTSIDE RECORDS SUMMARY | 2023-12-06 14:42 | XMS_ITS | Continuity of Care Document ---
Author Organization [facility] ter Address [address] [place] [address]- Care Team Providers Care Inspector [employer] Name Role Phone Amelia CASTAÑEDA, Moiz Jones Primary Care Physician [place] [facility] [place] 03/05/[address] [address]- Discharge Disposition: A-D/C Home Attending Physician: Lavern Lindsey DO Admitting Physician: Lavern Lindsey DO Referring Physician: Not on Staff, Referring [...] Refills, Maintenance, 01/10/22 11:29:00 EDT, EC Tablet, [facility] #[id number], Partial fill upon patient request if the [...] 06/08/22 21:22:00 EDT, Route to Pharmacy Electronically, [facility] #[id number], Partial fill upon patient request if the p... Start Date: 06/08/22 Status: Ordered Problem List Condition Confirmation Course Effective Dates Status [facility] Informant Chest pain Confirmed Active Hypertension Confirmed Active Hypothyroid Confirmed Active QT prolongation Confirmed Active Results Radiology Reports * Exam Date Time Procedure Performing Provider Status 03/05/23 3:[address] Lumbar Spine W/O Contrast Marcia Witt; Antonio (Verified) Notes: (CT Lumbar Spine W/O Contrast) Reason For Exam: Trauma RESULT: CT Lumbar Spine W/O Contrast CT Lumbar Spine W/O Contrast Hx of Present Illness: SOB chest pressure; Reason: Trauma; Clinical Question(s): Fracture Dislocation; Order Comment: CLINICAL QUESTION: Fracture/Dislocation TECHNIQUE: Thin section axial images were acquired through the lumbar spine. Bone and soft tissue algorithms were reconstructed along with coronal and sagittal reformats. Weight-based protocol using automatic tube modulation was used to optimize exposure parameters. CTDIvol Body: 60.50 mGy, DLP Body: 1628 mGy*cm. COMPARISON: 01/14/2017 FINDINGS: Curve Cleaner View Findings, Lines and Tubes: None. Spine: No fractures or bone lesion. Mild leftward curvature with mild degenerative changes, greatest at L5-S1. Soft tissues: No acute abnormality in the paravertebral soft tissues. Visualized aorta and kidneys appear unremarkable. IMPRESSION: No acute fracture or subluxation. I have personally reviewed the images and I agree with this report. WSN: [id number] Ordering Physician: Amie Mead Dictated By: Luis Randall DO Dictated Date/Time: 03/05/23 8:07 am Reviewed By: Juan Robertson MD Signed By: Juan Robertson MD Signed Date/Time: 03/05/23 8:12 am Transcribed By: RODRI Transcribed Date/Time: 03/05/23 3:44 am * Exam Date Time Procedure Performing Provider Status 03/04/23 9:[address] Abdomen and Pelvi s W/O Contrast Laly Godoy; Auth (Verified) Notes: (CT Abdomen and Pelvis W/O Contrast) Reason For Exam: Abdominal trauma, blunt;Other: RESULT: CT Abdomen and Pelvis W/O Contrast CT Abdomen and Pelvis W/O Contrast Hx of Present Illness: SOB chest pressure; Reason: Other:; Abdominal trauma, blunt; Clinical Question(s): Other:; solid organ injury, perforation, free fluid TECHNIQUE: Spiral CT through the abdomen and pelvis without IV contrast formatted in 3 planes. Thisstudy was performed without oral contrast. Weight- based protocol using automatic tube modulation was used to optimize exposure parameters. CTDIvol Body: 16.05 mGy, DLP Body: 916 mGy*cm. COMPARISON: CT 01/15/2017 FINDINGS: Curve Cleaner View Findings, Lines and Tubes: None. Visualized Chest: Lung bases are clear. No pleural effusion. The heart is normal in size. No pericardial effusion. Diaphragm: Small to moderate-sized hiatal hernia. Liver: Unremarkable for noncontrast technique. Gallbladder: Absent consistent with prior cholecystectomy. Bile ducts: No biliary ductal dilation. Spleen: Normal. Pancreas: Normal. Adrenal glands: Normal. Kidneys and ureters: No hydronephrosis, stones, or noncontrast evidence of suspicious masses. Bladder: Normal. Reproductive organs: Unremarkable. Stomach, small bowel, and large bowel: Evaluation of the gastrointestinal tract limited without enteric contrast due to nondistended state. Small to moderate- sized hiatal hernia. No bowel obstruction. Scattered colonic diverticula. No CT evidence of acute diverticulitis or colitis. No constipation. Appendix: No evidence of acute appendicitis. Peritoneum and retroperitoneum: No ascites or pneumoperitoneum. No omental or mesenteric lesions. Lymph nodes: No enlarged lymph nodes. Blood vessels: Normal. No aneurysm. Abdominal and pelvic wall: Unremarkable. Bones: No acute abnormality. With mild degenerative disc space narrowing throughout the lower thoracic and lumbar spine. IMPRESSION: No acute intra-abdominal pathology. No significant change from prior study. WSN: [id number] Ordering Physician: Amie Mead Dictated By: Suraj Alvarado MD Dictated Date/Time: 03/04/23 10:05 p Reviewed By: Suraj Alvarado MD Signed By: Suraj Alvarado MD Signed Date/Time: 03/04/23 10:05 pm Transcribed By: RODRI Transcribed Date/Time: 03/04/23 10:02 pm * Exam Date Time Procedure Performing Provider Status 03/04/23 9:[address] Cervical Spine W/O Contrast Laly Godoy; Auth (Verified) Notes: (CT Cervical Spine W/O Contrast) Reason For Exam: Neck trauma, dangerous injury mechanism;Other: RESULT: CT Cervical Spine W/O Contrast CT Head/Brain W/O Contrast, CT Cervical Spine W/O Contrast INDICATION: Hx of Present Illness: SOB chest pressure; Reason: Trauma; Clinical Question(s): Hematoma; Order Comment: TECHNIQUE: Noncontrast head CT using axial technique was reconstructed in axial and coronal planes.Noncontrast spiral CT through the cervical spine was formatted in 3 planes. Automatic tube modulation was used for the cervical spine and iterative dose reconstruction was used for both the head and cervical spine to optimize scan parameters and image quality. CTDIvol Body: 27.16 mGy, DLP Body: 704 mGy*cm. CTDIvol Head: 45.64 mGy, DLP Head: 821 mGy*cm. COMPARISON: 08/19/2021. FINDINGS: Curve Cleaner View Findings, Lines and Tubes: None. BRAIN AND EXTRA-AXIAL SPACES: No parenchymal hemorrhage, midline shift, or mass effect. Angel-white matter differentiation is wellpreserved. No acute infarct. Mild prominence of the ventricles and sulci consistent with parenchymal volume loss. Mild low-density white matter changes. No subarachnoid hemorrhage. No subdural or epidural collection. CALVARIUM, SKULL BASE, AND SOFT TISSUES: No fractures or suspicious bony lesions. There is soft tissue opacification at the left sphenoid sinus. Visualized orbits and globes are intact. The extracranial soft tissues are unremarkable. CERVICAL SPINE: There is no evidence of acute fracture or dislocation. Moderate multilevel degenerative disc space narrowing and end plate irregularity. OTHER BONES: No acute abnormality. CERVICAL SOFT TISSUES AND LUNG APICES: Normal soft tissues. Visualized lung apices are clear. IMPRESSION: No acute abnormality of the head or cervical spine. WSN: [id number] Ordering Physician: Amie Mead Dictated By: Anna Valles MD Dictated Date/Time: 03/04/23 11:06 p Reviewed By: Anna Valles MD Signed By: Anna Valles MD Signed Date/Time: 03/04/23 11:06 pm Transcribed By: RODRI Transcribed Date/Time: 03/04/23 9:19 pm * Exam Date Time Procedure Performing Provider Status 03/04/23 9:[address] Head/Brain W/O Contrast Adrien Godoy; Auth (Verified) Notes: (CT Head/Brain W/O Contrast) Reason For Exam: Trauma RESULT: CT Head/Brain W/O Contrast CT Head/Brain W/O Contrast, CT Cervical Spine W/O Contrast INDICATION: Hx of Present Illness: SOB chest pressure; Reason: Trauma; Clinical Question(s): Hematoma; Order Comment: TECHNIQUE: Noncontrast head CT using axial technique was reconstructed in axial and coronal planes.Noncontrast spiral CT through the cervical spine was formatted in 3 planes. Automatic tube modulation was used for the cervical spine and iterative dose reconstruction was used for both the head and cervical spine to optimize scan parameters and image quality. CTDIvol Body: 27.16 mGy, DLP Body: 704 mGy*cm. CTDIvol Head: 45.64 mGy, DLP Head: 821 mGy*cm. COMPARISON: 08/19/2021. FINDINGS: Curve Cleaner View Findings, Lines and Tubes: None. BRAIN AND EXTRA-AXIAL SPACES: No parenchymal hemorrhage, midline shift, or mass effect. Angel-white matter differentiation is wellpreserved. No acute infarct. Mild prominence of the ventricles and sulci consistent with parenchymal volume loss. Mild low-density white matter changes. No subarachnoid hemorrhage. No subdural or epidural collection. CALVARIUM, SKULL BASE, AND SOFT TISSUES: No fractures or suspicious bony lesions. There is soft tissue opacification at the left sphenoid sinus. Visualized orbits and globes are intact. The extracranial soft tissues are unremarkable. CERVICAL SPINE: There is no evidence of acute fracture or dislocation. Moderate multilevel degenerative disc space narrowing and end plate irregularity. OTHER BONES: No acute abnormality. CERVICAL SOFT TISSUES AND LUNG APICES: Normal soft tissues. Visualized lung apices are clear. IMPRESSION: No acute abnormality of the head or cervical spine. WSN: [id number] Ordering Physician: Amie Mead Dictated By: Anna Valles MD Dictated Date/Time: 03/04/23 11:06 p Reviewed By: Anna Valles MD Signed By: Anna Valles MD Signed Date/Time: 03/04/23 11:06 pm Transcribed By: MARYB Transcribed Date/Time: 03/04/23 9:19 pm * Exam Date Time Procedure Performing Provider Status 03/04/23 8:49 PM Elbow Min 3 Views Right Faraz Parrish ; Auth (Verified) Notes: (Elbow Min 3 Views Right) Reason For Exam: with Pain;Trauma RESULT: Elbow Min 3 Views Right Elbow Min 3 Views Right, 3 views Hx of Present Illness: SOB chest pressure; Reason: Trauma; with Pain; Clinical Question(s): Fracture COMPARISON: None. FINDINGS: No fracture or dislocation. No arthritic changes. No joint effusion. IMPRESSION: Normal. WSN: [id number] Ordering Physician: Amie Mead Dictated By: Anna Valles MD Dictated Date/Time: 03/04/23 8:53 pm Reviewed By: Anna Valles MD Signed By: Anna Valles MD Signed Date/Time: 03/04/23 8:53 pm Transcribed By: RODRI Transcribed Date/Time: 03/04/23 8:52 pm * Exam Date Time Procedure Performing Provider Status 03/04/23 8:49 PM Chest 2 Views Frontal and Lat Faraz Parrish; Auth (Verified) Notes: (Chest 2 Views Frontal and Lat) Reason For Exam: Chest Pain;Other: RESULT: Chest 2 Views Frontal and Lat Chest 2 Views Frontal and Lat Hx of Present Illness: SOB chest pressure; Reason: Other:; Chest Pain; Clinical Question(s): Other: COMPARISON: 02/14/2023. FINDINGS: LINES AND TUBES: None. LUNGS AND PLEURA: Clear lungs. Normal pulmonary vascularity. No pleural effusion. No pneumothorax. HEART, MEDIASTINUM AND HOLLY: Heart is normal in size. Normal mediastinal and hilar contour. BONES AND SOFT TISSUES: No acute abnormality. IMPRESSION: No acute abnormality. WSN: [id number] Ordering Physician: Amie Mead Dictated By: Anna Valles MD Dictated Date/Time: 03/04/23 8:52 pm Reviewed By: Anna Valles MD Signed By: Anna Valles MD Signed Date/Time: 03/04/23 8:52 pm Transcribed By: RODRI Transcribed Date/Time: 03/04/23 8:51 pm * Exam Date Time Procedure Performing Provider Status 03/04/23 8:49 PM Humerus Min 2 Views Right May Parrish ta; Auth (Verified) Notes: (Humerus Min 2 Views Right) Reason For Exam: with Pain;Trauma RESULT: Humerus Min 2 Views Right Humerus Min 2 Views Right, 2 views Hx of Present Illness: SOB chest pressure; Reason: Trauma; with Pain; Clinical Question(s): Fracture COMPARISON: None. FINDINGS: No fractures or bone lesions. The visualized portions of the joints are normal. There are punctate hyperdensities in the lateral soft tissues which may be artifactual or may be inthe soft tissues. IMPRESSION: There is no evidence of acute fracture or dislocation. WSN: [id number] Ordering Physician: Amie Mead Dictated By: Anna Valles MD Dictated Date/Time: 03/04/23 8:51 pm Reviewed By: Anna Valles MD Signed By: Anna Valles MD Signed Date/Time: 03/04/23 8:51 pm Transcribed By: RODRI Transcribed Date/Time: 03/04/23 8:50 pm * Exam Date Time Procedure Performing Provider Status 03/04/23 8:49 PM Shoulder Min 2 Views Right Seth Parrish gabby; Auth (Verified) Notes: (Shoulder Min 2 Views Right) Reason For Exam: with Pain;Trauma RESULT: Shoulder Min 2 Views Right Shoulder Min 2 Views Right, 2 views Hx of Present Illness: SOB chest pressure; Reason: Trauma; with Pain; Clinical Question(s): Fracture COMPARISON: None. FINDINGS: No fracture or dislocation. No arthritic change of the glenohumeral joint. Normal AC joint and portions of the clavicle included on the exam. No calcification of the rotator cuff. IMPRESSION: Normal. WSN: [id number] Ordering Physician: Amie Mead Dictated By: Anna Valles MD Dictated Date/Time: 03/04/23 8:50 pm Reviewed By: Anna Valles MD Signed By: Anna Valles MD Signed Date/Time: 03/04/23 8:50 pm Transcribed By: RODRI Transcribed Date/Time: 03/04/23 8:49 pm Vital Signs Most recent to oldest [Reference Range]: 1 2 3 Oxygen Saturation [94-100 %] 100 % (03/05/23 4:34 AM) 100 % (03/04/23 11:30 PM) 93 % *L* (03/04/23 7:31 PM) Pulse Rate [55-90 bpm] 88 bpm (03/05/23 4:34 AM) 90 bpm (03/04/23 11:30 PM) 89 bpm (03/04/23 7:31 PM) Blood Pressure [90-138/55-84 mm Hg] 146/94mm Hg *H* (03/05/23 4:34 AM) 160/100mm Hg *H* (03/04/23 11:30 PM) 163/101mm Hg *H* (03/04/23 7:31 PM) Respiratory Rate [16-30 br/min] 16 br/min (03/05/23 4:34 AM) 15 br/min *L* (03/04/23 11:30 PM) 16 br/min (03/04/23 7:31 PM) Temperature [96.8-100.4 DegF] 97.8 DegF (03/04/23 7:31 PM) Mode of Delivery (Oxygen) Room air (03/05/23 4:34 AM) Room air (03/04/23 11:30 PM) Room air (03/04/23 7:31 PM) Blood pressure sites Arm, left (03/05/23 4:34 AM) Arm, left (03/04/23 11:30 PM) Arm, left (03/04/23 7:31 PM) Temperature Route Oral (03/04/23 7:31 PM) Social History Social History Type Response Tobacco Use: 4 or less cigar ettes(less than 1/4 pack)/day in last 30 days. Sex EKG study * Event Display: EKG Authored Date: * Event Display: ECG 12-Lead Authored Date: Please click on pdf link to open report * Event Display: ECG 12-Lead Authored Date: Ventricular Rate: 88 BPM Atrial Rate: 88 BPM P-R Interval: 132 ms QRS Duration: 76 ms Q-T Interval: 388 ms QTC Calculation(Bazett): 469 ms P [place]: 62 degrees R [place]: 22 degrees T [place]: 17 degrees Normal sinus rhythm Possible Left atrial enlargement Borderline ECG When compared with ECG of 14-FEB-2023 00:02, QRS axis Shifted left Non-specific change in ST segment in Lateral leads T wave inversion no longer evident in Lateral leads Confirmed by JIMBO RODRIGUEZ ([id number]) on 03/05/2023 10:56:37 AM [place]: JIMBO RODRIGUEZ Note * Minna Colon MD: PERFORM Event Display: Patient Education Leaflets Authored Date: After a Fall ?? [id number] After a Fall You have had a fall today. That means that you slipped, tripped, or lost your balance. If your fallwas because of fainting or a seizure,??you might need other??tests. It is normal to feel sore and tight in your muscles and back the next day, and not just the musclesyou injured. Remember, all the parts of your body are connected, so while one area hurts now, the next day another may hurt. Also, when you injure yourself, it causes inflammation. This then causes the muscles to tighten up and hurt more. After the initial worsening symptoms, they should slowly improve over the next few days. Tell your healthcare provider if you have more severe pain. Even without a definite head injury, you can still get a concussion from your head suddenly jerkingforward, backward, or sideways when you fall. This is especially true if you have had concussions in the past. Concussions and even bleeding can still happen, especially if you had a recent injury ortake blood thinner medicine. It is not unusual to have a mild headache and feel tired and even nauseous or dizzy.?? Home care ??? Rest today and return to your normal activities when you are feeling back to normal. ??? If you were injured during the fall, follow the advice from your healthcare provider about how to care for your injury. ??? At first, don't try to stretch out the sore spots. If there is a strain,stretching may make it worse. Massage may help relax the muscles without stretching them. ??? Use an ice pack or cold compress on and off at the sore spots for 10 to 20 minutes at a time, as often asyou feel comfortable. This may help reduce the inflammation, swelling, and pain. ??? Know that if you have any scrapes (abrasions), they often heal within??10 days. Keep the scrapes clean while they start to heal. But an infection may happen even with correct care. So watch for early signs of infection (such as warmth, redness, or swelling). ?? Medicines ??? Talk with your healthcare provider before taking new medicines, especially if you have other health problems or are taking other medicines. ??? If you need anything for pain, use acetaminophen or ibuprofen, unless you were given a different pain medicine to use.??Talk with your healthcare provider before using these medicines if you: o Have chronic liver or kidney disease o Ever hada stomach ulcer or??gastrointestinal bleeding o Are taking blood-thinner medicines ??? Be careful if you are given prescription pain medicines, narcotics, or medicine for muscle spasms. They can makeyou sleepy and dizzy. And they can affect your coordination, reflexes, and judgment. Don't drive ordo work where you can hurt yourself when taking them. ?? Fall prevention ??? Fix, remove, or replace anything that caused your fall. ??? Make your home safeby keeping walkways clear of objects you could trip over. ??? Use nonslip pads under rugs. Don't use small??area rugs or throw rugs. ??? Don't walk in poorly lit areas. ??? Don't stand on chairs or wobbly ladders. ??? Be careful when reaching overhead or looking upward. This position can cause a loss of balance. ??? Be sure your shoes fit correctly, have nonslip bottoms, and are in good condition. ??? Be careful when going up and down curbs, and walking on uneven sidewalks. ??? If your balance is poor, think about using a cane or walker. ??? Stay as active as you can. Balance, flexibility, strength, and endurance all come from exercise. They all play a role in preventing falls. ??? If you have pets, know where they are before you stand up or walk so you don't trip over them. ??? Limit alcohol intake. Alcohol can cause balance problems and increase the risk for falls. ??? Use night-lights. ??? Have your eyes tested to be sure you are seeing well, even if you already wear glasses.? Follow-up Follow up with your healthcare provider, or as advised. If X-rays or CT scans were done, you will be told if there is a change in the reading, especially if it affects treatment. ?? Call 911 Call 911 if any of these happen: ??? Trouble breathing ??? Confusion ??? Trouble waking up ??? Fainting or loss of consciousness ??? Fast or very slow heart rate ??? Seizure ??? Trouble with speech or vision, weakness of an arm or leg ??? Trouble walking or talking, loss of balance, numbness or weakness on one side of your body, or facial droop ?? When to get medical advice Call your healthcare provider right away if any of these happen: ??? Repeated falls, including falls that seem to happen for no reason ??? Dizziness ??? Severe headache ??? Blood in vomit or stools (look black or red in color) ?? Last Reviewed Date: 2022 ?? [id number] [employer]. All rights reserved. This information is not intended as a substitute for professional medical care. Always follow your healthcare professional's instructions. ?? * Minna Colon MD: PERFORM Event Display: Patient Education Leaflets Authored Date: [id number] Uncertain Causes of Chest Pain ?? [id number] Uncertain Causes of Chest Pain Chest pain [...] leg ?? Last Reviewed Date: 2021 ?? [id number] [employer]. All rights reserved. This information is not intended as a substitute for professional medical care. Always follow your healthcare professional's instructions. ?? Patient Care team information Care Team Personnel Name: Caron Short RN Position: [facility] RN Member Role: Primary Care Nurse Name: Ashleigh Levy RN Position: [facility] RN Member Role: Primary Care Nurse Name: Jimbo Payne RN Position: [facility] RN Member Role: Primary Care Nurse Name: Moiz Cisneros MD Position: Reference Physician Member Role: PCP Address: Address: [address] [place] [address]- [place] Name: Vicky Kaur RN Position: [facility] Onco RN Member Role: Primary Care Nurse Name: Flores Gross RN Position: [facility] RN Member Role: Primary Care Nurse Name: Mally Chauhan RN Position: [facility] Hospital Hotel Assistant General Manager Member Role: Primary Care Nurse Name: Nedra Garza RN Position: [facility] RN Member Role: Primary Care Nurse Name: Emy Thakkar RN Position: [facility] ED RN W/OE and Tasks Member Role: Patient Care Provider Name: Minna Colon MD Position: [facility] Resident Member Role: ED Resident Address: Address: [address] [place] [address] [place] [address]- [place] Name: Shelby Bailey Position: [facility] ED [facility] Member Role: Patient Care Provider Name: Lavern Lindsey DO Position: [facility] ED Medicine MD Member Role: ED Physician Address: Address: [address] [place] [id number]- Care Team Related Persons Name: ESTELA WRIGHT Address: home [address] [place] [id number] Name: FLORES WRIGHT Address: home [address] [place] [address] Name: BEATRIZ WRIGHT Address: home [address] [place] [address] Name: FLORES CHAUHAN Address: home [address] [place] [address] Name: YAN CHAUHAN Address: home [address] [place] [address]
--- OUTSIDE RECORDS SUMMARY | 2023-12-06 14:42 | XMS_ITS | Continuity of Care Document ---
Author Organization [facility] ter Address [address] [place] [address]- Care Team Providers Care Counseling Services Director Name Role Phone Amelia CASTAÑEDA, Moiz Jones Primary Care Physician [phone] Encounter [facility] Date(s): 01/09/22 - 01/10/[address] [address] Discharge Disposition: A-D/C Home Attending Physician: Francis Smtih MD Admitting Physician: Faisal Penny MD Referring Physician: Not on Staff, Referring [...] oral tablet 5 mg, Tablet, By Mouth, 01/10/22 9:00:00 EDT Start Date: 01/10/22 Stop Date: 01/10/22 Status: Completed amLODIPine 5 mg oral tablet 5 mg, 1, tablet, By Mouth, Daily, # 14 tablet, Refills 0, Tot. Refills 0, Maintenance, 04/29/17 18:41:10, Print Requisition Start Date: 04/29/17 Stop Date: 05/13/17 Status: Ordered aspirin 81 mg oral delayed release tablet = 81 mg, By Mouth, Daily, # 30 tablet, 0 Refills, Maintenance, 01/10/22 11:29:00 EDT, EC Tablet, [facility] #[id number], Partial fill upon patient request if the [...] Exam Date Time Procedure Performing Provider Status 01/10/22 3:47 AM Chest 2 Views Frontal and Lat Cash Rose; Auth (Verified) Notes: (Chest 2 Views Frontal and Lat) Reason For Exam: Chest Pain;Other: RESULT: Chest 2 Views Frontal and Lat Chest 2 Views Frontal and Lat Hx of Present Illness: 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 COMPARISON: 11/27/2021 and multiple priors. FINDINGS: LINES AND TUBES: None. LUNGS AND PLEURA: Clear lungs. Normal pulmonary vascularity. No pleural effusion. No pneumothorax. HEART, MEDIASTINUM AND HOLLY: Heart is normal in size. Normal upper mediastinal and hilar contour. BONES AND SOFT TISSUES: No acute abnormality. IMPRESSION: No acute cardiopulmonary process. I have personally reviewed the images and I agree with this report. WSN: [id number] Ordering Physician: Edenilson Mata Dictated By: Bert Obrien MD Dictated Date/Time: 01/10/22 8:02 am Reviewed By: Juan Robertson MD Signed By: Juan Robertson MD Signed Date/Time: 01/10/22 8:07 am Transcribed By: RODRI Transcribed Date/Time: 01/10/22 7:53 am Vital Signs Most recent to oldest [Reference Range]: 1 2 3 Weight 112 kg (01/10/22 8:55 AM) 112 kg (01/10/22 6:28 AM) 112 kg (01/10/22 4:14 AM) Oxygen Saturation [94-100 %] 100 % (01/10/22 8:55 AM) 94 % (01/10/22 6:57 AM) 94 % (01/10/22 6:28 AM) Pulse Rate [55-90 bpm] 90 bpm (01/10/22 8:55 AM) 90 bpm (01/10/22 6:57 AM) 81 bpm (01/10/22 6:28 AM) Blood Pressure [90-138/55-84 mm Hg] 109/88mm Hg (01/10/22 8:55 AM) 109/88mm Hg (01/10/22 8:53 AM) 131/85mm Hg (01/10/22 6:57 AM) Respiratory Rate [16-30 br/min] 20 br/min (01/10/22 8:55 AM) 20 br/min (01/10/22 6:57 AM) 20 br/min (01/10/22 6:28 AM) Temperature [96.8-100.4 DegF] 97.9 DegF (01/10/22 6:28 AM) 98.3 DegF (01/10/22 4:14 AM) 98.7 DegF (01/10/22 3:09 AM) Liters per Minute 2 L/min (01/10/22 8:55 AM) Mode of Delivery (Oxygen) Nasal cannula (01/10/22 8:55 AM) Room air (01/10/22 6:57 AM) Room air (01/10/22 6:28 AM) Blood pressure sites Arm, left (01/10/22 8:55 AM) Arm, left (01/10/22 6:57 AM) Arm, left (01/10/22 6:28 AM) Temperature Route Oral (01/10/22 6:28 AM) Oral (01/10/22 4:14 AM) Oral (01/10/22 3:09 AM) Weight Obtained Via Patient/family state d (01/09/22 11:44 PM) Social History Social History Type Response Smoking Status 10 or more cigarette s (1/2 pack or more)/day in last 30 days entered on: 05/24/21 Sex
--- OUTSIDE RECORDS SUMMARY | 2023-12-06 14:42 | XMS_ITS | Continuity of Care Document ---
Author Organization [facility] Address [address] [place] [address] Akiko mackay, [address] [place] [address]- Care Team Providers Care Monument Erector Name Role Phone Amelia CASTAÑEDA, Moiz Jones Primary Care Physician Encounter [facility] Date(s): 11/09/23 - 11/16/23 [facility] [address] [place] [address] Drive [address] [place] [address]- Attending Physician: Ramesh Styles DO Allergies, Adverse Reactions, [...] 1 Refills, Maintenance, 10/01/23 10:59:00 EST, Tablet, [facility] #[id number], Partial fill upon patient request if the [...] 12/08/23 14:48:00 EDT, 10/21/23 14:48:00 EDT, Patch, [id number], Partial fill upon patient request if the prescription is for a schedule II opioid drug., 1 patch Topically Daily,... Start Date: 10/21/23 Stop Date: 12/08/23 Status: Ordered ondansetron 4 mg oral tablet, disintegrating 1 tablet = 4 mg, By Mouth, Every 8 hours, PRN Nausea & Vomiting, for 14 days, # 42 tablet, 0 Refills, Acute 11/23/23 16:06:00 EDT, 11/09/23 16:06:00 EDT, Tablet, [id number], Partial fill upon patient request if the prescription is for... 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 Vital Signs Most recent to oldest [Reference Range]: 1 Height 168 cm (11/09/23 3:03 PM) Weight 111.9 kg (11/09/23 3:03 PM) Oxygen Saturation [94-100 %] 97 % (11/09/23 3:03 PM) Pulse Rate [55-90 bpm] 97 bpm *H* (11/09/23 3:03 PM) Body Mass Index [18.5-24.99 kg/m2] 39.65 kg/m2 *>HHI* (11/09/23 3:03 PM) Blood Pressure [90-138/55-84 mm Hg] 112/ 74mm Hg (11/09/23 3:03 PM) Respiratory Rate [16-30 br/min] 16 br/mi n (11/09/23 3:03 PM) Temperature [96.8-100.4 DegF] 97.6 DegF (11/09/23 3:03 PM) Mode of Delivery (Oxygen) Room air (11/09/23 3:03 PM) Blood pressure sites Arm, right (11/09/23 3:03 PM) Temperature Route Temporal (11/09/23 3:03 PM) Weight Obtained Via Standing scale (11/09/23 3:03 PM) Social History Social History Type Response Tobacco Use: 4 or less cigar ettes(less than 1/4 pack)/day in last 30 days. Other: quit 3 wks ago; 10 CIG/DAY X AGE 14. Sex Patient Care team information Care Team Personnel Name: Clemencia Camargo RN Position: [facility] RN Member Role: Primary Care Nurse Name: Nikkie Tubbs Position: [facility] Outreach Member Role: Lifetime Consulting Physician Name: Tavon Powell Position: [facility] RN Member Role: Primary Care Nurse Name: Caron Short RN Position: [facility] RN Member Role: Primary Care Nurse Name: Prachi Negron RN Position: [facility] RN Member Role: Primary Care Nurse Name: Tami Soler RN Position: [facility] RN Member Role: Primary Care Nurse Name: Ashleigh Mercado RN Position: [facility] RN Member Role: Primary Care Nurse Name: Heidi Moreland Position: [facility] RN Member Role: Primary Care Nurse Name: Ashleigh Levy RN Position: [facility] Oncmiguelina RN Member Role: Primary Care Nurse Name: Jimbo Payne RN Position: [facility] RN Member Role: Primary Care Nurse Name: Moiz Cisneros MD Position: Reference Physician Member Role: PCP Address: Address: [address] [place] [address] Name: Danie Maza RN Position: [facility] RN Member Role: Primary Care Nurse Name: Vicky Kaur RN Position: [facility] Onco RN Member Role: Primary Care Nurse Name: Flores Gross RN Position: [facility] RN Member Role: Primary Care Nurse Name: Mally Chauhan RN Position: [facility] Hospital Janitor Cleaner Member Role: Primary Care Nurse Name: Nedra Garza RN Position: [facility] RN Member Role: Primary Care Nurse Care Team Related Persons Name: ESTELA WRIGHT Address: [place] [address] Name: FLORES WRIGHT Address: [place] [address] Name: BEATRIZ WRIGHT Name: FLORES CHAUHAN Address: home [address] [place] [id number] Name: YAN CHAUHAN Address: [place] [address]
--- OUTSIDE RECORDS SUMMARY | 2023-12-06 14:42 | XMS_ITS | Continuity of Care Document ---
Author Organization [facility] Address [address] [place] [address]- Care Team Providers Care Film Technician Name Role Phone Vi CASTAÑEDA, Leda Gore Primary Care Physician Encounter [facility] Date(s): 04/21/23 - 04/21/[address] [address]- Discharge Disposition: A-D/C Walkout Attending Physician: Not [...] Refills, Maintenance, 01/10/22 11:29:00 EDT, EC Tablet, [facility] #[id number], Partial fill upon patient request if the [...] 06/08/22 21:22:00 EDT, Route to Pharmacy Electronically, [facility] #[id number], Partial fill upon patient request if the p... Start Date: 06/08/22 Status: Ordered Problem List Condition Confirmation Course Effective Dates Status Health St atus Informant Chest pain Confirmed Active Hypertension Confirmed Active Hypothyroid Confirmed Active QT prolongation Confirmed Active Vital Signs Most recent to oldest [Reference Range]: 1 Height 170 cm (04/21/23 5:15 PM) Weight 93 kg (04/21/23 5:15 PM) Oxygen Saturation [94-100 %] 98 % (04/21/23 5:15 PM) Pulse Rate [55-90 bpm] 93 bpm *H* (04/21/23 5:15 PM) Body Mass Index [18.5-24.99 kg/m2] 32.18 kg/m2 *>HHI* (04/21/23 5:15 PM) Blood Pressure [90-138/55-84 mm Hg] 161/ 99mm Hg *H* (04/21/23 5:15 PM) Respiratory Rate [16-30 br/min] 18 br/mi n (04/21/23 5:15 PM) Temperature [96.8-100.4 DegF] 97.9 DegF (04/21/23 5:15 PM) Mode of Delivery (Oxygen) Room air (04/21/23 5:15 PM) Blood pressure sites Arm, right (04/21/23 5:15 PM) Temperature Route Oral (04/21/23 5:15 PM) Dry Weight 93 kg (04/21/23 5:15 PM) Weight Obtained Via Patient/family state d (04/21/23 5:15 PM) Dry Weight Obtained Via Patient/family s tated (04/21/23 5:15 PM) Social History Social History Type Response Tobacco Use: 4 or less cigar ettes(less than 1/4 pack)/day in last 30 days. Sex Patient Care team information Care Team Personnel Name: Leda Lebron MD Position: [facility] Physician (General Medicine) Member Role: PCP Address: Address: [address] [place] [address] Name: Caron Short RN Position: [facility] RN Member Role: Primary Care Nurse Name: Ashleigh Levy RN Position: [facility] RN Member Role: Primary Care Nurse Name: Jimbo Payne RN Position: [facility] RN Member Role: Primary Care Nurse Name: Vicky Kaur RN Position: [facility] Onco RN Member Role: Primary Care Nurse Name: Delmy Gross RN Position: [facility] RN Member Role: Primary Care Nurse Name: Mally Chauhan RN Position: [facility] Hospital Eyelet Cutter Member Role: Primary Care Nurse Name: Nedra Garza RN Position: [facility] RN Member Role: Primary Care Nurse Care Team Related Persons Name: ESTELA WRIGHT Address: home [address] [place] [address] Name: DELMY WRIGHT Address: home [address] [place] [place] [address] Name: BEATRIZ WRIGHT Address: home [address] [place] [place] [address] Name: DELMY CHAUHAN Address: home [address] [place] [address] Name: YAN CHAUHAN Address: home [address] [place] [place] [address]
--- OUTSIDE RECORDS SUMMARY | 2023-12-06 14:42 | XMS_ITS | Continuity of Care Document ---
Author Organization [facility] ter Address [address] [place] [address]- Care Team Providers Care In School Suspension Aide Name Role Phone Vi CASTAÑEDA, Leda Gore Primary Care Physician En[place] [facility] [place] Date(s): 01/06/23 - 01/07/[address] [address]- Discharge Disposition: A-D/C Home Attending Physician: Yareli [...] Refills, Maintenance, 01/10/22 11:29:00 EDT, EC Tablet, [email or web address] #[id number], Partial fill upon patient request if the [...] 06/08/22 21:22:00 EDT, Route to Pharmacy Electronically, [email or web address] #[id number], Partial fill upon patient request if the p... Start Date: 06/08/22 Status: Ordered Problem List Condition Confirmation Course Effective Dates Status Health St atus Informant Chest pain Confirmed Active Hypertension Confirmed Active Hypothyroid Confirmed Active QT prolongation Confirmed Active Results Radiology Reports * Exam Date Time Procedure Performing Provider Status 01/06/23 10:17 PM Chest 2 Views Frontal and Lat Sheree Gutierrez; Auth (Verified) Notes: (Chest 2 Views Frontal and Lat) Reason For Exam: Shortness of Breath, Fever;Other: RESULT: Chest 2 Views Frontal and Lat Chest 2 Views Frontal and Lat REASON: Shortness of Breath, Fever; Clinical Question(s): Pneumonia COMPARISON: Multiple priors, most recently 12/20/2022. FINDINGS: LINES AND TUBES: None. LUNGS AND PLEURA: Elevated left hemidiaphragm. Clear lungs. Normal pulmonary vascularity. No pleural effusion. No pneumothorax. HEART, MEDIASTINUM AND HOLLY: Heart is normal in size. Normal mediastinal and hilar contour. BONES AND SOFT TISSUES: No acute abnormality. IMPRESSION: No acute abnormality. I have personally reviewed the images and I agree with this report. WSN: [id number] Ordering Physician: Steven Tompkins Dictated By: Zachary Perez DO Dictated Date/Time: 01/06/23 10:21 p Reviewed By: Piero Youssef MD Signed By: Piero Youssef MD Signed Date/Time: 01/06/23 10:26 pm Transcribed By: RODRI Transcribed Date/Time: 01/06/23 10:20 pm Vital Signs Most recent to oldest [Reference Range]: 1 2 3 Height 162.5 cm (01/07/23 3:17 AM) 162.5 cm (01/06/23 10:39 PM) 162.5 cm (01/06/23 8:17 PM) Weight 83.9 kg (01/07/23 3:17 AM) 83.9 kg (01/06/23 10:39 PM) 83.9 kg (01/06/23 8:17 PM) Oxygen Saturation [94-100 %] 98 % (01/07/23 3:17 AM) 98 % (01/06/23 8:17 PM) Pulse Rate [55-90 bpm] 73 bpm (01/07/23 3:17 AM) 96 bpm *H* (01/06/23 8:17 PM) Body Mass Index [18.5-24.99 kg/m2] 31.77 kg/m2 *>HHI* (01/07/23 3:17 AM) 31.77 kg/m2 *>HHI* (01/06/23 8:17 PM) Blood Pressure [90-138/55-84 mm Hg] 155/94mm Hg *H* (01/07/23 3:17 AM) 148/89mm Hg *H* (01/06/23 8:17 PM) Respiratory Rate [16-30 br/min] 16 br/min (01/07/23 3:17 AM) Temperature [96.8-100.4 DegF] 98.0 DegF (01/07/23 3:17 AM) 99 DegF (01/06/23 8:17 PM) Mode of Delivery (Oxygen) Room air (01/07/23 3:17 AM) Room air (01/06/23 8:17 PM) Blood pressure sites Arm, left (01/07/23 3:17 AM) Arm, right (01/06/23 8:17 PM) Temperature Route Oral (01/07/23 3:17 AM) Oral (01/06/23 8:17 PM) Weight Obtained Via Patient/family state d (01/06/23 8:17 PM) Dry Weight Obtained Via Patient/family s tated (01/06/23 8:17 PM) Social History Social History Type Response Tobacco Use: 4 or less cigar ettes(less than 1/4 pack)/day in last 30 days. Sex EKG study * Event Display: EKG Authored Date: Note * Lilia VAZQUEZ, Emeterio: PERFORM Event Display: Patient Education Leaflets Authored Date: Uncertain Causes of Chest Pain ?? [id number] Uncertain Causes of Chest Pain Chest pain [...] leg ?? Last Reviewed Date: 2021 ?? [id number] [employer] All rights reserved. This information is not intended as a substitute for professional medical care. Always follow your healthcare professional's instructions. ?? Laboratory * [facility] , CIS S: TRANSCRIBE Piero Youssef MD: VERIFY Zachayr Perez DO: SIGN Event Display: Result: Authored Date: Chest 2 Views Frontal and Lat REASON: Shortness of Breath, Fever; Clinical Question(s): Pneumonia COMPARISON: Multiple priors, most recently 12/20/2022. FINDINGS: LINES AND TUBES: None. LUNGS AND PLEURA: Elevated left hemidiaphragm. Clear lungs. Normal pulmonary vascularity. No pleural effusion. No pneumothorax. HEART, MEDIASTINUM AND HOLLY: Heart is normal in size. Normal mediastinal and hilar contour. BONES AND SOFT TISSUES: No acute abnormality. IMPRESSION: No acute abnormality. I have personally reviewed the images and I agree with this report. WSN: [id number] Ordering Physician: Steven Tompkins Dictated By: Zachary Perez DO Dictated Date/Time: 01/06/23 10:21 p Reviewed By: Piero Youssef MD Signed By: Piero Youssef MD Signed Date/Time: 01/06/23 10:26 pm Transcribed By: RODRI Transcribed Date/Time: 01/06/23 10:20 pm Patient Care team information Care Team Personnel Name: Leda Lebron MD Position: [facility] Physician (General Medicine) Member Role: PCP Address: Address: [address] [place] [address] Name: Caron Short RN Position: [facility] RN Member Role: Primary Care Nurse Name: Ashleigh Levy RN Position: [facility] RN Member Role: Primary Care Nurse Name: Jimbo Payne RN Position: [facility] RN Member Role: Primary Care Nurse Name: Vicky Kaur RN Position: [facility] Onco RN Member Role: Primary Care Nurse Name: Flores Gross RN Position: [facility] RN Member Role: Primary Care Nurse Name: Mally Chauhan RN Position: [facility] Hospital Crystal Growing Technician Member Role: Primary Care Nurse Name: Nedra Garza RN Position: [facility] RN Member Role: Primary Care Nurse Name: Audra Jack RN Position: [facility] ED RN W/OE and Tasks Member Role: Patient Care Provider Name: Emeterio Rodrigues DO Position: [facility] Resident Member Role: ED Resident Address: Address: [address] [place] [address] Name: Faraz Villeda Position: [facility] ED TA [facility] Member Role: Head Of Sales Promotion Name: Christofer Beltre DO Position: [facility] Resident Member Role: Resident Address: Address: [address] [place] [address] Name: Yareli Calles DO Position: [facility] ED Medicine MD Member Role: Admitting Physician Address: Address: [address] [place] [address]- Care Team Related Persons Name: ESTELA WRIGHT Address: home [address] [place] [address] Name: FLORES WRIGHT Address: home [address] [place] [address] Name: BEATRIZ WRIGHT Address: home [address] [place] [address] Name: FLORES CHAUHAN Address: home [address] [place] [address] Name: YAN CHAUHAN Address: home [address] [place] [address]
--- OUTSIDE RECORDS SUMMARY | 2023-12-06 14:42 | XMS_ITS | Continuity of Care Document ---
Author Organization [facility] Address [address] [place] [address]- Care Team Providers Care Head Animal Keeper Name Role Phone Vi CASTAÑEDA, Leda Gore Primary Care Physician [phone] Encounter [facility] Date(s): 05/26/23 - 05/27/[address] [address]- Discharge Disposition: A-D/C Walkout Attending Physician: Not [...] Refills, Maintenance, 01/10/22 11:29:00 EDT, EC Tablet, [facility] #[id number], Partial fill upon patient request if the [...] 06/08/22 21:22:00 EDT, Route to Pharmacy Electronically, [facility] #[id number], Partial fill upon patient request if the p... Start Date: 06/08/22 Status: Ordered Problem List Condition Confirmation Course Effective Dates Status Health St atus Informant Chest pain Confirmed Active Hypertension Confirmed Active Hypothyroid Confirmed Active QT prolongation Confirmed Active Results Radiology Reports * Exam Date Time Procedure Performing Provider Status 05/26/23 11:57 PM Chest 2 Views Frontal and Lat Monserrat Cuello; Auth (Verified) Notes: (Chest 2 Views Frontal and Lat) Reason For Exam: Chest Pain;Other: RESULT: Chest 2 Views Frontal and Lat Chest 2 Views Frontal and Lat Hx of Present Illness: CP and SOB since 6 pm today; Reason: Other:; Chest Pain; Clinical Question(s): Other: COMPARISON: 05/11/2023 FINDINGS: LINES AND TUBES: None. LUNGS AND PLEURA: Elevation of the left hemidiaphragm. Clear lungs. Normal pulmonary vascularity. No pleural effusion. No pneumothorax. HEART, MEDIASTINUM AND HOLLY: Heart is normal in size. Normal mediastinal and hilar contour. BONES AND SOFT TISSUES: No acute abnormality. IMPRESSION: No acute abnormality. WSN: [id number] Ordering Physician: Denice Mendes Dictated By: Suraj Alvarado MD Dictated Date/Time: 05/27/23 0:10 am Reviewed By: Suraj Alvarado MD Signed By: Suraj Alvarado MD Signed Date/Time: 05/27/23 0:10 am Transcribed By: RODRI Transcribed Date/Time: 05/27/23 0:09 am Vital Signs Most recent to oldest [Reference Range]: 1 2 3 Height 171 cm (05/27/23 3:02 AM) 171 cm (05/26/23 10:53 PM) 171 cm (05/26/23 7:30 PM) Weight 93 kg (05/27/23 3:02 AM) 93 kg (05/26/23 10:53 PM) Oxygen Saturation [94-100 %] 100 % (05/27/23 5:20 AM) 98 % (05/27/23 4:07 AM) 96 % (05/27/23 1:11 AM) Pulse Rate [55-90 bpm] 63 bpm (05/27/23 5:20 AM) 84 bpm (05/27/23 4:07 AM) 83 bpm (05/27/23 1:11 AM) Blood Pressure [90-138/55-84 mm Hg] 144/89mm Hg *H* (05/27/23 5:20 AM) 136/90mm Hg (05/27/23 4:07 AM) 130/93mm Hg (05/27/23 1:11 AM) Respiratory Rate [16-30 br/min] 18 br/min (05/26/23 7:30 PM) Temperature [96.8-100.4 DegF] 98.5 DegF (05/27/23 5:20 AM) 98.2 DegF (05/27/23 4:07 AM) 98.2 DegF (05/27/23 1:11 AM) Mode of Delivery (Oxygen) Room air (05/27/23 5:20 AM) Room air (05/27/23 4:07 AM) Room air (05/27/23 1:11 AM) Blood pressure sites Arm, right (05/27/23 5:20 AM) Arm, left (05/27/23 4:07 AM) Arm, left (05/27/23 1:11 AM) Temperature Route Oral (05/27/23 5:20 AM) Oral (05/27/23 4:07 AM) Oral (05/27/23 1:11 AM) Dry Weight 93 kg (05/27/23 3:02 AM) 93 kg (05/26/23 10:53 PM) 93 kg (05/26/23 7:30 PM) Dry Weight Obtained Via Patient/family s tated (05/26/23 7:30 PM) Social History Social History Type Response Tobacco Use: 4 or less cigar ettes(less than 1/4 pack)/day in last 30 days. Sex EKG study * Event Display: ECG 12-Lead Authored Date: Please click on pdf link to open report * Event Display: ECG 12-Lead Authored Date: Ventricular Rate: 81 BPM Atrial Rate: 81 BPM P-R Interval: 120 ms QRS Duration: 82 ms Q-T Interval: 414 ms QTC Calculation(Bazett): 480 ms P Hague: 45 degrees R Hague: 25 degrees T Hague: 23 degrees Normal sinus rhythm Possible Left atrial enlargement Prolonged QT Abnormal ECG When compared with ECG of 11-MAY-2023 19:48, No significant change was found Confirmed by SANDRA BURGESS MD ([id number]) on 05/27/2023 8:46:27 AM [place]: SANDRA BURGESS MD Patient Care team information Care Team Personnel Name: Leda Lebron MD Position: [facility] Physician (General Medicine) Member Role: PCP Address: Address: [address] [place] [address] Name: Caron Short RN Position: [facility] RN Member Role: Primary Care Nurse Name: Ashleigh Levy RN Position: [facility] RN Member Role: Primary Care Nurse Name: Jimbo Payne RN Position: [facility] RN Member Role: Primary Care Nurse Name: Vicky Kaur RN Position: [facility] Onco RN Member Role: Primary Care Nurse Name: Flores Gross RN Position: [facility] RN Member Role: Primary Care Nurse Name: Mally Chauhan RN Position: [facility] Hospital Maintenance Manager Member Role: Primary Care Nurse Name: Nedra Garza RN Position: [facility] RN Member Role: Primary Care Nurse Care Team Related Persons Name: ESTELA WRIGHT Address: home [address] [place] [address] Name: FLORES WRIGHT Address: home [address] [place] [address] Name: BEATRIZ WRIGHT Address: home [address] [place] [address] Name: GISSEL, FLORES Address: home [address] [place] [address] Name: YAN CHAUHAN Address: home [address] [place], [place] [id number]
--- OUTSIDE RECORDS SUMMARY | 2023-12-06 14:42 | XMS_ITS | Continuity of Care Document ---
Author Organization [facility] Address [address] [place] [address]- Care Team Providers Care [employer] Combination Teacher Name Role Phone Vi CASTAÑEDA, Leda Gore Primary Care Physician [place] [facility] [place] Date(s): 03/15/23 - 03/16/[address] [address]- Discharge Disposition: A-D/C Home Attending Physician: Sreedhar [...] Refills, Maintenance, 01/10/22 11:29:00 EDT, EC Tablet, [facility] #[id number], Partial fill upon patient request if the [...] 06/08/22 21:22:00 EDT, Route to Pharmacy Electronically, [facility] #[id number], Partial fill upon patient request if the p... Start Date: 06/08/22 Status: Ordered Problem List Condition Confirmation Course Effective Dates Status Health [facility] Informant Chest pain Confirmed Active Hypertension Confirmed Active Hypothyroid Confirmed Active QT prolongation Confirmed Active Results Radiology Reports * Exam Date Time Procedure Performing Provider Status 03/15/23 8:52 PM Chest 2 Views Frontal and Lat Sheree Gutierrez; Antonio (Verified) Notes: (Chest 2 Views Frontal and Lat) Reason For Exam: Chest Pain;Other: RESULT: Chest 2 Views Frontal and Lat Chest 2 Views Frontal and Lat Hx of Present Illness: from home, c o s o chest pain and sob; reports pain felt like pressure rated7 10; Reason: Other:; Chest Pain; Clinical Question(s): Other: COMPARISON: 03/04/2023 FINDINGS: LINES AND TUBES: None. LUNGS AND PLEURA: Low lung volumes with mild basilar atelectasis. Lungs are otherwise clear with no consolidation. No pleural effusion. No pneumothorax. HEART, MEDIASTINUM AND HOLLY: Heart is normal in size. Normal mediastinal and hilar contour. BONES AND SOFT TISSUES: No acute abnormality. IMPRESSION: No acute abnormality. WSN: [id number] Ordering Physician: Jason Lauren Dictated By: Gaetano Stevenson MD Dictated Date/Time: 03/15/23 8:53 pm Reviewed By: Gaetano Stevenson MD Signed By: Gaetano Stevenson MD Signed Date/Time: 03/15/23 8:53 pm Transcribed By: RODRI Transcribed Date/Time: 03/15/23 8:53 pm Vital Signs Most recent to oldest [Reference Range]: 1 2 3 Oxygen Saturation [94-100 %] 98 % (03/16/23 3:52 AM) 99 % (03/16/23 12:45 AM) 98 % (03/15/23 10:48 PM) Pulse Rate [55-90 bpm] 84 bpm (03/16/23 3:52 AM) 80 bpm (03/16/23 12:45 AM) 85 bpm (03/15/23 10:48 PM) Blood Pressure [90-138/55-84 mm Hg] 156/100mm Hg *H* (03/16/23 3:52 AM) 148/98mm Hg *H* (03/16/23 12:45 AM) 167/107mm Hg *H* (03/15/23 10:48 PM) Respiratory Rate [16-30 br/min] 18 br/min (03/16/23 3:52 AM) 18 br/min (03/16/23 12:45 AM) 18 br/min (03/15/23 10:48 PM) Temperature [96.8-100.4 DegF] 98.7 DegF (03/16/23 3:52 AM) 98.6 DegF (03/15/23 8:11 PM) 98.4 DegF (03/15/23 6:36 PM) Liters per Minute 1 L/min (03/15/23 6:36 PM) Mode of Delivery (Oxygen) Room air (03/16/23 3:52 AM) Room air (03/16/23 12:45 AM) Room air (03/15/23 10:48 PM) Blood pressure sites Arm, right (03/16/23 3:52 AM) Arm, right (03/16/23 12:45 AM) Arm, right (03/15/23 10:48 PM) Temperature Route Oral (03/16/23 3:52 AM) Oral (03/15/23 8:11 PM) Oral (03/15/23 6:36 PM) Social History Social History Type Response Tobacco Use: 4 or less cigar ettes(less than 1/4 pack)/day in last 30 days. Sex EKG study * Event Display: ECG 12-Lead Authored Date: Please click on pdf link to open report * Event Display: ECG 12-Lead Authored Date: Ventricular Rate: 85 BPM Atrial Rate: 85 BPM P-R Interval: 130 ms QRS Duration: 76 ms Q-T Interval: 398 ms QTC Calculation(Bazett): 473 ms P Hickman: 58 degrees R Hickman: 29 degrees T Hickman: 28 degrees Normal sinus rhythm Normal ECG When compared with ECG of 05-MAR-2023 18:27, Premature ventricular complexes are no longer Present Confirmed by JIMBO RODRIGUEZ ([id number]) on 03/16/2023 8:04:55 AM [place]: JIMBO RODRIGUEZ Note * Jason Lauren DO: PERFORM, SIGN, VERIFY Event Display: Patient Education Handout Authored Date: [id number] * Jason Lauren DO: PERFORM Event Display: Patient Education Leaflets Authored Date: [id number] Uncertain Causes of Chest Pain ?? [id number] Uncertain Causes of Chest Pain Chest pain [...] leg ?? Last Reviewed Date: 2021 ?? 1951-1748 dscovered. All rights reserved. This information is not intended as a substitute for professional medical care. Always follow your healthcare professional's instructions. ?? Patient Care team information Care Team Personnel Name: Leda Lebron MD Position: [facility] Physician (General Medicine) Member Role: PCP Address: Address: [address] [place] [address] Name: Caron Short RN Position: [facility] RN Member Role: Primary Care Nurse Name: Ashleigh Levy RN Position: [facility] RN Member Role: Primary Care Nurse Name: Jimbo Payne RN Position: [facility] RN Member Role: Primary Care Nurse Name: Vicky Kaur RN Position: [facility] Onco RN Member Role: Primary Care Nurse Name: Flores Gross RN Position: [facility] RN Member Role: Primary Care Nurse Name: Mally Chauhan RN Position: [facility] [place] Member Role: Primary Care Nurse Name: Nedra Garza RN Position: [facility] RN Member Role: Primary Care Nurse [facility] Attending Position: [facility] ED Attendings Patient Name: Maribel Danielson RN Position: [facility] ED RN W/OE and Tasks Member Role: Patient Care Provider Name: Josiah CASTAÑEDA, Sreedhar Boudreaux Position: [facility] ED Medicine MD Member Role: ED Attending Physician Address: Address: [address] [place] [address]- Care Team Related Persons Name: ESTELA WRIGHT Address: [place] [address] Name: FLORES WRIGHT Address: [place] [address] Name: BEATRIZ WRIGHT Address: home [address] [place], [place] [id number] Name: FLORES CHAUHAN Address: home [address] [place] [id number] Name: YAN CHAUHAN Address: [place] [address]
--- OUTSIDE RECORDS SUMMARY | 2023-12-06 14:43 | XMS_ITS | Continuity of Care Document ---
Author Organization [facility] Address [address] [place] [address]- Care Team Providers Care Cardio Clinician Name Role Phone Vi CASTAÑEDA, Leda Gore Primary Care Physician [phone] Encounter [facility] [place](s): 06/29/21 - 06/30/[address] [address]- Discharge Disposition: A-D/C Walkout Attending Physician: Not [...] Exam Date Time Procedure Performing Provider Status 06/29/21 8:59 PM Chest 2 Views Frontal and Lat TadeoGisselle reed i; Auth (Verified) Notes: (Chest 2 Views Frontal and Lat) Reason For Exam: Chest Pain;Other: RESULT: Chest 2 Views Frontal and Lat Chest 2 Views Frontal and Lat Hx of Present Illness: pt reportes chest pressure and SOB x2-3 months; Reason: Other:; Chest Pain; Clinical Question(s): Other: COMPARISON: 06/24/2021 FINDINGS: LINES AND TUBES: None. LUNGS AND PLEURA: Clear lungs. Normal pulmonary vascularity. No pleural effusion. No pneumothorax. HEART, MEDIASTINUM AND HOLLY: Heart is normal in size. Normal upper mediastinal and hilar contour. BONES AND SOFT TISSUES: No acute abnormality. IMPRESSION: No acute abnormality. WSN: [id number] Ordering Physician: Augustina Fry Dictated By: Gaetano Stevenson MD Dictated Date/Time: 06/29/21 9:02 pm Reviewed By: Gaetano Stevenson MD Signed By: Gaetano Stevenson MD Signed Date/Time: 06/29/21 9:02 pm Transcribed By: RODRI Transcribed Date/Time: 06/29/21 9:02 pm Vital Signs Most recent to oldest [Reference Range]: 1 2 3 Oxygen Saturation [94-100 %] 97 % (06/29/21 9:05 PM) 95 % (06/29/21 7:33 PM) 99 % (06/29/21 7:18 PM) Pulse Rate [55-90 bpm] 104 bpm *H* (06/29/21 9:05 PM) 97 bpm *H* (06/29/21 7:33 PM) Blood Pressure [90-138/55-84 mm Hg] 129/79mm Hg (06/29/21 7:33 PM) Respiratory Rate [16-30 br/min] 14 br/min *L* (06/29/21 7:33 PM) Temperature [96.8-100.4 DegF] 97.9 DegF (06/29/21 7:33 PM) Liters per Minute 2 L/min (06/29/21 7:18 PM) Mode of Delivery (Oxygen) Room air (06/29/21 9:05 PM) Room air (06/29/21 7:33 PM) Nasal cannula (06/29/21 7:18 PM) Blood pressure sites Arm, left (06/29/21 7:33 PM) Temperature Route Oral (06/29/21 7:33 PM) Social History Social History Type Response Smoking Status 10 or more cigarette s (1/2 pack or more)/day in last 30 days entered on: 05/24/21 Sex
--- OUTSIDE RECORDS SUMMARY | 2023-12-06 14:43 | XMS_ITS | Continuity of Care Document ---
Author Organization [facility] Address [address] [place] [address]- Care Team Providers Care Safety Professional Name Role Phone Vi CASTAÑEDA, Leda Gore Primary Care Physician Encounter [facility] [place] Date(s): 05/11/21 - 05/12/[address] [address]- Discharge Disposition: A-D/C Walkout Attending Physician: Not [...] Exam Date Time Procedure Performing Provider Status 05/11/21 9:21 PM Chest Portable Sheree Gutierrez; Antonio ( Verified) Notes: (Chest Portable) Reason For Exam: Chest Pain;Other: RESULT: Chest Portable Chest Portable INDICATION: SOB, nauseous without vomiting, dizzy, light headed and has diffuse CP. She reports a similar episode x1 week ago where she came to the ED but left without being seen. She ran out of her ativan that she takes daily x2. COMPARISON: Multiple priors, most recent 05/08/2021. FINDINGS: LINES AND TUBES: None. LUNGS AND PLEURA: Low lung volumes. Hazy opacity throughout the right lung is likely artifactual due to overlying soft tissue. Otherwise clear lungs. Normal pulmonary vascularity. No pleural effusion. No pneumothorax. HEART, MEDIASTINUM AND HOLLY: Heart is normal in size. Normal upper mediastinal and hilar contour. BONES AND SOFT TISSUES: No acute abnormality. IMPRESSION: No acute abnormality. I have personally reviewed the images and I agree with this report. WSN: [id number] Ordering Physician: Wilfredo Hollis Dictated By: Abby West DO Dictated Date/Time: 05/11/21 9:35 pm Reviewed By: Piero Youssef MD Signed By: Piero Youssef MD Signed Date/Time: 05/11/21 9:40 pm Transcribed By: RODRI Transcribed Date/Time: 05/11/21 9:23 pm Vital Signs Most recent to oldest [Reference Range]: 1 Oxygen Saturation [94-100 %] 98 % (05/11/21 8:29 PM) Pulse Rate [55-90 bpm] 100 bpm *H* (05/11/21 8:29 PM) Blood Pressure [90-138/55-84 mm Hg] 152/ 90mm Hg *H* (05/11/21 8:29 PM) Respiratory Rate [16-30 br/min] 20 br/mi n (05/11/21 8:29 PM) Temperature [96.8-100.4 DegF] 98.4 DegF (05/11/21 8:29 PM) Mode of Delivery (Oxygen) Room air (05/11/21 8:29 PM) Blood pressure sites Arm, left (05/11/21 8:29 PM) Temperature Route Oral (05/11/21 8:29 PM) Weight Obtained Via UTO (05/11/21 9:04 PM) Dry Weight Obtained Via UTO (05/11/21 9:04 PM) Social History Social History Type Response Smoking Status Never smoker entered on: 12/04/16 Sex
--- OUTSIDE RECORDS SUMMARY | 2023-12-06 14:43 | XMS_ITS | Continuity of Care Document ---
Author Organization [facility] Address [address] [place] [address]- Care Team Providers Care Edi Developer Name Role Phone Vi CASTAÑEDA, Leda Gore Primary Care Physician [phone] Encounter [facility] [place] Date(s): 02/03/22 - 02/03/[address] [address]- Discharge Disposition: A-D/C Walkout Attending Physician: Not [...] Refills, Maintenance, 01/10/22 11:29:00 EDT, EC Tablet, [facility] #[id number], Partial fill upon patient request if the [...] Obese class I(Confirmed) Active QT prolongation(Confirmed) Active Vital Signs Most recent to oldest [Reference Range]: 1 2 Oxygen Saturation [94-100 %] 98 % (02/03/22 4:34 PM) 99 % (02/03/22 4:09 PM) Pulse Rate [55-90 bpm] 102 bpm *H* (02/03/22 4:34 PM) 102 bpm *H* (02/03/22 4:09 PM) Blood Pressure [90-138/55-84 mm Hg] 157/ 110mm Hg *H* (02/03/22 4:34 PM) 157/87mm Hg *H* (02/03/22 4:09 PM) Respiratory Rate [16-30 br/min] 18 br/mi n (02/03/22 4:34 PM) 18 br/min (02/03/22 4:09 PM) Temperature [96.8-100.4 DegF] 97.7 DegF (02/03/22 4:34 PM) 98.5 DegF (02/03/22 4:09 PM) Mode of Delivery (Oxygen) Room air (02/03/22 4:34 PM) Room air (02/03/22 4:09 PM) Blood pressure sites Arm, left (02/03/22 4:34 PM) Arm, left (02/03/22 4:09 PM) Temperature Route Oral (02/03/22 4:34 PM) Oral (02/03/22 4:09 PM) Social History Social History Type Response Smoking Status 10 or more cigarette s (1/2 pack or more)/day in last 30 days entered on: 05/24/21 Sex
--- OUTSIDE RECORDS SUMMARY | 2023-12-06 14:43 | XMS_ITS | Continuity of Care Document ---
Author Organization [facility] ter Address [address] [place] [address]- Care Team Providers Care Outside Upholsterer Name Role Phone Vi CASTAÑEDA, Leda Gore Primary Care Physician [place] [facility] [place] Date(s): 05/20/22 - 05/21/[address] [address]- Discharge Disposition: A-D/C Walkout Attending Physician: Not [...] Refills, Maintenance, 01/10/22 11:29:00 EDT, EC Tablet, [facility] #[id number], Partial fill upon patient request if the [...] Exam Date Time Procedure Performing Provider Status 05/20/22 11:42 PM Chest 2 Views Frontal and Lat Tino London; Auth (Verified) Notes: (Chest 2 Views Frontal and Lat) Reason For Exam: Shortness of Breath RESULT: Chest 2 Views Frontal and Lat Chest 2 Views Frontal and Lat Hx of Present Illness: patient with positive covid test on 05 17 presents today w sob and left ant chest pain.; Reason: Shortness of Breath; Clinical Question(s): Pneumonia COMPARISON: CXR 2022, 02/14/2022. FINDINGS: LINES AND TUBES: None. LUNGS AND PLEURA: Chronically elevated left hemidiaphragm. Clear lungs. Normal pulmonary vascularity. No pleural effusion. No pneumothorax. HEART, MEDIASTINUM AND HOLLY: Heart is normal in size. Normal mediastinal and hilar contour. BONES AND SOFT TISSUES: No acute abnormality. IMPRESSION: No acute abnormality. I have personally reviewed the images and I agree with this report. WSN: [id number] Ordering Physician: Enrique Santos Dictated By: James Jordan MD Dictated Date/Time: 05/20/22 11:50 p Reviewed By: Piero Youssef MD Signed By: Piero Youssef MD Signed Date/Time: 05/20/22 11:55 pm Transcribed By: RODRI Transcribed Date/Time: 05/20/22 11:49 pm Vital Signs Most recent to oldest [Reference Range]: 1 Oxygen Saturation [94-100 %] 98 % (05/20/22 8:21 PM) Pulse Rate [55-90 bpm] 96 bpm *H* (05/20/22 8:21 PM) Blood Pressure [90-138/55-84 mm Hg] 148/ 90mm Hg *H* (05/20/22 8:21 PM) Respiratory Rate [16-30 br/min] 18 br/mi n (05/20/22 8:21 PM) Temperature [96.8-100.4 DegF] 97.8 DegF (05/20/22 8:21 PM) Mode of Delivery (Oxygen) Room air (05/20/22 8:21 PM) Blood pressure sites Arm, right (05/20/22 8:21 PM) Temperature Route Oral (05/20/22 8:21 PM) Social History Social History Type Response Smoking Status 10 or more cigarette s (1/2 pack or more)/day in last 30 days entered on: 05/24/21 Sex Note * BHSPowerscribe , CIS S: TRANSCRIBE Piero Youssef MD: VERIFY James Jordan MD: SIGN Event Display: Result: Authored Date: [id number] Chest 2 Views Frontal and Lat Hx of Present Illness: patient with positive covid test on 05 17 presents today w sob and left ant chest pain.; Reason: Shortness of Breath; Clinical Question(s): Pneumonia COMPARISON: CXR 2022, 02/14/2022. FINDINGS: LINES AND TUBES: None. LUNGS AND PLEURA: Chronically elevated left hemidiaphragm. Clear lungs. Normal pulmonary vascularity. No pleural effusion. No pneumothorax. HEART, MEDIASTINUM AND HOLLY: Heart is normal in size. Normal mediastinal and hilar contour. BONES AND SOFT TISSUES: No acute abnormality. IMPRESSION: No acute abnormality. I have personally reviewed the images and I agree with this report. WSN: [id number] Ordering Physician: Enrique Santos Dictated By: James Jordan MD Dictated Date/Time: 05/20/22 11:50 p Reviewed By: Piero Youssef MD Signed By: Piero Youssef MD Signed Date/Time: 05/20/22 11:55 pm Transcribed By: RODRI Transcribed Date/Time: 05/20/22 11:49 pm Patient Care team information Personnel Name: Vi CASTAÑEDA, Leda Gore Address: Address: [address] [place] [address]
--- OUTSIDE RECORDS SUMMARY | 2023-12-06 14:43 | XMS_ITS | Continuity of Care Document ---
Author Organization [facility] ter Address [address] [place] [address]- Care Team Providers Care Photoengraving Etcher Name Role Phone Vi CASTAÑEDA, Leda Gore Primary Care Physician Encounter [facility] [place] Date(s): 05/25/22 - 05/25/[address] [address]- Discharge Disposition: A-D/C Walkout Attending Physician: Not [...] Refills, Maintenance, 01/10/22 11:29:00 EDT, EC Tablet, [facility] #[id number], Partial fill upon patient request if the [...] 2 Oxygen Saturation [94-100 %] 98 % (05/25/22 5:58 PM) Pulse Rate [55-90 bpm] 111 bpm *H* (05/25/22 5:58 PM) Blood Pressure [90-138/55-84 mm Hg] 143/ 109mm Hg *H* (05/25/22 5:58 PM) Respiratory Rate [16-30 br/min] 18 br/mi n (05/25/22 5:58 PM) Temperature [96.8-100.4 DegF] 99.1 DegF (05/25/22 5:58 PM) Liters per Minute 2 L/min (05/25/22 5:52 PM) Mode of Delivery (Oxygen) Room air (05/25/22 5:58 PM) Nasal cannula (05/25/22 5:52 PM) Blood pressure sites Arm, left (05/25/22 5:58 PM) Temperature Route Oral (05/25/22 5:58 PM) Social History Social History Type Response Smoking Status 10 or more cigarette s (1/2 pack or more)/day in last 30 days entered on: 05/24/21 Sex Patient Care team information Personnel Name: Vi CASTAÑEDA, Leda Gore Address: Address: [address] [place] [id number]
--- OUTSIDE RECORDS SUMMARY | 2023-12-06 14:43 | XMS_ITS | Continuity of Care Document ---
Author Organization [facility] ter Address [address] [place] [address]- Care Team Providers Care Statistics Intern Name Role Phone Vi CASTAÑEDA, Leda Gore Primary Care Physician [phone] [place] [facility] [place] 08/21/21 - 08/22/[address] [address] Discharge Disposition: A-Transfer VNA/Home Health Attending Physician: Jonn Tobar MD Admitting Physician: Rosalinda CASTAÑEDA, Bert Alvares Referring Physician: Not on Staff, Referring MD [...] Patient Refuses 1Early/Late Reason: Nursing Judgment Medications Acetaminophen Tablet 650 mg, Tablet, By Mouth, Every 4 hours, PRN for Pain , Mild, Temperature Greater than 100.5, Routine, 08/19/21 23:17:00 EST Start Date: 08/19/21 Stop Date: 08/23/21 Status: Discontinued albuterol CFC free 90 mcg/inh inhalation aerosol 1 puffs, Inhalation, Every 6 hours, PRN for wheezing, # 6 Gm, 0 Refills, Maintenance, Inhaler, 1 puffs Inhalation Every 6 hours,PRN:for wheezing Start Date: 07/18/13 Status: Ordered amLODIPine 5 mg oral tablet 5 mg, Tablet, By Mouth, 08/22/21 9:00:00 EST Start Date: 08/22/21 Stop Date: 08/22/21 Status: Completed amLODIPine 5 mg oral tablet [...] opioid drug. Start Date: 05/23/21 Status: Ordered levoFLOXacin 500 mg oral tablet 1 tablet = 500 mg, By Mouth, Every 24 hours, for 2 days, # 2 tablet, 0 Refills, Acute 08/24/21 16:09:00 EST, 08/22/21 16:09:00 EST, Tablet, [facility] #[id number], Partial fill upon patient request if the prescription is for a schedule II opioid... Start Date: 08/22/21 Stop Date: 08/24/21 Status: Ordered levothyroxine 0.1 mg oral tablet 1 tablet = 100 mcg, By Mouth, Daily, this is a dose reduction from previous dose of levothyroxine 0.112 mg, # 30 tablet, 1 Refills, Maintenance, 08/22/21 16:30:00 EST, Tablet, [facility] #[id number], Partial fill upon patient request if the [...] Exam Date Time Procedure Performing Provider Status 08/19/21 3:30 PM Chest 2 Views Frontal and Lat Bein , D north; Auth (Verified) Notes: (Chest 2 Views Frontal and Lat) Reason For Exam: Chest Pain;Other: RESULT: Chest 2 Views Frontal and Lat Examination: Chest performed on 08/19/2021. History: Chest pain and shortness of breath. Findings: Frontal and lateral views of the chest are compared to a prior study dated 07/07/2021. The cardiac and mediastinal silhouettes are within normal limits. The lungs are clear. There is stable elevation of the left hemidiaphragm. The osseous and soft tissue structures are unremarkable. Impression: There is no acute cardiopulmonary disease. WSN: [id number] Ordering Physician: Zelalem Mcclain Dictated By: Tiffany Lyles MD Dictated Date/Time: 08/19/21 3:33 pm Reviewed By: Tiffany Lyles MD Signed By: Tiffany Lyles MD Signed Date/Time: 08/19/21 3:33 pm Transcribed By: RDORI Transcribed Date/Time: 08/19/21 3:32 pm Vital Signs Most recent to oldest [Reference Range]: 1 2 3 Height 168 cm (08/22/21 6:32 AM) 168 cm (08/21/21 10:30 PM) 168 cm (08/21/21 9:40 PM) Weight 115.9 kg (08/20/21 6:30 AM) 90 kg (08/20/21 3:54 AM) 90 kg (08/19/21 11:57 PM) Oxygen Saturation [94-100 %] 100 % (08/22/21 4:00 PM) 100 % (08/22/21 11:00 AM) 93 % *L* (08/22/21 6:32 AM) Pulse Rate [55-90 bpm] 91 bpm *H* (08/22/21 4:00 PM) 90 bpm (08/22/21 11:00 AM) 92 bpm *H* (08/22/21 6:32 AM) Body Mass Index [18.5-24.99] 41.06 *>HHI* (08/20/21 6:30 AM) 31.89 *>HHI* (08/20/21 3:54 AM) 31.89 *>HHI* (08/19/21 11:57 PM) Blood Pressure [90-138/55-84 mm Hg] 138/83mm Hg (08/22/21 4:00 PM) 141/80mm Hg *H* (08/22/21 11:00 AM) 126/78mm Hg (08/22/21 9:55 AM) Respiratory Rate [16-30 br/min] 18 br/min (08/22/21 4:00 PM) 18 br/min (08/22/21 11:00 AM) 18 br/min (08/22/21 11:00 AM) Temperature [96.8-100.4 DegF] 98.5 DegF (08/22/21 4:00 PM) 97.8 DegF (08/22/21 11:00 AM) 97.7 DegF (08/22/21 6:32 AM) Liters per Minute 0 L/min (08/19/21 12:53 PM) Mode of Delivery (Oxygen) Room air (08/22/21 4:00 PM) Room air (08/22/21 11:00 AM) Room air (08/21/21 10:30 PM) Blood pressure sites Arm, right (08/22/21 4:00 PM) Arm, right (08/22/21 11:00 AM) Arm, right (08/22/21 6:32 AM) Temperature Route Oral (08/22/21 4:00 PM) Oral (08/22/21 11:00 AM) Oral (08/22/21 6:32 AM) Dry Weight 116 kg (08/20/21 6:30 AM) 90 kg (08/20/21 3:54 AM) 90 kg (08/19/21 11:57 PM) Weight Obtained Via Bed scale (08/20/21 6:30 AM) Dry Weight Obtained Via Patient/family s tated (08/20/21 6:30 AM) Social History Social History Type Response Smoking Status 10 or more cigarette s (1/2 pack or more)/day in last 30 days entered on: 05/24/21 Sex
--- OUTSIDE RECORDS SUMMARY | 2023-12-06 14:43 | XMS_ITS | Continuity of Care Document ---
Author Organization [facility] [place] Address [address] [facility] [place] [address]- Care Team Providers Care Certified Surgical Technologist Name Role Phone Vi CASTAÑEDA, Leda Gore Primary Care Physician [phone] Encounter 02/22/20 - 02/29/20 [facility] [address] [place] [address]- [phone] Attending Physician: Leda Lebron MD Admitting Physician: [...] Status Health Status Inform ant Hypothyroid(Confirmed) Active Social History Social History Type Response Smoking Status Never smoker entered on: 12/04/16 Sex
--- OUTSIDE RECORDS SUMMARY | 2023-12-06 14:43 | XMS_ITS | Continuity of Care Document ---
Author Organization [facility] ter Address [address] [place] [address]- Care Team Providers Care Drying Room Supervisor Name Role Phone Vi CASTAÑEDA, Leda Gore Primary Care Physician Encounter [facility] [place] Date(s): 02/22/22 - 02/23/[address] [address]- Discharge Disposition: A-D/C Home Attending Physician: Jason Lauren DO Admitting Physician: [...] Refills, Maintenance, 01/10/22 11:29:00 EDT, EC Tablet, [id number], Partial fill upon patient request if the [...] Exam Date Time Procedure Performing Provider Status 02/22/22 11:40 PM Chest 2 Views Frontal and Lat Vasquez [place]; Auth (Verified) Notes: (Chest 2 Views Frontal and Lat) Reason For Exam: Chest Pain;Other: RESULT: Chest 2 Views Frontal and Lat Chest 2 Views Frontal and Lat Hx of Present Illness: SOB x 30 min; Reason: Other:; Chest Pain; Clinical Question(s): Other: COMPARISON: 02/14/2022. FINDINGS: LINES AND TUBES: None. LUNGS AND PLEURA: Unchanged mild elevation of the left hemidiaphragm. Clear lungs. Normal pulmonary vascularity. No pleural effusion. No pneumothorax. HEART, MEDIASTINUM AND HOLLY: Heart is normal in size. Normal upper mediastinal and hilar contour. BONES AND SOFT TISSUES: No acute abnormality. IMPRESSION: No acute abnormality. WSN: [id number] Ordering Physician: Anny Mendoza Dictated By: Ankur Aburto MD Dictated Date/Time: 02/22/22 11:44 p Reviewed By: Ankur Aburto MD Signed By: Ankur Aburto MD Signed Date/Time: 02/22/22 11:44 pm Transcribed By: RODRI Transcribed Date/Time: 02/22/22 11:43 pm Vital Signs Most recent to oldest [Reference Range]: 1 2 3 Height 169 cm (02/22/22 10:06 PM) 169 cm (02/22/22 9:53 PM) Weight 93 kg (02/22/22 10:06 PM) 93 kg (02/22/22 9:53 PM) Oxygen Saturation [94-100 %] 99 % (02/23/22 6:00 AM) 98 % (02/23/22 2:21 AM) 93 % *L* (02/23/22 12:22 AM) Pulse Rate [55-90 bpm] 87 bpm (02/23/22 6:00 AM) 106 bpm *H* (02/23/22 2:21 AM) 94 bpm *H* (02/23/22 12:22 AM) Body Mass Index [18.5-24.99] 32.56 *>HHI* (02/22/22 9:53 PM) Blood Pressure [90-138/55-84 mm Hg] 164/93mm Hg *H* (02/23/22 6:00 AM) 149/95mm Hg *H* (02/23/22 2:21 AM) 151/100mm Hg *H* (02/23/22 12:22 AM) Respiratory Rate [16-30 br/min] 18 br/min (02/22/22 9:53 PM) Temperature [96.8-100.4 DegF] 97.1 DegF (02/23/22 2:21 AM) 98.3 DegF (02/23/22 12:22 AM) 98.0 DegF (02/22/22 9:53 PM) Mode of Delivery (Oxygen) Room air (02/22/22 9:53 PM) Blood pressure sites Arm, right (02/23/22 2:21 AM) Arm, right (02/23/22 12:22 AM) Arm, right (02/22/22 9:53 PM) Temperature Route Oral (02/23/22 2:21 AM) Oral (02/23/22 12:22 AM) Oral (02/22/22 9:53 PM) Dry Weight 93 kg (02/22/22 10:06 PM) 93 kg (02/22/22 9:53 PM) Weight Obtained Via Patient/family state d (02/22/22 9:53 PM) Dry Weight Obtained Via Patient/family s tated (02/22/22 9:53 PM) Social History Social History Type Response Smoking Status 10 or more cigarette s (1/2 pack or more)/day in last 30 days entered on: 05/24/21 Sex
--- OUTSIDE RECORDS SUMMARY | 2023-12-06 14:43 | XMS_ITS | Continuity of Care Document ---
Author Organization [facility] Address [address] [facility] [place] [address]- Care Team Providers Care Wind Turbine Blade Repair Technician Name Role Phone Not on Staff, PCP Primary Care Physician Unavail able Encounter 03/18/23 - 03/25/23 [facility] [address] [facility], [address] [place] [address]- Attending Physician: Not on Staff, PCP Admitting Physician: Vi CASTAÑEDA, Leda Gore Referring Physician: Not on Staff, PCP Allergies, Adverse Reactions, Alerts Substance Reaction Severity [...] Refills, Maintenance, 01/10/22 11:29:00 EDT, EC Tablet, [facility] #[id number], Partial fill upon patient request if the [...] 06/08/22 21:22:00 EDT, Route to Pharmacy Electronically, [facility] #[id number], Partial fill upon patient request if the p... Start Date: 06/08/22 Status: Ordered Problem List Condition Confirmation Course Effective Dates Status Health St [facility] Informant Chest pain Confirmed Active Hypertension Confirmed Active Hypothyroid Confirmed Active QT prolongation Confirmed Active Results Radiology Reports * Exam Date Time Procedure Performing Provider Status 03/18/23 2:50 PM MM Digital Mammo Screening Eleanor Andrews ; Modified Notes: (MM Digital Mammo Screening) Reason For Exam: Z12.31 SCREENING Addendum ADDENDUM: THE CORRECT ORDERING DOCTOR IS CHARLES MICHAEL MD. A COPY OF THIS REPORT WILL BE FAXED TO THE OFFICE. PRELIMINARY REPORT Transcribed By: KB Fleet Maintenance Manager Date/Time: 03/24/23 11:52 am RESULT: MM Digital Mammo Screening PROCEDURE: MM Digital Mammo Screening INDICATION: Screening for breast cancer. No known palpable abnormalities. COMPARISON: Prior mammograms most recently dated 03/17/2022. TECHNIQUE: Full-field digital CC and MLO 3D tomosynthesis images of both breasts were acquired. Computer-aided detection (CAD) was utilized in the interpretation of this study. DENSITY: The breast tissue contains scattered areas of fibroglandular density. FINDINGS: No suspicious masses, suspicious microcalcifications, or areas of architectural distortion are seen in either breast to suggest malignancy. IMPRESSION: No mammographic evidence of malignancy. RECOMMENDATION: Annual mammographic screening BI-RADS: 1 (Negative) Lay letter mailed to patient WSN: [id number] Ordering Physician: Leda Lebron MD Dictated By: Anna Valles MD Dictated Date/Time: 03/18/23 2:56 pm Reviewed By: Anna Valles MD Signed By: Anna Valles MD Signed Date/Time: 03/18/23 2:56 pm Transcribed By: RODRI Fleet Maintenance Manager Date/Time: 03/18/23 2:53 pm Birads: Social History Social History Type Response Tobacco Use: 4 or less cigar ettes(less than 1/4 pack)/day in last 30 days. Sex Patient Care team information Care Team Personnel Name: Caron Short RN Position: [facility] RN Member Role: Primary Care Nurse Name: Not on Staff, PCP Position: [facility] Physician (General Medicine) Member Role: PCP Name: Ashleigh Levy RN Position: [facility] RN Member Role: Primary Care Nurse Name: Jimbo Payne RN Position: [facility] RN Member Role: Primary Care Nurse Name: Vicky Kaur RN Position: [facility] Onco RN Member Role: Primary Care Nurse Name: Flores Gross RN Position: [facility] RN Member Role: Primary Care Nurse Name: Mally Chauhan RN Position: [facility] Hospital Msw Member Role: Primary Care Nurse Name: Nedra Garza RN Position: [facility] RN Member Role: Primary Care Nurse Care Team Related Persons Name: ESTELA WRIGHT Address: [address] [address] Name: FLORES WRIGHT Address: home [address] [place] [address] Name: BEATRIZ WRIGHT Address: home [address] [place] [address] Name: FLORES CHAUHAN Address: home [address] [place] [address] Name: YAN CHAUHAN Address: home [address] [place] [address]
--- OUTSIDE RECORDS SUMMARY | 2023-12-06 14:43 | XMS_ITS | Continuity of Care Document ---
Author Organization [facility] ter Address [address] [place] [address]- Care Team Providers Care Fugitive Investigator Name Role Phone Vi CASTAÑEDA, Leda Gore Primary Care Physician [phone] Encounter [facility] [place] Date(s): 07/21/22 - 07/22/[address] [address]- Encounter Diagnosis Mild shortness of breath(Final) - 07/22/22 Discharge Disposition: A-D/C Home Attending Physician: Wilfredo Lee DO Admitting Physician: Wilfredo Lee DO Referring Physician: Not on Staff, Referring [...] Refills, Maintenance, 01/10/22 11:29:00 EDT, EC Tablet, [facility] #[id number], Partial fill upon patient request if the [...] 06/08/22 21:22:00 EDT, Route to Pharmacy Electronically, [facility] #[id number], Partial fill upon patient request if the p... Start Date: 06/08/22 Status: Ordered Problem List Condition Confirmation Course Effective Dates Status Health St [facility] Informant Chest pain Confirmed Active Hypertension Confirmed Active Hypothyroid Confirmed Active Obese class II Confirmed Active QT prolongation Confirmed Active Results Radiology Reports * Exam Date Time Procedure Performing Provider Status 07/21/22 8:37 PM Chest 2 Views Frontal and Lat Ralph Sanchez; Auth (Verified) Notes: (Chest 2 Views Frontal and Lat) Reason For Exam: Chest Pain;Other: RESULT: Chest 2 Views Frontal and Lat PA and lateral chest dated July 21, 2022. Comparison films are from July 07, 2022. HISTORY: Chest pain. FINDINGS: The cardiac silhouette is within normal limits for size. Hilar and mediastinal structuresare unremarkable. Some prominent peribronchial thickening is once again demonstrated. No airspace consolidation or pleural effusion is noted. Elevation of left mid diaphragm is stable. Degenerative changes are noted in the spine. IMPRESSION: No evidence of acute pulmonary disease and no significant interval change. Examination [address]. Thank you for allowing me to participate in the care of this patient. WSN: [id number] Ordering Physician: Jany Fitzgerald Dictated By: Juan Robertson MD Dictated Date/Time: 07/21/22 8:46 pm Reviewed By: Juan Robertson MD Signed By: Juan Robertson MD Signed Date/Time: 07/21/22 8:46 pm Transcribed By: RODRI Transcribed Date/Time: 07/21/22 8:46 pm Vital Signs Most recent to oldest [Reference Range]: 1 2 3 Oxygen Saturation [94-100 %] 97 % (07/22/22 11:03 AM) 97 % (07/22/22 8:29 AM) 96 % (07/22/22 7:51 AM) Pulse Rate [55-90 bpm] 88 bpm (07/22/22 11:03 AM) 69 bpm (07/22/22 8:29 AM) 69 bpm (07/22/22 7:51 AM) Blood Pressure [90-138/55-84 mm Hg] 143/89mm Hg *H* (07/22/22 11:03 AM) 123/79mm Hg (07/22/22 8:29 AM) 123/79mm Hg (07/22/22 7:51 AM) Respiratory Rate [16-30 br/min] 16 br/min (07/22/22 11:03 AM) 20 br/min (07/21/22 7:34 PM) Temperature [96.8-100.4 DegF] 97.6 DegF (07/22/22 8:29 AM) 97.6 DegF (07/22/22 7:51 AM) 98.2 DegF (07/22/22 6:03 AM) Mode of Delivery (Oxygen) Room air (07/22/22 11:03 AM) Room air (07/22/22 8:29 AM) Room air (07/22/22 7:51 AM) Blood pressure sites Arm, left (07/22/22 11:03 AM) Arm, right (07/22/22 8:29 AM) Arm, right (07/22/22 7:51 AM) Temperature Route Oral (07/22/22 8:29 AM) Oral (07/22/22 7:51 AM) Oral (07/22/22 6:03 AM) Social History Social History Type Response Tobacco Use: 4 or less cigar ettes(less than 1/4 pack)/day in last 30 days. Sex EKG study * Event Display: EKG Authored Date: [id number] Note * Randi CASTAÑEDA, Christofer Argueta: PERFORM Event Display: Patient Education Leaflets Authored Date: [id number] Asthma (Adult) ?? [id number] Asthma (Adult) Asthma is a disease where the medium and??small air passages in the lung go into spasm and restrictair flow. Inflammation and swelling of the airways cause further blockage. During an acute asthma attack, these factors cause trouble breathing, wheezing, cough, and chest tightness. An asthma attack can be triggered by many things. Common triggers include infections such as the common cold, bronchitis, and pneumonia. Irritants such as smoke or pollutants in the air, very cold air, emotional upset, and exercise can also trigger an attack. In??many adults with asthma, allergies to??dust, mold, pollen, and animal dander can cause an asthma attack. Skipping doses of daily asthmamedicine can also bring on an asthma attack. Asthma can be controlled using the??correct medicines prescribed by your healthcare provider and staying away from known triggers including allergens and irritants. Home care ??? Take prescribed medicine exactly at the times advised. If you need medicine such as from a handheld inhaler or aerosol breathing machine more than every 4 hours, contact your healthcareprovider or get medical care right away. If you are prescribed an antibiotic or prednisone, take all of the medicine as prescribed. Keep taking it even if you are feeling better after a few days. ??? Don't smoke. Stay away from the smoke of others. ??? Some people with asthma find their symptoms get worse when they take aspirin and non-steroidal or fever- reducing medicines such as ibuprofen and naproxen. Talk with your healthcare provider if you think this may apply to you. ?? Follow-up care Follow up with your healthcare provider, or as advised. Always bring all of your current medicines to any appointments with your healthcare provider. Also bring a complete list of medicines, even??those not taken for asthma. If you don't already have one, talk with your healthcare provider about making your own Asthma Action Plan. A pneumonia (pneumococcal)??vaccine and yearly flu shot (every fall) are advised. Ask your providerabout this. ?? When to get medical advice Call your healthcare provider or get medical care right away if any of these occur:? More wheezing or shortness of breath ??? Need to use your inhalers more often than normal without relief ??? Fever of 100.4??F (38??C) or higher, or as directed by your provider ??? Coughing up lots of dark-colored or bloody sputum (mucus) ??? Chest pain with each breath ??? If you use a peak flow meter as part of an Asthma Action Plan, and you are still in the yellow zone (50% to 80%) 15 minutes after using inhaler medicine. ?? Call 911 Call 911 if any of these occur: ??? Trouble walking or talking because you are short of breath ??? If you use a peak flow meter as part of an Asthma Action Plan, and??you are still in the red zone (less than 50%) 15 minutes after using inhaler medicine ??? Lips or fingernails turn zarate, purple, or blue ??? Feeling faint or loss of consciousness ?? Last Reviewed Date: 2019 ?? 2136-1217 The [employer]. All rights reserved. This information is not intended as a substitute for professional medical care. Always follow your healthcare professional's instructions. ?? * BHSPowerscribe , CIS S: TRANSCRIBE Juan Robertson MD: VERIFY Event Display: Result: Authored Date: [id number] PA and lateral chest dated July 21, 2022. Comparison films are from July 07, 2022. HISTORY: Chest pain. FINDINGS: The cardiac silhouette is within normal limits for size. Hilar and mediastinal structuresare unremarkable. Some prominent peribronchial thickening is once again demonstrated. No airspace consolidation or pleural effusion is noted. Elevation of left mid diaphragm is stable. Degenerative changes are noted in the spine. IMPRESSION: No evidence of acute pulmonary disease and no significant interval change. Examination [address]. Thank you for allowing me to participate in the care of this patient. WSN: [id number] Ordering Physician: Jany Fitzgerald Dictated By: Juan Robertson MD Dictated Date/Time: 07/21/22 8:46 pm Reviewed By: Juan Robertson MD Signed By: Juan Robertson MD Signed Date/Time: 07/21/22 8:46 pm Transcribed By: RODRI Transcribed Date/Time: 07/21/22 8:46 pm Patient Care team information Care Team Personnel Name: Leda Lebron MD Position: [facility] Physician (General Medicine) Member Role: PCP Address: Address: [address] [place] [id number] Name: Romina Henning Position: [facility] RN Member Role: Primary Care Nurse Name: Caron Short RN Position: [facility] RN Member [...] Chauhan RN Position: [facility] Hospital Fire Official Member Role: Primary Care Nurse Name: Nedra Garza Position: [facility] RN Member Role: Primary Care Nurse Name: Jason Keene RN Position: [facility] ED RN W/OE and Tasks Member Role: Patient Care Provider Care Team Related Persons Name: ESTELA WRIGHT Address: [address] [address] Name: FLORES WRIGHT Address: [address] [address] Name: BEATRIZ WRIGHT Address: [address] [address] Name: FLORES CHAUHAN Address: home [address] [place] [address] Name: YAN CHAUHAN Address: [address] [address]
--- OUTSIDE RECORDS SUMMARY | 2023-12-06 14:43 | XMS_ITS | Continuity of Care Document ---
Author Organization [facility] Address [address] [place] [address]- Care Team Providers Care Pvc Loader Name Role Phone Vi CASTAÑEDA, Leda Gore Primary Care Physician [place] [facility] [place] - 10/19/[address] [address]- Discharge Disposition: A-D/C Home Attending Physician: Ximena [...] Refills, Maintenance, 01/10/22 11:29:00 EDT, EC Tablet, [facility][id number], Partial fill upon patient request if the [...] 06/08/22 21:22:00 EDT, Route to Pharmacy Electronically, [facility][id number], Partial fill upon patient request if the p... Start Date: 06/08/22 Status: Ordered Problem List Condition Confirmation Course Effective Dates Status Health St [facility] Informant Chest pain Confirmed Active Hypertension Confirmed Active Hypothyroid Confirmed Active Obese class II Confirmed Active QT prolongation Confirmed Active Vital Signs Most recent to oldest [Reference Range]: 1 Oxygen Saturation [94-100 %] 97 % (10/19/22 1:30 AM) Pulse Rate [55-90 bpm] 84 bpm (10/19/22 1:30 AM) Blood Pressure [90-138/55-84 mm Hg] 136/ 96mm Hg (10/19/22 1:30 AM) Respiratory Rate [16-30 br/min] 16 br/mi n (10/19/22 1:30 AM) Temperature [96.8-100.4 DegF] 98.1 DegF (10/19/22 1:30 AM) Mode of Delivery (Oxygen) Room air (10/19/22 1:30 AM) Blood pressure sites Arm, left (10/19/22 1:30 AM) Temperature Route Oral (10/19/22 1:30 AM) Social History Social History Type Response Tobacco Use: 4 or less cigar ettes(less than 1/4 pack)/day in last 30 days. Sex Patient Care team information Care Team Personnel Name: Leda Lebron MD Position: [facility] Physician (General Medicine) Member Role: PCP Address: Address: [address] [place] [address] Name: Caron Short RN Position: [facility] RN Member Role: Primary Care Nurse Name: Ashleigh Levy RN Position: [facility] RN Member Role: Primary Care Nurse Name: Jimbo Payne RN Position: [facility] RN Member Role: Primary Care Nurse Name: Vicky Kaur RN Position: [facility] Onco RN Member Role: Primary Care Nurse Name: Delmy Gross RN Position: [facility] RN Member Role: Primary Care Nurse Name: Mally Chauhan RN Position: [facility] Hospital Fish Cutting Machine Operator Member Role: Primary Care Nurse Name: Gisselle Velasco Position: [facility] Associate Professional Member Role: ED Physician Tank Cooper Address: Address: [address] [place] [address]- Name: Diego Chavis RN Position: [facility] ED RN W/OE and Tasks Member Role: Patient Care Provider Name: Ximena Ott DO Position: [facility] Resident Member Role: Admitting Physician Address: Address: [address] [place] [address]- Care Team Related Persons Name: ESTELA WRIGHT Address: home [address] [place] [address] Name: DELMY WRIGHT Address: home [address] [place] [phone] Name: BEATRIZ WRIGHT Address: home [address] [place] [address] Name: DELMY CHAUHAN Address: home [address] [place] [address] Name: YAN CHAUHAN Address: home [address] [place] [address]
--- OUTSIDE RECORDS SUMMARY | 2023-12-06 14:43 | XMS_ITS | Continuity of Care Document ---
Author Organization [facility] Address [address] [place] [address]- Care Team Providers Care Ship Erector Name Role Phone Vi CASTAÑEDA, Leda Gore Primary Care Physician [phone] [place]counter [facility] [place](s): 07/21/23 - 07/22/[address] [address]- Encounter Diagnosis Shortness of breath(Final) - 07/22/23 Discharge Disposition: A-D/C Home Attending Physician: Edenilson Mata MD Admitting Physician: Edenilson Mata MD Referring Physician: Not on Staff, Referring [...] Refills, Maintenance, 01/10/22 11:29:00 EDT, EC Tablet, [facility] #[id number], Partial fill upon patient request if the [...] 06/08/22 21:22:00 EDT, Route to Pharmacy Electronically, [facility] #[id number], Partial fill upon patient request if the p... Start Date: 06/08/22 Status: Ordered Problem List Condition Confirmation Course Effective Dates Status Health St atus Informant Chest pain Confirmed Active Hypertension Confirmed Active Hypothyroid Confirmed Active QT prolongation Confirmed Active Severe obesity (BMI 35.0-39.9) with comorbidity Confirmed Active Results Radiology Reports * Exam Date Time Procedure Performing Provider Status 07/22/23 5:21 AM US Doppler Ext Lower Venous Left Wilfredo Kendrick; Antonio (Verified) Notes: (US Doppler Ext Lower Venous Left) Reason For Exam: Pain in limb;Other: RESULT: US Doppler Ext Lower Venous Left US Doppler Ext Lower Venous Left Hx of Present Illness: pt c o SOB x30min as well as mild chest pain and dizziness, also endorses lower back pain today; Reason: Other:; Pain in limb; Clinical Question(s): Thrombus COMPARISON: Ultrasound Doppler of both lower extremities on 08/19/2021. IMAGING TECHNIQUE: Ultrasound of the veins from the groin through the calf was performed using grayscale, color, and spectral Doppler ultrasound assessing for complete compressibility and normal flowcharacteristics. FINDINGS: Common femoral vein: Patent. No thrombosis. Femoral vein: Patent. No thrombosis. Popliteal vein: Patent. No thrombosis. Gastrocnemius veins: The visualized portions are patent without evidence of thrombosis. Peroneal veins: The visualized portions are patent without evidence of thrombosis. Posterior tibial veins: The visualized portions are patent without evidence of thrombosis. Contralateral common femoral vein: Patent. No thrombosis. OTHER FINDINGS: None. IMPRESSION: No evidence of deep venous thrombosis. Wet read provided via [facility] by Dr. Gonzalez on 07/22/2023 6:16 AM. I have personally reviewed the images and I agree with this report. WSN: [id number] Ordering Physician: Calvin Davey Dictated By: Leandro Gonzalez DO Dictated Date/Time: 07/22/23 7:49 am Reviewed By: Km Agrawal MD Signed By: Km Agrawal MD Signed Date/Time: 07/22/23 7:54 am Transcribed By: RODRI Transcribed Date/Time: 07/22/23 6:16 am * Exam Date Time Procedure Performing Provider Status 07/21/23 7:56 PM Chest 2 Views Frontal and Lat Cash Chau; Antonio (Verified) Notes: (Chest 2 Views Frontal and Lat) Reason For Exam: Chest Pain;Other: RESULT: Chest 2 Views Frontal and Lat Chest 2 Views Frontal and Lat Hx of Present Illness: pt c o SOB x30min as well as mild chest pain and dizziness, also endorses lower back pain today; Reason: Other:; Chest Pain; Clinical Question(s): Other: COMPARISON: Several priors, the most recent 07/13/2023 FINDINGS: LINES AND TUBES: None. LUNGS AND PLEURA: Clear lungs. Normal pulmonary vascularity. Stable chronic elevation of the left hemidiaphragm. No pleural effusion. No pneumothorax. HEART, MEDIASTINUM AND HOLLY: Heart is normal in size. Normal mediastinal and hilar contour. BONES AND SOFT TISSUES: No acute abnormality. IMPRESSION: No acute abnormality. WSN: [id number] Ordering Physician: Amie Mead Dictated By: Christofer Christopher MD Dictated Date/Time: 07/21/23 7:59 pm Reviewed By: Christofer Christopher MD Signed By: Christofer Christopher MD Signed Date/Time: 07/21/23 7:59 pm Transcribed By: RODRI Transcribed Date/Time: 07/21/23 7:57 pm Vital Signs Most recent to oldest [Reference Range]: 1 2 3 Weight 93 kg (07/22/23 6:38 AM) 93 kg (07/21/23 7:06 PM) Oxygen Saturation [94-100 %] 94 % (07/22/23 6:38 AM) 99 % (07/22/23 1:06 AM) 95 % (07/21/23 9:40 PM) Pulse Rate [55-90 bpm] 72 bpm (07/22/23 6:38 AM) 76 bpm (07/22/23 1:06 AM) 81 bpm (07/21/23 9:40 PM) Blood Pressure [90-138/55-84 mm Hg] 144/81mm Hg *H* (07/22/23 6:38 AM) 141/93mm Hg *H* (07/22/23 1:06 AM) 151/90mm Hg *H* (07/21/23 9:40 PM) Respiratory Rate [16-30 br/min] 16 br/min (07/22/23 6:38 AM) 16 br/min (07/21/23 7:06 PM) Temperature [96.8-100.4 DegF] 97.2 DegF (07/22/23 6:38 AM) 99 DegF (07/22/23 1:06 AM) 97.5 DegF (07/21/23 9:40 PM) Liters per Minute 1 L/min (07/21/23 6:51 PM) Mode of Delivery (Oxygen) Room air (07/22/23 6:38 AM) Room air (07/21/23 7:06 PM) Room air (07/21/23 6:51 PM) Blood pressure sites Arm, left (07/22/23 6:38 AM) Arm, right (07/22/23 1:06 AM) Arm, left (07/21/23 9:40 PM) Temperature Route Oral (07/22/23 6:38 AM) Oral (07/22/23 1:06 AM) Oral (07/21/23 9:40 PM) Dry Weight 93 kg (07/22/23 6:38 AM) 93 kg (07/21/23 7:06 PM) Weight Obtained Via Patient/family state d (07/21/23 7:06 PM) Dry Weight Obtained Via Patient/family s tated (07/21/23 7:06 PM) Social History Social History Type Response Tobacco Use: 4 or less cigar ettes(less than 1/4 pack)/day in last 30 days. Sex EKG study * Event Display: EKG Authored Date: * Event Display: ECG 12-Lead Authored Date: Please click on pdf link to open report * Event Display: ECG 12-Lead Authored Date: Ventricular Rate: 88 BPM Atrial Rate: 88 BPM P-R Interval: 124 ms QRS Duration: 74 ms Q-T Interval: 380 ms QTC Calculation(Bazett): 459 ms P [place]: 70 degrees R [place]: 21 degrees T [place]: 20 degrees Normal sinus rhythm Normal ECG When compared with ECG of 13-JUL-2023 22:48, No significant change was found Confirmed by JIMBO RODRIGUEZ ([id number]) on 07/22/2023 10:10:15 AM [place]: JIMBO RODRIGUEZ Patient Care team information Care Team Personnel Name: Leda Lebron MD Position: [facility] Physician (General Medicine) Member Role: PCP Address: Address: [address] [place] [address]- Name: Caron Short RN Position: [facility] RN Member Role: Primary Care Nurse Name: Ashleigh Levy RN Position: [facility] RN Member Role: Primary Care Nurse Name: Jimbo Payne RN Position: [facility] RN Member Role: Primary Care Nurse Name: Vicky Kaur RN Position: [facility] Onco RN Member Role: Primary Care Nurse Name: Flores Gross RN Position: [facility] RN Member Role: Primary Care Nurse Name: Mally Chauhan RN Position: [facility] Hospital Accounting Manager Assistant Controller Member Role: Primary Care Nurse Name: Nedra Garza RN Position: [facility] RN Member Role: Primary Care Nurse Name: Ann Rubin RN Position: [facility] ED RN W/OE and Tasks Member Role: Patient Care Provider Name: Calvin Davey Position: [facility] Resident Member Role: ED Resident Address: Address: [address] [place] [id number]- Name: Edenilson Mata MD Position: [facility] Resident Member Role: Admitting Physician Address: Address: [address] [place] [address] [place] [address]- Name: Amanda Hernandez Position: [facility] ED TA [facility] Care Team Related Persons Name: ESTELA WRIGHT Address: [address] [address] Name: FLORES WRIGHT Address: [place] [id number] Name: BEATRIZ WRIGHT Address: [place] [id number] Name: FLORES CHAUHAN Address: [address] [address] Name: YAN CHAUHAN Address: [place] [address]
--- OUTSIDE RECORDS SUMMARY | 2023-12-06 14:43 | XMS_ITS | Continuity of Care Document ---
Author Organization [facility] Address [address] [place] [address]- Care Team Providers Care Ict Teacher Name Role Phone Vi CASTAÑEDA, Leda Gore Primary Care Physician Encounter [facility] [place] Date(s): 07/13/23 - 07/14/[address] [address]- Discharge Disposition: A-D/C Walkout Attending Physician: Not [...] 01/15/11 Given 1Early/Late Reason: Nursing Judgment Medications Acetaminophen Tablet 650 mg, Tablet, By Mouth, Once, STAT, 07/13/23 18:44:00 EST, Stop date 07/13/23 18:44:00 EST Start Date: 07/13/23 Stop Date: 07/13/23 Status: Completed albuterol CFC free 90 mcg/inh inhalation aerosol [...] Refills, Maintenance, 01/10/22 11:29:00 EDT, EC Tablet, [facility] #[id number], Partial fill upon patient request if the [...] 06/08/22 21:22:00 EDT, Route to Pharmacy Electronically, [facility] #[id number], Partial fill upon patient request if the p... Start Date: 06/08/22 Status: Ordered Problem List Condition Confirmation Course Effective Dates Status Health St atus Informant Chest pain Confirmed Active Hypertension Confirmed Active Hypothyroid Confirmed Active QT prolongation Confirmed Active Severe obesity (BMI 35.0-39.9) with comorbidity Confirmed Active Results Radiology Reports * Exam Date Time Procedure Performing Provider Status 07/13/23 10:42 PM Chest 2 Views Frontal and Lat Pepito Zheng; Auth (Verified) Notes: (Chest 2 Views Frontal and Lat) Reason For Exam: Shortness of Breath, Fever;Other: RESULT: Chest 2 Views Frontal and Lat Chest 2 Views Frontal and Lat Hx of Present Illness: sob and chronic back pain, sts she has some sob all the time, and back pain is chronic in nature; Reason: Other:; Shortness of Breath, Fever; Clinical Question(s): Pneumonia COMPARISON: CXR 06/15/2023 FINDINGS: LINES AND TUBES: None. LUNGS AND PLEURA: Clear lungs. Normal pulmonary vascularity. No pleural effusion. No pneumothorax. HEART, MEDIASTINUM AND HOLLY: Heart is normal in size. Normal mediastinal and hilar contour. BONES AND SOFT TISSUES: No acute abnormality. Degenerative changes of the spine. IMPRESSION: No acute abnormality. I have personally reviewed the images and I agree with this report. WSN: [id number] Ordering Physician: Farida Alexandra Dictated By: James Jordan MD Dictated Date/Time: 07/13/23 10:45 p Reviewed By: Piero Youssef MD Signed By: Piero Youssef MD Signed Date/Time: 07/13/23 10:50 pm Transcribed By: RODRI Transcribed Date/Time: 07/13/23 10:44 pm Vital Signs Most recent to oldest [Reference Range]: 1 2 3 Height 170 cm (07/13/23 5:28 PM) Oxygen Saturation [94-100 %] 98 % (07/14/23 6:31 AM) 98 % (07/14/23 2:27 AM) 98 % (07/13/23 11:01 PM) Pulse Rate [55-90 bpm] 81 bpm (07/14/23 6:31 AM) 81 bpm (07/14/23 2:27 AM) 86 bpm (07/13/23 11:01 PM) Blood Pressure [90-138/55-84 mm Hg] 138/84mm Hg (07/14/23 6:31 AM) 148/85mm Hg *H* (07/14/23 2:27 AM) 147/88mm Hg *H* (07/13/23 11:01 PM) Respiratory Rate [16-30 br/min] 19 br/min (07/13/23 7:45 PM) 18 br/min (07/13/23 5:28 PM) Temperature [96.8-100.4 DegF] 98.4 DegF (07/14/23 6:31 AM) 98.5 DegF (07/14/23 2:27 AM) 98.4 DegF (07/13/23 11:01 PM) Mode of Delivery (Oxygen) Room air (07/13/23 5:28 PM) Blood pressure sites Arm, left (07/14/23 6:31 AM) Arm, right (07/14/23 2:27 AM) Arm, left (07/13/23 11:01 PM) Temperature Route Oral (07/14/23 6:31 AM) Oral (07/14/23 2:27 AM) Oral (07/13/23 11:01 PM) Dry Weight 93 kg (07/13/23 5:28 PM) Dry Weight Obtained Via Patient/family s tated (07/13/23 5:28 PM) Social History Social History Type Response Tobacco Use: 4 or less cigar ettes(less than 1/4 pack)/day in last 30 days. Sex EKG study * Event Display: EKG Authored Date: Patient Care team information Care Team Personnel Name: Vi CASTAÑEDA, Leda Gore Position: [facility] Physician (General Medicine) Member Role: PCP Address: Address: [address] [place] [address] Name: Caron Short RN Position: [facility] RN Member Role: Primary Care Nurse Name: Ashleigh Levy RN Position: [facility] RN Member Role: Primary Care Nurse Name: Jimbo Payne RN Position: [facility] RN Member Role: Primary Care Nurse Name: Vicky Kaur RN Position: [facility] Onco RN Member Role: Primary Care Nurse Name: Flores Gross RN Position: [facility] RN Member Role: Primary Care Nurse Name: Mally Chauhan RN Position: [facility] Hospital Vehicle Detailer Member Role: Primary Care Nurse Name: Nedra Garza RN Position: [facility] RN Member Role: Primary Care Nurse Care Team Related Persons Name: ESTELA WRIGHT Address: home [address] [place] [address] Name: FLORES WRIGHT Address: home [address] [place] [address] Name: BEATRIZ WRIGHT Address: home [address] [place] [address] Name: FLORES CHAUHAN Address: home [address] [place] [address] Name: YAN CHAUHAN Address: home [address] [place] [address]
--- OUTSIDE RECORDS SUMMARY | 2023-12-06 14:43 | XMS_ITS | Continuity of Care Document ---
Author Organization [facility] Address [address] [place] [address]- Care Team Providers Care Wrapper Off Name Role Phone Vi CASTAÑEDA, Leda Gore Primary Care Physician [place] [facility] [place]11/[place] - 08/11/[address] [address]- Discharge Disposition: A-D/C Walkout Attending Physician: Not [...] Refills, Maintenance, 01/10/22 11:29:00 EDT, EC Tablet, [facility] #[id number], Partial fill upon patient request if the [...] 06/08/22 21:22:00 EDT, Route to Pharmacy Electronically, [facility] #[id number], Partial fill upon patient request if the p... Start Date: 06/08/22 Status: Ordered Problem List Condition Confirmation Course Effective Dates Status Health St atus Informant Chest pain Confirmed Active Hypertension Confirmed Active Hypothyroid Confirmed Active Obese class II Confirmed Active QT prolongation Confirmed Active Vital Signs Most recent to oldest [Reference Range]: 1 2 Height 168 cm (08/11/22 6:00 PM) Weight 93 kg (08/11/22 6:00 PM) Oxygen Saturation [94-100 %] 97 % (08/11/22 8:10 PM) 98 % (08/11/22 6:00 PM) Pulse Rate [55-90 bpm] 93 bpm *H* (08/11/22 8:10 PM) 92 bpm *H* (08/11/22 6:00 PM) Blood Pressure [90-138/55-84 mm Hg] 176/ 108mm Hg *H* (08/11/22 8:10 PM) 153/99mm Hg *H* (08/11/22 6:00 PM) Respiratory Rate [16-30 br/min] 16 br/mi n (08/11/22 6:00 PM) Temperature [96.8-100.4 DegF] 98.2 DegF (08/11/22 8:10 PM) 98.2 DegF (08/11/22 6:00 PM) Mode of Delivery (Oxygen) Room air (08/11/22 8:10 PM) Room air (08/11/22 6:00 PM) Blood pressure sites Arm, left (08/11/22 6:00 PM) Temperature Route Oral (08/11/22 8:10 PM) Oral (08/11/22 6:00 PM) Dry Weight 93 kg (08/11/22 6:00 PM) Social History Social History Type Response Tobacco Use: 4 or less cigar ettes(less than 1/4 pack)/day in last 30 days. Sex Patient Care team information Care Team Personnel Name: Leda Lebron MD Position: [facility] Physician (General Medicine) Member Role: PCP Address: Address: [address] [place] [address], [place] [address]- [place] Name: Romina Henning Position: [facility] RN Member Role: Primary Care Nurse Name: Caron Short RN Position: [facility] ED RN W/OE and Tasks Member Role: Primary Care Nurse Name: Ashleigh Levy RN Position: [facility] RN Member Role: Primary Care Nurse Name: Jimbo Payne RN Position: [facility] RN Member Role: Primary Care Nurse Name: Vicky Kaur RN Position: [facility] Onco RN Member Role: Primary Care Nurse Name: Delmy Gross RN Position: [facility] RN Member Role: Primary Care Nurse Name: Mally Chauhan RN Position: [facility] Hospital Analysis Mgr Member Role: Primary Care Nurse Name: Nedra Garza Position: [facility] RN Member Role: Primary Care Nurse Care Team Related Persons Name: ESTELA WRIGHT Address: [address] [address] Name: DELMY WRIGHT Address: home [address] [place] [address] Name: BEATRIZ WRIGHT Address: home [address] [place] [address] Name: DELMY CHAUHAN Address: home [address] [place] [address] Name: YAN CHAUHAN Address: [address] [address]
--- OUTSIDE RECORDS SUMMARY | 2023-12-06 14:43 | XMS_ITS | Continuity of Care Document ---
Author Organization [facility] ter Address [address] [place] [address]- Care Team Providers Care Director Inbound Sales Name Role Phone Vi CASTAÑEDA, Leda Gore Primary Care Physician [phone] Encounter [facility] [place] Date(s): 02/04/21 - 04/22/[address] [address] Attending Physician: BreastWellness , Self Referral Admitting Physician: BreastWellness , Self Referral Referring Physician: BreastWellness , Self Referral Allergies, Adverse Reactions, Alerts Substance Reaction Severity [...]
--- OUTSIDE RECORDS SUMMARY | 2023-12-06 14:43 | XMS_ITS | Continuity of Care Document ---
Author Organization [facility] ter Address [address] [place] [address]- Care Team Providers Care Web Knitter Name Role Phone Vi CASTAÑEDA, Leda Gore Primary Care Physician [phone] Encounter [facility] [place] Date(s): 06/06/22 - 06/07/[address] [address]- Encounter Diagnosis Chest pain(Final) - 06/06/22 Discharge Disposition: A-D/C Home Attending Physician: Reed Gutierrez MD Admitting Physician: Reed Gutierrez MD Referring Physician: Not on Staff, Referring [...] Refills, Maintenance, 01/10/22 11:29:00 EDT, EC Tablet, [facility] #[id number], Partial fill upon patient request if the [...] Exam Date Time Procedure Performing Provider Status 06/06/22 10:11 PM Chest 2 Views Fronta l and Lat More Ng; Auth (Verified) Notes: (Chest 2 Views Frontal and Lat) Reason For Exam: Shortness of Breath, Fever;Other: RESULT: Chest 2 Views Frontal and Lat Chest 2 Views Frontal and Lat Hx of Present Illness: chest pain and depressed; Reason: Other:; Shortness of Breath, Fever; Clinical Question(s): Pneumonia COMPARISON: 05/29/2022 FINDINGS: LINES AND TUBES: None. LUNGS AND PLEURA: Clear lungs. Normal pulmonary vascularity. No pleural effusion. No pneumothorax. HEART, MEDIASTINUM AND HOLLY: Heart is normal in size. Normal mediastinal and hilar contour. BONES AND SOFT TISSUES: No acute abnormality. IMPRESSION: No acute abnormality. WSN: [id number] Ordering Physician: Luanne Mendoza Dictated By: Duarte Potter MD Dictated Date/Time: 06/06/22 10:24 p Reviewed By: Duarte Potter MD Signed By: Duarte Potter MD Signed Date/Time: 06/06/22 10:24 pm Transcribed By: RODRI Transcribed Date/Time: 06/06/22 10:24 pm Vital Signs Most recent to oldest [Reference Range]: 1 2 Oxygen Saturation [94-100 %] 100 % (06/06/22 11:27 PM) 95 % (06/06/22 7:45 PM) Pulse Rate [55-90 bpm] 77 bpm (06/06/22 11:27 PM) 88 bpm (06/06/22 7:45 PM) Blood Pressure [90-138/55-84 mm Hg] 156/ 99mm Hg *H* (06/06/22 11:27 PM) 138/88mm Hg (06/06/22 7:45 PM) Respiratory Rate [16-30 br/min] 20 br/mi n (06/06/22 11:27 PM) 18 br/min (06/06/22 7:45 PM) Temperature [96.8-100.4 DegF] 97.1 DegF (06/06/22 11:27 PM) 97.9 DegF (06/06/22 7:45 PM) Mode of Delivery (Oxygen) Room air (06/06/22 11:27 PM) Room air (06/06/22 7:45 PM) Blood pressure sites Arm, right (06/06/22 11:27 PM) Arm, right (06/06/22 7:45 PM) Temperature Route Oral (06/06/22 11:27 PM) Oral (06/06/22 7:45 PM) Social History Social History Type Response Smoking Status 10 or more cigarette s (1/2 pack or more)/day in last 30 days entered on: 05/24/21 Sex Note * BHSPowerscribe , CIS S: TRANSCRIBE Duarte Potter MD: VERIFY Event Display: Result: Authored Date: Chest 2 Views Frontal and Lat Hx of Present Illness: chest pain and depressed; Reason: Other:; Shortness of Breath, Fever; Clinical Question(s): Pneumonia COMPARISON: 05/29/2022 FINDINGS: LINES AND TUBES: None. LUNGS AND PLEURA: Clear lungs. Normal pulmonary vascularity. No pleural effusion. No pneumothorax. HEART, MEDIASTINUM AND HOLLY: Heart is normal in size. Normal mediastinal and hilar contour. BONES AND SOFT TISSUES: No acute abnormality. IMPRESSION: No acute abnormality. WSN: [id number] Ordering Physician: Luanne Mendoza Dictated By: Duarte Potter MD Dictated Date/Time: 06/06/22 10:24 p Reviewed By: Duarte Potter MD Signed By: Duarte Potter MD Signed Date/Time: 06/06/22 10:24 pm Transcribed By: RODRI Transcribed Date/Time: 06/06/22 10:24 pm Patient Care team information Personnel Name: Leda Lebron MD Address: Address: [address] [place] [address]
--- OUTSIDE RECORDS SUMMARY | 2023-12-06 14:43 | XMS_ITS | Continuity of Care Document ---
Author Organization [facility] Address [address] [place] [address]- Care Team Providers Care Lining Inserter Name Role Phone Vi CASTAÑEDA, Leda Gore Primary Care Physician [place] [facility] [place] 07/05/[address] [address]- Discharge Disposition: A-D/C Walkout Attending Physician: Not [...] Exam Date Time Procedure Performing Provider Status 07/04/21 11:01 PM Chest 2 Views Frontal and Lat Brianne Galindo; Auth (Verified) Notes: (Chest 2 Views Frontal and Lat) Reason For Exam: Chest Pain;Other: RESULT: Chest 2 Views Frontal and Lat Chest 2 Views Frontal and Lat INDICATION: SOB x1 hour, was here last week for same complaint; Reason: Chest Pain COMPARISON: Multiple priors, most recent 06/29/2021. FINDINGS: LINES AND TUBES: None. LUNGS AND PLEURA: Mild vascular congestion. No pleural effusion. No pneumothorax. HEART, MEDIASTINUM AND HOLLY: Heart is normal in size. Normal upper mediastinal and hilar contour. BONES AND SOFT TISSUES: No acute abnormality. IMPRESSION: Mild vascular congestion without overt CHF. I have personally reviewed the images and I agree with this report. WSN: [id number] Ordering Physician: Farida Alexandra Dictated By: Abby Wset DO Dictated Date/Time: 07/04/21 11:15 p Reviewed By: Suraj Alvarado MD Signed By: Suraj Alvarado MD Signed Date/Time: 07/04/21 11:20 pm Transcribed By: RODRI Transcribed Date/Time: 07/04/21 11:08 pm Vital Signs Most recent to oldest [Reference Range]: 1 2 Oxygen Saturation [94-100 %] 98 % (07/05/21 12:19 AM) 97 % (07/04/21 10:06 PM) Pulse Rate [55-90 bpm] 95 bpm *H* (07/05/21 12:19 AM) 88 bpm (07/04/21 10:06 PM) Blood Pressure [90-138/55-84 mm Hg] 153/ 88mm Hg *H* (07/05/21 12:19 AM) 145/94mm Hg *H* (07/04/21 10:06 PM) Respiratory Rate [16-30 br/min] 20 br/mi n (07/05/21 12:19 AM) 18 br/min (07/04/21 10:06 PM) Temperature [96.8-100.4 DegF] 98.5 DegF (07/05/21 12:19 AM) 97.6 DegF (07/04/21 10:06 PM) Mode of Delivery (Oxygen) Room air (07/05/21 12:19 AM) Room air (07/04/21 10:06 PM) Blood pressure sites Arm, right (07/05/21 12:19 AM) Arm, left (07/04/21 10:06 PM) Temperature Route Oral (07/05/21 12:19 AM) Oral (07/04/21 10:06 PM) Social History Social History Type Response Smoking Status 10 or more cigarette s (1/2 pack or more)/day in last 30 days entered on: 05/24/21 Sex
--- OUTSIDE RECORDS SUMMARY | 2023-12-06 14:43 | XMS_ITS | Continuity of Care Document ---
Author Organization [facility] ter Address [address] [place] [address]- Care Team Providers Care Beveler Name Role Phone Vi CASTAÑEDA, Leda Gore Primary Care Phys[place] [facility] [place] - 10/16/[address] [address]- Discharge Disposition: A-D/C AMA Attending Physician: Sienna Hoffman MD Admitting Physician: [...] Refills, Maintenance, 01/10/22 11:29:00 EDT, EC Tablet, [facility] #[id number], Partial fill upon patient request if the [...] 1 Refills, Maintenance, 10/01/23 10:59:00 EST, Tablet, [facility] #[id number], Partial fill upon patient request if the [...] 06/08/22 21:22:00 EDT, Route to Pharmacy Electronically, [facility] #[id number], Partial fill upon patient request if the [...] Exam Date Time Procedure Performing Provider Status 10/15/23 8:29 PM Chest 2 Views Frontal and Lat Pepito Zheng; Auth (Verified) Notes: (Chest 2 Views Frontal and Lat) Reason For Exam: Shortness of Breath RESULT: Chest 2 Views Frontal and Lat Chest 2 Views Frontal and Lat Hx of Present Illness: 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 LUNGS AND PLEURA: Clear lungs. Normal pulmonary vascularity. No pleural effusion. No pneumothorax. HEART, MEDIASTINUM AND HOLLY: Heart is normal in size. Normal mediastinal and hilar contour. BONES AND SOFT TISSUES: No acute abnormality. IMPRESSION: No acute abnormality. WSN: [id number] Ordering Physician: Sienna Hoffman Dictated By: Gaetano Stevenson MD Dictated Date/Time: 10/15/23 8:39 pm Reviewed By: Gaetano Stevenson MD Signed By: Gaetano Stevenson MD Signed Date/Time: 10/15/23 8:39 pm Transcribed By: RODRI Transcribed Date/Time: 10/15/23 8:38 pm Vital Signs Most recent to oldest [Reference Range]: 1 2 3 Height 170 cm (10/15/23 7:50 PM) 170 cm (10/15/23 7:06 PM) 170 cm (10/15/23 6:25 PM) Oxygen Saturation [94-100 %] 98 % (10/15/23 10:15 PM) 98 % (10/15/23 8:16 PM) 98 % (10/15/23 7:50 PM) Pulse Rate [55-90 bpm] 88 bpm (10/15/23 10:15 PM) 91 bpm *H* (10/15/23 8:16 PM) 100 bpm *H* (10/15/23 7:50 PM) Blood Pressure [90-138/55-84 mm Hg] 151/83mm Hg *H* (10/15/23 10:15 PM) 151/88mm Hg *H* (10/15/23 8:16 PM) 132/85mm Hg (10/15/23 6:25 PM) Respiratory Rate [16-30 br/min] 17 br/min (10/15/23 7:50 PM) 18 br/min (10/15/23 6:25 PM) Temperature [96.8-100.4 DegF] 97.8 DegF (10/15/23 10:15 PM) 97.8 DegF (10/15/23 8:16 PM) 97.5 DegF (10/15/23 6:25 PM) Mode of Delivery (Oxygen) Room air (10/15/23 7:50 PM) Room air (10/15/23 6:25 PM) Blood pressure sites Arm, right (10/15/23 10:15 PM) Arm, left (10/15/23 8:16 PM) Arm, left (10/15/23 6:25 PM) Temperature Route Oral (10/15/23 10:15 PM) Oral (10/15/23 8:16 PM) Oral (10/15/23 6:25 PM) Social History Social History Type Response Tobacco Interested in cessat ion: No. Yes Sex Patient Care team information Care Team Personnel Name: Leda Lebron MD Position: [facility] Physician (General Medicine) Member Role: PCP Address: Address: [address] [place] [address] Name: Clemencia Camargo RN Position: [facility] RN Member Role: Primary Care Nurse Name: Nikkie Tubbs Position: [facility] Outreach Member Role: Lifetime Consulting Physician Name: Caron Short RN Position: [facility] RN Member Role: Primary Care Nurse Name: Prachi Negron RN Position: [facility] RN Member Role: Primary Care Nurse Name: Tami Soler RN Position: [facility] RN Member Role: Primary Care Nurse Name: Ashleigh Mercado RN Position: [facility] RN Member Role: Primary Care Nurse Name: Heidi Moreland Position: [facility] RN Member Role: Primary Care Nurse Name: Ashleigh Levy RN Position: [facility] Onco RN Member Role: Primary Care Nurse Name: Jimbo Payne RN Position: [facility] RN Member Role: Primary Care Nurse Name: Danie Maza RN Position: [facility] RN Member Role: Primary Care Nurse Name: Vicky Kaur RN Position: [facility] Onco RN Member Role: Primary Care Nurse Name: Flores Gross RN Position: [facility] RN Member Role: Primary Care Nurse Name: Mally Chauhan RN Position: [facility] Firer Low Pressure Member Role: Primary Care Nurse Name: Nedra Garza RN Position: [facility] RN Member Role: Primary Care Nurse Care Team Related Persons Name: ESTELA WRIGHT Address: home [address] [place] [address] Name: FLORES WRIGHT Address: [address] [place] [address] Name: BEATRIZ WRIGHT Name: FLORES CHAUHAN Address: home [address] [place] [id number] Name: YAN CHAUHAN Address: home [address] [place] [address]
--- OUTSIDE RECORDS SUMMARY | 2023-12-06 14:43 | XMS_ITS | Continuity of Care Document ---
Author Organization [facility] ter Address [address] [place] [address]- Care Team Providers Care Physician Name Role Phone Vi CASTAÑEDA, Leda Gore Primary Care Physician [phone] [place] [facility] [place] 12/21/[address] [address]- Encounter Diagnosis Chest pain(Final) - 12/21/22 Discharge Disposition: A-D/C Home Attending Physician: Kris Cifuentes DO Admitting Physician: Kirs Cifuentes DO Referring Physician: Not on Staff, Referring [...] Refills, Maintenance, 01/10/22 11:29:00 EDT, EC Tablet, [facility] #[id number], Partial fill upon patient request if the [...] 06/08/22 21:22:00 EDT, Route to Pharmacy Electronically, [facility] #[id number], Partial fill upon patient request if the p... Start Date: 06/08/22 Status: Ordered Problem List Condition Confirmation Course Effective Dates Status Health [facility] Informant Chest pain Confirmed Active Hypertension Confirmed Active Hypothyroid Confirmed Active Obese class II Confirmed Active QT prolongation Confirmed Active Results Radiology Reports * Exam Date Time Procedure Performing Provider Status 12/20/22 11:59 PM Chest 2 Views Frontal and Lat West , Vasquez; Auth (Verified) Notes: (Chest 2 Views Frontal and Lat) Reason For Exam: Shortness of Breath, Fever;Other: RESULT: Chest 2 Views Frontal and Lat Chest 2 Views Frontal and Lat Hx of Present Illness: CP; Reason: Other:; Shortness of Breath, Fever; Clinical Question(s): Pneumonia COMPARISON: 10/18/2022 FINDINGS: LINES AND TUBES: None. LUNGS AND PLEURA: Clear lungs. Normal pulmonary vascularity. No pleural effusion. No pneumothorax. HEART, MEDIASTINUM AND HOLLY: Heart is normal in size. Normal mediastinal and hilar contour. BONES AND SOFT TISSUES: No acute abnormality. IMPRESSION: No acute abnormality. WSN: [id number] Ordering Physician: Ranjeet Gibbs Dictated By: Gaetano Stevenson MD Dictated Date/Time: 12/21/22 7:57 am Reviewed By: Gaetano Stevenson MD Signed By: Gaetano Stevenson MD Signed Date/Time: 12/21/22 7:57 am Transcribed By: RODRI Transcribed Date/Time: 12/21/22 7:54 am Vital Signs Most recent to oldest [Reference Range]: 1 2 3 Height 171 cm (12/21/22 12:02 PM) 171 cm (12/21/22 7:55 AM) 171 cm (12/21/22 4:30 AM) Oxygen Saturation [94-100 %] 98 % (12/21/22 12:02 PM) 100 % (12/21/22 7:55 AM) 98 % (12/21/22 4:30 AM) Pulse Rate [55-90 bpm] 84 bpm (12/21/22 12:02 PM) 94 bpm *H* (12/21/22 7:55 AM) 78 bpm (12/21/22 4:30 AM) Blood Pressure [90-138/55-84 mm Hg] 131/73mm Hg (12/21/22 12:02 PM) 162/100mm Hg *H* (12/21/22 7:55 AM) 149/92mm Hg *H* (12/21/22 4:30 AM) Respiratory Rate [16-30 br/min] 17 br/min (12/21/22 12:02 PM) 17 br/min (12/21/22 7:55 AM) 20 br/min (12/21/22 4:30 AM) Temperature [96.8-100.4 DegF] 98.1 DegF (12/21/22 12:02 PM) 98.0 DegF (12/21/22 7:55 AM) 97.9 DegF (12/21/22 4:30 AM) Liters per Minute 2 L/min (12/20/22 10:08 PM) Mode of Delivery (Oxygen) Room air (12/21/22 12:02 PM) Room air (12/21/22 7:55 AM) Room air (12/21/22 4:30 AM) Blood pressure sites Arm, left (12/21/22 12:02 PM) Arm, left (12/21/22 7:55 AM) Arm, right (12/21/22 4:30 AM) Temperature Route Oral (12/21/22 12:02 PM) Oral (12/21/22 7:55 AM) Oral (12/21/22 4:30 AM) Social History Social History Type Response Tobacco Use: 4 or less cigar ettes(less than 1/4 pack)/day in last 30 days. Sex Admission evaluation note * Andrew CASTAÑEDA, Simona Alvares: PERFORM Event Display: Admission Note Authored Date: Patient: ??FATEMEH WRIGHT ? Age:??57 Years?Sex:??Female?:??1965?? Chief Complaint/Reason for Consultation chestpain time 15 minutes midsternal History of Present Illness ??57-year-old female with history of hypertension, bipolar, hypothyroidism presents with approximately 30 minutes of chest pain. ??She states she was sitting on her couch watching TV when the chest pain began. ??She has had scattered episodes like this in the past which were never deemed to be of any major concern. ??She has no family history of ACS but does smoke tobacco. ??Her pain does not radiate and is neither pleuritic nor reproducible with palpation. ??It is central chest. ??Denies fever, cough, shortness of breath, hemoptysis, recent surgery, active cancer, history of blood clots, estrogen usage, back pain, abdominal pain, numbness, weakness ?? Currently symptom free. Denies chest pain at this time. Review of Systems Constitutional:??No weight loss, fever, chills, weakness or fatigue. Eyes:??No visual loss, blurred vision, double vision or yellow sclera ENT:??No hearing loss, sneezing, congestion, runny nose or sore throat. Respiratory:??No shortness of breath, cough or sputum production. Cardiovascular:??As per HPI Gastrointestinal:??As per HPI Genitourinary:??No burning micturition. No urinary frequency or incontinence. Neurologic:??No headache, dizziness, syncope, unilateral weakness Musculoskeletal:??No muscle pain, back pain, joint pain or stiffness. Skin:??No rash or itching. Endocrine:??No reports of sweating. No cold or heat intolerance. No polyuria or polydipsia. Psychiatric:??No depression or anxiety. Objective Vital Signs?? Temperature: 98.1 DegF (12/21/22 12:02:00) Temperature Route: Oral (12/21/22 12:02:00) Pulse Rate: 84 bpm (12/21/22 12:02:00) Respiratory Rate: 17 br/min (12/21/22 12:02:00) Systolic Blood Pressure: 131 mm Hg (12/21/22 12:02:00) Diastolic Blood Pressure: 73 mm Hg (12/21/22 12:02:00) Blood pressure sites: Arm, left (12/21/22 12:02:00) Mean Arterial Pressure: 92 mm Hg (12/21/22 12:02:00) Pulse Pressure: 58 mm Hg (12/21/22 12:02:00) Oxygen Saturation: 98 % (12/21/22 12:02:00) Liters per Minute: 2 L/min (12/20/22 22:08:00) Mode of Delivery (Oxygen): Room air (12/21/22 12:02:00) Early Warning Score: 0 (12/21/22 12:48:54) ? Physical Exam Constitutional: Alert, in no distress. Mental Status: Oriented to person, place and time. Head: Normocephalic. Eyes: Pupils are equal, round and reactive to light. Neck: Supple, Full range of motion. Respiratory: Clear to auscultation. No wheezing, rales or rhonchi. Cardiovascular: S1 S2 regular. No murmurs, rubs or gallops. Gastrointestinal: Abdomen soft, non-tender, non-distended. Neurologic: No focal neurological deficits. Skin: No rashes or lesions. No petechiae or purpura.?? Musculoskeletal: Normal range of motion. Psychiatric: Normal mood and affect Assessment/Plan Assessment:??57-year-old female with history of hypertension, bipolar, hypothyroidism presents chest pain ?? Chest pain Reports that it has resolved since she came in Unable to give much history about it - described as substernal and reproducible on palpation Has a family history of heart disease No nausea, diaphoresis Troponin neg??x 3 EKG reviewed Could not find a recent echo in our system Continue telemetry ? Hypertension Bipolar disease Hypothyroidism Continue home medications ?? OMN: Telemetry, ACS rule out ?? Discharge Planning:? Histories Allergies Allergies ?(Active and Proposed Allergies Only) sulfADIAZINE? (Severity: Unknown severity, Onset: Unknown) Bactrim? (Severity: Unknown severity, Onset: Unknown) Contrast Dye? (Severity: Unknown severity, Onset: Unknown) codeine? (Severity: Unknown severity, Onset: Unknown) Demerol HCl? (Severity: Unknown severity, Onset: Unknown) penicillin? (Severity: Unknown severity, Onset: Unknown) ? Past Medical History/Problem List Active Problems??(5) Chest pain Hypertension Hypothyroid Obese class II QT prolongation ? Past Surgical History Appendectomy; Cholecystectomy; Tonsillectomy, primary or secondary; age 12 or over ? Social History Alcohol Details:??Use: Never. Substance Abuse Details:??Use: Never. Tobacco Details:??Use: 4 or less cigarettes(less than 1/4 pack)/day in last 30 days. ? Family History Father- had NE at the age of 50, underwent CABG??at the age of 70 ? Medications Home Medications Albuterol (albuterol CFC free 90 mcg/inh inhalation aerosol)?1?puff(s)?Inhalation?Every6 hours?as needed?for wheezing Amlodipine (amLODIPine 5 mg oral tablet)?5?Milligram?1?tablet?By Mouth?Daily?for 14?Days Aspirin (aspirin 81 mg oral delayed release tablet)?81?Milligram?By Mouth?Daily?for 30?Days Baclofen (baclofen 10 mg oral tablet)?1?tab(s)?10?Milligram?By Mouth?3 times a day?as needed?Spasm?for 30?Days Calcium Carbonate (Tums 500 mg oral tablet, chewable)?500?Milligram?1?tablet?Chew?2 times a day?as needed?as needed for dyspepsia Fentanyl (fentaNYL 50 mcg/hr transdermal film, extended release)?1?patch(es)?Topically?Every 72 hours Levothyroxine (levothyroxine 0.112 mg oral tablet)?TAKE 1 TABLET BY MOUTH EVERY DAY Lorazepam (Ativan 0.5 mg oral tablet)?1?tab(s)?0.5?Milligram?By Mouth?2 times a day?as needed?anxiety lurasidone (Latuda 120 mg oral tablet)?1?tab(s)?120?Milligram?By Mouth?Daily at supper Meloxicam (meloxicam 7.5 mg oral tablet)?1?tab(s)?7.5?Milligram?By Mouth?2 times a day with meals?as needed?Pain , Moderate suvorexant (Belsomra 10 mg oral tablet)?1?tab(s)?10?Milligram?By Mouth?Daily at bedtime ? Results Recent Labs BLOOD COUNT & DIFF WBC 7.7 k/mm3 ()?? 12/20/2022 22:36 RBC 5.24 m/mm3 ()?? 12/20/2022 22:36 Hgb 13.8 Gm/dL ()?? 12/20/2022 22:36 Hct 43.2 % ()?? 12/20/2022 22:36 MCV 82.4 femtoliters ()?? 12/20/2022 22:36 MCH 26.3 pg (Low)?? 12/20/2022 22:36 MCHC 31.9 g/dL (Low)?? 12/20/2022 22:36 Platelet Count 334 k/mm3 ()?? 12/20/2022 22:36 RDW-SD 41.7 femtoliters ()?? 12/20/2022 22:36 MPV 9.6 femtoliters ()?? 12/20/2022 22:36 Nucleated RBC (Automated) 0.0 #/100 WBC'S ()?? 12/20/2022 22:36 Abs. NRBC 0.0 k/mm3 ()?? 12/20/2022 22:36 Abs. Neut 5.0 k/mm3 ()?? 12/20/2022 22:36 Abs. Lymph 1.9 k/mm3 ()?? 12/20/2022 22:36 Abs. Nowata 0.5 k/mm3 ()?? 12/20/2022 22:36 Abs. Eo 0.2 k/mm3 ()?? 12/20/2022 22:36 Abs. Baso 0.0 k/mm3 ()?? 12/20/2022 22:36 Neut % 65.1 % ()?? 12/20/2022 22:36 Lymph % 25.0 % ()?? 12/20/2022 22:36 Nowata % 6.9 % ()?? 12/20/2022 22:36 Eos % 2.1 % ()?? 12/20/2022 22:36 Baso % 0.4 % ()?? 12/20/2022 22:36 Imm Gran 0.5 % ()?? 12/20/2022 22:36 Abs. Imm Gran 0.0 k/mm3 ()?? 12/20/2022 22:36 ?? CARDIAC Nt-Probnp 75 pg/mL ()?? 12/20/2022 22:36 High Sensitivity Troponin (HSTnT) 12 ng/L ()?? 12/21/2022 10:25 ?? CHEM GENERAL Sodium 135 mmol/L ()?? 12/20/2022 22:36 Potassium HEMOLYZED mmol/L ()?? 12/20/2022 22:36 Chloride 95 mmol/L (Low)?? 12/20/2022 22:36 Bicarbonate Level 29 mmol/L ()?? 12/20/2022 22:36 Anion Gap 11 ()?? 12/20/2022 22:36 Glucose Level 106 mg/dL (High)?? 12/20/2022 22:36 Glucose, POC 102 mg/dL (High)?? 12/21/2022 08:19 BUN 7 mg/dL ()?? 12/20/2022 22:36 Creatinine-Blood 0.9 mg/dL ()?? 12/20/2022 22:36 Estimated GFR Creatinine 75 ML/MIN/1.73 M2 ()?? 12/20/2022 22:36 Calcium 9.7 mg/dL ()?? 12/20/2022 22:36 ?? VIROLOGY COVID-19 by RT-PCR NEGATIVE ()?? 12/20/2022 22:45 ? LFT?? No qualifying data available. ?? Urinalysis?? No qualifying data available. ?? Microbiology ?? COVID-19 (Novel Coronavirus), Rapid PCR?? Completed?? Source: Nasal Body Site: Nose Collected Dt/Tm: 12/20/2022 22:27 Last Updated Dt/Tm: 12/20/2022 23:27 ? Cardiology Labs Nt-Probnp: 75 pg/mL (12/20/22 22:36:00) High Sensitivity Troponin (HSTnT): 12 ng/L (12/21/22 10:25:00) High Sensitivity Troponin (HSTnT): 8 ng/L (12/21/22 04:32:00) High Sensitivity Troponin (HSTnT): 9 ng/L (12/21/22 02:46:00) ?? Test Name Test Result Date/TimeWBC 7.7 k/mm3 12/20/2022 22:36 EDT Hgb 13.8 Gm/dL 12/20/2022 22:36 EDT Hct 43.2 % 12/20/2022 22:36 EDT Platelet Count 334 k/mm3 12/20/2022 22:36 EDT Sodium 135 mmol/L 12/20/2022 22:36 EDT Potassium HEMOLYZED 12/20/2022 22:36 EDT Chloride 95 mmol/L (Low) 12/20/2022 22:36 EDT Bicarbonate Level 29 mmol/L 12/20/2022 22:36 EDT Anion Gap 11 12/20/2022 22:36 EDT Glucose Level 106 mg/dL (High) 12/20/2022 22:36 EDT Glucose, POC 102 mg/dL (High) 12/21/2022 08:19 EDT BUN 7 mg/dL 12/20/2022 22:36 EDT Creatinine-Blood 0.9 mg/dL 12/20/2022 22:36 EDT Estimated GFR Creatinine 75 ML/MIN/1.73 M2 12/20/2022 22:36 EDT Calcium 9.7 mg/dL 12/20/2022 22:36 EDT Hospital Progress note * Kamilah Adams RN: PERFORM, SIGN, VERIFY Event Display: Progress Note Hospital Authored Date: Patient: FATEMEH WRIGHT Age: 57 years Sex: Female : 1965 Associated Diagnoses: None Author: Kamilah Adams RN Findings patient requested to sign out AMA. patient offers no complaints and states, I just want to go home. iv dcd d and tele monitor monitor removed. Notified Miryam Lamb. * Jailene Bowden RN: PERFORM, SIGN, VERIFY Event Display: Progress Note Hospital Authored Date: [id number] Patient: FATEMEH WRIGHT Age: 57 years Sex: Female : 1965 Associated Diagnoses: None Author: Jailene Bowden RN Findings Narrative/Incidental Pt arrived to [facility] via stretcher, ambulated to bed with assist. A+Ox4. VSS. C/o central CP, constant, non radiating and reproducible with palpation, c/o headache, occas dizziness with ambulation and general weakness. Telemetry: NSR. Pt reports SOB has gone, denies cough. LSCTA. Pt oriented to unit, call mac system and bed mechanics. Refer to alondra for full assessment.. Note * Andrew CASTAÑEDA, Simona A: PERFORM Event Display: Discharge/Transfer Note Hospital Authored Date: [id number] Patient: ??FATEMEH WRIGHT ? Age:??57 Years?Sex:??Female?:??1965?? Patient Information Discharge Location: [facility] Primary Care Physician: Vi CASTAÑEDA, Leda Gore Admit Date/Time: 12/20/22 22:02 Discharge Disposition Discharge Disposition: AMA?? Discharge Diagnosis Chest pain (R07.9) ?? Future Appointments Thursday 1:45 PM EDT ?? Where: [facility] [address] [place] [id number]- Hospital Course ??57-year-old female with history of hypertension, bipolar, hypothyroidism presents chest pain ? Chest pain Reports that it has resolved since she came in Unable to give much history about it - described as substernal and reproducible on palpation No nausea, diaphoresis Troponin neg??x 3 EKG reviewed ? Hypertension Bipolar disease Hypothyroidism Continue home medications ? Left AMA shortly after admission ?? Home Health Face to Face ^HomeHealthFTF Results Discharge Labs BLOOD COUNT & DIFF WBC 7.7 k/mm3 ()?? 12/20/2022 22:36 RBC 5.24 m/mm3 ()?? 12/20/2022 22:36 Hgb 13.8 Gm/dL ()?? 12/20/2022 22:36 Hct 43.2 % ()?? 12/20/2022 22:36 MCV 82.4 femtoliters ()?? 12/20/2022 22:36 MCH 26.3 pg (Low)?? 12/20/2022 22:36 MCHC 31.9 g/dL (Low)?? 12/20/2022 22:36 Platelet Count 334 k/mm3 ()?? 12/20/2022 22:36 RDW-SD 41.7 femtoliters ()?? 12/20/2022 22:36 MPV 9.6 femtoliters ()?? 12/20/2022 22:36 Nucleated RBC (Automated) 0.0 #/100 WBC'S ()?? 12/20/2022 22:36 Abs. NRBC 0.0 k/mm3 ()?? 12/20/2022 22:36 Abs. Neut 5.0 k/mm3 ()?? 12/20/2022 22:36 Abs. Lymph 1.9 k/mm3 ()?? 12/20/2022 22:36 Abs. Nowata 0.5 k/mm3 ()?? 12/20/2022 22:36 Abs. Eo 0.2 k/mm3 ()?? 12/20/2022 22:36 Abs. Baso 0.0 k/mm3 ()?? 12/20/2022 22:36 Neut % 65.1 % ()?? 12/20/2022 22:36 Lymph % 25.0 % ()?? 12/20/2022 22:36 [place]ata % 6.9 % ()?? 12/20/2022 22:36 Eos % 2.1 % ()?? 12/20/2022 22:36 Baso % 0.4 % ()?? 12/20/2022 22:36 Imm Gran 0.5 % ()?? 12/20/2022 22:36 Abs. Imm Gran 0.0 k/mm3 ()?? 12/20/2022 22:36 ?? CARDIAC Nt-Probnp 75 pg/mL ()?? 12/20/2022 22:36 High Sensitivity Troponin (HSTnT) 12 ng/L ()?? 12/21/2022 10:25 ?? CHEM GENERAL Sodium 135 mmol/L ()?? 12/20/2022 22:36 Potassium HEMOLYZED mmol/L ()?? 12/20/2022 22:36 Chloride 95 mmol/L (Low)?? 12/20/2022 22:36 Bicarbonate Level 29 mmol/L ()?? 12/20/2022 22:36 Anion Gap 11 ()?? 12/20/2022 22:36 Glucose Level 106 mg/dL (High)?? 12/20/2022 22:36 Glucose, POC 102 mg/dL (High)?? 12/21/2022 08:19 BUN 7 mg/dL ()?? 12/20/2022 22:36 Creatinine-Blood 0.9 mg/dL ()?? 12/20/2022 22:36 Estimated GFR Creatinine 75 ML/MIN/1.73 M2 ()?? 12/20/2022 22:36 Calcium 9.7 mg/dL ()?? 12/20/2022 22:36 ? VIROLOGY COVID-19 by RT-PCR NEGATIVE ()?? 12/20/2022 22:45 ? _ minutes spent on discharge Laboratory * [facility] , CIS S: TRANSCRIBE Gaetano Stevenson MD S: VERIFY Event Display: Result: Authored Date: Chest 2 Views Frontal and Lat Hx of Present Illness: CP; Reason: Other:; Shortness of Breath, Fever; Clinical Question(s): Pneumonia COMPARISON: 10/18/2022 FINDINGS: LINES AND TUBES: None. LUNGS AND PLEURA: Clear lungs. Normal pulmonary vascularity. No pleural effusion. No pneumothorax. HEART, MEDIASTINUM AND HOLLY: Heart is normal in size. Normal mediastinal and hilar contour. BONES AND SOFT TISSUES: No acute abnormality. IMPRESSION: No acute abnormality. WSN: [id number] Ordering Physician: Ranjeet Gibbs Dictated By: Gaetano Stevenson MD Dictated Date/Time: 12/21/22 7:57 am Reviewed By: Gaetano Stevenson MD Signed By: Gaetano Stevenson MD Signed Date/Time: 12/21/22 7:57 am Transcribed By: RODRI Transcribed Date/Time: 12/21/22 7:54 am Patient Care team information Care Team Personnel Name: Leda Lebron MD Position: [facility] Physician (General Medicine) Member Role: PCP Address: Address: [address] [place] [address] Name: Caron Short RN Position: [facility] RN Member Role: Primary Care Nurse Name: Ashleigh Levy RN Position: [facility] RN Member Role: Primary Care Nurse Name: Jimbo Payne RN Position: [facility] RN Member Role: Primary Care Nurse Name: Vicky Kaur RN Position: [facility] Onco RN Member Role: Primary Care Nurse Name: Flores Gross RN Position: [facility] RN Member Role: Primary Care Nurse Name: Mally Chauhan RN Position: [facility] Hospital Milling Machinist Member Role: Primary Care Nurse Name: Nedra Garza RN Position: [facility] RN Member Role: Primary Care Nurse Name: Rosa Lamb MD Position: [facility] Resident Member Role: ED Attending Physician Address: Address: [address] [place] [address] Name: Helen Mcmanus LPN Position: [facility] ED RN W/OE and Tasks Member Role: Patient Care Provider Name: Ramesh Boucher Position: [facility] Associate Professional Member Role: ED Physician Manager Compensation Address: Address: [address] [place] [address] Name: Theo Chase RN Position: [facility] ED RN W/OE and Tasks Member Role: Patient Care Provider Care Team Related Persons Name: ESTELA WRIGHT Address: [place] [address] Name: FLORES WRIGHT Address: [place] [address] Name: BEATRIZ WRIGHT Address: [place] [address] Name: FLORES CHAUHAN Address: [place] [address] Name: YAN CHAUHAN Address: [place] [address]
--- OUTSIDE RECORDS SUMMARY | 2023-12-06 14:43 | XMS_ITS | Continuity of Care Document ---
Author Organization [facility] Address [address] [place] [address]- Care Team Providers Care Vat Operator Name Role Phone Not on Staff, PCP Primary Care Physician Unavail able Encounter [facility] Date(s): 06/23/22 - 06/24/[address] [address]- Discharge Disposition: A-D/C Walkout Attending Physician: Not [...] Refills, Maintenance, 01/10/22 11:29:00 EDT, EC Tablet, [facility] #[id number], Partial fill upon patient request if the [...] 06/08/22 21:22:00 EDT, Route to Pharmacy Electronically, [facility] #[id number], Partial fill upon patient request if the p... Start Date: 06/08/22 Status: Ordered Problem List Condition Confirmation Course Effective Dates Status Health [facility] Informant Chest pain Confirmed Active Hypertension Confirmed Active Hypothyroid Confirmed Active Obese class II Confirmed Active QT prolongation Confirmed Active Results Radiology Reports * Exam Date Time Procedure Performing Provider Status 06/23/22 9:24 PM Chest 2 Views Frontal and Lat Renato Mukherjee; Auth (Verified) Notes: (Chest 2 Views Frontal and Lat) Reason For Exam: Chest Pain;Other: RESULT: Chest 2 Views Frontal and Lat Chest 2 Views Frontal and Lat Hx of Present Illness: pt c o cough accompanied wth sob and chest discomfort, increased pain with palpation. Pt denies noting fevers chills. Pt denies abdominal pain, difficulty urinating bm; Reason:Other:; Chest Pain; Clinical Question(s): Other: COMPARISON: Chest x-ray 06/19/2022 FINDINGS: LINES AND TUBES: None. LUNGS AND PLEURA: Chronic left hemidiaphragm elevation unchanged. No focal opacity or volume loss. No pleural effusion. No pneumothorax. HEART, MEDIASTINUM AND HOLLY: Heart is normal in size. Normal mediastinal and hilar contour. BONES AND SOFT TISSUES: No acute abnormality. IMPRESSION: No acute abnormality. WSN: [id number] Ordering Physician: Josefa Casas Dictated By: Suraj Alvarado MD Dictated Date/Time: 06/23/22 9:28 pm Reviewed By: Suraj Alvarado MD Signed By: Suraj Alvarado MD Signed Date/Time: 06/23/22 9:28 pm Transcribed By: RODRI Transcribed Date/Time: 06/23/22 9:27 pm Vital Signs Most recent to oldest [Reference Range]: 1 2 3 Oxygen Saturation [94-100 %] 99 % (06/24/22 6:53 AM) 98 % (06/24/22 4:06 AM) 97 % (06/24/22 1:17 AM) Pulse Rate [55-90 bpm] 97 bpm *H* (06/24/22 6:53 AM) 95 bpm *H* (06/24/22 4:06 AM) 85 bpm (06/24/22 1:17 AM) Blood Pressure [90-138/55-84 mm Hg] 146/85mm Hg *H* (06/24/22 6:53 AM) 111/73mm Hg (06/24/22 4:06 AM) 126/75mm Hg (06/24/22 1:17 AM) Respiratory Rate [16-30 br/min] 19 br/min (06/23/22 7:04 PM) Temperature [96.8-100.4 DegF] 98 DegF (06/24/22 6:53 AM) 98.3 DegF (06/24/22 4:06 AM) 98.0 DegF (06/24/22 1:17 AM) Mode of Delivery (Oxygen) Room air (06/24/22 6:53 AM) Room air (06/24/22 4:06 AM) Room air (06/24/22 1:17 AM) Blood pressure sites Arm, right (06/24/22 6:53 AM) Arm, right (06/24/22 4:06 AM) Arm, right (06/24/22 1:17 AM) Temperature Route Oral (06/24/22 6:53 AM) Oral (06/24/22 4:06 AM) Oral (06/24/22 1:17 AM) Social History Social History Type Response Smoking Status 10 or more cigarette s (1/2 pack or more)/day in last 30 days entered on: 05/24/21 Sex Note * [employer] , CIS S: TRANSCRIBE Jenny CASTAÑEDA, Suraj Argueta: VERIFY Event Display: Result: Authored Date: Chest 2 Views Frontal and Lat Hx of Present Illness: pt c o cough accompanied wth sob and chest discomfort, increased pain with palpation. Pt denies noting fevers chills. Pt denies abdominal pain, difficulty urinating bm; Reason:Other:; Chest Pain; Clinical Question(s): Other: COMPARISON: Chest x-ray 06/19/2022 FINDINGS: LINES AND TUBES: None. LUNGS AND PLEURA: Chronic left hemidiaphragm elevation unchanged. No focal opacity or volume loss. No pleural effusion. No pneumothorax. HEART, MEDIASTINUM AND HOLLY: Heart is normal in size. Normal mediastinal and hilar contour. BONES AND SOFT TISSUES: No acute abnormality. IMPRESSION: No acute abnormality. WSN: [id number] Ordering Physician: Josefa Casas Dictated By: Suraj Alvarado MD Dictated Date/Time: 06/23/22 9:28 pm Reviewed By: Suraj Alvarado MD Signed By: Suraj Alvarado MD Signed Date/Time: 06/23/22 9:28 pm Transcribed By: CSJuan Transcribed Date/Time: 06/23/22 9:27 pm Patient Care team information Care Team Personnel Name: Romina Henning Position: [facility] RN Member Role: Primary Care Nurse Name: Caron Short RN Position: [facility] RN Member Role: Primary Care Nurse Name: Not on Staff, PCP Position: [facility] Physician (General Medicine) Member Role: PCP Name: Ashleigh Levy RN Position: [facility] RN [...] RN Position: [facility] Hospital Radio Sales Account Executive Member Role: Primary Care Nurse Name: Nedra Garza Position: [facility] RN Member Role: Primary Care Nurse Care Team Related Persons Name: ESTELA WRIGHT Address: [address] [address] Name: FLORES WRIGHT Address: home [address] [place] [id number] Name: BEATRIZ WRIGHT Address: home [address] [place] [address] Name: FLORES CHAUHAN Address: home [address] [place] [address] Name: YAN CHAUHAN Address: [address] [address]
--- OUTSIDE RECORDS SUMMARY | 2023-12-06 14:43 | XMS_ITS | Continuity of Care Document ---
Author Organization [facility] Address [address] [place] [address]- Care Team Providers Care Planned Giving Officer Name Role Phone Not on Staff, PCP Primary Care Physician Unavail able Encounter [facility] [place] Date(s): 06/19/22 - 06/19/[address] [address]- Discharge Disposition: A-D/C Walkout Attending Physician: Not [...] Refills, Maintenance, 01/10/22 11:29:00 EDT, EC Tablet, [facility] #[id number], Partial fill upon patient request if the [...] 06/08/22 21:22:00 EDT, Route to Pharmacy Electronically, [facility] #[id number], Partial fill upon patient request if the p... Start Date: 06/08/22 Status: Ordered Problem List Condition Confirmation Course Effective Dates Status Health [facility] Informant Chest pain Confirmed Active Hypertension Confirmed Active Hypothyroid Confirmed Active Obese class II Confirmed Active QT prolongation Confirmed Active Results Radiology Reports * Exam Date Time Procedure Performing Provider Status 06/19/22 4:16 PM Chest 2 Views Frontal and Lat Isabel Bhakta; Auth (Verified) Notes: (Chest 2 Views Frontal and Lat) Reason For Exam: Shortness of Breath RESULT: Chest 2 Views Frontal and Lat Chest 2 Views Frontal and Lat INDICATION/CLINICAL QUESTION: Shortness of breath. Chest pressure. TECHNIQUE: Frontal and lateral views of the chest. COMPARISON: 06/08/2022. FINDINGS: LINES AND TUBES: None. LUNGS AND PLEURA: RIGHT CHEST: The right lung is clear and there is no right effusion. LEFT CHEST: The left lung is clear and there is no left effusion. HEART, MEDIASTINUM AND GUILHERME: The heart is of normal size. The mediastinum and guilherme are normal. BONES AND SOFT TISSUES: No acute bony abnormality. IMPRESSION: 1. No active disease in chest. WSN: [id number] Ordering Physician: Carol Pathak Dictated By: Jeremiah Aden MD Dictated Date/Time: 06/19/22 4:19 pm Reviewed By: Jeremiah Aden MD Signed By: Jeremiah Aden MD Signed Date/Time: 06/19/22 4:19 pm Transcribed By: RODRI Transcribed Date/Time: 06/19/22 4:19 pm Vital Signs Most recent to oldest [Reference Range]: 1 Height 168 cm (06/19/22 3:22 PM) Weight 100 kg (06/19/22 3:22 PM) Oxygen Saturation [94-100 %] 95 % (06/19/22 3:22 PM) Pulse Rate [55-90 bpm] 93 bpm *H* (06/19/22 3:22 PM) Body Mass Index [18.5-24.99 kg/m2] 35.43 kg/m2 *>HHI* (06/19/22 3:22 PM) Blood Pressure [90-138/55-84 mm Hg] 162/ 94mm Hg *H* (06/19/22 3:22 PM) Respiratory Rate [16-30 br/min] 18 br/mi n (06/19/22 3:22 PM) Temperature [96.8-100.4 DegF] 97.6 DegF (06/19/22 3:22 PM) Mode of Delivery (Oxygen) Room air (06/19/22 3:22 PM) Blood pressure sites Arm, left (06/19/22 3:22 PM) Temperature Route Oral (06/19/22 3:22 PM) Dry Weight 100 kg (06/19/22 3:22 PM) Weight Obtained Via Patient/family state d (06/19/22 3:22 PM) Dry Weight Obtained Via Patient/family s tated (06/19/22 3:22 PM) Social History Social History Type Response Smoking Status 10 or more cigarette s (1/2 pack or more)/day in last 30 days entered on: 05/24/21 Sex Note * [employer] , CIS S: TRANSCRIBE Jeremiah Aden MD: VERIFY Event Display: Result: Authored Date: [id number] Chest 2 Views Frontal and Lat INDICATION/CLINICAL QUESTION: Shortness of breath. Chest pressure. TECHNIQUE: Frontal and lateral views of the chest. COMPARISON: 06/08/2022. FINDINGS: LINES AND TUBES: None. LUNGS AND PLEURA: RIGHT CHEST: The right lung is clear and there is no right effusion. LEFT CHEST: The left lung is clear and there is no left effusion. HEART, MEDIASTINUM AND GUILHERME: The heart is of normal size. The mediastinum and guilherme are normal. BONES AND SOFT TISSUES: No acute bony abnormality. IMPRESSION: 1. No active disease in chest. WSN: [id number] Ordering Physician: Carol Pathak Dictated By: Jeremiah Aden MD Dictated Date/Time: 06/19/22 4:19 pm Reviewed By: Jeremiah Aden MD Signed By: Jeremiah Aden MD Signed Date/Time: 06/19/22 4:19 pm Transcribed By: RODRI Transcribed Date/Time: 06/19/22 4:19 pm Patient Care team information Care Team Personnel Name: Romina Henning Position: [facility] RN Member Role: Primary Care Nurse Name: Caron Short RN Position: [facility] RN Member Role: Primary Care Nurse Name: Not on Staff, PCP Position: [facility] Physician (General Medicine) Member Role: PCP Name: Ashleigh Levy RN Position: [facility] RN Member Role: Primary Care Nurse Name: Jimbo Payne RN Position: [facility] RN Member Role: Primary Care Nurse Name: Vicky Kaur RN Position: [facility] Onco RN Member Role: Primary Care Nurse Name: Flores Gross RN Position: [facility] RN Member Role: Primary Care Nurse Name: Mally Chauhan RN Position: [facility] Motor Setter Member Role: Primary Care Nurse Name: Nedra Garza Position: [facility] RN Member Role: Primary Care Nurse Care Team Related Persons Name: ESTELA WRIGHT Address: home [address] [place] [address] Name: FLORES WRIGHT Address: home [address] [place] [address] Name: BEATRIZ WRIGHT Address: home [address] [place] [address] Name: FLORES CHAUHAN Address: home [address] [place] [address] Name: YAN CHAUHAN Address: home [address] [place] [address]
--- OUTSIDE RECORDS SUMMARY | 2023-12-06 14:43 | XMS_ITS | Continuity of Care Document ---
Author Organization [facility] Address [address] [place] [address]- Care Team Providers Care Field Service Technician Name Role Phone Amelia CASTAÑEDA, Moiz Jones Primary Care Physician Encounter [facility] [place] Date(s): 09/12/23 - 09/13/[address] [address]- Discharge Disposition: A-D/C Home Attending Physician: Amish Metzger MD Admitting Physician: Amish Metzger MD Referring Physician: Not on Staff, Referring [...] Refills, Maintenance, 01/10/22 11:29:00 EDT, EC Tablet, [facility] #[id number], Partial fill upon patient request if the [...] 06/08/22 21:22:00 EDT, Route to Pharmacy Electronically, [facility] #[id number], Partial fill upon patient request if the [...] Exam Date Time Procedure Performing Provider Status 09/12/23 11:[address] Abd/Pelvis W/ Ora l Contrast Only Marcia Witt (Verified) Notes: (CT Abd/Pelvis W/ Oral Contrast Only) Reason For Exam: Abd pain, unspecified;Other: RESULT: CT Abd/Pelvis W/ Oral Contrast Only CT Abd/Pelvis W/ Oral Contrast Only INDICATION: Hx of Present Illness: Pt presents generally not feeling well for the past few days with weakness, nausea, sob, reproducible chest pain. Additionally, pt states she has been feeling depressed and suicidal. Pt has no plan.; Reason: Other:; Abd pain, unspecified; Clinical Question(s): Dive rticulitis; Special Instructions: IV contrast contraindicated; Order Comment: TECHNIQUE: Spiral CT through the abdomen and pelvis without IV contrast formatted in 3 planes. The study was performed with oral contrast. Weight-based protocol using automatic tube modulation was used to optimize exposure parameters. CTDIvol Body: 20.20 mGy, DLP Body: 1082 mGy*cm. COMPARISON: 04/25/2023 FINDINGS: Senior Information Systems Architect, Lines, and Tubes: No acute findings. Lung Bases: No suspicious lung finding. Moderate sized type III paraesophageal hernia. This is unchanged. Abdominal wall: Unremarkable. Blood vessels: Normal size aorta. Lymph nodes: No pathologically enlarged lymph nodes. Liver, gallbladder, spleen, and pancreas : Status post cholecystectomy. Genitourinary: Thickening of the left adrenal gland. There is no hydronephrosis. Unremarkable bladder. Distal right ureter is dilated. No obstructing calculus is seen. Stomach, Small bowel and Large Bowel, Peritoneum: No free air or bowel obstruction. No acute bowel pathology. Bones: No acute finding. IMPRESSION: No acute bowel pathology. Moderate sized type III paraesophageal hernia. WSN: [id number] Ordering Physician: Rochelle Rdz Dictated By: Ary Sow MD Dictated Date/Time: 09/12/23 11:37 p Reviewed By: Ary Sow MD Signed By: Ary Sow MD Signed Date/Time: 09/12/23 11:37 pm Transcribed By: RODRI Transcribed Date/Time: 09/12/23 11:27 pm * Exam Date Time Procedure Performing Provider Status 09/12/23 4:44 PM Chest 2 Views Frontal and Lat Robert Bhakta; Auth (Verified) Notes: (Chest 2 Views Frontal and Lat) Reason For Exam: Shortness of Breath, Fever;Other: RESULT: Chest 2 Views Frontal and Lat Chest 2 Views Frontal and Lat Hx of Present Illness: Pt presents generally not feeling well for the past few days with weakness, nausea, sob, reproducible chest pain. Additionally, pt states she has been feeling depressed and suicidal. Pt has no plan.; Reason: Other:; Shortness of Breath, Fever; Clinical Question(s): Pneumonia COMPARISON: 09/04/23 FINDINGS: LINES AND TUBES: None. LUNGS AND PLEURA: Clear lungs. Normal pulmonary vascularity. No pleural effusion. No pneumothorax. HEART, MEDIASTINUM AND HOLLY: Heart is normal in size. Normal mediastinal and hilar contour. BONES AND SOFT TISSUES: No acute abnormality. IMPRESSION: No radiographic evidence of acute cardiopulmonary pathology. WSN: [id number] Ordering Physician: Rochelle Rdz Dictated By: Suraj Alvarado MD Dictated Date/Time: 09/12/23 4:49 pm Reviewed By: Suraj Alvarado MD Signed By: Suraj Alvarado MD Signed Date/Time: 09/12/23 4:49 pm Transcribed By: RODRI Transcribed Date/Time: 09/12/23 4:49 pm Vital Signs Most recent to oldest [Reference Range]: 1 2 3 Oxygen Saturation [94-100 %] 95 % (09/13/23 10:14 AM) 97 % (09/13/23 6:00 AM) 98 % (09/13/23 1:03 AM) Pulse Rate [55-90 bpm] 88 bpm (09/13/23 10:14 AM) 79 bpm (09/13/23 6:00 AM) 85 bpm (09/13/23 1:03 AM) Blood Pressure [90-138/55-84 mm Hg] 132/68mm Hg (09/13/23 10:14 AM) 135/88mm Hg (09/13/23 6:00 AM) 125/79mm Hg (09/13/23 1:03 AM) Respiratory Rate [16-30 br/min] 16 br/min (09/13/23 10:14 AM) 16 br/min (09/13/23 6:00 AM) 20 br/min (09/13/23 1:03 AM) Temperature [96.8-100.4 DegF] 98.3 DegF (09/13/23 10:14 AM) 97.6 DegF (09/13/23 6:00 AM) 98.4 DegF (09/13/23 1:03 AM) Mode of Delivery (Oxygen) Room air (09/13/23 10:14 AM) Room air (09/13/23 6:00 AM) Room air (09/13/23 1:03 AM) Blood pressure sites Arm, left (09/13/23 10:14 AM) Arm, right (09/13/23 6:00 AM) Arm, right (09/13/23 1:03 AM) Temperature Route Oral (09/13/23 6:00 AM) Oral (09/13/23 1:03 AM) Oral (09/12/23 8:45 PM) Social History Social History Type Response Smoking Status 10 or more cigarette s (1/2 pack or more)/day in last 30 days; Use: 6 cigarretes/ day; Patient wants NRT during admission Yes; Type: Cigarettes; Started at age: 14; entered on: 09/03/23 Sex Patient Care team information Care Team Personnel Name: Clemencia Camargo RN Position: [facility] RN Member Role: Primary Care Nurse Name: Nikkie Tubbs Position: [facility] Outreach Member Role: Lifetime Consulting Physician Name: Caron Short RN Position: [facility] [...] Reference Physician Member Role: PCP Address: Address: [address] [place] [address] Name: Danie Maza RN Position: [facility] RN Member Role: Primary Care Nurse Name: Vicky Kaur RN Position: [facility] Onco RN Member Role: Primary Care Nurse Name: Flores Gross RN Position: [facility] RN Member Role: Primary Care Nurse Name: Mally Chauhan RN Position: [facility] Hospital Client Evaluator Member Role: Primary Care Nurse Name: Nedra Garza RN Position: [facility] RN Member Role: Primary Care Nurse Care Team Related Persons Name: ESTELA WRIGHT Address: home [address] [place] [address] Name: FLORES WRIGHT Address: home [address] [place] [address] Name: BEATRIZ WRIGHT Address: home [address] [place], [place] [id number] Name: FLORES CHAUHAN Address: home [address] [place] [address] Name: YAN CHAUHAN Address: home [address] [place] [address]
--- OUTSIDE RECORDS SUMMARY | 2023-12-06 14:43 | XMS_ITS | Continuity of Care Document ---
Author Organization [facility] ter Address [address] [place] [id number]- Care Team Providers Care Epic Ambulatory Specialists Name Role Phone Vi CASTAÑEDA, Leda Gore Primary Care Physician Encounter [facility] Date(s): 11/05/23 - 11/06/[address] [address]- Encounter Diagnosis Shortness of breath(Final) - 11/06/23 Discharge Disposition: A-D/C Home Attending Physician: Lavern [...] 08/10/02 Recorded 1Early/Late Reason: Nursing Judgment Medications Acetaminophen Tablet 975 mg, Tablet, By Mouth, Once, STAT, 11/05/23 21:23:00 EDT, Stop date 11/05/23 21:23:00 EDT Start Date: 11/05/23 Stop Date: 11/05/23 Status: Completed Advil 200 mg oral tablet 1 tablet [...] Refills, Maintenance, 01/10/22 11:29:00 EDT, EC Tablet, [facility] #[id number], Partial fill upon patient request if the [...] 1 Refills, Maintenance, 10/01/23 10:59:00 EST, Tablet, [id number], Partial fill upon patient request if the [...] 12/08/23 14:48:00 EDT, 10/21/23 14:48:00 EDT, Patch, [facility] #[id number], Partial fill upon patient request if the prescription is for a schedule II opioid drug., 1 patch Topically Daily,... Start Date: 10/21/23 Stop Date: 12/08/23 Status: Ordered tiotropium 2.5 mcg/inh inhalation aerosol 2 puffs = 5 mcg, Inhalation, Daily, # 4 Gm, 4 Refills, Maintenance, 10/21/23 14:49:00 EDT, [facility][id number], Partial fill upon patient request if the [...] Exam Date Time Procedure Performing Provider Status 11/05/23 10:[address] Abd/Pelvis W/ IV Contrast Only Marcia Witt (Verified) Notes: (CT Abd/Pelvis W/ IV Contrast Only) Reason For Exam: upper abd pain;Other: RESULT: CT Abd/Pelvis W/ IV Contrast Only CT Abd/Pelvis W/ IV Contrast Only Hx of Present Illness: from home, called ems x3 times today, ?ekg changes earlier today. short of breath starting today. when ems places on o2 feels better. c o chest pain; Reason: Other:; upper abd pain; Clinical Question(s): Biliary Obstruction; Order Comment: TECHNIQUE: Spiral CT through the abdomen and pelvis with IV contrast formatted in 3 planes. 100 cc of Omnipaque 300 was administered intravenously. This study was performed without oral contrast. Weight-based protocol using automatic tube modulation was used to optimize exposure parameters. CTDIvol Body: 22.17 mGy, DLP Body: 1218 mGy*cm. COMPARISON: 09/12/2023, 10/13/2019. FINDINGS: Cable Stretcher And Tester View Findings, Lines and Tubes: None. Visualized Chest: Lung bases are clear. No pleural effusion. The heart is normal in size. No pericardial effusion. Diaphragm: Partial eventration of both hemidiaphragms, left more than right. Liver: Right hepatic dome 0.9 cm low-attenuation lesion, stable since at least 2019 and most likelybenign. Calcified granuloma in the right hepatic lobe. Gallbladder: No CT evidence of gallbladder pathology. Bile ducts: No biliary ductal dilation. Spleen: Normal. Pancreas: Normal. Adrenal glands: Normal. Kidneys and ureters: No hydronephrosis, stones, or suspicious masses. Right distal ureter is mildlydilated and there is a short segment urothelial hyperenhancement distally just above the UVJ ([id number], series 601). Bladder: Normal. Reproductive organs: Unremarkable. Stomach, small bowel, and large bowel: Distal esophageal wall is thickened. Moderate paraesophagealhernia, containing the fluid-filled esophagus and a herniated stomach. The intrathoracic stomach isalso fluid-filled. Intra- abdominal portion of the stomach contains fluid with normal caliber. Otherwise, unremarkable small and large bowel. Appendix: Not seen, but no evidence of appendicitis. Peritoneum and retroperitoneum: No ascites or pneumoperitoneum. No omental or mesenteric lesions. Lymph nodes: No enlarged lymph nodes. Blood vessels: Normal. No aneurysm. Abdominal and pelvic wall: Unremarkable. Bones: No acute abnormality. IMPRESSION: 1. Moderate paraesophageal hernia, with the mildly dilated herniated stomach similar to prior studyin September 2023 could represent incomplete obstruction. Surgical consultation is recommended 2. Circumferential wall thickening in the distal esophagus is suggestive of esophagitis. 3. Mildly dilated right distal ureter and short segment urothelial hyperenhancement raises the concern for malignancy. Nonemergent urology consultation is recommended. I have personally reviewed the images and I agree with this report. An actionable message (Manning) has been communicated via the Strikingly system on 11/05/2023 11:07 PM, Message ID [id number]. WSN: [id number] Ordering Physician: Crystal Rodriguez Dictated By: Zohaib[Radiology] Paulo CASTAÑEDA Dictated Date/Time: 11/05/23 11:08 p Reviewed By: Ankur Aburto MD Signed By: Ankur Aburto MD Signed Date/Time: 11/05/23 11:13 pm Transcribed By: RODRI Transcribed Date/Time: 11/05/23 10:46 pm * Exam Date Time Procedure Performing Provider Status 11/05/23 7:17 PM Chest Portable MiltonCash raeChata Alvarez (Verified) Notes: (Chest Portable) Reason For Exam: Chest Pain;Other: RESULT: Chest Portable Chest Portable performed at 7:14 PM Hx of Present Illness: from home, called ems x3 times today , had two earlier refusals for sob, ?ekg changes earlier today but still refused. Short of breath starting today. When ems places on o2 feels better and then refuses. C o chest pain; Reason: Other:; Chest Pain; Clinical Question(s): Other: COMPARISON: Multiple prior chest x-rays, the most recent of which is dated 11/03/2023. FINDINGS: LINES AND TUBES: None. LUNGS AND PLEURA: New patchy airspace opacity seen in the left infrahilar region. No pleural effusion. No pneumothorax. HEART, MEDIASTINUM AND HOLLY: Heart is normal in size. Normal mediastinal and hilar contour. BONES AND SOFT TISSUES: No acute abnormality. IMPRESSION: New patchy airspace opacity in the left infrahilar region, which may reflect atelectasis or pneumonia. WSN: [id number] Ordering Physician: Steven Tompkins Dictated By: Coleen Mendosa MD Dictated Date/Time: 11/05/23 8:50 pm Reviewed By: Coleen Mendosa MD Signed By: Coleen Mendosa MD Signed Date/Time: 11/05/23 8:50 pm Transcribed By: RODRI Transcribed Date/Time: 11/05/23 8:49 pm Vital Signs Most recent to oldest [Reference Range]: 1 2 3 Oxygen Saturation [94-100 %] 96 % (11/05/23 8:51 PM) 100 % (11/05/23 7:42 PM) 98 % (11/05/23 5:59 PM) Pulse Rate [55-90 bpm] 96 bpm *H* (11/05/23 10:35 PM) 104 bpm *H* (11/05/23 8:51 PM) 92 bpm *H* (11/05/23 7:42 PM) Blood Pressure [90-138/55-84 mm Hg] 131/88mm Hg (11/05/23 10:35 PM) 162/81mm Hg *H* (11/05/23 8:51 PM) 128/72mm Hg (11/05/23 7:42 PM) Respiratory Rate [16-30 br/min] 18 br/min (11/05/23 10:42 PM) 18 br/min (11/05/23 10:35 PM) 20 br/min (11/05/23 8:51 PM) Temperature [96.8-100.4 DegF] 98.5 DegF (11/05/23 10:35 PM) 97.8 DegF (11/05/23 8:51 PM) 97.8 DegF (11/05/23 7:42 PM) Liters per Minute 1 L/min (11/05/23 5:42 PM) Mode of Delivery (Oxygen) Room air (11/05/23 8:51 PM) Room air (11/05/23 5:59 PM) Nasal cannula (11/05/23 5:42 PM) Blood pressure sites Arm, right (11/05/23 8:51 PM) Arm, right (11/05/23 5:59 PM) Temperature Route Oral (11/05/23 8:51 PM) Oral (11/05/23 7:42 PM) Oral (11/05/23 5:59 PM) Social History Social History Type Response Tobacco Interested in cessat ion: No. Yes Sex EKG study * Event Display: EKG Authored Date: * Event Display: ECG 12-Lead Authored Date: Please click on pdf link to open report * Event Display: ECG 12-Lead Authored Date: Ventricular Rate: 92 BPM Atrial Rate: 92 BPM P-R Interval: 134 ms QRS Duration: 82 ms Q-T Interval: 404 ms QTC Calculation(Bazett): 499 ms P [place]: -18 degrees R [place]: 19 degrees T [place]: 19 degrees Normal sinus rhythm Prolonged QT Abnormal ECG When compared with ECG of 04-NOV-2023 00:52, No significant change was found Confirmed by Calvin Aldridge ([id number]) on 11/06/2023 7:08:42 AM [place]: Calvin Aldridge Consult note * Kyle Whalen MD: PERFORM Event Display: Consultation Note Authored Date: Patient: ??BECKY WRIGHT ? Age:??58 Years?Sex:??Female?:??1965?? Provider Clinical Summary Consulting Physician: Dr. Rodriguez Clinical Question:??Paraesophageal hernia Consult Attending:??Dr. Merritt Chief Complaint from home, called ems x3 times today , had two earlier refusals for sob, ?ekg changes earleir todaybut still refused. short of breath starting today. when ems places on o2 feels better and then refuses. c/ochest pain. History of Present Illness Becky??is a 58-year-old female??who presented to the emergency department with shortness of breath??and CT findings concerning for??a type III paraesophageal hernia.?? Given these findings a surgicalconsultation was requested. ?? Patient was seen and evaluated bedside.?? She is resting comfortably in no acute distress.?? Sheis showing no respiratory distress on evaluation.?? She states that earlier today she was having issues with shortness of breath.?? She denies any other issues in terms of??nausea, vomiting, chest pain, fevers or chills.?? She states that she is able to swallow her own secretions??and has no issuestolerating a diet.?? She has had no recent changes to her bowel habits or urinary habits.?? When questioned about??a prior??paraesophageal hernia,??the patient is unaware of such a diagnosis.?? At the time of evaluation she states that her shortness of breath has improved and that she would like togo home.?? She denies any recent sick contacts.?? She also??does endorse??intermittent episodes of reflux. Review of Systems Negative unless specified above Physical Exam Vitals & Measurements T:??98.5?F?? TMIN:??97.8?F?? TMAX:??98.5?F?? HR:??96??(Peripheral)?? RR:??18?? BP:??131/88?? SpO2:??96%?GENERAL APPEARANCE:??Well developed, well nourished, in no acute distress. ?LUNGS:??Auscultation of the lungs revealed normal breath sounds without any other adventitious sounds or rubs. ?CARDIOVASCULAR:??There was a regular rate and rhythm without any murmurs, gallops, rubs. ?ABDOMEN:??Soft, nontender, nondistended ?EXTREMITIES:??No cyanosis, clubbing or edema. ?NEUROLOGIC:??Alert and oriented x 3. Normal affect. Assessment/Plan Becky is a 58-year-old female??who presented to the emergency department with complaints of shortness of breath and on workup was found to have a large paraesophageal hernia??with concerns for??question of obstruction. ??Given these findings a thoracic surgery consultation was requested.?? Patient was seen and evaluated bedside. ??She is afebrile and hemodynamically stable.?? Abdominal exam is grossly unremarkable. ??Labs were reviewed and showed a mild leukocytosis of 15.1. ??CT imaging was also reviewed which showed a known??paraesophageal hernia that was last seen on imaging in September,??it is unchanged.?? Based on the patient's clinical exam??and her history,??it is likely that she hashad this chronic paraesophageal hernia for some time??and that she does not currently have any symptoms of obstruction.?Given that it is a type III??paraesophageal hernia??it would be prudent to have an evaluation for surgical repair??in an elective setting.?? We will plan to set up a follow-up??appointment for the patient??to be evaluated by the thoracic surgery team??for operative repair.?? No acute surgical intervention is warranted. ?? Discussed with Dr. Merritt Thoracic surgery [id number] ?? Problem List/Past Medical History Ongoing B12 deficiency Back pain Benign essential hypertension Chest pain Chronic back pain Chronic constipation Edema leg Fibromyalgia Fragile X syndrome GERD without esophagitis Headache disorder History of traumatic brain injury Hypertension Hyponatremia Hypothyroid Leukocytosis Mild intermittent asthma Pre-diabetes Psychogenic polydipsia QT prolongation Recurrent chest pain Severe obesity (BMI 35.0-39.9) with comorbidity Procedure/Surgical History ???Appendectomy;???Cholecystectomy;???Tonsillectomy, primary or secondary; age 12 or over Medications Inpatient No active inpatient medications Home Advil 200 mg oral tablet, 200 mg= 1 tablet, By Mouth, 2 times a day albuterol CFC free 90 mcg/inh inhalation aerosol, 1 puffs, Inhalation, Every 6 hours, PRN amLODIPine 5 mg oral tablet, 5 mg= 1 tablet, By Mouth, Daily aspirin 81 mg oral delayed release tablet, 81 mg, By Mouth, Daily baclofen 10 mg oral tablet, 10 mg= 1 tablet, By Mouth, 3 times a day, PRN Belsomra 10 mg oral tablet, 10 mg= 1 tablet, By Mouth, Daily at bedtime duloxetine 60 mg oral enteric coated capsule, 60 mg= 1 capsule, By Mouth, Daily escitalopram 20 mg oral tablet, 30 mg= 1.5 tablet, By Mouth, Daily fentaNYL 50 mcg/hr transdermal film, extended release, 1 patch, Topically, Every 72 hours hydrOXYzine hydrochloride 25 mg oral tablet, 25 mg= 1 tablet, By Mouth, Daily, PRN levothyroxine 0.112 mg oral tablet, 112 mcg= 1 tablet, By Mouth LORazepam 0.5 mg oral tablet, 0.5 mg= 1 tablet, By Mouth, 2 times a day lurasidone 80 mg oral tablet, 80 mg, By Mouth, Daily at supper, 1 refills meloxicam 7.5 mg oral tablet, 7.5 mg= 1 tablet, By Mouth, 2 times a day with meals, PRN nicotine 21 mg/24 hr transdermal film, extended release, 1 patch, Topically, Daily, 1 refills tiotropium 2.5 mcg/inh inhalation aerosol, 5 mcg= 2 puffs, Inhalation, Daily, 4 refills Allergies Bactrim Contrast Dye Demerol HCl codeine penicillin sulfADIAZINE Social History Alcohol Use: Never. Electronic Cigarette/Vaping Electronic Cigarette Use: Never. Employment/School Status: Unemployed. Exercise Self assessment: Fair condition. Home/Environment Living situation: Home/Independent. Lives with: Children. Nutrition/Health Diet: Regular. Sexual Sexually involved in last 6 months: No. Substance Abuse Use: Past. Type: Marijuana. Tobacco Interested in cessation: No. Yes Immunizations Vaccine Date Status influenza virus vaccine, inactivated - Not Given Comments : Patient Refuses pneumococcal 23-valent vaccine 01/15/2011 Given Comments : Nursing Judgment pneumococcal 23-valent vaccine - Not Given Comments : Patient Refused tetanus-diphtheria toxoids (Td) 08/10/2002 Recorded Lab Results BLOOD COUNT & DIFF WBC 15.1 k/mm3 (High)?? 11/05/2023 18:13 RBC 5.25 m/mm3 ()?? 11/05/2023 18:13 Hgb 13.6 Gm/dL ()?? 11/05/2023 18:13 Hct 42.5 % ()?? 11/05/2023 18:13 MCV 81.0 femtoliters ()?? 11/05/2023 18:13 MCH 25.9 pg (Low)?? 11/05/2023 18:13 MCHC 32.0 g/dL (Low)?? 11/05/2023 18:13 Platelet Count 390 k/mm3 ()?? 11/05/2023 18:13 RDW-SD 43.2 femtoliters ()?? 11/05/2023 18:13 MPV 9.9 femtoliters ()?? 11/05/2023 18:13 Nucleated RBC (Automated) 0.0 #/100 WBC'S ()?? 11/05/2023 18:13 Abs. NRBC 0.0 k/mm3 ()?? 11/05/2023 18:13 Abs. Neut 12.2 k/mm3 (High)?? 11/05/2023 18:13 Abs. Lymph 1.9 k/mm3 ()?? 11/05/2023 18:13 Abs. Bee 0.9 k/mm3 ()?? 11/05/2023 18:13 Abs. Eo 0.0 k/mm3 ()?? 11/05/2023 18:13 Abs. Baso 0.1 k/mm3 ()?? 11/05/2023 18:13 Neut % 80.4 % (High)?? 11/05/2023 18:13 Lymph % 12.7 % (Low)?? 11/05/2023 18:13 Bee % 5.9 % ()?? 11/05/2023 18:13 Eos % 0.1 % ()?? 11/05/2023 18:13 Baso % 0.3 % ()?? 11/05/2023 18:13 Imm Gran 0.6 % ()?? 11/05/2023 18:13 Abs. Imm Gran 0.1 k/mm3 ()?? 11/05/2023 18:13 ?? CARDIAC Nt-Probnp 74 pg/mL ()?? 11/05/2023 18:13 High Sensitivity Troponin (HSTnT) 12 ng/L ()?? 11/05/2023 20:32 ?? CHEM GENERAL Sodium 133 mmol/L ()?? 11/05/2023 18:13 Potassium 4.2 mmol/L ()?? 11/05/2023 18:13 Chloride 95 mmol/L (Low)?? 11/05/2023 18:13 Bicarbonate Level 21 mmol/L (Low)?? 11/05/2023 18:13 Anion Gap 17 ()?? 11/05/2023 18:13 Glucose Level 104 mg/dL (High)?? 11/05/2023 18:13 BUN 11 mg/dL ()?? 11/05/2023 18:13 Creatinine-Blood 0.9 mg/dL ()?? 11/05/2023 18:13 Estimated GFR Creatinine 71 ML/MIN/1.73 M2 ()?? 11/05/2023 18:13 Calcium 10.2 mg/dL ()?? 11/05/2023 18:13 Lipase 38 units/L ()?? 11/05/2023 20:32 ?? COAG D-Dimer 0.42 mg/L FEU ()?? 11/05/2023 18:13 ?? UA/URINALYSIS Appear/Color, Urine COLORLESS ()?? 11/05/2023 18:15 Specific [place], Urine <1.005 ()?? 11/05/2023 18:15 pH, Urine 6.5 ()?? 11/05/2023 18:15 Albumin, Urine NEGATIVE ()?? 11/05/2023 18:15 Glucose, Urine NEGATIVE ()?? 11/05/2023 18:15 Ketones, Urine NEGATIVE ()?? 11/05/2023 18:15 Bilirubin, Urine NEGATIVE ()?? 11/05/2023 18:15 Hemoglobin, Urine NEGATIVE ()?? 11/05/2023 18:15 Nitrite, Urine NEGATIVE ()?? 11/05/2023 18:15 Leukocyte, Urine 2+ (Abnormal)?? 11/05/2023 18:15 Urobilinogen NORMAL mg/dL ()?? 11/05/2023 18:15 WBC's, Urine 11 /HPF (High)?? 11/05/2023 18:15 RBC's, Urine 1 /HPF ()?? 11/05/2023 18:15 Squamous Epith 1 /HPF ()?? 11/05/2023 18:15 Transitional Epith <1 /HPF ()?? 11/05/2023 18:15 Mucus SLIGHT /LPF ()?? 11/05/2023 18:15 ?? VIROLOGY Influenza A PCR NEGATIVE ()?? 11/05/2023 18:58 Influenza B PCR NEGATIVE ()?? 11/05/2023 18:58 RSV PCR NEGATIVE ()?? 11/05/2023 18:58 COVID-19 PCR Result NEGATIVE ()?? 11/05/2023 18:58 ?? Images * Final Report * ?? Reason For Exam upper abd pain;Other: ?? RESULT: CT Abd/Pelvis W/ IV Contrast Only CT Abd/Pelvis W/ IV Contrast Only? Hx of Present Illness: from home, called ems x3 times today, ?ekg changes earlier today. short of breath starting today. when ems places on o2 feels better. c o chest pain; Reason: Other:; upper abd pain; Clinical Question(s): Biliary Obstruction; Order Comment: ?? TECHNIQUE: Spiral CT through the abdomen and pelvis with IV contrast formatted in 3 planes. 100 cc of Omnipaque 300 was administered intravenously. This study was performed without oral contrast. Weight-based protocol using automatic tube modulation was used to optimize exposure parameters.? CTDIvol Body: 22.17 mGy, ??DLP Body: 1218 mGy*cm. ? COMPARISON: 09/12/2023, 10/13/2019. ?? FINDINGS:? Cable Stretcher And Tester View Findings, Lines and Tubes: None. ?? Visualized Chest: Lung bases are clear. No pleural effusion. The heart is normal in size. No pericardial effusion. ?? Diaphragm: Partial eventration of both hemidiaphragms, left more than right.? Liver: Right hepatic dome 0.9 cm low-attenuation lesion, stable since at least 2019 and most likelybenign. Calcified granuloma in the right hepatic lobe. ?? Gallbladder: No CT evidence of gallbladder pathology. ?? Bile ducts: No biliary ductal dilation. ?? Spleen: Normal. ?? Pancreas: Normal. ?? Adrenal glands: Normal. ?? Kidneys and ureters: No hydronephrosis, stones, or suspicious masses. Right distal ureter is mildlydilated and there is a short segment urothelial hyperenhancement distally just above the UVJ ([id number], series 601).? Bladder: Normal. ?? Reproductive organs: Unremarkable. ?? Stomach, small bowel, and large bowel: Distal esophageal wall is thickened. Moderate paraesophagealhernia, containing the fluid-filled esophagus and a herniated stomach. The intrathoracic stomach isalso fluid-filled. Intra- abdominal portion of the stomach contains fluid with normal caliber. Otherwise, unremarkable small and large bowel. ?? Appendix: Not seen, but no evidence of appendicitis. ?? Peritoneum and retroperitoneum: No ascites or pneumoperitoneum. No omental or mesenteric lesions. ?? Lymph nodes: No enlarged lymph nodes. ?? Blood vessels: Normal. No aneurysm.? Abdominal and pelvic wall: Unremarkable. ?? Bones: No acute abnormality. ?? IMPRESSION:? 1. ??Moderate paraesophageal hernia, with the mildly dilated herniated stomach similar to prior study in September 2023 could represent incomplete obstruction. Surgical consultation is recommended 2. ??Circumferential wall thickening in the distal esophagus is suggestive of esophagitis.?? 3. ??Mildly dilated right distal ureter and short segment urothelial hyperenhancement raises the concern for malignancy. Nonemergent urology consultation is recommended.? I have personally reviewed the images and I agree with this report. ?? An actionable message ([place]) has been communicated via the Strikingly system on 11/05/2023 11:07 PM, Message ID [id number]. WSN: [id number] ? Ordering Physician: Crystal Rodriguez? Signature Line Dictated By: ?Zohaib[Radiology] Paulo CASTAÑEDA Dictated Date/Time: ?11/05/23 11:08 p Reviewed By: ?Ankur Aburto MD Signed By: ? Ankur Aburto MD Signed Date/Time: ? 11/05/23 11:13 pm Transcribed By: ? CSB Transcribed Date/Time: ?11/05/23 10:46 pm ? CT Abd/Pelvis W/ IV Contrast Only This document has an image Patient Care team information Care Team Personnel Name: Leda Lebron MD Position: [facility] Physician (General Medicine) Member Role: PCP Address: Address: [address] [place] [address] Name: Clemencia Camargo RN Position: [facility] RN Member Role: Primary Care Nurse Name: Nikkie Tubbs Position: [facility] Outreach Member Role: Lifetime Consulting Physician Name: Tavon Powell Position: [facility] RN Member Role: Primary Care Nurse Name: Caron Short RN Position: [facility] RN Member Role: Primary Care Nurse Name: Prachi Negron RN Position: [facility] RN Member Role: Primary Care Nurse Name: Tami Soler RN Position: [facility] RN Member Role: Primary Care Nurse Name: Ashleigh Mercado RN Position: [facility] RN Member Role: Primary Care Nurse Name: Heidi Moreland Position: [facility] RN Member Role: Primary Care Nurse Name: Ashleigh Levy RN Position: [facility] Onco RN Member Role: Primary Care Nurse Name: Jimbo Payne RN Position: [facility] RN Member Role: Primary Care Nurse Name: Danie Maza RN Position: [facility] RN Member Role: Primary Care Nurse Name: Vicky Kaur RN Position: [facility] Onco RN Member Role: Primary Care Nurse Name: Flores Gross RN Position: [facility] RN Member Role: Primary Care Nurse Name: Mally Chauhan RN Position: [facility] Hospital [employer] Frier Member Role: Primary Care Nurse Name: Nedra Garza RN Position: [facility] RN Member Role: Primary Care Nurse Care Team Related Persons Name: ESTELA WRIGHT Address: [place] [address] Name: FLORES WRIGHT Address: [place] [address] Name: BEATRIZ WRIGHT Name: FLORES CHAUHAN Address: home [address] [place] [id number] Name: YAN CHAUHAN Address: [place] [address]
--- OUTSIDE RECORDS SUMMARY | 2023-12-06 14:43 | XMS_ITS | Continuity of Care Document ---
Author Organization [facility] Address [address] [place] [address]- Care Team Providers Care Bleach Machine Operator Name Role Phone Vi CASTAÑEDA, Leda Gore Primary Care Physician [phone] Encounter [facility] Date(s): 05/03/21 - 05/03/[address] [address]- Discharge Disposition: A-D/C Walkout Attending Physician: Not [...] 2 Oxygen Saturation [94-100 %] 100 % (05/03/21 9:51 AM) 100 % (05/03/21 9:24 AM) Pulse Rate [55-90 bpm] 103 bpm *H* (05/03/21 9:51 AM) 94 bpm *H* (05/03/21 9:24 AM) Blood Pressure [90-138/55-84 mm Hg] 124/ 89mm Hg (05/03/21 9:51 AM) 120/53mm Hg (05/03/21 9:24 AM) Respiratory Rate [16-30 br/min] 17 br/mi n (05/03/21 9:51 AM) 18 br/min (05/03/21 9:24 AM) Temperature [96.8-100.4 DegF] 99.2 DegF (05/03/21 9:24 AM) Mode of Delivery (Oxygen) Room air (05/03/21 9:51 AM) Room air (05/03/21 9:24 AM) Blood pressure sites Arm, right (05/03/21 9:51 AM) Arm, left (05/03/21 9:24 AM) Temperature Route Oral (05/03/21 9:24 AM) Social History Social History Type Response Smoking Status Never smoker entered on: 12/04/16 Sex
--- OUTSIDE RECORDS SUMMARY | 2023-12-06 14:43 | XMS_ITS | Continuity of Care Document ---
Author Organization [facility] Address [address] [place] [id number]- Care Team Providers Care Commercial Energy Auditor Name Role Phone Vi CASTAÑEDA, Leda Gore Primary Care Physician Encounter [facility] [place] Date(s): 04/16/22 - 04/16/[address] [address]- Discharge Disposition: A-D/C Walkout Attending Physician: Not [...] Refills, Maintenance, 01/10/22 11:29:00 EDT, EC Tablet, [id number], Partial fill upon patient request if the [...] 1 Oxygen Saturation [94-100 %] 98 % (04/16/22 7:29 PM) Pulse Rate [55-90 bpm] 102 bpm *H* (04/16/22 7:29 PM) Blood Pressure [90-138/55-84 mm Hg] 168/ 94mm Hg *H* (04/16/22 7:29 PM) Respiratory Rate [16-30 br/min] 18 br/mi n (04/16/22 7:29 PM) Temperature [96.8-100.4 DegF] 97.8 DegF (04/16/22 7:29 PM) Mode of Delivery (Oxygen) Room air (04/16/22 7:29 PM) Blood pressure sites Arm, right (04/16/22 7:29 PM) Temperature Route Oral (04/16/22 7:29 PM) Social History Social History Type Response Smoking Status 10 or more cigarette s (1/2 pack or more)/day in last 30 days entered on: 05/24/21 Sex Care Team Personnel Name: Vi CASTAÑEDA, Leda Gore Address: [address] [place] [phone]-
--- OUTSIDE RECORDS SUMMARY | 2023-12-06 14:43 | XMS_ITS | Continuity of Care Document ---
Author Organization [facility] Address [address] [place] [address]- Care Team Providers Care Automotive Detailer Name Role Phone Vi CASTAÑEDA, Leda Gore Primary Care Physician [place] [facility] [place] - 05/30/[address] [address] Discharge Disposition: A-D/C Walkout Attending Physician: Not [...] Range]: 1 2 3 Height 168 cm (05/30/20 9:01 PM) 168 cm (05/30/20 8:33 PM) Weight 97 kg (05/30/20 9:01 PM) 97 kg (05/30/20 8:33 PM) Oxygen Saturation [94-100 %] 96 % (05/30/20 10:15 PM) 98 % (05/30/20 8:33 PM) 99 % (05/30/20 8:16 PM) Pulse Rate [55-90 bpm] 92 bpm *H* (05/30/20 10:15 PM) 84 bpm (05/30/20 8:33 PM) Body Mass Index [18.5-24.99] 34.37 *>HHI* (05/30/20 8:33 PM) Blood Pressure [90-138/55-84 mm Hg] 129/88mm Hg (05/30/20 10:15 PM) 148/97mm Hg *H* (05/30/20 8:33 PM) Respiratory Rate [16-30 br/min] 16 br/min (05/30/20 10:15 PM) 16 br/min (05/30/20 8:33 PM) Temperature [96.8-100.4 DegF] 98.2 DegF (05/30/20 10:15 PM) 98.4 DegF (05/30/20 8:33 PM) Liters per Minute 2 L/min (05/30/20 8:16 PM) Mode of Delivery (Oxygen) Room air (05/30/20 10:15 PM) Room air (05/30/20 8:33 PM) Nasal cannula (05/30/20 8:16 PM) Blood pressure sites Arm, right (05/30/20 10:15 PM) Arm, left (05/30/20 8:33 PM) Temperature Route Oral (05/30/20 10:15 PM) Oral (05/30/20 8:33 PM) Dry Weight 97 kg (05/30/20 9:01 PM) 97 kg (05/30/20 8:33 PM) Weight Obtained Via Patient/family stated (05/30/20 8:33 PM) Dry Weight Obtained Via Patient/family stated (05/30/20 8:33 PM) Social History Social History Type Response Smoking Status Never smoker entered on: 12/04/16 Sex
--- OUTSIDE RECORDS SUMMARY | 2023-12-06 14:43 | XMS_ITS | Continuity of Care Document ---
Author Organization [facility] Address [address] [place] [id number]- Care Team Providers Care Grants Administrator Name Role Phone Amelia CASTAÑEDA, Moiz Jones Primary Care Physician Encounter [facility] [place] Date(s): 09/07/23 - 09/07/[address] [address]- Encounter Diagnosis Depression(Final) - 09/07/23 Bipolar disorder(Final) - 09/07/23 Fragile X syndrome(Final) - 09/07/23 Suicidal ideation(Final) - 09/07/23 Back pain(Final) - 09/07/23 Discharge Disposition: A-D/C Home Attending Physician: Amish [...] Refills, Maintenance, 01/10/22 11:29:00 EDT, EC Tablet, [facility] #[id number], Partial fill upon patient request if the [...] opioid drug. Start Date: 01/22/23 Status: Ordered ibuprofen 600 mg oral tablet 600 mg, Tablet, By Mouth, 3 times a day, PRN for Pain , Mild, Routine, 09/07/23 13:26:00 EST Start Date: 09/07/23 Stop Date: 09/08/23 Status: Discontinued Latuda 120 mg oral tablet 1 tablet [...] 06/08/22 21:22:00 EDT, Route to Pharmacy Electronically, [facility] #[id number], Partial fill upon patient request if the p... Start Date: 06/08/22 Status: Ordered Tylenol 325 mg oral tablet 650 mg, Tablet, By Mouth, Every 6 hours, PRN for Pain , Mild, Routine, 09/07/23 13:26:00 EST Start Date: 09/07/23 Stop Date: 09/08/23 Status: Discontinued Problem List Condition Confirmation Course Effective Dates [...] 3 Oxygen Saturation [94-100 %] 97 % (09/07/23 4:24 PM) 98 % (09/07/23 1:22 PM) 99 % (09/07/23 12:27 PM) Pulse Rate [55-90 bpm] 81 bpm (09/07/23 4:24 PM) 89 bpm (09/07/23 1:22 PM) 94 bpm *H* (09/07/23 12:27 PM) Blood Pressure [90-138/55-84 mm Hg] 148/78mm Hg *H* (09/07/23 4:24 PM) 154/94mm Hg *H* (09/07/23 1:22 PM) 151/85mm Hg *H* (09/07/23 12:27 PM) Respiratory Rate [16-30 br/min] 19 br/min (09/07/23 4:24 PM) 19 br/min (09/07/23 2:06 PM) 18 br/min (09/07/23 2:06 PM) Temperature [96.8-100.4 DegF] 98.1 DegF (09/07/23 1:22 PM) 98.5 DegF (09/07/23 12:27 PM) Mode of Delivery (Oxygen) Room air (09/07/23 4:24 PM) Room air (09/07/23 1:22 PM) Room air (09/07/23 12:27 PM) Blood pressure sites Arm, left (09/07/23 4:24 PM) Arm, right (09/07/23 1:22 PM) Arm, right (09/07/23 12:27 PM) Temperature Route Oral (09/07/23 1:22 PM) Oral (09/07/23 12:27 PM) Social History Social History Type Response Smoking Status 10 or more cigarette s (1/2 pack or more)/day in last 30 days; Use: 6 cigarretes/ day; Patient wants NRT during admission Yes; Type: Cigarettes; Started at age: 14; entered on: 1/25/24 Sex Patient Care team information Care Team Personnel Name: Clemencia Camargo RN Position: [facility] RN Member Role: Primary Care Nurse Name: Caron Short RN Position: [facility] RN Member Role: Primary Care Nurse Name: Ashleigh Mercado RN Position: [facility] RN Member Role: Primary Care Nurse Name: Ashleigh Levy RN Position: [facility] Onco RN Member Role: Primary Care Nurse Name: Jimbo Payne RN Position: [facility] RN Member Role: Primary Care Nurse Name: Moiz Cisneros MD Position: Reference Physician Member Role: PCP Address: Address: [address] [place] [address] Name: Danie Maza RN Position: [facility] RN Member Role: Primary Care Nurse Name: Vicky Kaur RN Position: [facility] Onco RN Member Role: Primary Care Nurse Name: Delmy Gross RN Position: [facility] RN Member Role: Primary Care Nurse Name: Mally Chauhan RN Position: [facility] Pharmaceutical Engineer Member Role: Primary Care Nurse Name: Nedra Garza RN Position: [facility] RN Member Role: Primary Care Nurse Care Team Related Persons Name: ESTELA WRIGHT Address: home [address] [place] [id number] Name: DELMY WRIGHT Address: home [address] [place] [id number] Name: BEATRIZ WRIGHT Address: home [address] [place] [address] Name: DELMY CHAUHAN Address: home [address] [place] [id number] Name: YAN CHAUHAN Address: home [address] [place] [address]
[2023-12-06 14:55] LABS: Alanine Aminotransferase 16 U/L (0-31); Albumin Level 3.8 g/dL (3.5-5.0); Alkaline Phosphatase 78 U/L (39-117); Anion Gap 16 (12-20); Aspartate Amino Transferase 13 U/L (5-31); Bilirubin Total 0.3 mg/dL (0.0-1.0); Blood Urea Nitrogen 10 mg/dL (9-16); Carbon Dioxide 22 mmol/L (22-29); Chloride 102 mmol/L (96-108); Creatinine Clr Calc Pharmacy 53.5; Estimated Glomerular Filt Rate > 60; Glucose Random 74 mg/dL (60-115); Potassium 3.9 mmol/L (3.3-5.1); Sodium 136 mmol/L (135-145); Total Protein 6.2 g/dL (6.5-8.0)
[2023-12-06 14:59] LABS: B Type Natriuretic Peptide 58 pg/mL (<100)
[2023-12-06 15:02] LABS: Troponin-I High Sensitivity 3.2 ng/L (<3.5-17.0)
[2023-12-06 16:01] VITALS: BP 153/84; PULSE 85; RESP 14; O2SAT 98
[2023-12-06 16:15] LABS: Appearance Urine Clear; Color Urine Yellow; Glucose Urine UA Negative (Negative); Leukocyte Esterase Urine Moderate (2+) (Negative); Nitrite Urine Negative (Negative); PH 6.5 (5.0-9.0); UMIC TRIGGER UACC YES; Urine Blood Negative (Negative); Urine Ketones Negative (Negative); Urine Protein 30 (1+) mg/dL (Neg-Trace)
[2023-12-06 16:17] LABS: Bacteria Urine Trace (None Seen); Hyaline Casts Urine 0-2 /LPF (0-2); RBC Urine 0-2 /HPF (0-2); UACC Culture Trigger YES; WBC Urine 21-50 /HPF (0-5)
[2023-12-06] MEDS: Nitrofurantoin Monohyd/M-Cryst 100 MG CAPSULE PO (17:03)
--- NOTE | 2023-12-06 17:03 | PC.NURSE ---
abx administered per provider order. pt provided w/ snacks upon request. pt aware of plan of care moving forward. paralegal legal secretary working on transportation back to [facility] at this time. will update pt w/ ETA.
[2023-12-06 18:07] VITALS: BP 154/76; PULSE 97; RESP 18; TEMP 36.8; O2SAT 97
--- NOTE | 2023-12-06 18:20 | PC.NURSE ---
report given to AMY Pederson at [facility] at this time. pt being transported back to [facility] at this time.
[2023-12-06 18:21] VITALS: BP 154/76; PULSE 97; RESP 18; TEMP 36.8; O2SAT 97
== END 2023-12-06 18:21 | disposition other institution (70) ==
PROVIDERS: Emergency Provider Student in an Organized Health Care Education/Training Program
DX: R07.89 Other chest pain (principal); N39.0 Urinary tract infection, site not specified
CPT/HCPCS: 36415; 71045; 80053; 81001; 83880; 84484; 85025; 87086; 93005

== ENCOUNTER → 2023-12-06 14:35 | Outpatient (BNV) | payer MEDICARE, MEDICAID, SELFPAY | PROVIDERS: Emergency Provider Student in an Organized Health Care Education/Training Program; Visit Provider Internal Medicine | DX: R07.9 Chest pain, unspecified (principal) | CPT/HCPCS: 93010 ==

== ENCOUNTER 2023-12-06 21:30 | Emergency (ER) | payer OTHER, MEDICARE, MEDICAID, SELFPAY ==
--- NOTE | 2023-12-06 | ECG_ITS ---
Test Reason : CHEST PAIN Blood Pressure : / mmHG Vent. Rate : 091 BPM Atrial Rate : 091 BPM P-R Int : 130 ms QRS Dur : 074 ms QT Int : 376 ms P-R-T Axes : 000 017 006 degrees QTc Int : 462 ms Normal sinus rhythm Nonspecific ST and T wave abnormality When compared with ECG of 06-DEC-2023 14:35, Nonspecific ST and T wave abnormality noted Referred By: Raza Wall Electronically Signed By:AIDEN DUMONT
[2023-12-06 21:37] VITALS: BP 134/89; BP 149/83; PULSE 87; PULSE 90; RESP 16; TEMP 36.6; O2SAT 95; O2SAT 97; BMI 32.7
--- NOTE | 2023-12-06 21:41 | ED_ITS ---
HPI - General Adult General Chief complaint: General Medical Stated complaint: HTN, WAS HERE EARLIER FOR SAME ISSUE Time Seen by Provider: 12/06/23 21:35 Source: patient Mode of arrival: EMS Limitations: no limitations History of Present Illness HPI narrative: Patient came from [facility] where she was admitted for depression and SI on 12/04/2023 was seen here earlier at 14:00 for atypical chest pain workup was ne stevie comes back again as was feeling short of breath diaphoresis and slightly elevated blood pressure 150/90 also was feeling slight chest tightness patient noticed a UTI and prescribed Macrobid Related Data Previous Rx's ?Medication ?Instructions ?Recorded nitrofurantoin 100 mg PO Q12H 7 days #14 caps 12/06/23 monohydrate/macrocrystals 100 mg capsule (Macrobid) Allergies Allergy/AdvReac Type Severity Reaction Status Date / Time Penicillins Allergy Rash Verified 12/06/23 21:40 Sulfa (Sulfonamide Allergy Rash Verified 12/06/23 21:40 Antibiotics) Review of Systems Review of Systems: Yes all other systems are reviewed and are negative [facility] Past Medical History Medical History Hypothyroidism Hypertension Depression with suicidal ideation COPD (chronic obstructive pulmonary disease) Social History Social History Advance Directives: No Advance Directives Information Provided: No Do you have a plan to hurt others: No Plan Physical Exam ED Vital Signs: Vital Signs - 24 hr 12/06/23 21:37 12/06/23 21:54 Temperature 98 F Pulse Rate 87 86 Respiratory Rate 16 18 Blood Pressure 149/83 H Pulse Oximetry 97 Oxygen Delivery Method Room Air BMI result Body Mass Index 32.7 Appearance: Alert. Oriented X3. No acute distress. Eyes: No pallor or icterus ENT: Pharynx normal. Oral Mucosa moist Neck: Normal inspection. Neck supple. CVS: Normal heart rate and rhythm. Pulses normal. Respiratory: No respiratory distress. Equal air entry bilateral, bilateral prolonged expiration with wheezing Abdomen: Soft and nontender. Bowel sounds are present, no mass palpable, no CVA tenderness Skin: Skin warm and dry. Normal skin color. Normal skin turgor. Extremities: No lower extremity edema. No calf tenderness Neuro: Oriented X 3. No motor deficit. Medications Administered Discontinued Medications Generic Name Dose Route Start Last Admin Trade Name Dominique PRN Reason Stop Dose Admin Benzonatate 200 mg 12/06/23 21:46 12/06/23 22:31 Benzonatate 100 Mg Capsule PO 12/06/23 21:47 200 mg ONCE ONE Administration Albuterol Sulfate 2.5 mg/ 0 mg 12/06/23 21:46 12/06/23 21:53 Albuterol/Ipratropium 3 ml INHALE 12/06/23 21:47 5 dose ONCE ONE Administration Medical Decision Making Medical Decision Making [facility] Narrative: Patient's COPD/asthma came for increased wheezing and cough was prescribed Tessalon DuoNeb treatment patient feeling much better saturating 98% at room air vitals are stable will discharge patient back to [facility] 2 sets of cardiac enzymes are negative EKG without any ischemic changes Differential Diagnosis Differential Diagnoses: The differential diagnosis associated with the presentation includes Acute bronchitis/COPD/atypical chest pain Lab Data [facility] Lab Attestation statement: I reviewed the patient's lab results. Labs: Lab Results 12/06/23 Range/Units 22:14 Troponin I High Sens 4.4 (<3.5-17.0) ng/L Independent Interpretation I performed an independent interpretation of an: EKG Interpretation: Normal sinus rhythm heart rate 91 beats per minute normal intervals normal axis no acute ST-T no acute ischemia Discharge Plan Discharge Clinical Impression: COPD (chronic obstructive pulmonary disease) Patient Disposition[facility] Instructions: COPD (Chronic Obstructive Pulmonary Disease) (DC) Additional Instructions: Continue nebulizing treatment at longterm as prescribed Cough drops as prescribed Prednisone as prescribed Prescriptions: No Action nitrofurantoin monohyd/m-cryst [Macrobid] 100 mg capsule 100 mg PO Q12H 7 Days Qty: 14 0RF Rx Instructions: must administer with a meal/food Print Language: Scottish
[2023-12-06] MEDS: Albuterol Sulfate 2.5 MG, Albuterol/Iprat 2.5/0.5MG 3 ML 3 ML INHALE (21:53)
[2023-12-06 21:54] VITALS: PULSE 86; RESP 18; O2SAT 95
[2023-12-06] MEDS: Benzonatate 100 MG CAPSULE 200 MG PO (22:31)
[2023-12-06 22:41] LABS: Troponin-I High Sensitivity 4.4 ng/L (<3.5-17.0)
[2023-12-06 23:16] VITALS: PULSE 93; RESP 18; O2SAT 97
[2023-12-06] MEDS: Albuterol Sulfate (0.083%) 2.5 MG/3 ML VIAL.NEB 5 MG INHALE (23:16)
[2023-12-07] MEDS: dexAMETHasone 2 MG TABLET 10 MG PO (00:47)
[2023-12-07 00:57] VITALS: BP 128/73; PULSE 103; RESP 16; TEMP 36.6; O2SAT 98
[2023-12-07 00:58] VITALS: BP 128/73; PULSE 103; RESP 16; TEMP 36.6; O2SAT 98
== END 2023-12-07 00:58 ==
PROVIDERS: Emergency Provider Internal Medicine
DX: J44.9 Chronic obstructive pulmonary disease, unspecified (principal); I10 Essential (primary) hypertension
CPT/HCPCS: 36415; 71045; 80053; 81001; 83880; 84484; 85025; 87086; 93005; 94640; 99285; J8540